=== PATIENT | female | born 1965 | race Caucasian/White ===

== ENCOUNTER 2016-10-30 06:24 | Day surgery (SDC) | payer BC ==
[2016-10-25 12:07] VITALS: BMI 29.8
[~2016-10-30 06:24] MED LIST: DEXAMETHASONE SOD PHOSPHATE 10 MG/ML 1 ML VIAL IV ONE; HEPARIN SODIUM,PORCINE 5,000 UNIT/ML 1 ML VIAL SQ ONE; HYDROmorphone 1 MG/ML 1 ML SYRINGE IVP PRN; LACTATED RINGERS 1,000 ML IV SCH; LIDOCAINE 1% 20 ML VIAL (10MG/ML) FOR IV START INTRADERMA PRN; SCOPOLAMINE 1.5MG/72HR PATCH TRANSDERM ONE; ceFAZolin 2 GM in SODIUM CHLORIDE 0.9% 100 ML IVPB ONE
[2016-10-30 07:13] VITALS: RESP 16; TEMP 98.6
[2016-10-30] MEDS ORDERED: HEPARIN SODIUM,PORCINE 100 UNIT/ML 5 ML VIAL IV ONE ×2 (07:24→08:13)
[2016-10-30] MEDS ORDERED: LIDOCAINE 1% INJ 10MG/ML (20 ML MDV) SQ ONE ×3 (07:25→08:13)
--- NOTE | 2016-10-30 07:47 | P.GSHP ---
History of Present Illness H&P Date: 10/30/16 Chief Complaint: Lung cancer Patient here today for Port-A-Cath placement. She has a recent diagnosis of lung cancer. Mild shortness of breath at times. Cancers right-sided. No pain currently Past Medical History Past Medical History: Cancer, GERD/Reflux Additional Past Medical History / Comment(s): RIGHT LUNG CANCER (DX AUG 2016)- RECEIVING RADIATION [place]., VARICOSE VEINS, STATES CHEST PAIN FROM COUGHING AT TIMES. History of Any Multi-Drug Resistant Organisms: None Reported Past Surgical History: Orthopedic Surgery, Tubal Ligation Additional Past Surgical History / Comment(s): foot surgery., LUNG BX Past Anesthesia/Blood Transfusion Reactions: No Reported Reaction Past Psychological History: No Psychological Hx Reported Smoking Status: Former smoker Past Alcohol Use History: Rare Additional Past Alcohol Use History / Comment(s): SMOKED 1 PPD FOR 30-35 YEARS. QUIT SMOKING AUG 2016 Past Drug Use History: None Reported - Past Family History Father Family Medical History: Cancer Additional Family Medical History / Comment(s): lung cancer Medications and Allergies Home Medications Medication Instructions Recorded Confirmed Type Multivitamins, Thera [Multivitamin] 1 tab PO DAILY 09/14/16 10/25/16 History Albuterol Nebulized [Ventolin 2.5 mg INHALATION Q4-6H 10/25/16 10/25/16 History Nebulized] Folic Acid 1 mg PO DAILY 10/25/16 10/25/16 History Furosemide [Lasix] 20 mg PO DIRECTED PRN 10/25/16 10/25/16 History HYDROcodone/APAP 5-325MG [[place] 1 each PO DIRECTED PRN 10/25/16 10/25/16 History 5-325] Ibuprofen [Motrin] 200 - 400 mg PO DIRECTED PRN 10/25/16 10/25/16 History Maalox/Benadryl Mix 1 dose PO QID PRN 10/25/16 History Ondansetron HCl 8 mg PO Q8HR PRN 10/25/16 10/25/16 History Tiotropium [place] [Spiriva] 1 cap INHALATION DAILY 10/25/16 10/25/16 History guaiFENesin/CODEINE PHOSPHATE 2 tsp PO TID PRN 10/25/16 10/25/16 History [Cheratussin AC Syrup] Allergies Allergy/AdvReac Type Severity Reaction Status Date / Time No Known Allergies Allergy Verified 10/25/16 11:47 Surgical - Exam Vital Signs Temp Pulse Resp BP Pulse Ox 98.6 F 116 H 16 104/64 93 L 10/30/16 07:00 10/30/16 07:00 10/30/16 07:00 10/30/16 07:00 10/30/16 07:00 Physical exam: General: Well-developed, well-nourished HEENT: Normocephalic, sclerae nonicteric Abdomen: Nontender, nondistended Extremities: No edema Neuro: Alert and oriented Assessment and Plan (1) Adenocarcinoma of lung Narrative/Plan: Will proceed with Port-A-Cath placement today. The risks of bleeding, infection , pneumothorax, DVT, catheter malfunction were discussed. She understands and wishes to proceed. Status: Acute
[2016-10-30] MEDS ORDERED: MIDAZOLAM 2 MG/2 ML VIAL ONE (07:56)
[2016-10-30] MEDS ORDERED: SODIUM CHLORIDE 0.9% 100 ML BAG ONE (07:56)
[2016-10-30] MEDS ORDERED: fentaNYL (PF) 50 MCG/ML 2 ML AMP ONE (07:56)
[2016-10-30] MEDS ORDERED: PROPOFOL 10 MG/ML 20 ML VIAL IV ONE (07:56)
[2016-10-30] MEDS ORDERED: ceFAZolin 1,000 MG VIAL ONE (07:56)
[2016-10-30] MEDS ORDERED: NALOXONE 0.4 MG/ML 1 ML VIAL IV PRN (09:10)
--- NOTE | 2016-10-30 09:12 | P.PCN ---
Date of Procedure: 10/30/16 Procedure(s) Performed: PREOPERATIVE DIAGNOSIS: Lung cancer POSTOPERATIVE DIAGNOSIS: Same PROCEDURE: Port-A-Cath placement SURGEON: Mary EBL: Minimal ANESTHESIA: Sedation COMPLICATIONS: None OPERATIVE PROCEDURE: Patient was brought and placed on the operative table in the supine position. The patient was sedated per anesthesia that time. The chest and neck were prepped and draped in usual sterile fashion. The ultrasound probe was used to identify the location of the right internal jugular vein. The skin was localized with lidocaine. The Seldinger needle was advanced into the IJ under ultrasound guidance. The wire was advanced through the needle under fluoroscopic guidance into the superior vena cava. A port pocket was created in the right infraclavicular location. The catheter was tunneled from the wire entrance site to the port pocket. The port was then connected to the catheter. The dilator introducer was threaded over the guidewire. The guidewire and dilator were then removed. The catheter was advanced through the introducer and introducer was then removed. The tip was seen to be in the right atrial junction. Port was flushed with both saline and a Hep-Lock solution. There was good flow both in and out of the port. The port was sutured in underlying tissues using 3-0 Vicryl sutures. The subcutaneous tissues were reapproximated using 3-0 Vicryl sutures and the skin at both locations using 4-0 Monocryl sutures. The port was accessed with a Hess needle left in place. Steri-Strips and sterile dressings then applied. DISPOSITION: Stable to recovery room
--- NOTE | 2016-10-30 09:18 | FL ---
EXAMINATION TYPE: FL guided central line placemt DATE OF EXAM: 10/30/2016 8:39 AM COMPARISON: NONE HISTORY: Port-A-Cath insertion Fluoroscopy support supplied to the referring clinician. See dictated report from general surgery, 7 seconds fluoroscopy time, intraoperative C-arm image documents the procedure
--- NOTE | 2016-10-30 09:37 | XR ---
EXAMINATION TYPE: XR chest 1V confirm line [facility] DATE OF EXAM: 10/30/2016 9:24 AM COMPARISON: Prior chest x-ray 14 September 2016 HISTORY: Status post Port-A-Cath placement TECHNIQUE: Single frontal view of the chest is obtained. FINDINGS: There is been interval placement of a right sided Port-A-Cath, distal tip coursing towards the cavoatrial junction level. [place] of the catheter is not identified. Right jugular approach is johnny pected. No evident pneumothorax. Consolidation persists at the right lung base. IMPRESSION: No evident complication status post Port-A-Cath placement.
[2016-10-30 10:03] VITALS: BP 100/67; PULSE 110
== END 2016-10-30 10:54 | disposition home or self-care (01) ==
LOC: OR 06:24
PROVIDERS: ATTEND Surgery
DX: Z45.2 Encounter for adjustment and management of vascular access device (principal); C34.90 Malignant neoplasm of unspecified part of unspecified bronchus or lung; R60.0 Localized edema; K21.9 Gastro-esophageal reflux disease without esophagitis; Z79.1 Long term (current) use of non-steroidal anti-inflammatories (NSAID); Z79.891 Long term (current) use of opiate analgesic; Z79.899 Other long term (current) drug therapy; Z92.3 Personal history of irradiation; Z87.891 Personal history of nicotine dependence
CPT/HCPCS: 36561; 81025; 77001; C1788; J2250; J1644; J1642; J0690; J2001; J3010; J2704; 99152; 99153

== ENCOUNTER → 2016-12-19 | Outpatient (CLI) | payer BC ==
[2016-12-19 14:29] LABS: Blood Urea Nitrogen 17 mg/dL (7-17); Non-African American GFR(MDRD) >60 (>60 ml/min/1.73 sqM)
--- NOTE | 2016-12-19 15:49 | CT ---
EXAMINATION TYPE: CT ChestAbdPelvis w con DATE OF EXAM: 12/19/2016 3:34 PM COMPARISON: 09/14/2016, 09/21/2016 HISTORY: Lung cancer follow-up. CT DLP: 1769.00 mGycm Automated exposure control for dose reduction was used. CONTRAST: CT scan of the chest, abdomen and pelvis is performed with Oral Contrast and with IV Contrast, patien t injected with 100 mL of Omnipaque 300. FINDINGS: LUNGS: Emphysematous changes are noted. Is a large mass within the anterior segment of the right uppe r lobe measuring 5.3 x 5.2 cm. Small amount of adjacent pleural fluid noted. There may be a tiny 1% l oculated hydropneumothorax. Left lung is clear. There remains bronchial wall thickening involving the right mainstem bronchus. The degree of hilar ad enopathy appears to be reduced now measuring 2 cm in short axis and previously measuring 2.5 cm in sh ort axis. Subcarinal adenopathy now measures 1.5 cm in short axis appears reduced. OTHER: No additional significant abnormality is seen. LIVER/GB: No significant abnormality is appreciated. PANCREAS: No significant abnormality is seen. SPLEEN: No significant abnormality is seen. ADRENALS: There is reduction in size of the left adrenal mass or periadrenal adenopathy which now hardik sures approximately 1 cm.. KIDNEYS: No significant abnormality is seen. BOWEL: No significant abnormality is seen. LYMPH NODES: Joanne noted. Gastric and retroperitoneal lymph nodes also appear reduced in size relati ve to the previous exam with the largest measuring a short axis of 1.1 cm and previously measuring sh ort axis and 1.7 cm. OSSEOUS STRUCTURES: No significant abnormality is seen. IMPRESSION: 1. Interval reduction in size of right hilar adenopathy and right-sided lung mass which now measures approximately 9.3 x 5.2 cm and previously measured 7.2 x 7.6 cm. 2. Interval reduction in the hilar, mediastinal and intra-abdominal and retroperitoneal adenopathy re lative to the previous exam as measured above.
== END ==
LOC: RADPROMAIN 13:35
PROVIDERS: ATTEND Internal Medicine Hematology & Oncology
DX: C34.90 Malignant neoplasm of unspecified part of unspecified bronchus or lung (principal); R59.0 Localized enlarged lymph nodes; R91.8 Other nonspecific abnormal finding of lung field
CPT/HCPCS: 82565; 84520; 71260; 74177; 36415; Q9967

== ENCOUNTER 2017-01-31 08:31 | Day surgery (SDC) | payer BC ==
[2017-01-28 11:29] VITALS: BMI 31.5
[~2017-01-31 08:31] MED LIST changes: -DEXAMETHASONE SOD PHOSPHATE 10 MG/ML 1 ML VIAL IV ONE; -HEPARIN SODIUM,PORCINE 5,000 UNIT/ML 1 ML VIAL SQ ONE; -HYDROmorphone 1 MG/ML 1 ML SYRINGE IVP PRN; -LIDOCAINE 1% 20 ML VIAL (10MG/ML) FOR IV START INTRADERMA PRN; -SCOPOLAMINE 1.5MG/72HR PATCH TRANSDERM ONE; -ceFAZolin 2 GM in SODIUM CHLORIDE 0.9% 100 ML IVPB ONE
[2017-01-31] MEDS ORDERED: LACTATED RINGERS 1,000 ML IV ONE (08:43)
[2017-01-31 08:47] VITALS: RESP 18; TEMP 98
[2017-01-31] MEDS ORDERED: LIDOCAINE 1% 20 ML VIAL (10MG/ML) FOR IV START INTRADERMA ONE (08:55)
[2017-01-31] MEDS ORDERED: LIDOCAINE 1% INJ 10MG/ML (20 ML MDV) ONE (09:46)
[2017-01-31] MEDS ORDERED: PROPOFOL 10 MG/ML 20 ML VIAL IV ONE (09:46)
--- NOTE | 2017-01-31 09:53 | P.GSHP ---
History of Present Illness H&P Date: 01/31/17 Chief Complaint: Colon cancer screening Patient her today for colonoscopy. She has no bowel related. Purpose of the study is colon cancer screening. No family history of colon cancer. The patient doesn't personal history of lung cancer currently going to therapy. Past Medical History Past Medical History: Cancer, GERD/Reflux Additional Past Medical History / Comment(s): STAGE 4 LUNG CANCER History of Any Multi-Drug Resistant Organisms: None Reported Past Surgical History: Orthopedic Surgery, Tubal Ligation Additional Past Surgical History / Comment(s): LT foot surgery., Past Anesthesia/Blood Transfusion Reactions: No Reported Reaction Past Psychological History: No Psychological Hx Reported Smoking Status: Former smoker Past Alcohol Use History: Rare Additional Past Alcohol Use History / Comment(s): QUIT AUGUST 2016 Past Drug Use History: None Reported - Past Family History Father Family Medical History: Cancer Additional Family Medical History / Comment(s): lung cancer Medications and Allergies Home Medications Medication Instructions Recorded Confirmed Type Multivitamins, Thera [Multivitamin 1 tab PO DAILY 09/14/16 01/28/17 History (formulary)] Folic Acid 1 mg PO DAILY 10/25/16 01/31/17 History Tiotropium [place] [Spiriva] 1 cap INHALATION DAILY 10/25/16 01/31/17 History Allergies Allergy/AdvReac Type Severity Reaction Status Date / Time No Known Allergies Allergy Verified 01/28/17 11:23 Surgical - Exam Vital Signs Temp Pulse Resp BP Pulse Ox 98.0 F 98 18 143/87 98 01/31/17 08:47 01/31/17 08:47 01/31/17 08:47 01/31/17 08:47 01/31/17 08:47 Physical exam: General: Well-developed, well-nourished HEENT: Normocephalic, sclerae nonicteric Abdomen: Nontender, nondistended Extremities: No edema Neuro: Alert and oriented Assessment and Plan (1) Colon cancer screening Narrative/Plan: Will proceed with colonoscopy at this time. Status: Acute
--- NOTE | 2017-01-31 10:11 | P.PCN ---
Date of Procedure: 01/31/17 Procedure(s) Performed: PREOPERATIVE DIAGNOSIS: Colon cancer screening POSTOPERATIVE DIAGNOSIS: Diverticulosis PROCEDURE: Colonoscopy ANESTHESIA: MAC SURGEON: Juan Hernandez M.D. SPECIMENS: None ENDOSCOPIC PROCEDURE: The patient was placed on the endoscopy table in the left decubitus position. The Olympus colonoscope was inserted into the anus and passed under direct visualization to the base of the cecum. The appendiceal orifice was visualized. From that point the scope was slowly withdrawn inspecting all surfaces carefully. There were no neoplastic inflammatory or polypoid lesions throughout the cecum, ascending, transverse, descending, sigmoid and rectum. There was moderate diverticulosis noted throughout the left colon. Digital rectal examination was normal. The patient was taken to the recovery room in stable condition per anesthesia guidelines. RECOMMENDATIONS: Increase fiber. Follow-up colonoscopy 10 years.
[2017-01-31 10:32] VITALS: BP 119/72; PULSE 88
== END 2017-01-31 11:03 | disposition home or self-care (01) ==
LOC: ORWHC2ENDO 08:31
PROVIDERS: ATTEND Surgery
DX: Z12.11 Encounter for screening for malignant neoplasm of colon (principal); K57.30 Diverticulosis of large intestine without perforation or abscess without bleeding; C34.90 Malignant neoplasm of unspecified part of unspecified bronchus or lung; K21.9 Gastro-esophageal reflux disease without esophagitis; J44.9 Chronic obstructive pulmonary disease, unspecified; Z79.899 Other long term (current) drug therapy; Z87.891 Personal history of nicotine dependence; Z80.1 Family history of malignant neoplasm of trachea, bronchus and lung
CPT/HCPCS: 81025; J2001; J2704; G0121

== ENCOUNTER → 2017-04-04 | Outpatient (CLI) | payer OTHER ==
[2017-04-04 08:21] LABS: Blood Urea Nitrogen 14 mg/dL (7-17); Non-African American GFR(MDRD) >60 (>60 ml/min/1.73 sqM)
--- NOTE | 2017-04-04 09:16 | CT ---
EXAMINATION TYPE: CT ChestAbdPelvis w con DATE OF EXAM: 04/04/2017 COMPARISON: NONE HISTORY: Follow up to lung CA CT DLP: 1820 mGycm Automated exposure control for dose reduction was used. CONTRAST: CT scan of the chest, abdomen and pelvis is performed with Oral Contrast and with IV Contrast, patien t injected with 100 mL of Omnipaque 300. FINDINGS: LUNGS: Emphysematous changes are noted. There is a large mass within the anterior segment of the righ t upper lobe measuring 5.3 x 5.2 cm. Small pleural effusion on the right. There are now subsegmental areas of consolidation within the right upper lobe. Left lung is clear. Th ere remains bronchial wall thickening involving the right mainstem bronchus. The degree of hilar omaira opathy appears to be stable. Subcarinal adenopathy now measures 1 cm in short axis appears stable. Me diport catheter noted. OTHER: No additional significant abnormality is seen. LIVER/GB: No significant abnormality is appreciated. PANCREAS: No significant abnormality is seen. SPLEEN: No significant abnormality is seen. ADRENALS: There is reduction in size of the left adrenal mass or periadrenal adenopathy which now hardik sures approximately 1 cm.. KIDNEYS: No significant abnormality is seen. BOWEL: Diverticulosis of the colon noted. LYMPH NODES: There is stable subcarinal and right-sided hilar adenopathy with peribronchial wall thic kening on the right. [place] adenopathy abdominal and retroperitoneal. No pathologic adenopathy within the abdomen or pelvis. OSSEOUS STRUCTURES: No significant abnormality is seen. IMPRESSION: 1. Stable right hilar adenopathy and right-sided lung mass which now measures approximately 5.3 x 5.2 cm. There now is central lucency within the mass suggestive of an area of necrosis or cavitation whi ch may be post therapeutic rather than infectious. Correlate clinically. 2. Stable the hilar, mediastinal and intra-abdominal and retroperitoneal adenopathy relative to the p revious exam. 3. Small right pleural effusion slightly increased from the previous exam. 4. Interval development poorly defined patchy infiltrates within the right lung involving all lobes. Could been the basis of posterior radiation pneumonitis if the patient's had recent radiation treatme nt. Otherwise consider inflammatory or infectious pneumonitis. 5. COPD
== END | disposition home or self-care (01) ==
LOC: RADCTMAIN 06:47
PROVIDERS: ATTEND Internal Medicine Hematology & Oncology
DX: J90 Pleural effusion, not elsewhere classified (principal); J44.9 Chronic obstructive pulmonary disease, unspecified; C34.2 Malignant neoplasm of middle lobe, bronchus or lung; R59.0 Localized enlarged lymph nodes; R91.8 Other nonspecific abnormal finding of lung field
CPT/HCPCS: 82565; 84520; 71260; 74177; Q9967

== ENCOUNTER → 2017-06-30 | Outpatient (CLI) | payer OTHER ==
[2017-06-30 14:07] LABS: Blood Urea Nitrogen 13 mg/dL (7-17); Non-African American GFR(MDRD) >60 (>60 ml/min/1.73 sqM)
--- NOTE | 2017-06-30 15:54 | CT ---
EXAMINATION TYPE: CT ChestAbdPelvis w con DATE OF EXAM: 06/30/2017 COMPARISON: Prior dated 04/04/2017 HISTORY: Follow up for lung CA. CT DLP: 1388.7 mGycm Automated exposure control for dose reduction was used. CONTRAST: CT scan of the chest, abdomen and pelvis is performed with Oral Contrast and with IV Contrast, patien t injected with 100 mL of Omnipaque 300. FINDINGS: LUNGS: Cavitary right middle lobe lung mass measures approximately 5.1 cm in greatest dimension and m easures approximately 6 cm on prior exam. There is some immediately adjacent fluid is likely loculate d anterior to the mass. Right pleural effusion again seen. Some additional parenchymal bandlike inter stitial densities present similar to prior exam, air bronchograms have developed somewhat peripherall y in the right lower lobe of the medial aspect. Emphysematous changes are present bilaterally. MEDIASTINUM: Central venous catheter courses via the internal jugular approach on the right to the [place] of the right atrium. The mediastinum shows some increased attenuation within the fat as compared to prior exam. No evident adenopathy. AORTA: No significant abnormality is seen. OTHER: No additional significant abnormality is seen. LIVER/GB: Liver shows low attenuation possibly due to hepatic steatosis. Borderline enlargement. PANCREAS: No significant abnormality is seen. SPLEEN: No significant abnormality is seen. ADRENALS: No significant abnormality is seen. KIDNEYS: No significant abnormality is seen. REPRODUCTIVE ORGANS: No gross abnormality seen. BOWEL: Diverticular changes associated with the sigmoid colon. FREE AIR: No Free Air visible. ASCITES: None seen. RETROPERITONEAL ADENOPATHY: Small retroperitoneal nodes show stable appearance. LYMPH NODES: No greater than 1 cm abdominal or pelvic lymph nodes are appreciated. URINARY BLADDER: No significant abnormality is seen. PELVIC ADENOPATHY: None visualized. OSSEOUS STRUCTURES: No significant abnormality is seen. IMPRESSION: Some evidence of treatment response, possibly radiation treatment changes.
== END | disposition home or self-care (01) ==
LOC: RADPROMAIN 13:30
PROVIDERS: ATTEND Internal Medicine Hematology & Oncology
DX: C34.2 Malignant neoplasm of middle lobe, bronchus or lung (principal)
CPT/HCPCS: 82565; 84520; 71260; 74177; 36415; Q9967; J1642

== ENCOUNTER → 2017-07-03 | Outpatient (CLI) | payer OTHER ==
--- NOTE | 2017-07-03 11:50 | US ---
EXAMINATION TYPE: US venous doppler duplex LE LT DATE OF EXAM: 07/03/2017 11:24 AM COMPARISON: US bilateral venous September 14, 2016 CLINICAL HISTORY: R22.42 Swelling L leg. Pt having redness left medial ankle, currently on chemo for lung CA SIDE PERFORMED: Left TECHNIQUE: The lower extremity deep venous system is examined utilizing real time linear array sonog luidmila with graded compression, doppler sonography and color-flow sonography. VESSELS IMAGED: External Iliac Vein (EIV) Common Femoral Vein Deep Femoral Vein Greater Saphenous Vein * Femoral Vein Popliteal Vein Small Saphenous Vein * Proximal Calf Veins (* superficial vessels) Left Leg: Negative for DVT, no abnormality visualized at left medial ankle where pt is having rednes s Grayscale, color doppler, spectral doppler imaging performed of the deep veins of the left lower extr emity. There is normal flow, compressibility, vascular waveforms. IMPRESSION: No ultrasound evidence for acute DVT in the left lower extremity. Scanning at area of re dness medial ankle shows no worrisome solid or cystic mass or fluid collection.
== END | disposition home or self-care (01) ==
LOC: RADUSWWP 11:22
PROVIDERS: ATTEND Internal Medicine Hematology & Oncology
DX: R22.42 Localized swelling, mass and lump, left lower limb (principal)

== ENCOUNTER → 2017-07-31 | Outpatient (CLI) | payer OTHER ==
--- NOTE | 2017-08-01 14:27 | MM ---
Reason for exam: screening (asymptomatic). History: Patient history of other cancer. Physical Findings: A clinical breast exam by your physician is recommended on an annual basis and results should be correlated with mammographic findings. MG Screening Mammo w CAD Bilateral CC and MLO view(s) were taken. No prior studies available for comparison. There are scattered fibroglandular densities. No suspicious abnormality. ASSESSMENT: Negative, BI-RAD 1 RECOMMENDATION: Routine screening mammogram of both breasts in 1 year.
== END | disposition home or self-care (01) ==
LOC: RADMAMWWP 09:25
PROVIDERS: ATTEND Family Medicine
DX: Z12.31 Encounter for screening mammogram for malignant neoplasm of breast (principal)

== ENCOUNTER 2017-11-24 18:45 | Observation (INO) | payer OTHER ==
[2017-11-24] MEDS ORDERED: MORPHINE SULFATE 4 MG/ML SYRINGE IV STA (21:51)
[2017-11-24] MEDS ORDERED: ONDANSETRON 4 MG/2 ML VIAL IVP STA (21:53)
--- NOTE | 2017-11-24 21:53 | ED ---
Abdominal Pain HPI - General Chief Complaint: Abdominal Pain Stated Complaint: Abdominal Pain Time Seen by Provider: 11/24/17 21:37 Source: patient, family Mode of arrival: ambulatory Limitations: no limitations - History of Present Illness Initial Comments: This patient is a 52-year-old woman presenting for reevaluation of left flank pain. She states this is been going on since about 10 PM on November 22. She was seen here for the same pain yesterday. She describes it as somewhat colicky , crampy in nature, she states when the pain is bad it lasts for a few minutes, and then there is somewhat variable time until it gets severe again. She has not been able to identify any worsening or relieving factors. She has had some accompanying nausea. Since leaving here yesterday, she went home and try managing with the [place] that she was given but states that it gives only minimal relief. She believes her pain is a little worse than it was yesterday. MD Complaint: flank pain Location: L flank Radiation: none Migration to: no migration Severity: moderate Quality: cramping Consistency: colicky Improves With: nothing Worsens With: nothing Associated Symptoms: nausea - Related Data Home Medications Medication Instructions Recorded Confirmed Multivitamins, Thera [Multivitamin 1 tab PO DAILY 09/14/16 11/24/17 (formulary)] Folic Acid 1 mg PO DAILY 10/25/16 11/24/17 Albuterol Inhaler [Ventolin Hfa 1 - 2 puff INHALATION RT-Q6H PRN 11/23/17 Inhaler] Albuterol Nebulized [Ventolin 2.5 mg INHALATION RT-BID 11/23/17 11/24/17 Nebulized] Previous Rx's Medication Instructions Recorded Pantoprazole [Protonix] 40 mg PO AC-BRKFST #30 tablet. 09/19/16 Ondansetron Odt [Zofran ODT] 4 mg PO Q8HR PRN #20 tab 11/23/17 Gabapentin [Neurontin] 300 mg PO TID #90 cap 11/25/17 Ibuprofen [Motrin] 400 mg PO Q6HR PRN #120 tab 11/25/17 oxyCODONE-APAP 7.5-325MG [Percocet 1 each PO Q6HR #40 tab 11/25/17 7.5-325 mg] Allergies Allergy/AdvReac Type Severity Reaction Status Date / Time No Known Allergies Allergy Verified 11/25/17 02:53 Review of Systems ROS Statement: Those systems with pertinent positive or pertinent negative responses have been documented in the HPI. ROS Other: All systems not noted in ROS Statement are negative. Constitutional: Denies: fever, chills Respiratory: Denies: cough, dyspnea Cardiovascular: Denies: chest pain, palpitations, edema, syncope Gastrointestinal: Reports: abdominal pain, nausea. Denies: vomiting, diarrhea, melena, hematochezia Genitourinary: Denies: dysuria, hematuria Musculoskeletal: Reports: back pain Skin: Denies: rash Neurological: Denies: headache, weakness, numbness Past Medical History Past Medical History: Cancer, GERD/Reflux Additional Past Medical History / Comment(s): RIGHT LUNG CANCER (DX AUG 2016)- RECEIVING RADIATION [place]., VARICOSE VEINS, STATES CHEST PAIN FROM COUGHING AT TIMES. History of Any Multi-Drug Resistant Organisms: None Reported Past Surgical History: Orthopedic Surgery, Tubal Ligation Additional Past Surgical History / Comment(s): foot surgery., LUNG BX Past Anesthesia/Blood Transfusion Reactions: No Reported Reaction Past Psychological History: No Psychological Hx Reported Smoking Status: Former smoker Past Alcohol Use History: Rare Past Drug Use History: None Reported - Past Family History Father Family Medical History: Cancer Additional Family Medical History / Comment(s): lung cancer Mother Family Medical History: COPD General Exam Limitations: no limitations General appearance: alert, in no apparent distress Head exam: Present: atraumatic, normocephalic Eye exam: Present: normal appearance. Absent: scleral icterus, conjunctival injection Neck exam: Present: normal inspection, full ROM Respiratory exam: Present: normal lung sounds bilaterally. Absent: respiratory distress, wheezes, rales, rhonchi, stridor Cardiovascular Exam: Present: regular rate, normal rhythm, normal heart sounds. Absent: systolic murmur, diastolic murmur, rubs, gallop GI/Abdominal exam: Present: soft, tenderness (There is very minimal left sided abdominal tenderness without rebound or guarding), normal bowel sounds. Absent : distended, guarding, rebound, rigid, mass, pulsatile mass, hernia Extremities exam: Present: normal inspection, normal capillary refill. Absent: pedal edema, calf tenderness Back exam: Present: normal inspection. Absent: CVA tenderness (R), CVA tenderness (L) Neurological exam: Present: alert Skin exam: Present: warm, dry, intact, normal color. Absent: rash Course Vital Signs 11/24/17 11/24/17 11/24/17 20:00 22:49 23:56 Temperature 98.4 F Pulse Rate 87 95 98 Respiratory 20 18 18 Rate Blood Pressure 140/73 149/89 141/81 O2 Sat by Pulse 95 96 94 L Oximetry 11/25/17 11/25/17 02:13 02:28 Temperature 98.4 F Pulse Rate 95 96 Respiratory 18 18 Rate Blood Pressure 142/76 136/76 O2 Sat by Pulse 96 100 Oximetry Medical Decision Making - Lab Data Result diagrams: 11/24/17 22:17 11/24/17 22:17 Lab Results 11/24/17 11/24/17 11/24/17 Range/Units 22:17 22:17 22:40 WBC 8.9 (3.8-10.6) k/uL RBC 4.56 (3.80-5.40) m/uL Hgb 13.1 (11.4-16.0) gm/dL Hct 41.1 (34.0-46.0) % MCV 90.1 (80.0-100.0) fL MCH 28.7 (25.0-35.0) pg MCHC 31.8 (31.0-37.0) g/dL RDW 17.2 H (11.5-15.5) % Plt Count 330 (150-450) k/uL Neutrophils % 79 % Lymphocytes % 12 % Monocytes % 5 % Eosinophils % 2 % Basophils % 0 % Neutrophils # 7.1 (1.3-7.7) k/uL Lymphocytes # 1.0 (1.0-4.8) k/uL Monocytes # 0.4 (0-1.0) k/uL Eosinophils # 0.2 (0-0.7) k/uL Basophils # 0.0 (0-0.2) k/uL Hypochromasia Slight Anisocytosis Slight Sodium 138 (137-145) mmol/L Potassium 4.3 (3.5-5.1) mmol/L Chloride 101 (98-107) mmol/L Carbon Dioxide 26 (22-30) mmol/L Anion Gap 11 mmol/L BUN 12 (7-17) mg/dL Creatinine 0.68 (0.52-1.04) mg/dL Est GFR (MDRD) Af Amer >60 (>60 ml/min/1.73 sqM) Est GFR (MDRD) Non-Af >60 (>60 ml/min/1.73 sqM) Glucose 121 H (74-99) mg/dL Calcium 9.8 (8.4-10.2) mg/dL Total Bilirubin 0.4 (0.2-1.3) mg/dL AST 32 (14-36) U/L ALT 29 (9-52) U/L Alkaline Phosphatase 145 H (38-126) U/L Total Protein 7.4 (6.3-8.2) g/dL Albumin 3.8 (3.5-5.0) g/dL Amylase 95 (30-110) U/L Lipase 91 (23-300) U/L Urine Color Yellow Urine Appearance Cloudy H (Clear) Urine pH 5.5 (5.0-8.0) Ur Specific [place] 1.024 (1.001-1.035) Urine Protein 2+ H (Negative) Urine Glucose (UA) Negative (Negative) Urine Ketones 1+ H (Negative) Urine Blood Negative (Negative) Urine Nitrite Negative (Negative) Urine Bilirubin Negative (Negative) Urine Urobilinogen <2.0 (<2.0) mg/dL Ur Leukocyte Esterase Trace H (Negative) Urine RBC 41 H (0-5) /hpf Urine WBC 5 (0-5) /hpf Ur Squamous Epith Cells 11 H (0-4) /hpf Hyaline Casts 6 H (0-2) /lpf Urine Mucus Occasional H (None) /hpf Disposition Clinical Impression: Acute left flank pain Disposition: ADMITTED IP TO THIS HOSP Condition: Fair
[2017-11-24 22:28] LABS: Anisocytosis Slight; Basophils % (A) 0 %; Eosinophils # (A) 0.2 k/uL (0-0.7); Eosinophils % (A) 2 %; HCT 41.1 % (34.0-46.0); HGB 13.1 gm/dL (11.4-16.0); Hypochromasia Slight; Lymphocytes % (A) 12 %; MCH 28.7 pg (25.0-35.0); MCHC 31.8 g/dL (31.0-37.0); MCV 90.1 fL (80.0-100.0); Mean Platelet Volume 6.8; Monocytes # (A) 0.4 k/uL (0-1.0); Monocytes % (A) 5 %; Neutrophils # (A) 7.1 k/uL (1.3-7.7); Neutrophils % (A) 79 %; Platelet Count 330 k/uL (150-450); RBC 4.56 m/uL (3.80-5.40); RDW 17.2 % (11.5-15.5); WBC 8.9 k/uL (3.8-10.6)
[2017-11-24 22:36] LABS: ALT 29 U/L (9-52); AST 32 U/L (14-36); Albumin 3.8 g/dL (3.5-5.0); Alkaline Phosphatase 145 U/L (38-126); Amylase 95 U/L (30-110); Anion Gap 11 mmol/L; Blood Urea Nitrogen 12 mg/dL (7-17); Calcium 9.8 mg/dL (8.4-10.2); Carbon Dioxide 26 mmol/L (22-30); Chloride 101 mmol/L (98-107); Glucose 121 mg/dL (74-99); Lipase 91 U/L (23-300); Potassium 4.3 mmol/L (3.5-5.1); Sodium 138 mmol/L (137-145); Total Bilirubin 0.4 mg/dL (0.2-1.3); Total Protein 7.4 g/dL (6.3-8.2)
[2017-11-24 22:49] LABS: Appearance,Urine Cloudy (Clear); Bilirubin,Urine Negative (Negative); Blood,Urine Negative (Negative); Color,Urine Yellow; Glucose,Urine (UA) Negative (Negative); Hyaline Casts,Urine 6 /lpf (0-2); Ketones,Urine 1+ (Negative); Leukocyte Esterase,Urine Trace (Negative); Mucus,Urine Occasional /hpf; Nitrite,Urine Negative (Negative); PH, Urine 5.5 (5.0-8.0); Protein,Urine 2+ (Negative); RBC,Urine 41 /hpf (0-5); Specific Gravity,Urine 1.024 (1.001-1.035); Squamous Epithelial Cell,Urine 11 /hpf (0-4); Urobilinogen,Urine <2.0 mg/dL (<2.0); WBC,Urine 5 /hpf (0-5)
[2017-11-24] MEDS ORDERED: HYDROmorphone 4 MG/ML 1 ML SYRINGE IVP STA (23:28)
[2017-11-25] MEDS ORDERED: SODIUM CHLORIDE 0.9% 1,000 ML IV ONE (00:04)
[2017-11-25 03:05] VITALS: BMI 38.0
[2017-11-25] MEDS ORDERED: ONDANSETRON ODT 4 MG TAB PO PRN (03:12)
[2017-11-25] MEDS ORDERED: HYDROmorphone 2 MG/ML 1 ML SYRINGE IVP PRN (03:21)
[2017-11-25] MEDS ORDERED: NALOXONE 0.4 MG/ML 1 ML VIAL IV PRN (06:28)
[2017-11-25] MEDS ORDERED: IPRATROPIUM-ALBUTEROL 3 ML NEB INHALATION PRN (06:30)
--- NOTE | 2017-11-25 06:45 | P.HPIM ---
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 Patient presented to the ED with a 2 day history of acute sudden onset left flank pain described as 4-5 out of 10 in severity and then increased to 7 out of 10 in severity crampy in nature comes in attacks almost every hour lasting for few minutes that feels like forever per the patient, movement and lying flat makes it worse and then morphine in the ER is the only thing that helps or with time the pain will subside. This has never happened before pain starts in the left side of the abdomen and then radiates all the way to the around the flank to the back patient denies any urinary symptoms of dysuria, frequency, bad odor, hematuria. Patient denies any fevers or chills. However she does report some nausea with severe pain. She does recall receiving some antibiotics 3 weeks ago for urinary infection that was complicated by vaginal yeast infection for which her PCP gave her Diflucan and currently has no problem with yeast infection. Patient has came to the ED the day prior and CAT scan was performed which showed slight increase in the size of the left adrenal mass with slight increase in the edema without evidence of any kidney stones. Currently patient seems to be comfortable after receiving a dose of Dilaudid she readmitted under observation for pain control and reevaluation by oncology team Patient denies any history of shingles or any rash over the area of the pain. Review of Systems Constitutional: Patient denies fever, denies chills, denies night sweating, denies significant weight changes Eyes: Patient denies visual changes, denies eye pain ENT: Patient denies ear pain, denies rhinorrhea, denies sore throat Cardiovascular: Patient denies chest pain, denies peripheral leg edema, denies orthopnea, denies paroxysmal nocturnal dyspnea Respiratory:Patient denies any changes in her chronic cough cough, denies wheezing, denies shortness of breath Gastrointestinal: Patient denies diarrhea, denies constipation, denies vomiting, reports abdominal pain as in HPI Genitourinary: Patient denies dysuria, denies hematuria, denies changes in urinary habits, denies genital lesions Musculoskeletal: Patient denies muscle pain, denies joint pain Psychiatric: Patient denies changes in mood or memory, denies suicidal ideation, denies anxiety Endocrine: Patient denies heat intolerance, denies cold intolerance, denies excessive thirst, denies polyuria Neurological: Patient denies focal neurologic deficits, denies weakness, denies numbness, denies tingling Hem/Lymphatic: Patient denies bleeding tendency, denies bruising, denies swollen lymph glands Allergic/Immun: Patient denies recent allergic reactions Skin: Patient denies rashes, denies pruritis, denies ulcers Past Medical History Past Medical History: Cancer Additional Past Medical History / Comment(s): RIGHT LUNG CANCER (DX AUG 2016)- RECEIVING RADIATION [place]., VARICOSE VEINS, STATES CHEST PAIN FROM COUGHING AT TIMES. History of Any Multi-Drug Resistant Organisms: None Reported Past Surgical History: Orthopedic Surgery, Tubal Ligation Additional Past Surgical History / Comment(s): foot surgery., LUNG BX Past Anesthesia/Blood Transfusion Reactions: No Reported Reaction Smoking Status: Former smoker - Past Family History Father Family Medical History: Cancer, COPD Additional Family Medical History / Comment(s): lung cancer Mother Family Medical History: COPD Medications and Allergies Home Medications Medication Instructions Recorded Confirmed Type Multivitamins, Thera [Multivitamin 1 tab PO DAILY 09/14/16 11/24/17 History (formulary)] Pantoprazole [Protonix] 40 mg PO AC-BRKFST #30 tablet. 09/19/16 11/24/17 Rx Folic Acid 1 mg PO DAILY 10/25/16 11/24/17 History Albuterol Inhaler [Ventolin Hfa 1 - 2 puff INHALATION RT-Q6H PRN 11/23/17 History Inhaler] Albuterol Nebulized [Ventolin 2.5 mg INHALATION RT-BID 11/23/17 11/24/17 History Nebulized] HYDROcodone/APAP 10-325MG [[place] 1 tab PO Q6H PRN #20 tab 11/23/17 11/24/17 Rx 10-325] Ondansetron Odt [Zofran Odt] 4 mg PO Q8HR PRN #20 tab 11/23/17 11/24/17 Rx Allergies Allergy/AdvReac Type Severity Reaction Status Date / Time No Known Allergies Allergy Verified 11/25/17 02:53 Physical Exam Vitals: Vital Signs Temp Pulse Pulse Resp BP BP Pulse Ox 11/25/17 03:29 16 11/25/17 02:48 98.1 F 95 16 165/74 94 L 11/25/17 02:28 98.4 F 96 18 136/76 100 11/25/17 02:13 95 18 142/76 96 11/24/17 23:56 98 18 141/81 94 L 11/24/17 22:49 95 18 149/89 96 11/24/17 20:00 98.4 F 87 20 140/73 95 Intake and Output 11/24/17 11/24/17 11/25/17 14:59 22:59 06:59 Other: # Voids 1 Weight 97.522 kg 97.5 kg Patient Weight 11/25/17 06:59 Weight 97.5 kg Constitutional: No acute distress, conversant, pleasant Eyes: Anicteric sclerae, moist conjunctiva, no lid-lag Pupils equal round reactive to light ENMT: NC/AT Oropharynx clear, no erythema, exudates Neck: Supple, FROM, no masses, or JVD No carotid bruits No thyromegaly Lungs: Clear to auscultation Clear to percussion Normal respiratory effort, no accessory muscle use Right Mediport, surrounding skin looks healthy and clean Cardiovascular: Heart regular in rate and rhythm, No murmurs, gallops, or rubs No peripheral edema Abdominal: Soft Nontender, no guarding, rebound or rigidity Abdomen moving with respiration Normoactive bowel sounds No hepatomegaly, No splenomegaly No palpable mass No abdominal wall hernia noted Palpation of the costovertebral angle is unremarkable No visible skin changes Skin: Normal temperature, tone, texture, turgor No induration No subcutaneous nodules No rash, lesions No ulcers Extremities: No digital cyanosis No clubbing Pedal pulses intact and symmetrical Radial pulses intact and symmetrical No calf tenderness Psychiatric: Alert and oriented to person, place and time Appropriate affect fair judgment Neuro Muscles Strength 5/5 in all 4 extremities Sensation to light touch grossly present throughout Cranial nerves II-XII grossly intact No focal sensory deficits Lymphatics: no palpable cervical or supraclavicular , or inguinal lymph nodes Results CBC & Chem 7: 11/24/17 22:17 11/24/17 22:17 Labs: Abnormal Lab Results - Last 24 Hours (Table) 02/05/18 02/05/18 02/05/18 Range/Units 22:17 22:17 22:40 RDW 17.2 H (11.5-15.5) % Glucose 121 H (74-99) mg/dL Alkaline Phosphatase 145 H (38-126) U/L Urine Appearance Cloudy H (Clear) Urine Protein 2+ H (Negative) Urine Ketones 1+ H (Negative) Ur Leukocyte Esterase Trace H (Negative) Urine RBC 41 H (0-5) /hpf Ur Squamous Epith Cells 11 H (0-4) /hpf Hyaline Casts 6 H (0-2) /lpf Urine Mucus Occasional H (None) /hpf Thrombosis Risk Factor Assmnt - Choose All That Apply Each Factor Represents 1 point: Age 41-60 years Thrombosis Risk Factor Assessment Total Risk Factor Score: 1 Thrombosis Risk Factor Assessment Level: Low Risk Assessment and Plan (1) Acute left flank pain Narrative/Plan: This could be related to increase in size of adrenal mass slight increase in edema Pain control Await oncology input Patient denies any urinary symptoms Current Visit: Yes Status: Acute Code(s): R10.9 - UNSPECIFIED ABDOMINAL PAIN SNOMED Code(s): 743121042 (2) Adenocarcinoma of lung Narrative/Plan: Metastatic cancer stage IV currently on maintenance therapy status post chemoradiotherapy Metastasis to the left adrenal gland Current Visit: No Status: Acute Code(s): C34.90 - MALIGNANT NEOPLASM OF UNSP PART OF UNSP BRONCHUS OR LUNG SNOMED Code(s): 518065292 (3) Retroperitoneal lymphadenopathy Current Visit: No Status: Acute Code(s): R59.0 - LOCALIZED ENLARGED LYMPH NODES SNOMED Code(s): 464386034 (4) DVT prophylaxis Narrative/Plan: Heparin subcu 3 times a day Current Visit: Yes Status: Acute Code(s): VOF9311 - SNOMED Code(s): 603628671 Plan: Preformed a thorough record review from recent hospitalization Surrogate decision-maker: Frank LÓPEZ STATUS: Full code DVT prophylaxis: Heparin SC Discussed with: Patient, ER, family, RN Anticipated discharge: <[address]: Home A total of 45 minutes were spent on the care of this complex patient more than 50% of the time was spent in counseling and care coordination.
[2017-11-25 07:26] VITALS: BP 114/72; PULSE 100; RESP 18; TEMP 97.9
[2017-11-25] MEDS ORDERED: PANTOPRAZOLE 40 MG TABLET PO SCH (07:30)
[2017-11-25] MEDS ORDERED: HEPARIN SODIUM,PORCINE 5,000 UNIT/ML 1 ML VIAL SQ SCH (08:00)
[2017-11-25] MEDS ORDERED: ALBUTEROL NEBULIZED 2.5 MG/3 ML INHALATION SCH (08:00)
[2017-11-25] MEDS ORDERED: oxyCODONE-APAP 7.5-325MG 1 EACH TAB PO PRN (08:58)
[2017-11-25] MEDS ORDERED: FOLIC ACID 1 MG TAB PO SCH (09:00)
[2017-11-25] MEDS ORDERED: MULTIVITAMINS, THERA 1 EACH TAB PO SCH (09:00)
[2017-11-25] MEDS ORDERED: GABAPENTIN 300 MG CAP PO SCH (09:00)
[2017-11-25] MEDS ORDERED: IBUPROFEN 400 MG TAB PO PRN (09:01)
--- NOTE | 2017-11-25 09:29 | P.PN ---
Progress Note - Text Progress Note Date: 11/25/17 Full consult to be dictated. Thanks Ct findings re malignancy are not too impressive, and unlikely to be causing her symptoms. No major change from before Poss renal stone , or musculoskeletal Rec D/C on Roxanol- if ok with IM
[2017-11-25] MEDS ORDERED: oxyCODONE-APAP 7.5-325MG 1 EACH TAB PO SCH (12:00)
--- NOTE | 2017-11-25 13:06 | P.DS ---
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 The patient had apparently been on [place] 10/ 325 mg every 6 hours and she was having breakthrough pain after 2-3 hours. She was given half a milligram of Dilaudid in the ER, review of her CT abdomen and pelvis showed slight increase in the size of the left adrenal mass with slight increase in the edema without evidence of any kidney stones, hence Dr. Jensen was consulted to determine if he thought the left flank plain was related to her metastatic disease. Based on the patient's pain and examined was thought that the pain was likely muscle skeletal in nature and she was discharged home in stable condition on Percocet 10/325mg PO q6, Neurontin 300 mg PO TID and ibuprofen 400 mg by mouth 3 times a day when necessary. Patient instructed to follow-up with her primary care physician Dr. Harrington in the next 5-7 days. This discharge process took less than 30 minutes Patient Condition at Discharge: Fair Plan - Discharge Summary New Discharge Prescriptions: New Gabapentin [Neurontin] 300 mg PO TID #90 cap Ibuprofen [Motrin] 400 mg PO Q6HR PRN #120 tab PRN Reason: Pain oxyCODONE-APAP 7.5-325MG [Percocet 7.5-325 mg] 1 each PO Q6HR #40 tab Continue Multivitamins, Thera [Multivitamin (formulary)] 1 tab PO DAILY Pantoprazole [Protonix] 40 mg PO AC-BRKFST #30 tablet. Folic Acid 1 mg PO DAILY Albuterol Nebulized [Ventolin Nebulized] 2.5 mg INHALATION RT-BID Albuterol Inhaler [Ventolin Hfa Inhaler] 1 - 2 puff INHALATION RT-Q6H PRN PRN Reason: Shortness Of Breath Ondansetron Odt [Zofran ODT] 4 mg PO Q8HR PRN #20 tab PRN Reason: Nausea Discontinued HYDROcodone/APAP 10-325MG [[place] 10-325] 1 tab PO Q6H PRN #20 tab PRN Reason: Pain Discharge Medication List Multivitamins, Thera [Multivitamin (formulary)] 1 tab PO DAILY 09/14/16 [History ] Pantoprazole [Protonix] 40 mg PO AC-BRKFST #30 tablet. 09/19/16 [Rx] Folic Acid 1 mg PO DAILY 10/25/16 [History] Albuterol Inhaler [Ventolin Hfa Inhaler] 1 - 2 puff INHALATION RT-Q6H PRN [History] Albuterol Nebulized [Ventolin Nebulized] 2.5 mg INHALATION RT-BID 11/23/17 [ History] Ondansetron Odt [Zofran ODT] 4 mg PO Q8HR PRN #20 tab 11/23/17 [Rx] Gabapentin [Neurontin] 300 mg PO TID #90 cap 11/25/17 [Rx] Ibuprofen [Motrin] 400 mg PO Q6HR PRN #120 tab 11/25/17 [Rx] oxyCODONE-APAP 7.5-325MG [Percocet 7.5-325 mg] 1 each PO Q6HR #40 tab 11/25/17 [ Rx] Follow up Appointment(s)/Referral(s): Pauline Harrington MD [Primary Care Provider] - 1-2 days
--- NOTE | 2017-11-25 18:13 | P.CONS ---
History of Present Illness - Reason for Consult Consult date: 11/25/17 new onset left flank pain - History of Present Illness Ms Everett is a 52 yr old WF, initially seen in consult at [facility] on 09/14/16. She had presented with b/l LE swelling, progressive over 2 days. She had had an episode of pneumonia, about 2 wks prior, improved partially with antibiotics. Dopplers of the LE, and CTA were done in the ER, revealing marked hilar and mediastinal adenopathy. CT AP revealed retroperitoneal adenopathy. CT brain was negative. Bronchoscopic biopsy on 09/17/16 was positive for poorly differentiated adeno ca of lung origin. She had a PET as an outpt, revealing uptake in the rt supraclavicular, hilar and paratracheal nodes. There was a masslike consolidation in the RML measuring 7.2 x 6.6 cm with SUV of 11.07, with central necrosis, likely the primary. Uptake was also seen in the left adrenal (2 x 1.8 cm, SUV 5.91), perigastric and retroperitoneal nodes, confirming stage 4 disease. She was seen for her 1st OV on 09/24/16. She was referred for palliative RT , pending tumor markers. EGFR/ROS1/ALK were negative and PDL1 at 20%. She completed palliative RT and started chemo with Carbo/Alimta/Avastin on 10/31. She is s/p [address] scans showed partial response, and she was switched to maintenance Alimta and avastin. She is s/p 14 cycles, with the most recent on 11/06/17. CT scans in 10/05 showed no progression. the patient stated that she had developed fairly under the rib cage to the anterior mid abdomen, late last week. This seemed to be worsened by moving around. She came into the ER, and was discharged on [place]. She states that this was ineffective. she therefore came back in to the ER. She had CT of the chest abdomen and pelvis, which showed some minimal increase in size of her known left adrenal mass. There was possibly slight increase in left retroperitoneal adenopathy, with some surrounding mild edema. Urinalysis did show significant protein. No renal stones or blood in the urine was noted. She was therefore admitted for further management, and consult placed. Review of Systems Constitutional: Denies chills, Denies fever Eyes: denies blurred vision, denies pain Ears: deny: decreased hearing, ear discharge, earache, tinnitus Ears, nose, mouth and throat: Denies headache, Denies sore throat Cardiovascular: Denies chest pain, Denies shortness of breath Respiratory: Denies cough Gastrointestinal: Denies abdominal pain, Denies diarrhea, Denies nausea, Denies vomiting Genitourinary: Reports flank pain Menstruation: Reports postmenopausal Musculoskeletal: Denies myalgias Integumentary: Denies pruritus, Denies rash Neurological: Denies numbness, Denies weakness Psychiatric: Denies anxiety, Denies depression Endocrine: Denies fatigue, Denies weight change Hematologic/Lymphatic: Reports as per HPI Past Medical History Past Medical History: Cancer Additional Past Medical History / Comment(s): RIGHT LUNG CANCER (DX AUG 2016)- RECEIVING RADIATION [place]., VARICOSE VEINS, STATES CHEST PAIN FROM COUGHING AT TIMES. History of Any Multi-Drug Resistant Organisms: None Reported Past Surgical History: Orthopedic Surgery, Tubal Ligation Additional Past Surgical History / Comment(s): foot surgery., LUNG BX Past Anesthesia/Blood Transfusion Reactions: No Reported Reaction Smoking Status: Former smoker - Past Family History Father Family Medical History: Cancer, COPD Additional Family Medical History / Comment(s): lung cancer Mother Family Medical History: COPD Medications and Allergies Home Medications Medication Instructions Recorded Confirmed Type Multivitamins, Thera [Multivitamin 1 tab PO DAILY 09/14/16 11/24/17 History (formulary)] Pantoprazole [Protonix] 40 mg PO AC-BRKFST #30 tablet. 09/19/16 11/24/17 Rx Folic Acid 1 mg PO DAILY 10/25/16 11/24/17 History Albuterol Inhaler [Ventolin Hfa 1 - 2 puff INHALATION RT-Q6H PRN 11/23/17 History Inhaler] Albuterol Nebulized [Ventolin 2.5 mg INHALATION RT-BID 11/23/17 11/24/17 History Nebulized] Ondansetron Odt [Zofran ODT] 4 mg PO Q8HR PRN #20 tab 11/23/17 11/24/17 Rx Gabapentin [Neurontin] 300 mg PO TID #90 cap 11/25/17 Rx Ibuprofen [Motrin] 400 mg PO Q6HR PRN #120 tab 11/25/17 Rx oxyCODONE-APAP 7.5-325MG [Percocet 1 each PO Q6HR #40 tab 11/25/17 Rx 7.5-325 mg] Allergies Allergy/AdvReac Type Severity Reaction Status Date / Time No Known Allergies Allergy Verified 11/25/17 02:53 Physical Exam Vitals: Vital Signs Temp Pulse Pulse Resp BP BP Pulse Ox 11/25/17 12:00 18 11/25/17 08:00 18 11/25/17 07:25 97.9 F 100 18 114/72 94 L 11/25/17 03:29 16 11/25/17 02:48 98.1 F 95 16 165/74 94 L 11/25/17 02:28 98.4 F 96 18 136/76 100 11/25/17 02:13 95 18 142/76 96 11/24/17 23:56 98 18 141/81 94 L 11/24/17 22:49 95 18 149/89 96 11/24/17 20:00 98.4 F 87 20 140/73 95 Intake and Output 11/25/17 11/25/17 11/25/17 06:59 14:59 22:59 Intake Total 600 Balance 600 Intake: Oral 600 Other: # Voids 1 Weight 97.5 kg - Constitutional General appearance: no acute distress - EENT Eyes: EOMI, PERRLA ENT: hearing grossly normal, normal oropharynx - Neck Neck: no lymphadenopathy Thyroid: bilateral: normal size - Respiratory Respiratory: bilateral: CTA - Cardiovascular Rhythm: regular Heart sounds: normal: S1, S2 - Gastrointestinal General gastrointestinal: normal bowel sounds, soft - Integumentary Integumentary: normal - Neurologic Neurologic: CNII-XII intact - Musculoskeletal Musculoskeletal: strength equal bilaterally - Psychiatric Psychiatric: A&O x's 3, appropriate affect Results CBC & Chem 7: 11/24/17 22:17 11/24/17 22:17 Labs: Abnormal Lab Results - Last 24 Hours (Table) 11/24/17 11/24/17 11/24/17 Range/Units 22:17 22:17 22:40 RDW 17.2 H (11.5-15.5) % Glucose 121 H (74-99) mg/dL Alkaline Phosphatase 145 H (38-126) U/L Urine Appearance Cloudy H (Clear) Urine Protein 2+ H (Negative) Urine Ketones 1+ H (Negative) Ur Leukocyte Esterase Trace H (Negative) Urine RBC 41 H (0-5) /hpf Ur Squamous Epith Cells 11 H (0-4) /hpf Hyaline Casts 6 H (0-2) /lpf Urine Mucus Occasional H (None) /hpf CT scan - abdomen: report reviewed CT scan - chest: report reviewed CT scan - pelvis: report reviewed Assessment and Plan (1) Acute left flank pain Narrative/Plan: The clinical presentation, especially the acute onset is not typically characteristic of cancer related pain. The CT scan findings are not very impressive and do not really indicate any definite evidence of progression. Based on her presentation, a renal origin, or muscular skeletal, is more likely. No obvious stone is seen. The patient is comfortable on her current regimen. Therefore my standpoint it can be discharged home with modification of her pain regimen. An option would be Roxanol. The regimen planned by the admitting service is also appropriate. Status: Acute Code(s): R10.9 - UNSPECIFIED ABDOMINAL PAIN SNOMED Code(s): 196150785 (2) Adenocarcinoma of lung Narrative/Plan: Diagnostic and therapeutic circumstances as described above. The patient is tolerating maintenance chemotherapy quite well. As noted these CAT scans do not really show definite evidence of progression. Therefore for now she will continue on the same regimen. She supposed to have repeat scans done next month. However in the outpatient setting if symptoms persist, imaging will be repeated as appropriate. She supposed to have an office visit next week. Status: Acute Code(s): C34.90 - MALIGNANT NEOPLASM OF UNSP PART OF UNSP BRONCHUS OR LUNG SNOMED Code(s): 196904108
== END 2017-11-25 14:35 | disposition home or self-care (01) ==
LOC: EC 18:45 → 4MS4W 11-25 00:04 → 3OBS 11-25 02:08
PROVIDERS: ADMIT Internal Medicine; ATTEND Internal Medicine
DX: R10.9 Unspecified abdominal pain (principal); R11.0 Nausea; C34.91 Malignant neoplasm of unspecified part of right bronchus or lung; C79.72 Secondary malignant neoplasm of left adrenal gland; R59.0 Localized enlarged lymph nodes; K21.9 Gastro-esophageal reflux disease without esophagitis; I83.90 Asymptomatic varicose veins of unspecified lower extremity; Z79.899 Other long term (current) drug therapy; Z87.891 Personal history of nicotine dependence; Z87.01 Personal history of pneumonia (recurrent); Z87.440 Personal history of urinary (tract) infections; Z80.1 Family history of malignant neoplasm of trachea, bronchus and lung; Z82.5 Family history of asthma and other chronic lower respiratory diseases
CPT/HCPCS: 96375 ×3; 96361 ×4; 96374 ×2; 99284 ×2; 96372; 36415; 80053; 82150; 83690; 85025; 81001; G0378 ×2; J2270; J1644; J2405; J1170

== ENCOUNTER 2018-04-12 11:26 | Emergency (ER) | payer OTHER ==
[2018-04-12 12:06] LABS: Appearance,Urine Cloudy (Clear); Bacteria,Urine Rare /hpf; Bilirubin,Urine Negative (Negative); Blood,Urine Moderate (Negative); Color,Urine Yellow; Glucose,Urine (UA) Negative (Negative); Ketones,Urine Negative (Negative); Leukocyte Esterase,Urine Large (Negative); Mucus,Urine Rare /hpf; Nitrite,Urine Negative (Negative); Protein,Urine 1+ (Negative); RBC,Urine 39 /hpf (0-5); Squamous Epithelial Cell,Urine 3 /hpf (0-4); Urobilinogen,Urine <2.0 mg/dL (<2.0); WBC,Urine >182 /hpf (0-5)
[2018-04-12] MEDS ORDERED: NITROFURANTOIN MONOHYD/M-CRYST 100 MG CAP PO STA (12:23)
[2018-04-12] MEDS ORDERED: PHENAZOPYRIDINE 100 MG TAB PO STA (12:23)
--- NOTE | 2018-04-12 12:30 | ED ---
Female Urogenital HPI - General Chief complaint: Urogenital Stated complaint: UTI Time Seen by Provider: 04/12/18 11:44 Source: patient, RN notes reviewed, old records reviewed Mode of arrival: ambulatory Limitations: no limitations - History of Present Illness Initial comments: This patient is a pleasant 52 year old female with CC of dysuria, polyuria. She has no fever or chills. Symptoms for one day, and denies back pain, nausea, vomiting. She has a history of UTI, no antibiotics for the past 2 months. She has been undergoing treatment for stage 4 lung cancer. She was last on doxycycline for antibiotic. - Related Data Home Medications Medication Instructions Recorded Confirmed Multivitamins, Thera [Multivitamin 1 tab PO DAILY 09/14/16 04/13/18 (formulary)] Folic Acid 1 mg PO DAILY 10/25/16 04/13/18 Albuterol Inhaler [Ventolin Hfa 1 - 2 puff INHALATION Q6HR PRN 11/23/17 04/13/18 Inhaler] Albuterol Nebulized [Ventolin 2.5 mg INHALATION BID 11/23/17 04/13/18 Nebulized] Pantoprazole Sodium 40 mg PO DAILY 04/09/18 04/13/18 Previous Rx's Medication Instructions Recorded Ondansetron Odt [Zofran ODT] 4 mg PO Q8HR PRN #20 tab 11/23/17 Ibuprofen [Motrin] 400 mg PO Q6HR PRN #120 tab 11/25/17 Nitrofurantoin Monohyd/M-Cryst 100 mg PO Q12HR #14 cap 04/12/18 [Macrobid] Phenazopyridine [Pyridium] 100 mg PO TID #9 tablet 04/12/18 Allergies Allergy/AdvReac Type Severity Reaction Status Date / Time No Known Allergies Allergy Verified 04/13/18 13:33 Review of Systems ROS Statement: Those systems with pertinent positive or pertinent negative responses have been documented in the HPI. ROS Other: All systems not noted in ROS Statement are negative. Past Medical History Past Medical History: Cancer, COPD, GERD/Reflux Additional Past Medical History / Comment(s): occ migraine, varicose veins, stage IV lung cancer- tx with chemo History of Any Multi-Drug Resistant Organisms: None Reported Past Surgical History: Orthopedic Surgery, Tubal Ligation Additional Past Surgical History / Comment(s): lung biopsy, left foot surgery, port inserted rt side Past Anesthesia/Blood Transfusion Reactions: No Reported Reaction Past Psychological History: No Psychological Hx Reported Smoking Status: Former smoker Past Alcohol Use History: Rare Past Drug Use History: None Reported - Past Family History Father Family Medical History: Cancer Additional Family Medical History / Comment(s): lung cancer Mother Family Medical History: COPD General Exam - General Exam Comments Initial Comments: Pleasant well appearing 52 year old female no distress. Limitations: no limitations General appearance: alert, in no apparent distress Head exam: Present: atraumatic, normocephalic, normal inspection Eye exam: Present: normal appearance, PERRL, EOMI. Absent: scleral icterus, conjunctival injection, periorbital swelling ENT exam: Present: normal exam, mucous membranes moist Neck exam: Present: normal inspection. Absent: tenderness, meningismus, lymphadenopathy Respiratory exam: Present: normal lung sounds bilaterally. Absent: respiratory distress, wheezes, rales, rhonchi, stridor Cardiovascular Exam: Present: regular rate, normal rhythm, normal heart sounds. Absent: systolic murmur, diastolic murmur, rubs, gallop, clicks GI/Abdominal exam: Present: soft, normal bowel sounds. Absent: distended, tenderness, guarding, rebound, rigid Extremities exam: Present: normal inspection, full ROM, normal capillary refill. Absent: tenderness, pedal edema, joint swelling, calf tenderness Back exam: Present: normal inspection Neurological exam: Present: alert, oriented X3, CN II-XII intact Psychiatric exam: Present: normal affect, normal mood Skin exam: Present: warm, dry, intact, normal color. Absent: rash Course Vital Signs 04/12/18 04/12/18 11:32 13:00 Temperature 98.2 F 98.0 F Pulse Rate 96 92 Respiratory 18 16 Rate Blood Pressure 158/88 162/70 O2 Sat by Pulse 93 L 96 Oximetry Medical Decision Making - Medical Decision Making 52 year old presents with one day of dysuria, polyuria, concern for UTI. No fevers or back pain. She has siginficant UTI in UA. Over 182 WBC. Patient will be started on Macrobid and pyridium. Given first dose in ED. Will DC with return parameters and all question answered. - Lab Data Lab Results 04/12/18 Range/Units 11:47 Urine Color Yellow Urine Appearance Cloudy H (Clear) Urine pH 6.0 (5.0-8.0) Ur Specific [place] 1.010 (1.001-1.035) Urine Protein 1+ H (Negative) Urine Glucose (UA) Negative (Negative) Urine Ketones Negative (Negative) Urine Blood Moderate H (Negative) Urine Nitrite Negative (Negative) Urine Bilirubin Negative (Negative) Urine Urobilinogen <2.0 (<2.0) mg/dL Ur Leukocyte Esterase Large H (Negative) Urine RBC 39 H (0-5) /hpf Urine WBC >182 H (0-5) /hpf Ur Squamous Epith Cells 3 (0-4) /hpf Urine Bacteria Rare H (None) /hpf Urine Mucus Rare H (None) /hpf Disposition Clinical Impression: UTI (urinary tract infection) Disposition: HOME SELF-CARE Condition: Good Instructions: Urinary Tract Infection in Women (ED) Additional Instructions: Patient advised to follow-up with primary care physician. Take antibiotics as prescribed. Return to emergency department if any alarming signs or symptoms occur. Prescriptions: Nitrofurantoin Monohyd/M-Cryst [Macrobid] 100 mg PO Q12HR #14 cap Phenazopyridine [Pyridium] 100 mg PO TID #9 tablet Is patient prescribed a controlled substance at d/c from ED?: No When asked, does pt state using other controlled substances?: No If prescribed controlled substance>3 days was MAPS reviewed?: No If opioid is for acute pain is fill amount 7 days or less?: No If Rx opioid, was Start Talking consent form obtained?: No Referrals: Pauline Harrington MD [Primary Care Provider] - 1-2 days
[2018-04-12 13:02] VITALS: BP 162/70; PULSE 92; RESP 16; TEMP 98
== END 2018-04-12 13:00 | disposition home or self-care (01) ==
LOC: EC 11:26
DX: N39.0 Urinary tract infection, site not specified (principal); J44.9 Chronic obstructive pulmonary disease, unspecified; K21.9 Gastro-esophageal reflux disease without esophagitis; C34.90 Malignant neoplasm of unspecified part of unspecified bronchus or lung; Z87.891 Personal history of nicotine dependence; Z79.899 Other long term (current) drug therapy
CPT/HCPCS: 51798; 81001; 87077; 87086; 87186; 99284

== ENCOUNTER → 2018-04-13 | Day surgery (SDC) | payer OTHER ==
[2018-04-09 15:11] VITALS: BMI 37.9
[2018-04-13 13:40] VITALS: BP 137/74; PULSE 108; RESP 18; TEMP 98
== END ==
LOC: CATHCVL 13:17
PROVIDERS: ATTEND Radiology Diagnostic Radiology
DX: T85.618A Breakdown (mechanical) of other specified internal prosthetic devices, implants and grafts, initial encounter (principal); Z53.8 Procedure and treatment not carried out for other reasons
CPT/HCPCS: 81025; J1642; 36598

== ENCOUNTER → 2018-04-24 | Outpatient (CLI) | payer OTHER ==
[2018-04-24 11:32] LABS: Blood Urea Nitrogen 15 mg/dL (7-17)
--- NOTE | 2018-04-24 14:09 | CT ---
EXAMINATION TYPE: CT ChestAbdPelvis w con DATE OF EXAM: 04/24/2018 COMPARISON: 01/30/2018 and 09/19/2017 HISTORY: 52-year-old female follow-up Lung cancer TECHNIQUE: Contiguous axial scanning of the chest, abdomen, and pelvis performed with IV Contrast, pa tient injected with 100 ml mL of Isovue 300. Delayed images through the kidneys were obtained. March l/sagittal reconstructions performed. CT DLP: 1814 mGycm Automated exposure control for dose reduction was used. FINDINGS: Chest: Right anterior chest wall injection port with catheter tip at the cavoatrial junction. Heart normal size without pericardial effusion. Aorta normal caliber with bovine configuration to the aortic arch. No thoracic lymphadenopathy by CT size criteria. Prominent reticular changes within the medial right upper lobe, than throughout the right midlung, an d medial right lower lung likely corresponding to radiation port. There is corresponding volume loss in the right hemithorax with rightward cardia mediastinal shift as seen previously. Right middle lobe rounded mass is redemonstrated currently measuring 4.3 cm versus 4.5 cm on 8 and 5.2 cm on 09/19/2017. There is central low density and some crescentic air posteriorly suggestin g internal necrosis as seen on 01/30/2018. Adjacent pleural-based thickening and possible small loculated effusion is also unchanged. The left lung and pleural space appear clear. Mild underlying emphysema. ABDOMEN: No focal liver lesion or biliary ductal dilatation. Portal venous system appears patent. Gallbladder, right adrenal gland, kidneys, spleen, and pancreas show no gross anomaly. Enlarging nodularity left adrenal gland showing 2.6 cm versus 1.9 cm, previously enlarged and the new from 09/19/2017. Enlarging portacaval lymph node currently measuring 1.8 cm versus 1.1 cm on 01/30/2018. Stable or enlarging left paraaortic lymph nodes measuring 1.4 cm short axis at the level of the kidne ys, unchanged, but just below measuring up to 2.1 cm versus 1.4 cm on 01/30/2018 and subcentimeter on 09/19/2017. Portacaval lymph node measures 1.1 cm versus 7 mm on 01/30/2018 and 6 mm on 09/19/2017. Aortocaval lymph node measures 1.1 cm versus 7 mm on 01/30/2018 and 6 mm on 09/19/2017. No mesenteric lymphadenopathy. No dilated small bowel, free fluid, or free air. Left-sided colonic diverticulosis without pericolonic inflammatory change. Pelvis: Bladder urine distended. Uterus and ovaries are visualized. No abnormal fluid collection in the pelvi s or pelvic lymphadenopathy. Bones: Degenerative disc disease L5-S1. No osseous destructive process. Mild superior endplate deformity of T5 is unchanged. IMPRESSION: 1. THE 4.3 CM CENTRALLY NECROTIC RIGHT MIDDLE LOBE MASS IS SMALLER FROM 09/19/2017 BUT RELATIVELY STAB LE COMPARED TO 01/30/2018. ADJACENT SMALL LOCULATED PLEURAL EFFUSION IS STABLE. 2. SIMILAR RETICULATIONS AND GROUND GLASS THROUGHOUT THE RIGHT LUNG LIKELY CORRESPONDING TO POST RADI ATION THERAPY CHANGE. 3. HOWEVER, THERE ARE GRADUALLY ENLARGING PORTACAVAL AND RETROPERITONEAL LYMPH NODES MEASURING UP TO 2.1 CM VERSUS 1.4 CM ON 01/30/2018 AND SUBCENTIMETER ON 09/19/2017. LEFT ADRENAL NODULARITY IS ALSO INC REASING AND CURRENTLY MEASURES 2.6 CM, NEW FROM 09/19/2017. DISEASE PROGRESSION BELOW THE DIAPHRAGM IS SUGGESTED.
== END | disposition home or self-care (01) ==
LOC: RADCTMAIN 10:49
PROVIDERS: ATTEND Internal Medicine Hematology & Oncology
DX: J90 Pleural effusion, not elsewhere classified (principal); J85.0 Gangrene and necrosis of lung; C34.2 Malignant neoplasm of middle lobe, bronchus or lung; R59.1 Generalized enlarged lymph nodes
CPT/HCPCS: 82565; 84520; 71260; 74177; Q9967

== ENCOUNTER → 2018-05-01 | Day surgery (SDC) | payer OTHER ==
[~2018-05-01] MED LIST changes: +IOPAMIDOL-370 50ML BTL INJ ONE; -LACTATED RINGERS 1,000 ML IV SCH
[2018-05-01 12:20] VITALS: BP 124/81; PULSE 72; RESP 18; TEMP 97.9
--- NOTE | 2018-05-01 16:17 | IR ---
Port-A-Cath gram HISTORY: Leaking port Patient's port was injected with nonionic radiographic contrast under fluoroscopic observation. 423 i ntraoperative images obtained, 0.8 minutes fluoroscopy time. FINDINGS: Port fills with contrast and the contrast courses through the catheter and empties from the catheter distally. At the level of the angle of the catheter in the neck however there is contrast l eak noted. IMPRESSION: Catheter shows leak at the site of the patient's right neck.
== END ==
LOC: CATHCVL 12:00
PROVIDERS: ATTEND Radiology Diagnostic Radiology
DX: T82.534A Leakage of infusion catheter, initial encounter (principal)
CPT/HCPCS: 36598; J1642; Q9967

== ENCOUNTER 2018-05-20 06:34 | Day surgery (SDC) | payer OTHER ==
[2018-05-14 14:34] VITALS: BMI 38.2
[~2018-05-20 06:34] MED LIST changes: +DEXAMETHASONE SOD PHOSPHATE 10 MG/ML 1 ML VIAL IV ONE; +HEPARIN SODIUM,PORCINE 5,000 UNIT/ML 1 ML VIAL SQ ONE; +HYDROmorphone 0.5 MG/0.5 ML SYRINGE IVP PRN; -IOPAMIDOL-370 50ML BTL INJ ONE; +LACTATED RINGERS 1,000 ML IV SCH; +LIDOCAINE 1% 20 ML VIAL (10MG/ML) FOR IV START INTRADERMA PRN; +MIDAZOLAM 2 MG/2 ML VIAL IV PRN; +ONDANSETRON 4 MG/2 ML VIAL IVP ONE; +SCOPOLAMINE 1.5MG/72HR PATCH TRANSDERM ONE; +ceFAZolin IN SWFI 2 GM/20 ML SYRINGE IVP ONE
[2018-05-20 07:42] VITALS: RESP 16; TEMP 98.3
--- NOTE | 2018-05-20 07:52 | P.GSHP ---
History of Present Illness H&P Date: 05/20/18 Chief Complaint: Malfunctioning Port-A-Cath Patient contact your office recently to notify us that she had an issue with her Port-A-Cath. Apparently was not functioning properly. A Port-A-Cath a gram revealed a leak at the loop as it entered into the IJ. The patient still requires the catheter for chemotherapy. She is interested in having it replaced keeping it in the same location. Past Medical History Past Medical History: Cancer, COPD, Skin Disorder Additional Past Medical History / Comment(s): stage IV lung cancer- tx with chemo , hx eczema, History of Any Multi-Drug Resistant Organisms: None Reported Past Surgical History: Orthopedic Surgery, Tubal Ligation Additional Past Surgical History / Comment(s): lung biopsy, left foot surgery, port inserted rt side Past Anesthesia/Blood Transfusion Reactions: No Reported Reaction Smoking Status: Former smoker - Past Family History Father Family Medical History: Cancer Additional Family Medical History / Comment(s): lung cancer Mother Family Medical History: COPD Medications and Allergies Home Medications Medication Instructions Recorded Confirmed Type Multivitamins, Thera [Multivitamin 1 tab PO DAILY 09/14/16 05/20/18 History (formulary)] Folic Acid 1 mg PO DAILY 10/25/16 05/20/18 History Albuterol Inhaler [Ventolin Hfa 1 - 2 puff INHALATION Q6HR PRN 11/23/17 History Inhaler] Albuterol Nebulized [Ventolin 2.5 mg INHALATION BID 11/23/17 05/20/18 History Nebulized] Ondansetron Odt [Zofran ODT] 4 mg PO Q8HR PRN #20 tab 11/23/17 05/20/18 Rx Pantoprazole Sodium 40 mg PO DAILY 04/09/18 05/20/18 History Alimta(Dose Unknown) 1 applicate IV DIRECTED 05/14/18 05/20/18 History Bevacizumab [Avastin] 0 mg IV DIRECTED 05/14/18 05/20/18 History Allergies Allergy/AdvReac Type Severity Reaction Status Date / Time No Known Allergies Allergy Verified 05/20/18 07:19 Surgical - Exam Vital Signs Temp Pulse Resp BP Pulse Ox 98.3 F 108 H 16 134/79 94 L 05/20/18 07:39 05/20/18 07:39 05/20/18 07:39 05/20/18 07:39 05/20/18 07:39 Physical exam: General: Well-developed, well-nourished HEENT: Normocephalic, sclerae nonicteric Abdomen: Nontender, nondistended Extremities: No edema Neuro: Alert and oriented Chest: Right-sided Port-A-Cath noted with no obvious abnormalities Assessment and Plan (1) Mechanical complication of tunneled cuffed central venous catheter without port Narrative/Plan: Will proceed with Port-A-Cath replacement at this time. Risks of bleeding, infection, DVT, pneumothorax, catheter malfunction, anesthesia related complications were discussed. The patient understands and wishes to proceed. Current Visit: Yes Status: Acute Code(s): [id number] - SNOMED Code(s): 680016582
[2018-05-20] MEDS ORDERED: MIDAZOLAM 2 MG/2 ML VIAL ONE (08:06)
[2018-05-20] MEDS ORDERED: KETAMINE 10 MG/ML 20 ML VIAL ONE (08:06)
[2018-05-20] MEDS ORDERED: fentaNYL (PF) 50 MCG/ML 2 ML AMP ONE (08:06)
[2018-05-20] MEDS ORDERED: PROPOFOL 10 MG/ML 20 ML VIAL IV ONE (08:06)
[2018-05-20] MEDS ORDERED: LIDOCAINE 1% INJ 10MG/ML (20 ML MDV) ONE (08:06)
[2018-05-20] MEDS ORDERED: LIDOCAINE (PF) 10 MG/ML 5ML AMP SQ ONE ×2 (08:27)
[2018-05-20] MEDS ORDERED: NALOXONE 0.4 MG/ML 1 ML VIAL IV PRN (08:56)
[2018-05-20] MEDS ORDERED: HYDROcodone/APAP 5-325MG 1 EACH TAB PO PRN (08:56)
--- NOTE | 2018-05-20 08:58 | P.OP ---
Date of Procedure: 05/20/18 Procedure(s) Performed: PREOPERATIVE DIAGNOSIS: Malfunctioning Port-A-Cath POSTOPERATIVE DIAGNOSIS: Same PROCEDURE: Port-A-Cath removal and replacement SURGEON: Mary EBL: Minimal ANESTHESIA: Sedation COMPLICATIONS: None OPERATIVE PROCEDURE: Patient was brought and placed on the operative table in the supine position. The patient was sedated per anesthesia that time. The chest and neck were prepped and draped in usual sterile fashion. The previous port incision was re-incised. The previous port was easily removed using electrocautery and blunt dissection. There was noted to be a crack in the tubing at around the 16 cm holly. Following that the ultrasound probe was used to identify the location of the right internal jugular vein. The skin was localized with lidocaine. The Seldinger needle was advanced into the IJ under ultrasound guidance. The wire was advanced through the needle under fluoroscopic guidance into the superior vena cava. The catheter was tunneled from the wire entrance site to the previous port pocket. The port was then connected to the catheter. The dilator introducer was threaded over the guidewire. The guidewire and dilator were then removed. The catheter was advanced through the introducer and introducer was then removed. The tip was seen to be in the right atrial junction. Port was flushed with both saline and a Hep-Lock solution. There was good flow both in and out of the port. The port was sutured in underlying tissues using 3-0 silk sutures. The subcutaneous tissues were reapproximated using 3-0 Vicryl sutures and the skin at both locations using 4-0 Monocryl sutures. Steri-Strips and sterile dressings then applied. DISPOSITION: Stable to recovery room
--- NOTE | 2018-05-20 09:21 | XR ---
EXAMINATION TYPE: XR chest 1V confirm line [facility] DATE OF EXAM: 05/20/2018 COMPARISON: 11/23/[address] dated 04/24/2018 HISTORY: Central line placement. TECHNIQUE: Single frontal view of the chest is obtained. FINDINGS: There is a masslike density within the right lower lung corresponding to the known 4.3 cm mass seen on the CT dated 04/24/2018. There is right hemithorax volume loss likely due to multifocal ri ght-sided subsegmental atelectasis with slight right hemidiaphragm subsequent elevation. Replaced rig ht-sided Mediport terminates in the cavoatrial junction, appropriately placed. No postprocedural pneu mothorax is identified. Cardiomediastinal silhouette is partially obscured but the prior. Left lung remains clear. Osseous structures are grossly intact. IMPRESSION: 1. Replaced right-sided Mediport, terminating in the cavoatrial junction, appropriately placed. No po stprocedural pneumothorax. 2. Right basilar mass and associated opacity, likely multifocal subsegmental atelectasis given the ri ght hemithorax volume loss.
[2018-05-20 09:26] VITALS: BP 118/76; PULSE 87
--- NOTE | 2018-05-20 09:36 | FL ---
EXAMINATION TYPE: FL guided central line placemt DATE OF EXAM: 05/20/2018 CLINICAL HISTORY: Right-sided Mediport placement. TECHNIQUE: Fluoroscopy. COMPARISON: None. FINDINGS/IMPRESSION: Fluoroscopic guidance was provided during procedure performed by Dr. Hernandez. A total of 5 seconds of fluoroscopic time was utilized during the procedure and 2 spot images was acqui red during placement of a right-sided Mediport.
== END 2018-05-20 09:40 | disposition home or self-care (01) ==
LOC: OR 06:34
PROVIDERS: ATTEND Surgery
DX: T82.514A Breakdown (mechanical) of infusion catheter, initial encounter (principal); C34.90 Malignant neoplasm of unspecified part of unspecified bronchus or lung; J44.9 Chronic obstructive pulmonary disease, unspecified; L30.9 Dermatitis, unspecified; Z79.51 Long term (current) use of inhaled steroids; Z79.899 Other long term (current) drug therapy; Z87.891 Personal history of nicotine dependence
CPT/HCPCS: 77001; 36582; C1788; J2250; J1644; J1100; J2405; J2001 ×2; J3010; J1642; J2704; J0690

== ENCOUNTER → 2018-07-22 | Outpatient (CLI) | payer OTHER ==
[2018-07-22 11:09] LABS: Blood Urea Nitrogen 14 mg/dL (7-17)
--- NOTE | 2018-07-22 13:45 | CT ---
EXAMINATION TYPE: CT ChestAbdPelvis w con DATE OF EXAM: 07/22/2018 INDICATION: Follow up lung ca. COMPARISON: 04/24/2018 CT DLP: 1219.9 mGycm CONTRAST: Performed with Oral Contrast and with IV Contrast, patient injected with 100 mL of Isovue 300. TECHNIQUE: Axial images at 5 mm thick sections. Reconstructed images in the coronal plane. Delayed images through the kidneys. FINDINGS: CT CHEST: Portion of the thyroid visualized is normal. There is a mass within the right middle lobe measuring 4.6 x 3.6 cm. This was present previously and is slightly larger on the current measurements. Adjacent infiltrate is present. Infiltrate extends to wards the posterior medial right lung as well. Minimal right pleural effusion may be present. No enlarged mediastinal or hilar adenopathy is evident. Small mediastinal lymph nodes are present. The ascending aorta diameter at the level of the main pulmonary artery is 3.1 cm. The main pulmonary artery diameter at the bifurcation is 2.[address] ABDOMEN: Liver: Normal Spleen: Normal Pancreas: Normal Adrenal glands: There is marked enlargement of the left adrenal gland with a transverse dimension of 2.7 cm. The right adrenal gland appears normal. Gallbladder: Normal Kidneys: No masses are evident. No hydronephrosis is present. No cysts are present. Delayed images were obtained through the kidneys, which remain unremarkable. Aorta: Normal. Some vascular calcification is within the distal abdominal aorta and proximal common i liac vessels. Enlarged periaortic lymph nodes are present, some of which have hypodense centers. A la rger lymph nodes would include 1.1 and 1.4 cm transverse dimension nodes, series 3 image 62. Some mat gerry adenopathy may be in the periaortic region more inferior. The periportal region there is some inc reased density suggestive for a enlarged lymph node measuring 1.4 cm. All lymphadenopathy appears to be slowly increasing in size from comparison images. Suspicious adenopathy within the pelvis is not evident. Inferior vena cava: Normal. CT PELVIS: Loops of bowel within the abdomen and pelvis are normal. A few diverticular changes are within th e sigmoid colon. Appendix: Normal as visualized. Urinary bladder: Normal. Genitourinary structures: Osseous structures: No suspicious lytic or sclerotic lesions. Degenerative disc changes are present L 5-S1. IMPRESSIONS: 1. Enlarging right middle lobe mass. 2. Abnormal adenopathy within the periaortic region. Portal adenopathy may be present as well. 3. Enlarged left adrenal gland
== END | disposition home or self-care (01) ==
LOC: RADPROMAIN 10:19
PROVIDERS: ATTEND Internal Medicine Hematology & Oncology
DX: C34.2 Malignant neoplasm of middle lobe, bronchus or lung (principal); E27.8 Other specified disorders of adrenal gland; R59.0 Localized enlarged lymph nodes; Z95.828 Presence of other vascular implants and grafts
CPT/HCPCS: 82565; 84520; 71260; 74177; 36415; J1642; Q9967

== ENCOUNTER → 2018-09-22 | Outpatient (CLI) | payer OTHER ==
[2018-09-22 11:09] LABS: Blood Urea Nitrogen 11 mg/dL (7-17)
--- NOTE | 2018-09-22 12:56 | CT ---
EXAMINATION TYPE: CT ChestAbdPelvis w con DATE OF EXAM: 09/22/2018 COMPARISON: 07/22/2018 HISTORY: Follow up lung cancer. CT DLP: 1362.7 mGycm CONTRAST: CT scan of the chest, abdomen and pelvis is performed with Oral Contrast and with IV Contrast, patien t injected with 100 mL of Isovue 300. CT Chest: LUNGS: Right middle lobe pulmonary mass persists and currently measures of 5 x 4 cm versus 4.6 x 3.6 cm previously. There is adjacent pleural thickening. Perihilar interstitial changes noted which may b e posttreatment in nature. New pulmonary nodule right upper lobe measuring 7 mm image 18. 5 mm pulmonary nodule left upper lobe image 32. New pulmonary nodule left upper lobe image 18 measuri ng 5.6 mm. New bilateral pleural effusions left greater than right measuring 2.8 cm AP dimension. Rig ht-sided volume loss redemonstrated. MEDIASTINUM: Thoracic aorta is of normal caliber. The heart is not enlarged. Lower right tracheobro nchial adenopathy measures 1.5 cm short axis versus 1.5 cm previously. HILAR STRUCTURES: No evidence for mass. No hilar adenopathy is appreciated. OTHER: No significant abnormality. CONTRAST CT ABDOMEN AND PELVIS FINDINGS: LIVER/GB: No calcified gallstones. No space occupying hepatic lesion. Biliary tree is of normal ca liber. PANCREAS: Edema of the pancreas may reflect underlying pancreatitis. Correlate with amylase and lipa se. SPLEEN: No splenic enlargement. No lesion seen. ADRENALS: Left adrenal mass persists measuring 3.4 x 2.6 cm. KIDNEYS/BLADDER: No hydronephrosis. No nephrolithiasis. No distinct renal mass. BOWEL: Normal appendix. Normal bowel caliber. No inflammation. GENITAL ORGANS: No gross abnormality. LYMPH NODES: There is adenopathy adjacent to the pancreatic head measuring up to 2 cm. Gastrohepatic ligament adenopathy is noted measuring up to 1 cm. Left periaortic adenopathy noted measuring 7.9 cm in By 1.8 cm unchanged from prior study. There is improved retrocaval adenopathy. No additional adenopat hy present. Anterior aortocaval adenopathy distally persists and measures 7.3 cm. AORTA: No significant abnormality. OSSEOUS STRUCTURES: No significant abnormality is seen. OTHER: Small amount of free fluid within the pelvis. IMPRESSION: 1. Slight increase in size in right middle lobe pulmonary mass with pleural extension and pleural thi ckening. New pulmonary nodules as discussed. 2. Stable right tracheobronchial adenopathy as well as persistent retroperitoneal adenopathy. 3. Edema of the pancreas may reflect underlying pancreatitis. Correlate with amylase and lipase. 4. Left adrenal mass is unchanged.
--- NOTE | 2018-09-22 15:57 | NM ---
EXAMINATION TYPE: NM bone scan whole body DATE OF EXAM: 09/22/2018 COMPARISON: CT chest abdomen pelvis same date HISTORY: Lung carcinoma Delayed whole-body scanning was performed following the injection of 24.5 mCi Tc 99m MDP. Images acq uired 3 hours post injection. FINDINGS: Soft tissue uptake is normal. Uptake along the anterior right fourth rib is noted, question some mild cortical irregularity the anterior rib end, correlate for any history of trauma. No additional areas of increased or decreased radio pharmaceutical uptake to suggest metastatic disease. IMPRESSION: Mild uptake anterior right fourth rib not felt likely to represent metastatic focus
== END | disposition home or self-care (01) ==
LOC: RADNMMAIN 10:08
PROVIDERS: ATTEND Internal Medicine Hematology & Oncology
DX: J92.9 Pleural plaque without asbestos (principal); C34.2 Malignant neoplasm of middle lobe, bronchus or lung; R59.1 Generalized enlarged lymph nodes; E27.9 Disorder of adrenal gland, unspecified; K86.89 Other specified diseases of pancreas; R94.8 Abnormal results of function studies of other organs and systems; M54.9 Dorsalgia, unspecified
CPT/HCPCS: 82565; 84520; 71260; 74177; 78306; A9503; J1642; Q9967

== ENCOUNTER 2018-12-04 18:16 | Emergency (ER) | payer OTHER ==
--- NOTE | 2018-12-04 20:24 | ED ---
General Adult HPI - General Chief complaint: GI Bleed Stated complaint: hematemesis Time Seen by Provider: 12/04/18 20:02 Source: patient Mode of arrival: ambulatory Limitations: no limitations - History of Present Illness Initial comments: Dictation was produced using [employer] dictation software. please excuse any grammatical, word or spelling errors. Chief Complaint: 53-year-old female past medical history of lung cancer on chemotherapy presents with hematemesis versus hemoptysis. History of Present Illness: She is 53-year-old female. She is currently undergoing chemotherapy for lung cancer. Patient states she feels nauseated every morning since being on the chemotherapy. She states that she has had some hemoptysis that her oncologist nose about. Patient was in the vehicle today when she felt like she had to throw up. She states she threw up a couple size mucus ball with streaks of blood. Patient has no symptoms at this time. She feels at baseline currently. Patient is concerned contacted emergency department. The ROS documented in this emergency department record has been reviewed and confirmed by me. Those systems with pertinent positive or negative responses have been documented in the HPI. All other systems are other negative and/or noncontributory. PHYSICAL EXAM: General Impression: Alert and oriented x3, not in acute distress HEENT: Normocephalic atraumatic, extra-ocular movements intact, pupils equal and reactive to light bilaterally, mucous membranes moist. Cardiovascular: Heart regular rate and rhythm, S1&S2 audible, no murmurs, rubs or gallops Chest: Bilateral lung rhonchi Abdomen: Bowel sounds present, abdomen soft, non-tender, non-distended, no organomegaly Musculoskeletal: Pulses present and equal in all extremities, no peripheral edema Motor: Power 5/5 bilaterally, no focal deficits noted Neurological: CN II-XII grossly intact, no focal motor or sensory deficits noted Skin: Intact with no visualized rashes Psych: Normal affect and mood ED course: 53-year-old female presents with episode of vomiting a mucus ball coated with blood. brought bag with vomit in it. It shows dark anticoagulated blood likely upper GI in source. Shows heart rate of 107, rest of vital signs within acceptable limits.Laboratory evaluation obtained. CBC, metabolic panel, coag panel unremarkable. Patient was observed in emergency department for several hours with no recurrent episodes of hematemesis. Patient given 80 mg of IV Protonix. She cleared for discharge per she is told to follow up with GI for possible upper endoscopy. She is instructed to return to the emergency Department with worsening hematemesis or hemoptysis. Patient understandable agreeable to plan. Patient prescription for Protonix to go home with. - Related Data Home Medications Medication Instructions Recorded Confirmed Multivitamins, Thera [Multivitamin 1 tab PO DAILY 09/14/16 12/04/18 (formulary)] Folic Acid 1 mg PO DAILY 10/25/16 12/04/18 Albuterol Inhaler [Ventolin Hfa 1 - 2 puff INHALATION RT-Q6H PRN 11/23/17 Inhaler] Albuterol Nebulized [Ventolin 2.5 mg INHALATION RT-BID 11/23/17 12/04/18 Nebulized] Pantoprazole Sodium 40 mg PO DAILY 04/09/18 12/04/18 Benzonatate [Tessalon Perles] 100 mg PO TID PRN 12/04/18 12/04/18 Previous Rx's Medication Instructions Recorded Pantoprazole Sodium [Protonix] 40 mg PO BID #24 tablet. 12/04/18 Allergies Allergy/AdvReac Type Severity Reaction Status Date / Time Iodinated Contrast- Oral and AdvReac Nausea & Verified 12/04/18 20:20 IV Dye Vomiting Review of Systems ROS Statement: Those systems with pertinent positive or pertinent negative responses have been documented in the HPI. ROS Other: All systems not noted in ROS Statement are negative. Past Medical History Past Medical History: Cancer, COPD, Skin Disorder Additional Past Medical History / Comment(s): stage IV lung cancer- tx with chemo , hx eczema, History of Any Multi-Drug Resistant Organisms: None Reported Past Surgical History: Orthopedic Surgery, Tubal Ligation Additional Past Surgical History / Comment(s): lung biopsy, left foot surgery, port inserted rt side Past Anesthesia/Blood Transfusion Reactions: No Reported Reaction Past Psychological History: No Psychological Hx Reported Smoking Status: Former smoker - Past Family History Father Family Medical History: Cancer Additional Family Medical History / Comment(s): lung cancer Mother Family Medical History: COPD General Exam Limitations: no limitations Course Vital Signs 12/04/18 12/04/18 18:32 21:34 Temperature 97.8 F Pulse Rate 107 H Respiratory 20 Rate Blood Pressure 131/77 129/73 O2 Sat by Pulse 98 Oximetry Medical Decision Making - Lab Data Result diagrams: 12/04/18 21:09 12/04/18 21:09 Lab Results 12/04/18 12/04/18 12/04/18 Range/Units 21:09 21:09 21:09 WBC 8.9 (3.8-10.6) k/uL RBC 4.30 (3.80-5.40) m/uL Hgb 11.5 (11.4-16.0) gm/dL Hct 36.8 (34.0-46.0) % MCV 85.6 (80.0-100.0) fL MCH 26.9 (25.0-35.0) pg MCHC 31.4 (31.0-37.0) g/dL RDW 17.6 H (11.5-15.5) % Plt Count 313 (150-450) k/uL Neutrophils % 79 % Lymphocytes % 10 % Monocytes % 6 % Eosinophils % 3 % Basophils % 1 % Neutrophils # 7.0 (1.3-7.7) k/uL Lymphocytes # 0.9 L (1.0-4.8) k/uL Monocytes # 0.6 (0-1.0) k/uL Eosinophils # 0.2 (0-0.7) k/uL Basophils # 0.1 (0-0.2) k/uL Hypochromasia Moderate Poikilocytosis Slight Anisocytosis Slight PT 11.2 (9.0-12.0) sec INR 1.1 (<1.2) Sodium 137 (137-145) mmol/L Potassium 3.9 (3.5-5.1) mmol/L Chloride 103 (98-107) mmol/L Carbon Dioxide 26 (22-30) mmol/L Anion Gap 8 mmol/L BUN 8 (7-17) mg/dL Creatinine 0.60 (0.52-1.04) mg/dL Est GFR (CKD-EPI)AfAm >90 (>60 ml/min/1.73 sqM) Est GFR (CKD-EPI)NonAf >90 (>60 ml/min/1.73 sqM) Glucose 122 H (74-99) mg/dL Calcium 9.3 (8.4-10.2) mg/dL Disposition Clinical Impression: GI bleed Disposition: HOME SELF-CARE Condition: Good Instructions (If sedation given, give patient instructions): Gastrointestinal Bleeding (ED) Prescriptions: Pantoprazole Sodium [Protonix] 40 mg PO BID #24 tablet.dr Is patient prescribed a controlled substance at d/c from ED?: No Referrals: Pauline Harrington MD [Primary Care Provider] - 1-2 days Manpreet Moreno MD [STAFF PHYSICIAN] - 1-2 days Time of Disposition: 22:31
[2018-12-04] MEDS ORDERED: PANTOPRAZOLE 40 MG/10 ML VIAL IVP ONE (20:28)
--- NOTE | 2018-12-04 21:23 | XR ---
EXAMINATION TYPE: XR chest 2V DATE OF EXAM: 12/04/2018 COMPARISON: 05/20/2018 HISTORY: Vomiting TECHNIQUE: Frontal and lateral views of the chest are obtained. FINDINGS: There is right central venous catheter with the tip in the superior vena cava. There is ex tensive consolidation in the right middle lobe and anterior right upper lobe. Left lung is clear. The re is no heart failure. Heart is deviated slightly to the right side. I see no definite pleural effus ion. IMPRESSION: There is pulmonary consolidation and volume loss on the right side slightly worse than l ast exam. No heart failure..
[2018-12-04 21:27] LABS: Anisocytosis Slight; Basophils # (A) 0.1 k/uL (0-0.2); Basophils % (A) 1 %; Eosinophils # (A) 0.2 k/uL (0-0.7); Eosinophils % (A) 3 %; HCT 36.8 % (34.0-46.0); HGB 11.5 gm/dL (11.4-16.0); Hypochromasia Moderate; Lymphocytes # (A) 0.9 k/uL (1.0-4.8); Lymphocytes % (A) 10 %; MCH 26.9 pg (25.0-35.0); MCHC 31.4 g/dL (31.0-37.0); MCV 85.6 fL (80.0-100.0); Mean Platelet Volume 6.1; Monocytes # (A) 0.6 k/uL (0-1.0); Monocytes % (A) 6 %; Neutrophils % (A) 79 %; Platelet Count 313 k/uL (150-450); Poikilocytosis Slight; RDW 17.6 % (11.5-15.5); WBC 8.9 k/uL (3.8-10.6)
[2018-12-04 21:34] LABS: INR 1.1 (<1.2); Prothrombin Time 11.2 sec (9.0-12.0)
[2018-12-04 21:38] LABS: Anion Gap 8 mmol/L; Blood Urea Nitrogen 8 mg/dL (7-17); Calcium 9.3 mg/dL (8.4-10.2); Carbon Dioxide 26 mmol/L (22-30); Chloride 103 mmol/L (98-107); Glucose 122 mg/dL (74-99); Potassium 3.9 mmol/L (3.5-5.1); Sodium 137 mmol/L (137-145)
[2018-12-04 23:02] VITALS: BP 114/83; PULSE 103; RESP 16; TEMP 98.3
== END 2018-12-04 23:01 | disposition home or self-care (01) ==
LOC: EC 18:16
DX: K92.0 Hematemesis (principal); J44.9 Chronic obstructive pulmonary disease, unspecified; Z79.899 Other long term (current) drug therapy; Z91.041 Radiographic dye allergy status; Z87.891 Personal history of nicotine dependence; Z85.118 Personal history of other malignant neoplasm of bronchus and lung
CPT/HCPCS: 36415; 80048; 85025; 85610; 71046; 99285; 96374; C9113

== ENCOUNTER 2018-12-21 07:35 | Inpatient (IN) | payer OTHER ==
[2018-12-21] MEDS ORDERED: NITROGLYCERIN OINT 1 INCH/GM PACKET TOPICAL STA (07:50)
[2018-12-21] MEDS ORDERED: SODIUM CHLORIDE 0.9% 500 ML 500 ML IV STA (07:50)
--- NOTE | 2018-12-21 07:55 | ED ---
General Adult HPI - General Chief complaint: Chest Pain Stated complaint: Chest pain Time Seen by Provider: 12/21/18 07:35 Source: patient, RN notes reviewed Mode of arrival: ambulatory Limitations: no limitations - History of Present Illness Initial comments: This is a 53-year-old female with past medical history significant for lung cancer stage IV. Patient comes in today because about 2 hours prior to arrival she started having some chest discomfort that radiated to her neck. Patient states she has some difficulty breathing. Patient denies any diaphoretic episodes. Patient denies any nausea. Patient denies abdominal pain patient's any vomiting or diarrhea. Patient states she's had a chronic cough that has not changed. Patient denies any recent fever chills. Patient states she has been throwing up some blood and was supposed to have an endoscopy today she also states she is coughing up some blood. Patient denies any calf pain but does state there is a little more swelling to her legs. - Related Data Home Medications Medication Instructions Recorded Confirmed Multivitamins, Thera [Multivitamin 1 tab PO DAILY 09/14/16 12/21/18 (formulary)] Albuterol Inhaler [Ventolin Hfa 1 - 2 puff INHALATION RT-Q6H PRN 11/23/17 Inhaler] Albuterol Nebulized [Ventolin 2.5 mg INHALATION RT-BID PRN 11/23/17 12/21/18 Nebulized] Pantoprazole Sodium 40 mg PO DAILY 04/09/18 12/21/18 Acetaminophen [Tylenol Extra 500 mg PO Q8H PRN 12/21/18 12/21/18 Strength] Allergies Allergy/AdvReac Type Severity Reaction Status Date / Time Iodinated Contrast- Oral and AdvReac Nausea & Verified 12/21/18 08:08 IV Dye Vomiting Review of Systems ROS Statement: Those systems with pertinent positive or pertinent negative responses have been documented in the HPI. ROS Other: All systems not noted in ROS Statement are negative. Past Medical History Past Medical History: Cancer, COPD, GERD/Reflux, GI Bleed, Skin Disorder Additional Past Medical History / Comment(s): stage IV lung cancer dx. 2016- tx with chemo currently, hx eczema, throwing up blood intermittently last couple weeks History of Any Multi-Drug Resistant Organisms: None Reported Past Surgical History: Orthopedic Surgery, Tubal Ligation Additional Past Surgical History / Comment(s): lung biopsy, left foot surgery, port inserted rt side Past Anesthesia/Blood Transfusion Reactions: No Reported Reaction Past Psychological History: No Psychological Hx Reported Smoking Status: Former smoker Past Alcohol Use History: None Reported Past Drug Use History: None Reported - Past Family History Father Family Medical History: Cancer Additional Family Medical History / Comment(s): lung cancer Mother Family Medical History: COPD General Exam - General Exam Comments Initial Comments: GENERAL: Patient is well-developed and well-nourished. Patient is nontoxic and well- hydrated and is in mild distress. ENT: Neck is soft and supple. No significant lymphadenopathy is noted. Oropharynx is clear. Moist mucous membranes. Neck has full range of motion without eliciting any pain. EYES: The sclera were anicteric and conjunctiva were pink and moist. Extraocular movements were intact and pupils were equal round and reactive to light. Eyelids were unremarkable. PULMONARY: Unlabored respirations. Good breath sounds bilaterally. Patient has some crackles right base. CARDIOVASCULAR: There is a regular rate and rhythm. Patient is a 3/6 murmur ABDOMEN: Soft and nontender with normal bowel sounds. No palpable organomegaly was noted. There is no palpable pulsatile mass. SKIN: Patient's skin is pale NEUROLOGIC: Patient is alert and oriented x3. Cranial nerves II through XII are grossly intact. Motor and sensory are also intact. Normal speech, volume and content. Symmetrical smile. MUSCULOSKELETAL: Normal extremities with adequate strength and full range of motion. No lower extremity swelling or edema. No calf tenderness. LYMPHATICS: No significant lymphadenopathy is noted PSYCHIATRIC: Normal psychiatric evaluation. Limitations: no limitations Course Vital Signs 12/21/18 12/21/18 12/21/18 07:36 08:09 08:25 Temperature 98.1 F Pulse Rate 118 H 110 H Respiratory 18 16 Rate Blood Pressure 123/78 102/70 125/85 O2 Sat by Pulse 91 L 100 Oximetry 12/21/18 09:33 Temperature Pulse Rate 98 Respiratory 16 Rate Blood Pressure 116/84 O2 Sat by Pulse 97 Oximetry Medical Decision Making - Medical Decision Making EKG shows sinus tachycardia 113 bpm [place] interval 226 QRS is 86 Q-T intervals 316 QTC is 433. Patient's EKG shows some slight ST segment depression in V3 through V6 as well as leads 1 and 2. There just x-ray shows a large cavitary mass similar to previous x-rays. Patient's d-dimer was elevated so I did a CAT scan showed no PE it did however show findings compatible with metastatic lung cancer. Patient continued to be in significant chest pain she received Dilaudid and some Zofran for that. I spoke with Dr. Callahan of some physicians he agreed to admit the patient admitted the patient wrote admitting orders I consulted oncology and GI. - Lab Data Result diagrams: 12/21/18 08:07 12/21/18 08:07 Lab Results 12/21/18 12/21/18 12/21/18 Range/Units 08:07 08:07 08:07 WBC 11.6 H (3.8-10.6) k/uL RBC 3.52 L (3.80-5.40) m/uL Hgb 9.1 L D (11.4-16.0) gm/dL Hct 29.9 L (34.0-46.0) % MCV 84.8 (80.0-100.0) fL MCH 25.9 (25.0-35.0) pg MCHC 30.6 L (31.0-37.0) g/dL RDW 17.6 H (11.5-15.5) % Plt Count 298 (150-450) k/uL Neutrophils % 87 % Lymphocytes % 5 % Monocytes % 4 % Eosinophils % 2 % Basophils % 0 % Neutrophils # 10.1 H (1.3-7.7) k/uL Lymphocytes # 0.6 L (1.0-4.8) k/uL Monocytes # 0.5 (0-1.0) k/uL Eosinophils # 0.3 (0-0.7) k/uL Basophils # 0.0 (0-0.2) k/uL Hypochromasia Marked Poikilocytosis Slight Anisocytosis Slight PT (9.0-12.0) sec INR (<1.2) APTT (22.0-30.0) sec D-Dimer (<0.60) mg/L FEU Sodium 140 (137-145) mmol/L Potassium 3.3 L (3.5-5.1) mmol/L Chloride 108 H (98-107) mmol/L Carbon Dioxide 25 (22-30) mmol/L Anion Gap 7 mmol/L BUN 8 (7-17) mg/dL Creatinine 0.54 (0.52-1.04) mg/dL Est GFR (CKD-EPI)AfAm >90 (>60 ml/min/1.73 sqM) Est GFR (CKD-EPI)NonAf >90 (>60 ml/min/1.73 sqM) Glucose 143 H (74-99) mg/dL Calcium 8.8 (8.4-10.2) mg/dL Magnesium 1.6 (1.6-2.3) mg/dL Total Bilirubin 0.5 (0.2-1.3) mg/dL AST 21 (14-36) U/L ALT 24 (9-52) U/L Alkaline Phosphatase 134 H (38-126) U/L Troponin I (0.000-0.034) ng/mL Total Protein 6.2 L (6.3-8.2) g/dL Albumin 3.1 L (3.5-5.0) g/dL Blood Type O Positive Blood Type Confirm Blood Type Recheck CABO Indicated Antibody Screen NEGATIVE Spec Expiration Date 12/24/2018230612/21/18 12/21/18 12/21/18 Range/Units 08:07 08:07 09:20 WBC (3.8-10.6) k/uL RBC (3.80-5.40) m/uL Hgb (11.4-16.0) gm/dL Hct (34.0-46.0) % MCV (80.0-100.0) fL MCH (25.0-35.0) pg MCHC (31.0-37.0) g/dL RDW (11.5-15.5) % Plt Count (150-450) k/uL Neutrophils % % Lymphocytes % % Monocytes % % Eosinophils % % Basophils % % Neutrophils # (1.3-7.7) k/uL Lymphocytes # (1.0-4.8) k/uL Monocytes # (0-1.0) k/uL Eosinophils # (0-0.7) k/uL Basophils # (0-0.2) k/uL Hypochromasia Poikilocytosis Anisocytosis PT 11.7 (9.0-12.0) sec INR 1.1 (<1.2) APTT 23.0 (22.0-30.0) sec D-Dimer 5.05 H (<0.60) mg/L FEU Sodium (137-145) mmol/L Potassium (3.5-5.1) mmol/L Chloride (98-107) mmol/L Carbon Dioxide (22-30) mmol/L Anion Gap mmol/L BUN (7-17) mg/dL Creatinine (0.52-1.04) mg/dL Est GFR (CKD-EPI)AfAm (>60 ml/min/1.73 sqM) Est GFR (CKD-EPI)NonAf (>60 ml/min/1.73 sqM) Glucose (74-99) mg/dL Calcium (8.4-10.2) mg/dL Magnesium (1.6-2.3) mg/dL Total Bilirubin (0.2-1.3) mg/dL AST (14-36) U/L ALT (9-52) U/L Alkaline Phosphatase (38-126) U/L Troponin I <0.012 (0.000-0.034) ng/mL Total Protein (6.3-8.2) g/dL Albumin (3.5-5.0) g/dL Blood Type Blood Type Confirm O Positive Blood Type Recheck Antibody Screen Spec Expiration Date Critical Care Time Critical Care Time: Yes Total Critical Care Time: 35 Disposition Clinical Impression: Chest pain, GI bleed, Hemoptysis, Anemia, History of lung cancer Disposition: ADMITTED IP TO THIS HOSP Referrals: Pauline Harrington MD [Primary Care Provider] - 1-2 days Time of Disposition: 11:02
[2018-12-21 08:27] LABS: Anisocytosis Slight; Basophils % (A) 0 %; Eosinophils # (A) 0.3 k/uL (0-0.7); Eosinophils % (A) 2 %; HCT 29.9 % (34.0-46.0); Hypochromasia Marked; Lymphocytes # (A) 0.6 k/uL (1.0-4.8); Lymphocytes % (A) 5 %; MCH 25.9 pg (25.0-35.0); MCHC 30.6 g/dL (31.0-37.0); MCV 84.8 fL (80.0-100.0); Mean Platelet Volume 6.3; Monocytes # (A) 0.5 k/uL (0-1.0); Monocytes % (A) 4 %; Neutrophils # (A) 10.1 k/uL (1.3-7.7); Neutrophils % (A) 87 %; Platelet Count 298 k/uL (150-450); Poikilocytosis Slight; RBC 3.52 m/uL (3.80-5.40); RDW 17.6 % (11.5-15.5); WBC 11.6 k/uL (3.8-10.6)
--- NOTE | 2018-12-21 08:27 | XR ---
EXAMINATION TYPE: XR chest 2V DATE OF EXAM: 12/21/2018 COMPARISON: 12/04/2018 HISTORY: Lung cancer and chest pain TECHNIQUE: Frontal and lateral views of the chest are obtained. FINDINGS: Right-sided lung mass has air centrally and likely represents cavitation. Right hemithorax volume loss is noted. Right-sided opacity is unchanged from the prior of 12/04/2018. Right-sided Medi port is similar in position. Left lung is well aerated other than a trace new left pleural effusion. Right apical pleural thickening is noted. Cardiomediastinal silhouette is stable. IMPRESSION: New trace left pleural effusion and redemonstration of a large right perihilar cavitary mass with subsequent right hemithorax volume loss and postobstructive atelectasis. Right hemithorax f indings are unchanged from the prior of 12/04/2018.
[2018-12-21 08:29] LABS: ALT 24 U/L (9-52); AST 21 U/L (14-36); Albumin 3.1 g/dL (3.5-5.0); Alkaline Phosphatase 134 U/L (38-126); Anion Gap 7 mmol/L; Blood Urea Nitrogen 8 mg/dL (7-17); Calcium 8.8 mg/dL (8.4-10.2); Carbon Dioxide 25 mmol/L (22-30); Chloride 108 mmol/L (98-107); Glucose 143 mg/dL (74-99); Magnesium 1.6 mg/dL (1.6-2.3); Potassium 3.3 mmol/L (3.5-5.1); Sodium 140 mmol/L (137-145); Total Bilirubin 0.5 mg/dL (0.2-1.3); Total Protein 6.2 g/dL (6.3-8.2)
[2018-12-21 08:38] LABS: INR 1.1 (<1.2); Prothrombin Time 11.7 sec (9.0-12.0)
[2018-12-21 08:42] LABS: HGB 9.1 gm/dL (11.4-16.0)
[2018-12-21 08:53] LABS: D-Dimer 5.05 mg/L FEU (<0.60)
[2018-12-21] MEDS ORDERED: diphenhydrAMINE 50 MG/ML 1 ML VIAL IVP STA (09:13)
[2018-12-21] MEDS ORDERED: methylPREDNISolone SOD SUCCI 125 MG/2 ML VIAL IV STA (09:13)
[2018-12-21] MEDS ORDERED: FAMOTIDINE 20 MG/2 ML VIAL IV STA (09:13)
--- NOTE | 2018-12-21 10:16 | CT ---
EXAMINATION TYPE: CT chest angio for PE DATE OF EXAM: 12/21/2018 COMPARISON: Chest x-ray same date HISTORY: Difficulty breathing CT DLP: 254.3 mGycm Automated exposure control for dose reduction was used. CONTRAST: CT Chest for pulmonary embolism performed with with IV Contrast, patient injected with 100 mL of Isov ue 370. Three-dimensional reconstructions performed on an alternate workstation. FINDINGS: LUNGS: The lungs are remarkable for a mass within the right middle lobe extending to the right hilar region, abnormal densities present in the right lower lobe medially with local mass effect on the pul monary vein, narrowing caliber, there is bilateral pleural thickening, possible loculated effusion on the right, dependent effusion present on the left with some dependent atelectatic change. Emphysemat ous changes are present in the upper lobes especially, is volume loss in the right hemithorax The tra cheobronchial tree is patent. MEDIASTINUM: There is satisfactory enhancement of the pulmonary artery and its branches, there is no CT evidence for pulmonary embolism. Bilateral hilar adenopathy, mediastinal adenopathy noted with nod es in the prevascular location, possible retrocaval pretracheal mediastinum. Trace pericardial effusi on is seen. AORTA: No additional significant abnormality is seen. OTHER: There is ascites present. Left adrenal mass is noted, the gland is enlarged at 4.5 cm IMPRESSION: Findings compatible with patient's history of metastatic lung carcinoma. No evident pulmonary embolis m.
[2018-12-21] MEDS ORDERED: HYDROmorphone 1 MG/ML 1 ML SYRINGE IVP STA (10:41)
[2018-12-21] MEDS ORDERED: ONDANSETRON 4 MG/2 ML VIAL IVP STA (10:41)
[2018-12-21] MEDS ORDERED: NITROGLYCERIN SL TABS 0.4 MG TAB SUBLINGUAL PRN (11:03)
[2018-12-21] MEDS ORDERED: LORazepam 2 MG/ML INJ IV PRN (11:31)
[2018-12-21] MEDS ORDERED: ONDANSETRON 4 MG/2 ML VIAL IVP PRN (11:31)
[2018-12-21] MEDS ORDERED: MORPHINE SULFATE 4 MG/ML SYRINGE IV PRN (11:31)
[2018-12-21] MEDS ORDERED: NALOXONE 0.4 MG/ML 1 ML VIAL IV PRN (11:31)
--- NOTE | 2018-12-21 11:48 | P.HPIM ---
History of Present Illness H&P Date: 12/21/18 Chief Complaint: Chest pain and hematemesis The patient is a 53-year-old female with a past medical history of stage IV poorly differentiated lung adenocarcinoma with followed by Dr. Eckert with oncology who presents to the ER via EMS with chief complaint of chest pain and vomiting blood. Apparently the patient woke up with right-sided mild to moderate chest discomfort with radiation into her neck and down her sternum with associated shortness of breath and cough that is occasionally productive and blood-tinged that has been going on for the last 3 weeks, the patient also endorses intermittent episodes of nausea and hematemesis but denies any bright red blood per rectum or dark melanotic stools. the patient denies any diaphoresis, denied nausea and vomiting or abdominal pain The patient does report increasingly consistent lower extremity swelling. She does report decreasing appetite over the last 3 months and reports a 20 pound weight loss in last 6 months The patient reports that she receives chemotherapy every 3 weeks and her most recent chemo cycle on Tecentriq was this past Friday, she reports completing chemotherapy but had some associated difficulty breathing. Subsequently she was also told by oncology that her iron level was diminished and that she needed to have IV infusions. The patient also reports that she was scheduled to have EGD today to workup her hematemesis. Patient denies any significant NSAID use On presentation to the ER she had a comprehensive workup including a CTA of the chest that was negative for PE but did show bilateral hilar adenopathy mediastinal adenopathy with nodes in the pre-vascular location. EKG was negative for any suggestion of any acute ischemia was consistent with sinus tachycardia, Troponin was less than 0.012, d-dimer was elevated at 5.05, WBC count 11.6, hemoglobin and hematocrit 9.1 and 30 respectively, serum potassium 3.3. She was given a dose of Dilaudid, Solu-Medrol, Zofran, Pepcid, Benadryl and a liter of IV fluids recommended for admission. Review of Systems Pertinent positives per HPI all other review of systems otherwise negative Past Medical History Past Medical History: Cancer, COPD, GERD/Reflux, GI Bleed, Skin Disorder Additional Past Medical History / Comment(s): stage IV lung cancer dx. 2016- tx with chemo currently, hx eczema, throwing up blood intermittently last couple weeks History of Any Multi-Drug Resistant Organisms: None Reported Past Surgical History: Orthopedic Surgery, Tubal Ligation Additional Past Surgical History / Comment(s): lung biopsy, left foot surgery, port inserted rt side Past Anesthesia/Blood Transfusion Reactions: No Reported Reaction Past Psychological History: No Psychological Hx Reported Smoking Status: Former smoker Past Alcohol Use History: None Reported Past Drug Use History: None Reported - Past Family History Father Family Medical History: Cancer Additional Family Medical History / Comment(s): lung cancer Mother Family Medical History: COPD Medications and Allergies Home Medications Medication Instructions Recorded Confirmed Type Multivitamins, Thera [Multivitamin 1 tab PO DAILY 09/14/16 12/21/18 History (formulary)] Albuterol Inhaler [Ventolin Hfa 1 - 2 puff INHALATION RT-Q6H PRN 11/23/17 History Inhaler] Albuterol Nebulized [Ventolin 2.5 mg INHALATION RT-BID PRN 11/23/17 12/21/18 History Nebulized] Pantoprazole Sodium 40 mg PO DAILY 04/09/18 12/21/18 History Acetaminophen [Tylenol Extra 500 mg PO Q8H PRN 12/21/18 12/21/18 History Strength] Allergies Allergy/AdvReac Type Severity Reaction Status Date / Time Iodinated Contrast- Oral and AdvReac Nausea & Verified 12/21/18 08:08 IV Dye Vomiting Physical Exam Vitals: Vital Signs Temp Pulse Resp BP Pulse Ox 12/21/18 09:33 98 16 116/84 97 12/21/18 08:25 125/85 12/21/18 08:09 110 H 16 102/70 100 12/21/18 07:36 98.1 F 118 H 18 123/78 91 L Intake and Output 12/20/18 12/21/18 12/21/18 22:59 06:59 14:59 Other: Weight 86.636 kg Constitutional: No acute distress, conversant, pleasant Eyes: Anicteric sclerae, moist conjunctiva, no lid-lag, PERRLA ENMT: NC/AT,Oropharynx clear, no erythema, exudates Neck:Supple, FROM, no masses, or JVD, No carotid bruits; No thyromegaly Lungs: Diminished in the bases bilaterally, Clear to percussion, Normal respiratory effort, no accessory muscle use Cardiovascular: Heart regular in rate and rhythm, No murmurs, gallops, or rubs no peripheral edema Abdominal: Soft Nontender, nom distended, no guarding, no rebound or rigidity, Normoactive bowel sounds No hepatomegaly, No splenomegaly, No palpable mass No abdominal wall hernia noted Skin: Normal temperature, tone, texture, turgor, No induration No subcutaneous nodules, No rash, lesions, No ulcers Extremities:No digital cyanosis No clubbing, Pedal pulses intact and symmetrical Radial pulses intact and symmetrical Normal gait and station, No calf tenderness Psychiatric: Alert and oriented to person, place and time, Appropriate affect Intact judgement Neuro: Muscles Strength 5/5 in all 4 extremities, Sensation to light touch grossly present throughout, Cranial nerves II-XII grossly intact. No focal sensory deficits Results CBC & Chem 7: 12/22/18 02:56 12/22/18 02:56 Labs: Abnormal Lab Results - Last 24 Hours (Table) 12/21/18 12/21/18 12/21/18 Range/Units 08:07 08:07 08:07 WBC 11.6 H (3.8-10.6) k/uL RBC 3.52 L (3.80-5.40) m/uL Hgb 9.1 L D (11.4-16.0) gm/dL Hct 29.9 L (34.0-46.0) % MCHC 30.6 L (31.0-37.0) g/dL RDW 17.6 H (11.5-15.5) % Neutrophils # 10.1 H (1.3-7.7) k/uL Lymphocytes # 0.6 L (1.0-4.8) k/uL D-Dimer 5.05 H (<0.60) mg/L FEU Potassium 3.3 L (3.5-5.1) mmol/L Chloride 108 H (98-107) mmol/L Glucose 143 H (74-99) mg/dL Alkaline Phosphatase 134 H (38-126) U/L Total Protein 6.2 L (6.3-8.2) g/dL Albumin 3.1 L (3.5-5.0) g/dL Assessment and Plan (1) Atypical chest pain Current Visit: Yes Status: Acute Code(s): R07.89 - OTHER CHEST PAIN SNOMED Code(s): 583066459 (2) Iron deficiency anemia Current Visit: Yes Status: Acute Code(s): D50.9 - IRON DEFICIENCY ANEMIA, UNSPECIFIED SNOMED Code(s): 79707872 (3) Hematemesis Current Visit: Yes Status: Acute Code(s): K92.0 - HEMATEMESIS SNOMED Code( s): 0007968 (4) GI bleed Current Visit: Yes Status: Acute Code(s): K92.2 - GASTROINTESTINAL HEMORRHAGE, UNSPECIFIED SNOMED Code(s): 57621983 (5) Hypokalemia Current Visit: Yes Status: Acute Code(s): E87.6 - HYPOKALEMIA SNOMED Code( s): 58099398 (6) Hemoptysis Current Visit: Yes Status: Acute Code(s): R04.2 - HEMOPTYSIS SNOMED Code(s ): 74616404 (7) Stage IV adenocarcinoma of lung Current Visit: Yes Status: Acute Code(s): C34.90 - MALIGNANT NEOPLASM OF UNSP PART OF UNSP BRONCHUS OR LUNG SNOMED Code(s): 625220489 Plan: The patient is admitted with concern for upper GI bleed after presenting with atypical chest pain and a history of hematemesis and found to have acute on chronic iron deficiency anemia with a hemoglobin 9.1g approximate 2 g drop from previous studies. She is continue NPO with plans for GI consultation with Dr. Pritchett to proceed with EGD today, continued on PPI therapy, anti-emetics and pain medication. Chest pain appears atypical, initial EKG and troponins are negative for any suggestion of acute ischemia, we'll continue to cycle troponins , check NT proBNP and 2D echocardiogram. We'll also plan to consult hematology oncology Dr. Eubanks for further recommendations. Patient also started on DuoNeb breathing treatments and steroids possible COPD exacerbation with plans to consult pulmonary for hemoptysis. Surrogate decision-maker: Shawn Anticipated LOS/discharge 3-4 days CODE STATUS: Full code Prophylaxis: DVT contraindicated due to concern for GI bleed, GI: Continued on IV PPI therapy with Protonix
[2018-12-21] MEDS ORDERED: Potassium Replacement Protocol 1 EACH MISC MISCELLANE PRN (11:49)
[2018-12-21] MEDS ORDERED: LIDOCAINE 1% INJ 10MG/ML (20 ML MDV) ONE (13:33)
[2018-12-21] MEDS ORDERED: PHENYLEPHRINE-0.9% NACL SYG 1 MG/10 ML SYRINGE ONE (13:33)
[2018-12-21] MEDS ORDERED: fentaNYL (PF) 50 MCG/ML 2 ML AMP ONE (13:33)
[2018-12-21] MEDS ORDERED: PROPOFOL 10 MG/ML 20 ML VIAL IV ONE (13:33)
--- NOTE | 2018-12-21 13:40 | P.CONS ---
History of Present Illness - Reason for Consult Consult date: 12/21/18 GI bleed Requesting physician: Kleber Richardson - Chief Complaint Vomiting blood, coughing blood, chest pain - History of Present Illness Patient is a pleasant 53-year-old female with a past medical history of stage IV poorly differentiated lung adenocarcinoma who presented with complaints of chest pain and vomiting blood. The patient reports moderate chest discomfort with radiation into her neck and down her sternum with associated shortness of breath. She reports that over the past 3 weeks she has been coughing up blood tinged sputum. In addition she reports vomiting approximately one time per day and as noted streaks of blood in the vomit. She reports decreasing oral intake over the past 3 months. The patient is receiving chemotherapy every 3 weeks with her last treatment 3 days ago. She denies any NSAID use. She denies any change in bowel habits, no hematochezia, melena, constipation or diarrhea. She denies any history of GI bleeding. Hemoglobin on presentation found to be 9.1. The patient had seen her oncologist in the outpatient setting anemic and started on iron therapy with plan for outpatient EGD. Review of Systems REVIEW OF SYSTEMS: CONSTITUTIONAL: Denies any fevers, chills, weight change or fatigue. CARDIOVASCULAR: Denies any palpitations high or low blood pressures, but does report chest pain. RESPIRATORY: Denies any shortness of breath, but does report cough with hemoptysis. GENITOURINARY: No dysuria or hematuria. MUSCULOSKELETAL: No weakness reported. SKIN: Denies any new rashes or lesions, jaundice or pallor. PSYCHIATRIC: Denies any depression or anxiety. NEUROLOGY: Denies headache, denies any new focal deficits. EARS/NOSE/THROAT: No recent hearing change, congestion, nasal discharge or sore throat. EYES: No pain in eyes, discharge or change in vision. GASTROINTESTINAL: As per HPI. Past Medical History Past Medical History: Cancer, COPD, GERD/Reflux, GI Bleed, Skin Disorder Additional Past Medical History / Comment(s): stage IV lung cancer dx. 2016- tx with chemo currently, hx eczema, throwing up blood intermittently last couple weeks History of Any Multi-Drug Resistant Organisms: None Reported Past Surgical History: Orthopedic Surgery, Tubal Ligation Additional Past Surgical History / Comment(s): lung biopsy, left foot surgery, port inserted rt side Past Anesthesia/Blood Transfusion Reactions: No Reported Reaction Past Psychological History: No Psychological Hx Reported Smoking Status: Former smoker Past Alcohol Use History: None Reported Past Drug Use History: None Reported - Past Family History Father Family Medical History: Cancer Additional Family Medical History / Comment(s): lung cancer Mother Family Medical History: COPD Additional Family Medical History / Comment(s): Mother from complications of COPD. Medications and Allergies Home Medications Medication Instructions Recorded Confirmed Type Multivitamins, Thera [Multivitamin 1 tab PO DAILY 09/14/16 12/21/18 History (formulary)] Albuterol Inhaler [Ventolin Hfa 1 - 2 puff INHALATION RT-Q6H PRN 11/23/17 History Inhaler] Albuterol Nebulized [Ventolin 2.5 mg INHALATION RT-BID PRN 11/23/17 12/21/18 History Nebulized] Pantoprazole Sodium 40 mg PO DAILY 04/09/18 12/21/18 History Acetaminophen [Tylenol Extra 500 mg PO Q8H PRN 12/21/18 12/21/18 History Strength] Allergies Allergy/AdvReac Type Severity Reaction Status Date / Time Iodinated Contrast- Oral and AdvReac Nausea & Verified 12/21/18 08:08 IV Dye Vomiting Physical Exam Vitals: Vital Signs Temp Pulse Pulse Resp BP BP Pulse Ox 12/21/18 12:00 97.7 F 121 H 16 90/54 12/21/18 11:00 98.1 F 108 H 12 106/68 96 12/21/18 10:30 134/93 12/21/18 09:33 98 16 116/84 97 12/21/18 08:25 125/85 12/21/18 08:09 110 H 16 102/70 100 12/21/18 07:36 98.1 F 118 H 18 123/78 91 L Intake and Output 12/20/18 12/21/18 12/21/18 22:59 06:59 14:59 Other: Weight 86.636 kg On physical examination, patient appears comfortable in no apparent distress. HEAD: Normocephalic, atraumatic. EYES: No scleral icterus. No conjunctival injection. MOUTH: No lesions, tongue midline. NECK: Trachea midline, no gross abnormalities. CHEST: Decreased air entry in all lung muro with no wheezing or rhonchi appreciated. HEART: Regular rate and rhythm. ABDOMEN: Soft, obese. Bowel sounds are positive. No organomegaly. No guarding or rigidity. EXTREMITIES: No pedal edema. SKIN: No rashes, no jaundice. NEUROLOGIC: Alert and oriented x3. No focal deficits. Results CBC & Chem 7: 12/21/18 08:07 12/21/18 08:07 Labs: Abnormal Lab Results - Last 24 Hours (Table) 12/21/18 12/21/18 12/21/18 Range/Units 08:07 08:07 08:07 WBC 11.6 H (3.8-10.6) k/uL RBC 3.52 L (3.80-5.40) m/uL Hgb 9.1 L D (11.4-16.0) gm/dL Hct 29.9 L (34.0-46.0) % MCHC 30.6 L (31.0-37.0) g/dL RDW 17.6 H (11.5-15.5) % Neutrophils # 10.1 H (1.3-7.7) k/uL Lymphocytes # 0.6 L (1.0-4.8) k/uL D-Dimer 5.05 H (<0.60) mg/L FEU Potassium 3.3 L (3.5-5.1) mmol/L Chloride 108 H (98-107) mmol/L Glucose 143 H (74-99) mg/dL Alkaline Phosphatase 134 H (38-126) U/L Total Protein 6.2 L (6.3-8.2) g/dL Albumin 3.1 L (3.5-5.0) g/dL CT scan - chest: report reviewed (Computed tomography scan of chest with findings compatible with known history of metastatic lung cancer with no embolism detected) Assessment and Plan (1) Hematemesis Narrative/Plan: Patient reports almost daily episodes of vomiting, which time she has seen blood tinged emesis. She denies any change in her bowel habits or melena. She was found to have a hemoglobin of 9.1 on presentation. Current Visit: Yes Status: Acute Code(s): K92.0 - HEMATEMESIS SNOMED Code( s): 3887430 (2) Anemia associated with acute blood loss Narrative/Plan: Patient presenting with intermittent episodes of hematemesis and found to have a hemoglobin of 9.1 on presentation. Current Visit: Yes Status: Acute Code(s): D62 - ACUTE POSTHEMORRHAGIC ANEMIA SNOMED Code(s): 866798395 (3) GI bleed Current Visit: Yes Status: Acute Code(s): K92.2 - GASTROINTESTINAL HEMORRHAGE, UNSPECIFIED SNOMED Code(s): 64087208 Plan: Supportive care Nothing by mouth Monitor hemoglobin and transfuse as needed Protonix 40 mg IV twice a day Plan for upper endoscopy with further recommendations pending findings Avoid NSAIDs Thank you for allowing us to speak in the care of the patient we will continue to follow
--- NOTE | 2018-12-21 13:57 | ECHOF ---
Referral Reason:lower extremity swelling MEASUREMENTS -------- HEIGHT: 160.0 cm WEIGHT: 86.6 kg BP: 106/68 RVIDd: 2.4 cm (< 3.3) IVSd: 1.0 cm (0.6 - 1.1) LVIDd: 3.9 cm (3.9 - 5.3) LVPWd: 1.0 cm (0.6 - 1.1) IVSs: 1.3 cm LVIDs: 2.4 cm LVPWs: 1.3 cm LAESV Index (A-L): 13.44 ml/m Ao Diam: 2.7 cm (2.0 - 3.7) AV Cusp: 1.7 cm (1.5 - 2.6) LA Diam: 2.5 cm (2.7 - 3.8) MV EXCURSION: 18.829 mm (> 18.000) MV EF SLOPE: 56 mm/s (70 - 150) EPSS: 0.3 cm MV E Alessandro: 0.85 m/s MV DecT: 216 ms MV A Alessandro: 1.05 m/s MV E/A Ratio: 0.81 RAP: 5.00 mmHg RVSP: 43.59 mmHg FINDINGS -------- Sinus rhythm. Resting tachycardia (HR>100bpm). This was a technically adequate study. The left ventricular size is normal. Left ventricular wall thickness is normal. Overall left vent ricular systolic function is normal with, an EF between 60 - 65 %. The right ventricle is normal in size. Normal LA size by volume 22+/-6 ml/m2. The right atrial size is normal. The aortic valve is trileaflet, and appears structurally normal. No aortic stenosis or regurgitation. The mitral valve is normal. There is trace mitral regurgitation. Mild tricuspid regurgitation present. There is mild pulmonary hypertension. The right ventricular systolic pressure, as measured by Doppler, is 43.59mmHg. There is no pulmonic regurgitation present. The aortic root size is normal. Normal inferior vena cava with normal inspiratory collapse consistent with estimated right atrial pre ssure of 5 mmHg. There is a trivial pericardial effusion present. CONCLUSIONS -------- 1. Sinus rhythm. 2. Resting tachycardia (HR>100bpm). 3. This was a technically adequate study. 4. The left ventricular size is normal. 5. Left ventricular wall thickness is normal. 6. Overall left ventricular systolic function is normal with, an EF between 60 - 65 %. 7. The right ventricle is normal in size. 8. Normal LA size by volume 22+/-6 ml/m2. 9. The aortic valve is trileaflet, and appears structurally normal. No aortic stenosis or regurgitati on. 10. There is trace mitral regurgitation. 11. Mild tricuspid regurgitation present. 12. There is mild pulmonary hypertension. 13. The aortic root size is normal. 14. There is a trivial pericardial effusion present. MARKETING TECHNOLOGY COORDINATOR: Vj Sun RDCS
--- NOTE | 2018-12-21 14:04 | P.PCN ---
Date of Procedure: 12/21/18 Description of Procedure: BRIEF HISTORY: Patient is a pleasant 53-year-old female with a past medical history of stage IV poorly differentiated lung adenocarcinoma who presented with complaints of chest pain and vomiting blood. The patient reports moderate chest discomfort with radiation into her neck and down her sternum with associated shortness of breath. She reports that over the past 3 weeks she has been coughing up blood tinged sputum. In addition she reports vomiting approximately one time per day and as noted streaks of blood in the vomit. She reports decreasing oral intake over the past 3 months. The patient is receiving chemotherapy every 3 weeks with her last treatment 3 days ago. She denies any NSAID use. She denies any change in bowel habits, no hematochezia, melena, constipation or diarrhea. She denies any history of GI bleeding. Hemoglobin on presentation found to be 9.1. The patient had seen her oncologist in the outpatient setting anemic and started on iron therapy with plan for outpatient EGD. PROCEDURE PERFORMED: Esophagogastroduodenoscopy with biopsy. PREOPERATIVE DIAGNOSIS: Hematemesis. ESTIMATED BLOOD LOSS: Minimal. IV sedation per anesthesia. PROCEDURE: After informed consent was obtained, the patient was brought into the endoscopy unit. IV sedation was administered by Anesthesia under continuous monitoring. Initially the Olympus GIF-190 video endoscope was inserted into the mouth. Esophagus intubated without any difficulty. It was gradually advanced into the stomach and duodenum and carefully examined. The bulb was significant for erythema and edema consistent with moderate duodenitis which was biopsied. The second part of the duodenum appeared normal. The scope at this time was withdrawn to the stomach, adequately insufflated with air, and upon careful examination, mucosa of the antrum, body, cardia and the fundus appeared grossly normal, except for some mild erythema in the antrum and body suggestive of mild gastritis which was biopsied. The scope was then withdrawn into the esophagus. The GE junction was located at 36 cm from the incisors. The esophagus appeared normal. There were no erosions or ulcerations seen and the patient tolerated the procedure well. IMPRESSION: 1. No active bleeding or old blood seen. 2. Moderate duodenitis of duodenal bulb, biopsied. 3. Mild gastritis of the antrum and body, biopsied. RECOMMENDATIONS: The findings of this examination were discussed with the patient. Okay for diet. Continue PPI twice daily. Continue to monitor hemoglobin and hematocrit and transfuse as needed. Await pathology from biopsies. No plan for further endoscopic workup at this time, however if further signs or symptoms develop or further fall in hemoglobin will discuss further evaluation with the patient.
[2018-12-21 14:32] VITALS: BMI 33.8
[2018-12-21] MEDS: POTASSIUM CHLORIDE ER 20 MEQ TAB.ER PO SCH ×2 (16:01→17:07)
[2018-12-21] MEDS: IPRATROPIUM-ALBUTEROL 3 ML NEB INHALATION SCH ×3 (16:04→19:48)
--- NOTE | 2018-12-21 16:29 | P.CNPUL ---
History of Present Illness Consult date: 12/21/18 Reason for consult: dyspnea Chief complaint: Pain on the right side of the chest, acute GIB, adecarcinoma of the lung IV History of present illness: This is a 53-year-old white female patient with history of adenocarcinoma of the lung, stage IV, diagnosed in August 2016, status post radiation and systemic chemotherapy. Initial presentation in 2016 was with shortness of breath and recurrent pneumonias, ultimately the patient was hospitalized and she was found to have a right mid lung mass and mediastinal lymphadenopathy. The CAT scan also showed some abdominal and retroperitoneal lymphadenopathy and patient was having digital clubbing and increased edema in lower extremities. Patient had a bronchoscopy and transbronchial needle aspirate of the paratracheal mass which showed adenocarcinoma, poorly differentiated, consistent with primary lung cancer. PET scan was completed on 09/21/2016 and showed activity within the primary lung neoplasm as the lesion in the right midlung was measuring 7.2 x 6.6 cm. In addition there was mediastinal lymphadenopathy involving the right peritracheal and subcarinal area and there was evidence of left adrenal metastasis and abdominal metastasis/adenopathy. Patient was initially started on a combination of carboplatin and Alimta and Avastin, patient did receive 4 cycles, with partial response, and patient was placed on a combination of Alimta and Avastin. Most recently patient had been switched from Alimta and Avastin to Tecentriq. Over the last 3 weeks patient reports coughing up blood-tinged sputum, and she has been experiencing vomiting with streaks of blood in the vomit. She has had decreased oral intake over the last 3 months. She reports 20 pound weight loss in the last 6 months. No prior history of GI bleeding, no melena, no hematochezia. She follows with Dr. Eckert, and has been anemic in the outpatient setting and was receiving iron therapy, and awaiting outpatient EGD. On 12/21/2018 patient came into the emergency department with comfort on the right side of her chest radiating from her neck down to her right sternum. Patient was experiencing some difficulty breathing. She denied any fever or chills, denied any sweating, no vomiting or diarrhea. Her chronic cough has not changed. Chest x-ray was completed and showed a large cavitary mass in the right lung that was similar to previous x-rays. D-dimer was elevated, and CT angios of the chest was completed showing no evidence of pulmonary embolism and findings compatible with metastatic lung cancer, a mass within the right middle lobe extended to the right hilar region, abnormal densities present in the right lower lobe with local mass effect on the pulmonary vein, loculated effusion on the right, and an effusion present on the left, adjacent atelectasis. There is a background of emphysematous changes especially in the upper lobes and volume loss in the right hemithorax. There was bilateral hilar adenopathy, mediastinal adenopathy with nodes in the prevascular location, and possible retrocaval pretracheal mediastinum. EKG showed sinus tachycardia with a rate of 113 BPM, with nonspecific ST and T-wave abnormalities. Echocardiogram showed EF of 60-65%, mild pulmonary hypertension, with right- sided pressures of 43.5 mmHg. Lab work showed a white blood cell count of 11.6 , hemoglobin of 9.1, d-dimer was 5.05, sodium was 140, potassium was 3.3, chloride was 108, renal profile was within normal limits, with BUN of 8, and creatinine 0.54, troponin was negative 1, proBNP was 627. EGD was completed today and showed no active bleeding or old blood, moderate duodenitis of duodenal bulb which was biopsied, and mild gastritis of the antrum and body. Review of Systems All systems: negative Constitutional: Reports weight loss, Denies chills, Denies fever Eyes: denies blurred vision, denies pain Ears, nose, mouth and throat: Denies headache, Denies sore throat Cardiovascular: Reports dyspnea on exertion, Denies chest pain, Denies shortness of breath Respiratory: Reports cough with sputum, Reports dyspnea, Denies cough Gastrointestinal: Denies abdominal pain, Denies diarrhea, Denies nausea, Denies vomiting Genitourinary: Denies dysuria, Denies hematuria Musculoskeletal: Denies myalgias Integumentary: Denies pruritus, Denies rash Neurological: Denies numbness, Denies weakness Psychiatric: Denies anxiety, Denies depression Endocrine: Denies fatigue, Denies weight change Past Medical History Past Medical History: Cancer, COPD, GERD/Reflux, GI Bleed, Skin Disorder Additional Past Medical History / Comment(s): stage IV lung cancer dx. 2016- tx with chemo currently, hx eczema, throwing up blood intermittently last couple weeks History of Any Multi-Drug Resistant Organisms: None Reported Past Surgical History: Orthopedic Surgery, Tubal Ligation Additional Past Surgical History / Comment(s): lung biopsy, left foot surgery, port inserted rt side Past Anesthesia/Blood Transfusion Reactions: No Reported Reaction Past Psychological History: No Psychological Hx Reported Smoking Status: Former smoker Past Alcohol Use History: None Reported Past Drug Use History: None Reported - Past Family History Father Family Medical History: Cancer Additional Family Medical History / Comment(s): lung cancer Mother Family Medical History: COPD Additional Family Medical History / Comment(s): Mother from complications of COPD. Medications and Allergies Home Medications Medication Instructions Recorded Confirmed Type Multivitamins, Thera [Multivitamin 1 tab PO DAILY 09/14/16 12/21/18 History (formulary)] Albuterol Inhaler [Ventolin Hfa 1 - 2 puff INHALATION RT-Q6H PRN 11/23/17 History Inhaler] Albuterol Nebulized [Ventolin 2.5 mg INHALATION RT-BID PRN 11/23/17 12/21/18 History Nebulized] Pantoprazole Sodium 40 mg PO DAILY 04/09/18 12/21/18 History Acetaminophen [Tylenol Extra 500 mg PO Q8H PRN 12/21/18 12/21/18 History Strength] Allergies Allergy/AdvReac Type Severity Reaction Status Date / Time Iodinated Contrast- Oral and AdvReac Nausea & Verified 12/21/18 08:08 IV Dye Vomiting Physical Exam Vitals: Vital Signs Temp Pulse Pulse Resp BP BP Pulse Ox 12/21/18 12:00 97.7 F 121 H 16 90/54 12/21/18 11:00 98.1 F 108 H 12 106/68 96 12/21/18 10:30 134/93 12/21/18 09:33 98 16 116/84 97 12/21/18 08:25 125/85 12/21/18 08:09 110 H 16 102/70 100 12/21/18 07:36 98.1 F 118 H 18 123/78 91 L Intake and Output 12/21/18 12/21/18 12/21/18 06:59 14:59 22:59 Other: Weight 86.636 kg GENERAL EXAM: Alert, pleasant, 53-year-old white female, comfortable in no apparent distress. HEAD: Normocephalic/atraumatic. EYES: Normal reaction of pupils, equal size. Conjunctiva pink, sclera white. NOSE: Clear with pink turbinates. THROAT: No erythema or exudates. NECK: No masses, no JVD, no thyroid enlargement, no adenopathy. CHEST: No chest wall deformity. Symmetrical expansion. LUNGS: Equal air entry with diminished breath sounds, bilaterally, more so at the bases CVS: Regular rate and rhythm, normal S1 and S2, no gallops, no murmurs, no rubs ABDOMEN: Soft, nontender. No hepatosplenomegaly, normal bowel sounds, no guarding or rigidity. EXTREMITIES: No clubbing, no edema, no cyanosis, 2+ pulses and upper and lower extremities. MUSCULOSKELETAL: Muscle strength and tone normal. SPINE: No scoliosis or deformity SKIN: No rashes CENTRAL NERVOUS SYSTEM: Alert and oriented -3. No focal deficits, tone is normal in all 4 extremities. PSYCHIATRIC: Alert and oriented -3. Appropriate affect. Intact judgment and insight. Results - Laboratory Findings CBC and BMP: 12/21/18 08:07 12/21/18 08:07 PT/INR, D-dimer PT 11.7 sec (9.0-12.0) 12/21/18 08:07 INR 1.1 (<1.2) 12/21/18 08:07 D-Dimer 5.05 mg/L FEU (<0.60) H 12/21/18 08:07 Abnormal lab findings: Abnormal Labs 12/21/18 12/21/18 12/21/18 08:07 08:07 08:07 WBC 11.6 H RBC 3.52 L Hgb 9.1 L D Hct 29.9 L MCHC 30.6 L RDW 17.6 H Neutrophils # 10.1 H Lymphocytes # 0.6 L D-Dimer 5.05 H Potassium 3.3 L Chloride 108 H Glucose 143 H Alkaline Phosphatase 134 H Total Protein 6.2 L Albumin 3.1 L - Diagnostic Findings Chest x-ray: report reviewed, image reviewed CT scan - chest: report reviewed, image reviewed Additional studies: EKG reviewed, results of the echocardiogram reviewed Assessment and Plan Plan: Assessment: #1. Right-sided chest pain likely related to right pleural effusion, d-dimer was elevated, but CT angios of the chest ruled out pulmonary embolism, but showed findings compatible history of metastatic lung carcinoma, lung mass within the right middle lobe extending to the right hilar region, acutely pleural effusion on the right volume loss in the right hemithorax, bilateral hilar adenopathy and mediastinal adenopathy. #2. Hematemesis/acute GI bleeding #3. 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 Patient was diagnosed in August 2016, was treated with Alimta and Avastin, currently on Tecentriq #4. Acute blood loss anemia #5. COPD, with underlying FEV1 of 1.26 L or 46% of predicted and diffusion capacity at 38% of predicted, stage III COPD #6. Nicotine dependence, currently in remission #7. Weight loss, decreased oral intake, reports losing 20 pounds in the last 6 months #8. GERD/reflux Plan: We'll obtain ultrasound of the right chest to evaluate the size of the right pleural effusion, we may need to consult interventional radiology for drainage of shows a sizable pocket. We'll consult medical oncology. We'll continue with current medical treatment, nebulized bronchodilators, maintain pain control , EGD results were noted, there has been no further vomiting, or GI bleeding, patient has not required any blood transfusions, continues with PPI therapy, hemodynamically stable. I performed a history & physical examination of the patient and discussed their management with my nurse practitioner, Cathie Deshpande. I reviewed the nurse practitioner's note and agree with the documented findings and plan of care. Lung sounds are positive for diminished breath sounds. The findings and the impression was discussed with the patient. I attest to the documentation by the nurse practitioner. Time with Patient: Greater than 30
--- NOTE | 2018-12-21 16:56 | US ---
EXAMINATION TYPE: US chest DATE OF EXAM: 12/21/2018 COMPARISON: CTA chest earlier today. CLINICAL HISTORY: right lung mass and right pleural effusion. right pleural effusion TECHNIQUE: Targeted ultrasound of the posterior lower bilateral hemithoraces EXAM MEASUREMENTS: Right Pleural Effusion pocket size: no significant fluid visualized at this time Left Pleural Effusion pocket size: 2.0 cm Left skin surface to fluid distance: 3.3 cm Right side NOT marked for possible thoracentesis outside the dept. Left side NOT marked for possible thoracentesis outside the dept. Pulmonologists are able to review the images in the patient?s EMR. No significant pleural effusion is seen on images saved. There are small right pleural effusion. Find ings correlate with CT earlier today. IMPRESSIONS: As above, no drainable effusions felt present.
[2018-12-21] MEDS: FORMOTEROL FUMARATE 20 MCG/2 ML NEBU INHALATION SCH (19:57)
[2018-12-21] MEDS: PANTOPRAZOLE 40 MG/10 ML VIAL IVP SCH (20:36)
[2018-12-21 21:56] LABS: Anisocytosis Slight; Basophils % (A) 0 %; Eosinophils # (A) 0.1 k/uL (0-0.7); Eosinophils % (A) 0 %; HCT 27.2 % (34.0-46.0); Hypochromasia Marked; Lymphocytes # (A) 0.5 k/uL (1.0-4.8); Lymphocytes % (A) 3 %; MCH 25.3 pg (25.0-35.0); MCHC 29.2 g/dL (31.0-37.0); MCV 86.5 fL (80.0-100.0); Mean Platelet Volume 7.5; Monocytes # (A) 0.5 k/uL (0-1.0); Monocytes % (A) 4 %; Neutrophils # (A) 12.6 k/uL (1.3-7.7); Neutrophils % (A) 92 %; Platelet Count 284 k/uL (150-450); Poikilocytosis Slight; RBC 3.15 m/uL (3.80-5.40); RDW 17.7 % (11.5-15.5); WBC 13.7 k/uL (3.8-10.6)
[2018-12-22] MEDS: IPRATROPIUM-ALBUTEROL 3 ML NEB INHALATION SCH ×7 (00:12→23:20)
[2018-12-22 04:24] LABS: Anisocytosis Slight; Basophils % (A) 0 %; Eosinophils % (A) 0 %; HCT 26.4 % (34.0-46.0); HGB 7.6 gm/dL (11.4-16.0); Hypochromasia Marked; Lymphocytes # (A) 0.7 k/uL (1.0-4.8); Lymphocytes % (A) 6 %; MCH 24.9 pg (25.0-35.0); MCHC 28.8 g/dL (31.0-37.0); MCV 86.5 fL (80.0-100.0); Mean Platelet Volume 7.3; Monocytes # (A) 0.9 k/uL (0-1.0); Monocytes % (A) 7 %; Neutrophils # (A) 11.2 k/uL (1.3-7.7); Neutrophils % (A) 86 %; Platelet Count 266 k/uL (150-450); Poikilocytosis Slight; RBC 3.06 m/uL (3.80-5.40); RDW 17.8 % (11.5-15.5); WBC 13.1 k/uL (3.8-10.6)
[2018-12-22] MEDS: FORMOTEROL FUMARATE 20 MCG/2 ML NEBU INHALATION SCH ×2 (07:44→19:44)
[2018-12-22] MEDS: PANTOPRAZOLE 40 MG/10 ML VIAL IVP SCH ×2 (08:51→20:50)
[2018-12-22 10:10] LABS: Anion Gap 6 mmol/L; Blood Urea Nitrogen 16 mg/dL (7-17); Calcium 8.9 mg/dL (8.4-10.2); Carbon Dioxide 25 mmol/L (22-30); Chloride 110 mmol/L (98-107); Glucose 137 mg/dL (74-99); Potassium 4.8 mmol/L (3.5-5.1); Sodium 141 mmol/L (137-145)
--- NOTE | 2018-12-22 10:19 | P.PN ---
Subjective Progress Note Date: 12/22/18 Principal diagnosis: Anemia GI bleed hematemesis Status post EGD yesterday for evaluation of hematemesis and anemia. No active bleeding or old blood seen. Moderate duodenitis of the duodenal bulb antral gastritis biopsies pending. Presently feels well. Tolerating regular diet. Denies hematemesis hematochezia melena. Hemoglobin 7.6. Objective - Vital Signs Vital signs: Vital Signs Temp 98.4 F 12/22/18 07:37 Pulse 93 12/22/18 07:57 Resp 16 12/22/18 07:37 BP 113/62 12/22/18 07:37 Pulse Ox 96 12/22/18 07:37 Intake & Output 12/21/18 12/22/18 12/22/18 18:59 06:59 18:59 Intake Total 240 100 Output Total 0 0 Balance 240 0 100 Weight 86.636 kg 86.9 kg Intake: IV 100 0.9 @50 100 Oral 240 0 Output: Urine 0 0 Other: Voiding Method Toilet # Voids 1 - Exam General appearance: The patient is alert, oriented, in no acute distress. HET: Head is normocephalic and atraumatic. Pupils are equal and reactive. Oropharynx is clear without lesions. Neck: Supple without lymphadenopathy. Trachea midline. Heart: S1 S2. Regular rate and rhythm. Lungs: No crackles or wheezes are heard. Abdomen: Soft, nontender, nondistended with bowel sounds. No peritoneal signs. No palpable organomegaly or masses. Extremities: Normal skin color and turgor. No cyanosis, rash, ulceration, clubbing, or edema. Radial and pedal pulses are 2/4 bilaterally. Neurological: No focal deficits. Strength and sensation are grossly intact. - Labs CBC & Chem 7: 12/22/18 02:56 12/22/18 02:56 Labs: Abnormal Lab Results - Last 24 Hours (Table) 12/21/18 12/22/18 12/22/18 Range/Units 21:42 02:56 02:56 WBC 13.7 H 13.1 H (3.8-10.6) k/uL RBC 3.15 L 3.06 L (3.80-5.40) m/uL Hgb 8.0 L 7.6 L (11.4-16.0) gm/dL Hct 27.2 L 26.4 L (34.0-46.0) % MCH 24.9 L (25.0-35.0) pg MCHC 29.2 L 28.8 L (31.0-37.0) g/dL RDW 17.7 H 17.8 H (11.5-15.5) % Neutrophils # 12.6 H 11.2 H (1.3-7.7) k/uL Lymphocytes # 0.5 L 0.7 L (1.0-4.8) k/uL Chloride 110 H (98-107) mmol/L Glucose 137 H (74-99) mg/dL Assessment and Plan (1) Hematemesis Current Visit: Yes Status: Acute Code(s): K92.0 - HEMATEMESIS SNOMED Code( s): 2140871 (2) Anemia associated with acute blood loss Current Visit: Yes Status: Acute Code(s): D62 - ACUTE POSTHEMORRHAGIC ANEMIA SNOMED Code(s): 259012163 (3) History of lung cancer Current Visit: Yes Status: Acute Code(s): Z85.118 - PERSONAL HISTORY OF MALIGNANT NEOPLASM OF BRONCHUS AND LUNG SNOMED Code(s): 159690745 Plan: 1. No active bleeding. Continue to observe for another day. Continue Protonix 40 mg twice daily. CBC in a.m. Light diet as tolerated. Assessment and plan a care discussed with Dr. Moreno
--- NOTE | 2018-12-22 10:34 | P.PN ---
Subjective Progress Note Date: 12/22/18 Patient tolerated to regular diet, had EGD yesterday. Denies any nausea or vomiting this morning, denies any hematemesis, Hemoglobin down to 7.6 morning, potassium improved to 4.8. Patient afebrile Objective - Vital Signs Vital signs: Vital Signs Temp 98.4 F 12/22/18 07:37 Pulse 93 12/22/18 07:57 Resp 16 12/22/18 07:37 BP 113/62 12/22/18 07:37 Pulse Ox 96 12/22/18 07:37 Intake & Output 12/21/18 12/22/18 12/22/18 18:59 06:59 18:59 Intake Total 240 100 Output Total 0 0 Balance 240 0 100 Weight 86.636 kg 86.9 kg Intake: IV 100 0.9 @50 100 Oral 240 0 Output: Urine 0 0 Other: Voiding Method Toilet # Voids 1 - Exam Constitutional: No acute distress, conversant, pleasant Eyes: Anicteric sclerae, moist conjunctiva, no lid-lag, PERRLA ENMT: NC/AT,Oropharynx clear, no erythema, exudates Neck:Supple, FROM, no masses, or JVD, No carotid bruits; No thyromegaly Lungs: Clear to auscultation, Clear to percussion, Normal respiratory effort, no accessory muscle use Cardiovascular: Heart regular in rate and rhythm, No murmurs, gallops, or rubs no peripheral edema Abdominal: Soft Nontender, nom distended, no guarding, no rebound or rigidity, Normoactive bowel sounds No hepatomegaly, No splenomegaly, No palpable mass No abdominal wall hernia noted Skin: Normal temperature, tone, texture, turgor, No induration No subcutaneous nodules, No rash, lesions, No ulcers Extremities:No digital cyanosis No clubbing, Pedal pulses intact and symmetrical Radial pulses intact and symmetrical Normal gait and station, No calf tenderness Psychiatric: Alert and oriented to person, place and time, Appropriate affect Intact judgement Neuro: Muscles Strength 5/5 in all 4 extremities, Sensation to light touch grossly present throughout, Cranial nerves II-XII grossly intact. No focal sensory deficits - Labs CBC & Chem 7: 12/22/18 02:56 12/22/18 02:56 Labs: Abnormal Lab Results - Last 24 Hours (Table) 12/21/18 12/22/18 12/22/18 Range/Units 21:42 02:56 02:56 WBC 13.7 H 13.1 H (3.8-10.6) k/uL RBC 3.15 L 3.06 L (3.80-5.40) m/uL Hgb 8.0 L 7.6 L (11.4-16.0) gm/dL Hct 27.2 L 26.4 L (34.0-46.0) % MCH 24.9 L (25.0-35.0) pg MCHC 29.2 L 28.8 L (31.0-37.0) g/dL RDW 17.7 H 17.8 H (11.5-15.5) % Neutrophils # 12.6 H 11.2 H (1.3-7.7) k/uL Lymphocytes # 0.5 L 0.7 L (1.0-4.8) k/uL Chloride 110 H (98-107) mmol/L Glucose 137 H (74-99) mg/dL Assessment and Plan (1) Atypical chest pain Narrative/Plan: * Unlikely related to coronary disease but related to right-sided pleural effusion * Troponins have been negative and EKG negative for suggestive of ischemia * Chest ultrasound indicating no drainable effusions * Echocardiogram showing a preserved LVEF of 60-65% Current Visit: Yes Status: Acute Code(s): R07.89 - OTHER CHEST PAIN SNOMED Code(s): 243128599 (2) GI bleed Narrative/Plan: * Secondary to duodenitis and gastritis * EGD with no active bleeding * Continue to monitor hemoglobin and continue PPI therapy Current Visit: Yes Status: Acute Code(s): K92.2 - GASTROINTESTINAL HEMORRHAGE, UNSPECIFIED SNOMED Code(s): 47849828 (3) Iron deficiency anemia Narrative/Plan: * Acute blood loss anemia precipitated by acute gastritis/duodenitis superimposed on iron deficiency anemia * EGD showing no acute active bleeding * Hemoglobin 7.6g * Recheck CBC in the morning Current Visit: Yes Status: Acute Code(s): D50.9 - IRON DEFICIENCY ANEMIA, UNSPECIFIED SNOMED Code(s): 16193728 (4) Gastritis/duodenitis Narrative/Plan: * Treatment as above Current Visit: Yes Status: Acute Code(s): K29.90 - GASTRODUODENITIS, UNSPECIFIED, WITHOUT BLEEDING SNOMED Code(s): 031201767 (5) Hypokalemia Narrative/Plan: * Continue potassium replacement Current Visit: Yes Status: Resolved Code(s): E87.6 - HYPOKALEMIA SNOMED Code(s): 82439168 (6) Hematemesis Current Visit: Yes Status: Acute Code(s): K92.0 - HEMATEMESIS SNOMED Code( s): 9932995 (7) Hemoptysis Current Visit: Yes Status: Acute Code(s): R04.2 - HEMOPTYSIS SNOMED Code(s ): 34386171 (8) Stage IV adenocarcinoma of lung Current Visit: Yes Status: Acute Code(s): C34.90 - MALIGNANT NEOPLASM OF UNSP PART OF UNSP BRONCHUS OR LUNG SNOMED Code(s): 458533382 Plan: Continue to monitor patient's hemoglobin tomorrow stable we'll discharge her home on PPI therapy
[2018-12-22] MEDS ORDERED: PROMETHAZINE HCL 6.25 MG/5 ML CUP PO PRN (13:37)
--- NOTE | 2018-12-22 14:46 | P.PN ---
Subjective Progress Note Date: 12/22/18 Principal diagnosis: pleuritic right-sided chest pain, acute GI bleed This is a 53-year-old white female patient with history of adenocarcinoma of the lung, stage IV, diagnosed in August 2016, status post radiation and systemic chemotherapy. Initial presentation in 2016 was with shortness of breath and recurrent pneumonias, ultimately the patient was hospitalized and she was found to have a right mid lung mass and mediastinal lymphadenopathy. The CAT scan also showed some abdominal and retroperitoneal lymphadenopathy and patient was having digital clubbing and increased edema in lower extremities. Patient had a bronchoscopy and transbronchial needle aspirate of the paratracheal mass which showed adenocarcinoma, poorly differentiated, consistent with primary lung cancer. PET scan was completed on 09/21/2016 and showed activity within the primary lung neoplasm as the lesion in the right midlung was measuring 7.2 x 6.6 cm. In addition there was mediastinal lymphadenopathy involving the right peritracheal and subcarinal area and there was evidence of left adrenal metastasis and abdominal metastasis/adenopathy. Patient was initially started on a combination of carboplatin and Alimta and Avastin, patient did receive 4 cycles, with partial response, and patient was placed on a combination of Alimta and Avastin. Most recently patient had been switched from Alimta and Avastin to Tecentriq. Over the last 3 weeks patient reports coughing up blood-tinged sputum, and she has been experiencing vomiting with streaks of blood in the vomit. She has had decreased oral intake over the last 3 months. She reports 20 pound weight loss in the last 6 months. No prior history of GI bleeding, no melena, no hematochezia. She follows with Dr. Eckert, and has been anemic in the outpatient setting and was receiving iron therapy, and awaiting outpatient EGD. On 12/21/2018 patient came into the emergency department with comfort on the right side of her chest radiating from her neck down to her right sternum. Patient was experiencing some difficulty breathing. She denied any fever or chills, denied any sweating, no vomiting or diarrhea. Her chronic cough has not changed. Chest x-ray was completed and showed a large cavitary mass in the right lung that was similar to previous x-rays. D-dimer was elevated, and CT angios of the chest was completed showing no evidence of pulmonary embolism and findings compatible with metastatic lung cancer, a mass within the right middle lobe extended to the right hilar region, abnormal densities present in the right lower lobe with local mass effect on the pulmonary vein, loculated effusion on the right, and an effusion present on the left, adjacent atelectasis. There is a background of emphysematous changes especially in the upper lobes and volume loss in the right hemithorax. There was bilateral hilar adenopathy, mediastinal adenopathy with nodes in the prevascular location, and possible retrocaval pretracheal mediastinum. EKG showed sinus tachycardia with a rate of 113 BPM, with nonspecific ST and T-wave abnormalities. Echocardiogram showed EF of 60-65%, mild pulmonary hypertension, with right- sided pressures of 43.5 mmHg. Lab work showed a white blood cell count of 11.6 , hemoglobin of 9.1, d-dimer was 5.05, sodium was 140, potassium was 3.3, chloride was 108, renal profile was within normal limits, with BUN of 8, and creatinine 0.54, troponin was negative 1, proBNP was 627. EGD was completed today and showed no active bleeding or old blood, moderate duodenitis of duodenal bulb which was biopsied, and mild gastritis of the antrum and body. On 12/22/2018 patient seen in follow-up on selective care unit. Breathing easier today, still has some residual pleuritic right-sided chest pain, however it's improved. no fever or chills, vital signs are stable, ultrasound of the chest showed no significant fluid on the right side, and minimal 2.0 cm left pleural effusion pocket. patient was given a dose of IV steroids in the emergency department, he is on breathing treatments, she's had no further hemoptysis, or hematemesis, today's hemoglobin is 7.6. Hemodynamically she was stable. heart sounds are positive for some diffuse wheezes, and rhonchi. Results of the EGD were noted, with findings of moderate duodenitis and mild gastritis, with biopsies taken. Objective - Vital Signs Vital signs: Vital Signs Temp 97.4 F L 12/22/18 12:00 Pulse 108 H 12/22/18 12:00 Resp 16 12/22/18 12:00 BP 108/65 12/22/18 12:00 Pulse Ox 98 12/22/18 12:00 Intake & Output 12/21/18 12/22/18 12/22/18 18:59 06:59 18:59 Intake Total 240 340 Output Total 0 0 Balance 240 0 340 Weight 86.636 kg 86.9 kg Intake: IV 100 0.9 @50 100 Oral 240 240 Output: Urine 0 0 Other: Voiding Method Toilet # Voids 1 - Exam GENERAL EXAM: Alert, pleasant, 53-year-old white female, comfortable in no apparent distress. HEAD: Normocephalic/atraumatic. EYES: Normal reaction of pupils, equal size. Conjunctiva pink, sclera white. NOSE: Clear with pink turbinates. THROAT: No erythema or exudates. NECK: No masses, no JVD, no thyroid enlargement, no adenopathy. CHEST: No chest wall deformity. Symmetrical expansion. LUNGS: Equal air entry with diminished breath sounds, bilaterally, more so at the bases CVS: Regular rate and rhythm, normal S1 and S2, no gallops, no murmurs, no rubs ABDOMEN: Soft, nontender. No hepatosplenomegaly, normal bowel sounds, no guarding or rigidity. EXTREMITIES: No clubbing, no edema, no cyanosis, 2+ pulses and upper and lower extremities. MUSCULOSKELETAL: Muscle strength and tone normal. SPINE: No scoliosis or deformity SKIN: No rashes CENTRAL NERVOUS SYSTEM: Alert and oriented -3. No focal deficits, tone is normal in all 4 extremities. PSYCHIATRIC: Alert and oriented -3. Appropriate affect. Intact judgment and insight. - Labs CBC & Chem 7: 12/22/18 02:56 12/22/18 02:56 Labs: Abnormal Lab Results - Last 24 Hours (Table) 12/21/18 12/22/18 12/22/18 Range/Units 21:42 02:56 02:56 WBC 13.7 H 13.1 H (3.8-10.6) k/uL RBC 3.15 L 3.06 L (3.80-5.40) m/uL Hgb 8.0 L 7.6 L (11.4-16.0) gm/dL Hct 27.2 L 26.4 L (34.0-46.0) % MCH 24.9 L (25.0-35.0) pg MCHC 29.2 L 28.8 L (31.0-37.0) g/dL RDW 17.7 H 17.8 H (11.5-15.5) % Neutrophils # 12.6 H 11.2 H (1.3-7.7) k/uL Lymphocytes # 0.5 L 0.7 L (1.0-4.8) k/uL Chloride 110 H (98-107) mmol/L Glucose 137 H (74-99) mg/dL Assessment and Plan Plan: Assessment: #1. Right-sided chest pain, pleuritic likely related to right pleural effusion , d-dimer was elevated, but CT angios of the chest ruled out pulmonary embolism , but showed findings compatible history of metastatic lung carcinoma, lung mass within the right middle lobe extending to the right hilar region, acutely pleural effusion on the right volume loss in the right hemithorax, bilateral hilar adenopathy and mediastinal adenopathy. #2. Hematemesis/acute GI bleeding #3. 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 Patient was diagnosed in August 2016, was treated with Alimta and Avastin, currently on Tecentriq #4. Acute blood loss anemia #5. COPD, with underlying FEV1 of 1.26 L or 46% of predicted and diffusion capacity at 38% of predicted, stage III COPD #6. Nicotine dependence, currently in remission #7. Weight loss, decreased oral intake, reports losing 20 pounds in the last 6 months #8. GERD/reflux Plan: Ultrasound the chest did not show sizable pleural effusion pocket. On today's exam patient's pleuritic chest pain is improving, breathing easier, pain medications, and Phenergan for cough, we'll hold off on IV steroids in view of recent GI bleeding, patient did receive 1 dose of Solu-Medrol emergency department. We'll continue current treatment, anticipate discharge in next 24 hours, patient remains stable. I performed a history & physical examination of the patient and discussed their management with my nurse practitioner, Cathie Deshpande. I reviewed the nurse practitioner's note and agree with the documented findings and plan of care. Lung sounds are positive for diminished breath sounds. The findings and the impression was discussed with the patient. I attest to the documentation by the nurse practitioner. Time with Patient: Less than 30
[2018-12-22] MEDS: guaiFENesin-DM 100-10MG/5ML 10 ML CUP PO PRN (21:29)
--- NOTE | 2018-12-23 01:44 | P.CONS ---
History of Present Illness - Reason for Consult Consult date: 12/22/18 Lung ca on Immunotherapy, GI bleed - History of Present Illness Ms Everett is a 53 yr old WF, initially seen in consult at [facility] on 09/14/16. She had presented with b/l LE swelling, progressive over 2 days. She had had an episode of pneumonia, about 2 wks prior, improved partially with antibiotics. Dopplers of the LE, and CTA were done in the ER, revealing marked hilar and mediastinal adenopathy. CT AP revealed retroperitoneal adenopathy. CT brain was negative. Bronchoscopic biopsy on 09/17/16 was positive for poorly differentiated adeno ca of lung origin. She had a PET as an outpt, revealing uptake in the rt supraclavicular, hilar and paratracheal nodes. There was a masslike consolidation in the RML measuring 7.2 x 6.6 cm with SUV of 11.07, with central necrosis, likely the primary. Uptake was also seen in the left adrenal (2 x 1.8 cm, SUV 5.91), perigastric and retroperitoneal nodes, confirming stage 4 disease. She was seen for her 1st OV on 09/24/16. She was referred for palliative RT , pending tumor markers. These subsequently revealed ALK, ROS1 negative, PDL1 20% She completed palliative RT and started chemo with Carbo/Alimta/Avastin on . She is s/p [address] scans showed partial response, and she was switched to maintenance Alimta and avastin. She is s/p 28 cycles. Avastin was held with C 25 onwards due to her coughing up some blood. She has persistent, stable fatigue. She had no significant nausea and vomitting . She reports some discoloration and tenderness in the medial lower LLE. Dopplers were negative in 07/06. She did see Vascular Surgery for possible venous insufficiency. She is using compression stockings She was admitted at [facility] in early 12/07 with left flank pain. CT scans did not show any definite evidence of cancer progression, with only questionable minimal increase in left adrenal mass and retroperitoneal LAD noted. She improved with pain medications and was discharged. She reported nausea and diarrhea with the Po contrast with her scans in 02/04 , and 05/06 She has been having trouble with accessing her Port since 04/06. She has had 2 UTIs in 04/06 with an ER visit for the 2nd episode in late . She completed antibiotics in early 05/06 Ct scans in 05/06 showed decrease in the RML mass, but possible minor increase in abdominal adenopathy. The findings were felt to be non specific and she was continued on the same regimen. She had a PORT revision on 05/20/18 as her existing PORT was cracked. CT scans in early 10/06 showed progression. She was changed to Atezolizumab on 09/25/18 and is s/p 5 cycles, most recently on 12/18/18. Had a reaction on what was able to complete her infusion. It was therefore decided to change her to Opdivo. She went to the ER in mid 12/08 with c/o vomitting blood, about a handful at most. She was asked to f/u with GI as an outpt, on 12/22/18. She has the same symptom essentially every AM. No blood in the stool or melena. When seen in the office on 12/18/18, hemoglobin had dropped to 8.9, where baseline was normally around 12. Iron studies confirmed iron deficiency. GI was contacted, an EGD was moved up to 12/21/18 The patient states that she woke up with mid upper chest pain, that is described as a pressure/tightness sensation. This was made worse by deep breathing. She therefore came into the emergency room, and had a CTA of the chest done which was negative for PE. Cardiac workup was also negative. The patient then underwent an EGD, which showed duodenitis. Consult was placed for further evaluation and recommendations. Hgb inpt dropped to7.6. She has not had recurrent hematemesis since admission Review of Systems Constitutional: Reports fatigue Eyes: denies blurred vision, denies pain Ears: deny: decreased hearing, ear discharge, earache, tinnitus Ears, nose, mouth and throat: Denies headache, Denies sore throat Cardiovascular: Reports chest pain, Reports shortness of breath Respiratory: Reports as per HPI, Reports dyspnea, Reports pain on inspiration Gastrointestinal: Reports hematemesis Genitourinary: Denies dysuria, Denies hematuria Menstruation: Reports postmenopausal Musculoskeletal: Reports muscle weakness Integumentary: Denies pruritus, Denies rash Neurological: Reports weakness Psychiatric: Denies anxiety, Denies depression Endocrine: Reports fatigue Hematologic/Lymphatic: Reports as per HPI Past Medical History Past Medical History: Cancer, COPD, GERD/Reflux, GI Bleed, Skin Disorder Additional Past Medical History / Comment(s): stage IV lung cancer dx. 2016- tx with chemo currently, hx eczema, throwing up blood intermittently last couple weeks History of Any Multi-Drug Resistant Organisms: None Reported Past Surgical History: Orthopedic Surgery, Tubal Ligation Additional Past Surgical History / Comment(s): lung biopsy, left foot surgery, port inserted rt side Past Anesthesia/Blood Transfusion Reactions: No Reported Reaction Past Psychological History: No Psychological Hx Reported Smoking Status: Former smoker Past Alcohol Use History: None Reported Past Drug Use History: None Reported - Past Family History Father Family Medical History: Cancer Additional Family Medical History / Comment(s): lung cancer Mother Family Medical History: COPD Additional Family Medical History / Comment(s): Mother from complications of COPD. Medications and Allergies Home Medications Medication Instructions Recorded Confirmed Type Multivitamins, Thera [Multivitamin 1 tab PO DAILY 09/14/16 12/21/18 History (formulary)] Albuterol Inhaler [Ventolin Hfa 1 - 2 puff INHALATION RT-Q6H PRN 11/23/17 History Inhaler] Albuterol Nebulized [Ventolin 2.5 mg INHALATION RT-BID PRN 11/23/17 12/21/18 History Nebulized] Pantoprazole Sodium 40 mg PO DAILY 04/09/18 12/21/18 History Acetaminophen [Tylenol Extra 500 mg PO Q8H PRN 12/21/18 12/21/18 History Strength] Allergies Allergy/AdvReac Type Severity Reaction Status Date / Time Iodinated Contrast- Oral and AdvReac Nausea & Verified 12/21/18 08:08 IV Dye Vomiting Physical Exam Vitals: Vital Signs Temp Pulse Pulse Resp BP Pulse Ox 12/22/18 23:30 108 H 12/22/18 23:21 108 H 12/22/18 20:10 98.2 F 119 H 17 105/70 95 12/22/18 19:49 95 12/22/18 19:44 95 12/22/18 19:43 95 12/22/18 19:34 93 12/22/18 15:57 94 12/22/18 15:46 95 93 L 12/22/18 15:42 97.2 F L 114 H 16 112/59 96 12/22/18 12:00 97.4 F L 108 H 16 108/65 98 12/22/18 11:16 94 12/22/18 11:06 94 12/22/18 07:57 93 12/22/18 07:44 92 12/22/18 07:37 98.4 F 122 H 16 113/62 96 12/22/18 04:11 104 H 12/22/18 04:00 98.1 F 108 H 110 H 19 100/61 95 12/22/18 00:21 112 H Intake and Output 12/22/18 12/22/18 12/23/18 14:59 22:59 06:59 Intake Total 340 480 Output Total 0 Balance 340 480 Intake: IV 100 0.9 @50 100 Oral 240 480 Output: Urine 0 Other: Voiding Method Toilet # Voids 1 - Constitutional General appearance: no acute distress - EENT Eyes: EOMI, PERRLA ENT: hearing grossly normal, normal oropharynx - Neck Neck: no lymphadenopathy Thyroid: bilateral: normal size - Respiratory Respiratory: right: diminished (RLL), wheezing - Cardiovascular Rhythm: regular Heart sounds: normal: S1, S2 - Gastrointestinal General gastrointestinal: normal bowel sounds, soft - Integumentary Integumentary: normal - Neurologic Neurologic: CNII-XII intact - Musculoskeletal Musculoskeletal: strength equal bilaterally - Psychiatric Psychiatric: A&O x's 3, appropriate affect Results CBC & Chem 7: 12/22/18 02:56 12/22/18 02:56 Labs: Abnormal Lab Results - Last 24 Hours (Table) 12/22/18 12/22/18 Range/Units 02:56 02:56 WBC 13.1 H (3.8-10.6) k/uL RBC 3.06 L (3.80-5.40) m/uL Hgb 7.6 L (11.4-16.0) gm/dL Hct 26.4 L (34.0-46.0) % MCH 24.9 L (25.0-35.0) pg MCHC 28.8 L (31.0-37.0) g/dL RDW 17.8 H (11.5-15.5) % Neutrophils # 11.2 H (1.3-7.7) k/uL Lymphocytes # 0.7 L (1.0-4.8) k/uL Chloride 110 H (98-107) mmol/L Glucose 137 H (74-99) mg/dL Comments: chest US report reviewed Chest x-ray: report reviewed CT scan - chest: report reviewed Assessment and Plan (1) Anemia associated with acute blood loss Narrative/Plan: This is a new finding. The patient was noted to have a drop in hemoglobin into the 8 range, when seen in the office on 12/18/18. Baseline is normally around 12. This was associated with hematemesis, as noted. EGD shows evidence of duodenitis, likely the source of her blood loss. The patient has been started on PPI. She's not had recurrent hematemesis since admission. Hemoglobin is still in a safe range at 7.6. Continue to monitor and transfuse if hemoglobin is less than 7. Iron studies were checked in the office and were low. She will receive IV and as an outpatient. A dose will be ordered for her inpatient. Continue to monitor as outpatient Current Visit: Yes Status: Acute Code(s): D62 - ACUTE POSTHEMORRHAGIC ANEMIA SNOMED Code(s): 661640356 (2) Atypical chest pain Narrative/Plan: Workup for PE and cardiac ischemia is negative. The patient has significant wheezing on the right side. Therefore COPD exacerbation/bronchitis seems to be most likely. Pulmonary is following. Defer to them for management. Current Visit: Yes Status: Acute Code(s): R07.89 - OTHER CHEST PAIN SNOMED Code(s): 414779116 (3) Stage IV adenocarcinoma of lung Narrative/Plan: Diagnostic and therapeutic circumstances as described. Resume treatment as outpatient. Next cycle is due in 3 weeks. Current Visit: Yes Status: Acute Code(s): C34.90 - MALIGNANT NEOPLASM OF UNSP PART OF UNSP BRONCHUS OR LUNG SNOMED Code(s): 349162095
[2018-12-23] MEDS ORDERED: SODIUM FERRIC GLUCONAT-SUCROSE 125 MG in SODIUM CHLORIDE 0.9% 100 ML IVPB ONE (02:15)
[2018-12-23] MEDS: IPRATROPIUM-ALBUTEROL 3 ML NEB INHALATION SCH ×4 (03:23→15:47)
[2018-12-23] MEDS: guaiFENesin-DM 100-10MG/5ML 10 ML CUP PO PRN (04:19)
[2018-12-23 07:07] LABS: Anisocytosis Slight; Basophils % (A) 0 %; Eosinophils # (A) 0.2 k/uL (0-0.7); Eosinophils % (A) 2 %; HCT 25.5 % (34.0-46.0); HGB 7.5 gm/dL (11.4-16.0); Hypochromasia Marked; Lymphocytes % (A) 9 %; MCHC 29.3 g/dL (31.0-37.0); MCV 85.2 fL (80.0-100.0); Monocytes # (A) 0.7 k/uL (0-1.0); Monocytes % (A) 6 %; Neutrophils # (A) 9.3 k/uL (1.3-7.7); Neutrophils % (A) 81 %; Platelet Count 241 k/uL (150-450); Poikilocytosis Slight; RBC 2.99 m/uL (3.80-5.40); RDW 17.7 % (11.5-15.5); WBC 11.5 k/uL (3.8-10.6)
[2018-12-23 07:27] LABS: Anion Gap 3 mmol/L; Blood Urea Nitrogen 14 mg/dL (7-17); Calcium 8.7 mg/dL (8.4-10.2); Carbon Dioxide 31 mmol/L (22-30); Chloride 104 mmol/L (98-107); Glucose 116 mg/dL (74-99); Potassium 4.2 mmol/L (3.5-5.1); Sodium 138 mmol/L (137-145)
[2018-12-23] MEDS: PANTOPRAZOLE 40 MG/10 ML VIAL IVP SCH (08:02)
[2018-12-23] MEDS: FORMOTEROL FUMARATE 20 MCG/2 ML NEBU INHALATION SCH (08:20)
[2018-12-23 08:31] VITALS: RESP 18
[2018-12-23] MEDS ORDERED: predniSONE 20 MG TAB PO SCH (09:45)
[2018-12-23 12:13] VITALS: BP 127/84; TEMP 98.1
--- NOTE | 2018-12-23 14:16 | P.PN ---
Subjective Progress Note Date: 12/23/18 Principal diagnosis: Anemia GI bleed hematemesis Status post EGD for evaluation of hematemesis and anemia. No active bleeding or old blood seen. Moderate duodenitis of the duodenal bulb antral gastritis biopsies pending. Presently feels well. Tolerating regular diet. Denies hematemesis hematochezia melena. Hemoglobin 7.5. Objective - Vital Signs Vital signs: Vital Signs Temp 98.1 F 12/23/18 12:12 Pulse 112 H 12/23/18 12:12 Resp 18 12/23/18 12:12 BP 127/84 12/23/18 12:12 Pulse Ox 93 L 12/23/18 12:12 Intake & Output 12/22/18 12/23/18 12/23/18 18:59 06:59 18:59 Intake Total 820 250 240 Output Total 0 Balance 820 250 240 Weight 85.5 kg Intake: IV 100 10 0.9 10 0.9 @50 100 Oral 720 240 240 Output: Urine 0 Other: Voiding Method Toilet # Voids 2 3 2 - Exam General appearance: The patient is alert, oriented, in no acute distress. HET: Head is normocephalic and atraumatic. Pupils are equal and reactive. Oropharynx is clear without lesions. Neck: Supple without lymphadenopathy. Trachea midline. Heart: S1 S2. Regular rate and rhythm. Lungs: No crackles or wheezes are heard. Abdomen: Soft, nontender, nondistended with bowel sounds. No peritoneal signs. No palpable organomegaly or masses. Extremities: Normal skin color and turgor. No cyanosis, rash, ulceration, clubbing, or edema. Radial and pedal pulses are 2/4 bilaterally. Neurological: No focal deficits. Strength and sensation are grossly intact. - Labs CBC & Chem 7: 12/23/18 06:37 12/23/18 06:37 Labs: Abnormal Lab Results - Last 24 Hours (Table) 12/23/18 12/23/18 Range/Units 06:37 06:37 WBC 11.5 H (3.8-10.6) k/uL RBC 2.99 L (3.80-5.40) m/uL Hgb 7.5 L (11.4-16.0) gm/dL Hct 25.5 L (34.0-46.0) % MCHC 29.3 L (31.0-37.0) g/dL RDW 17.7 H (11.5-15.5) % Neutrophils # 9.3 H (1.3-7.7) k/uL Carbon Dioxide 31 H (22-30) mmol/L Glucose 116 H (74-99) mg/dL Assessment and Plan (1) Hematemesis Current Visit: Yes Status: Acute Code(s): K92.0 - HEMATEMESIS SNOMED Code( s): 9549683 (2) Anemia associated with acute blood loss Current Visit: Yes Status: Acute Code(s): D62 - ACUTE POSTHEMORRHAGIC ANEMIA SNOMED Code(s): 522579643 (3) History of lung cancer Current Visit: Yes Status: Acute Code(s): Z85.118 - PERSONAL HISTORY OF MALIGNANT NEOPLASM OF BRONCHUS AND LUNG SNOMED Code(s): 011905987 Plan: 1. No active bleeding. Agreeable for discharge will provide prescription for Protonix 40 mg daily. Return to office in 2-3 weeks for reevaluation. Assessment and plan a care discussed with Dr. Moreno
--- NOTE | 2018-12-23 15:19 | P.DS ---
Providers Date of admission: 12/21/18 11:04 Expected date of discharge: 12/23/18 Attending physician: Kleber Richardson MD Consults: 12/21/18 11:03 Consult Physician Urgent Consulting Provider: Steve Pritchett Consult Reason/Comments: GI bleed Do you want consulting provider notified?: Yes 12/21/18 11:04 Consult Physician Urgent Consulting Provider: Malachi Eckert Consult Reason/Comments: Lung cancer Do you want consulting provider notified?: Yes 12/21/18 11:44 Consult Physician Routine Consulting Provider: Clarissa Jennings Consult Reason/Comments: hemotypsis/ copd exacerbation Do you want consulting provider notified?: Yes Primary care physician: Pauline Harrington MD - Discharge Diagnosis(es) (1) Acute respiratory failure with hypoxia Status: Acute (2) Atypical chest pain Status: Acute (3) GI bleed Status: Acute (4) Iron deficiency anemia Status: Acute Priority: Medium (5) Gastritis/duodenitis Status: Acute Priority: High (6) Hypokalemia Status: Resolved (7) Hematemesis Status: Resolved Priority: High (8) Hemoptysis Status: Acute (9) Stage IV adenocarcinoma of lung Status: Chronic Priority: Medium Hospital Course: The patient is a 53-year-old female with a past medical history of stage IV adenocarcinoma of the lung that was admitted with atypical chest pain, concern for upper GI bleed, acute blood loss anemia superimposed on iron deficiency anemia after she presented with pleuritic chest discomfort and shortness of breath, she was noted to have elevated d-dimer. CTA of the chest was completed that showed no evidence of PE and findings compatible with metastatic lung cancer, a mass within the right middle lobe extended to the right hilar region and abnormal densities in the right lower lobe with local mass effect on the pulmonary vein, loculated right pleural effusion. Hemoglobin was noted to be 9.1 dictating an approximate 2 g drop from previous lab studies. She was started on IV fluids, IV Protonix, made NPO and GI was consulted. EGD performed was consistent with moderate duodenitis and mild gastritis. Workup for cardiac cause of the chest pain was ruled out as her EKG was negative for any suggestion of any acute ischemia and troponins were negative, proBNP was 627. Chest ultrasound showed no significant fluid on the right only minimal 2 cm left pleural effusion pocket. The patient's hemoglobin stabilized at 7.5 g and she did not require any transfusions. Echocardiogram showed ejection fraction of 60-65% with mild pulmonary hypertension. The patient was she is from mild COPD exacerbation as well with systemic steroids IV Solu-Medrol later transitioned to prednisone taper along with scheduled and when necessary albuterol breathing treatments. When medically stable the patient was discharged home after GI and pulmonary signed off, the patient instructed to keep her follow-up appointment with Dr. Jennings 01/01/[address] Harrington her PCP. Patient was discharged home oxygen at 3 L via nasal cannula after was noted that her exertional oximetry indicated desaturations down to 79% on room air. This discharge process took approximately 35 minutes. Focused exam Respiratory: Equal air entry breath sounds diminished in the bases, no accessory muscle use breathing unlabored on 3 L via nasal cannula Patient Condition at Discharge: Good Plan - Discharge Summary Discharge Rx Participant: No New Discharge Prescriptions: New Famotidine [Pepcid] 20 mg PO DAILY #60 tab predniSONE 60 mg PO DAILY tab Budesonide-Formot 160-4.5 Mcg [Symbicort 160-4.5 Mcg Inhaler] 2 puff INHALATION BID #1 inhaler Pantoprazole [Protonix] 40 mg PO DAILY #30 tablet.dr Rueda Multivitamins, Thera [Multivitamin (formulary)] 1 tab PO DAILY Albuterol Nebulized [Ventolin Nebulized] 2.5 mg INHALATION RT-BID PRN PRN Reason: Dyspnea Albuterol Inhaler [Ventolin Hfa Inhaler] 1 - 2 puff INHALATION RT-Q6H PRN PRN Reason: Shortness Of Breath Acetaminophen [Tylenol Extra Strength] 500 mg PO Q8H PRN PRN Reason: Pain Changed Pantoprazole Sodium 40 mg PO BID #0 Discharge Medication List Multivitamins, Thera [Multivitamin (formulary)] 1 tab PO DAILY 09/14/16 [History] Albuterol Inhaler [Ventolin Hfa Inhaler] 1 - 2 puff INHALATION RT-Q6H PRN 11/23/17 [History] Albuterol Nebulized [Ventolin Nebulized] 2.5 mg INHALATION RT-BID PRN 11/23/17 [History] Acetaminophen [Tylenol Extra Strength] 500 mg PO Q8H PRN 12/21/18 [History] Budesonide-Formot 160-4.5 Mcg [Symbicort 160-4.5 Mcg Inhaler] 2 puff INHALATION BID #1 inhaler 12/23/18 [Rx] Famotidine [Pepcid] 20 mg PO DAILY #60 tab 12/23/18 [Rx] Pantoprazole Sodium 40 mg PO BID #0 12/23/18 [Rx] Pantoprazole [Protonix] 40 mg PO DAILY #30 tablet. 12/23/18 [Rx] predniSONE 60 mg PO DAILY tab 12/23/18 [Rx] Follow up Appointment(s)/Referral(s): Raza Jensen MD [Family Provider] - 01/01/19 9:30 am Steve Pritchett MD [STAFF PHYSICIAN] - 01/07/19 5:45 pm () Pauline Harrington MD [Primary Care Provider] - 1-2 days (Spoke to painting supervisor. Office to call with appointment time) Clarissa Jennings MD [STAFF PHYSICIAN] - 01/01/19 11:00 am (Friday) Patient Instructions/Handouts: COPD (Chronic Obstructive Pulmonary Disease) (DC), Upper Endoscopy (DC) Discharge Disposition: HOME SELF-CARE
--- NOTE | 2018-12-23 15:50 | P.PN ---
Subjective Progress Note Date: 12/23/18 Principal diagnosis: pleuritic right-sided chest pain, acute GI bleed This is a 53-year-old white female patient with history of adenocarcinoma of the lung, stage IV, diagnosed in August 2016, status post radiation and systemic chemotherapy. Initial presentation in 2016 was with shortness of breath and recurrent pneumonias, ultimately the patient was hospitalized and she was found to have a right mid lung mass and mediastinal lymphadenopathy. The CAT scan also showed some abdominal and retroperitoneal lymphadenopathy and patient was having digital clubbing and increased edema in lower extremities. Patient had a bronchoscopy and transbronchial needle aspirate of the paratracheal mass which showed adenocarcinoma, poorly differentiated, consistent with primary lung c ancer. PET scan was completed on 09/21/2016 and showed activity within the primary lung neoplasm as the lesion in the right midlung was measuring 7.2 x 6.6 cm. In addition there was mediastinal lymphadenopathy involving the right peritracheal and subcarinal area and there was evidence of left adrenal metastasis and abdominal metastasis/adenopathy. Patient was initially started on a combination of carboplatin and Alimta and Avastin, patient did receive 4 cycles, with partial response, and patient was placed on a combination of Alimta and Avastin. Most recently patient had been switched from Alimta and Avastin to Tecentriq. Over the last 3 weeks patient reports coughing up blood-tinged sp utum, and she has been experiencing vomiting with streaks of blood in the vomit. She has had decreased oral intake over the last 3 months. She reports 20 pound weight loss in the last 6 months. No prior history of GI bleeding, no melena, no hematochezia. She follows with Dr. Eckert, and has been anemic in the outpatient setting and was receiving iron therapy, and awaiting outpatient EGD. On 12/21/2018 patient came into the emergency department with comfort on the right side of her chest radiating from her neck down to her right sternum. Patient was experiencing some difficulty breathing. She denied any fever or chills, denied any sweating, no vomiting or diarrhea. Her chronic cough has not changed. Chest x-ray was completed and showed a large cavitary mass in the right lung that was similar to previous x-rays. D-dimer was elevated, and CT angios of the chest was completed showing no evidence of pulmonary embolism and findings compatible with metastatic lung cancer, a mass within the right middle lobe extended to the right hilar region, abnormal densities present in the right lower lobe with local mass effect on the pulmonary vein, loculated effusion on the right, and an effusion present on the left, adjacent atelectasis. There is a background of emphysematous changes especially in the upper lobes and volume loss in the right hemithorax. There was bilateral hilar adenopathy, mediastinal adenopathy with nodes in the prevascular location, and possible retrocaval pre tracheal mediastinum. EKG showed sinus tachycardia with a rate of 113 BPM, with nonspecific ST and T-wave abnormalities. Echocardiogram showed EF of 60-65%, mild pulmonary hypertension, with right-sided pressures of 43.5 mmHg. Lab work showed a white blood cell count of 11.6, hemoglobin of 9.1, d-dimer was 5.05, sodium was 140, potassium was 3.3, chloride was 108, renal profile was within normal limits, with BUN of 8, and creatinine 0.54, troponin was negative 1, proBNP was 627. EGD was completed today and showed no active bleeding or old blood, moderate duodenitis of duodenal bulb which was biopsied, and mild gastritis of the antrum and body. On 12/22/2018 patient seen in follow-up on selective care unit. Breathing easier today, still has some residual pleuritic right-sided chest pain, however it's improved. no fever or chills, vital signs are stable, ultrasound of the chest showed no significant fluid on the right side, and minimal 2.0 cm left pleural effusion pocket. patient was given a dose of IV steroids in the emergency department, he is on breathing treatments, she's had no further hemoptysis, or hematemesis, today's hemoglobin is 7.6. Hemodynamically she was stable. heart sounds are positive for some diffuse wheezes, and rhonchi. Results of the EGD were noted, with findings of moderate duodenitis and mild gastritis, with biopsies taken. On 12/23/2017 patient is seen again on selective care unit, she is doing well, her pleuritic chest pain has completely resolved, today's hemoglobin is 7.5, there has been no further hematemesis, no hemoptysis, vital signs are stable, lung sounds reveal some scattered wheezes, but overall less bronchospastic and congested, patient is on 3 L per nasal cannula, pulse ox is 93%, she did qualify for home oxygen, and home oxygen arrangements are being made. Vital signs are stable, no fever, no chills, he has been tolerating ambulation. From pulmonary perspective patient is stable for discharge home today, she'll need follow-up with Dr. Jennings and Dr. Ly Objective - Vital Signs Vital signs: Vital Signs Temp 98.1 F 12/23/18 12:12 Pulse 112 H 12/23/18 12:12 Resp 18 12/23/18 12:12 BP 127/84 12/23/18 12:12 Pulse Ox 93 L 12/23/18 12:12 Intake & Output 12/22/18 12/23/18 12/23/18 18:59 06:59 18:59 Intake Total 820 250 240 Output Total 0 Balance 820 250 240 Weight 85.5 kg Intake: IV 100 10 0.9 10 0.9 @50 100 Oral 720 240 240 Output: Urine 0 Other: Voiding Method Toilet # Voids 2 3 2 - Exam GENERAL EXAM: Alert, pleasant, 53-year-old white female, comfortable in no apparent distress. HEAD: Normocephalic/atraumatic. EYES: Normal reaction of pupils, equal size. Conjunctiva pink, sclera white. NOSE: Clear with pink turbinates. THROAT: No erythema or exudates. NECK: No masses, no JVD, no thyroid enlargement, no adenopathy. CHEST: No chest wall deformity. Symmetrical expansion. LUNGS: Equal air entry with diminished breath sounds, bilaterally, more so at the bases CVS: Regular rate and rhythm, normal S1 and S2, no gallops, no murmurs, no rubs ABDOMEN: Soft, nontender. No hepatosplenomegaly, normal bowel sounds, no guarding or rigidity. EXTREMITIES: No clubbing, no edema, no cyanosis, 2+ pulses and upper and lower extremities. MUSCULOSKELETAL: Muscle strength and tone normal. SPINE: No scoliosis or deformity SKIN: No rashes CENTRAL NERVOUS SYSTEM: Alert and oriented -3. No focal deficits, tone is normal in all 4 extremities. PSYCHIATRIC: Alert and oriented -3. Appropriate affect. Intact judgment and insight. - Labs CBC & Chem 7: 12/23/18 06:37 12/23/18 06:37 Labs: Abnormal Lab Results - Last 24 Hours (Table) 12/23/18 12/23/18 Range/Units 06:37 06:37 WBC 11.5 H (3.8-10.6) k/uL RBC 2.99 L (3.80-5.40) m/uL Hgb 7.5 L (11.4-16.0) gm/dL Hct 25.5 L (34.0-46.0) % MCHC 29.3 L (31.0-37.0) g/dL RDW 17.7 H (11.5-15.5) % Neutrophils # 9.3 H (1.3-7.7) k/uL Carbon Dioxide 31 H (22-30) mmol/L Glucose 116 H (74-99) mg/dL Assessment and Plan Plan: Assessment: #1. Right-sided chest pain, pleuritic likely related to right pleural effusion, d-dimer was elevated, but CT angios of the chest ruled out pulmonary embolism, but showed findings compatible history of metastatic lung carcinoma, lung mass within the right middle lobe extending to the right hilar region, acutely pleural effusion on the right volume loss in the right hemithorax, bilateral hilar adenopathy and mediastinal adenopathy. #2. Hematemesis/acute GI bleeding #3. 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 Patient was diagnosed in August 2016, was treated with Alimta and Avastin, currently on Tecentriq #4. Acute blood loss anemia #5. COPD, with underlying FEV1 of 1.26 L or 46% of predicted and diffusion capacity at 38% of predicted, stage III COPD #6. Nicotine dependence, currently in remission #7. Weight loss, decreased oral intake, reports losing 20 pounds in the last 6 months #8. GERD/reflux Plan: Patient is doing well, she remains stable, pleuritic chest pain has completely resolved, no acute issues overnight, vital signs are stable, from pulmonary perspective she stable for discharge home today, she did qualify for home oxygen, and will be going home on oxygen. She will need follow-up appointment with Dr. Jennings, and she will follow-up with her medical oncologist. I performed a history & physical examination of the patient and discussed their management with my nurse practitioner, Cathie Deshpande. I reviewed the nurse practitioner's note and agree with the documented findings and plan of care. Lung sounds are positive for diminished breath sounds. The findings and the impression was discussed with the patient. I attest to the documentation by the nurse practitioner. Time with Patient: Less than 30
[2018-12-23 15:59] VITALS: PULSE 103
[2018-12-23] MEDS ORDERED: PANTOPRAZOLE 40 MG TABLET PO SCH (21:00)
[2018-12-24] MEDS ORDERED: FAMOTIDINE 20 MG TAB PO SCH (09:00)
== END 2018-12-23 17:33 | disposition home or self-care (01) | DRG 377 ==
LOC: EC 07:35 → 3SCARD 11:04
PROVIDERS: ADMIT Family Medicine; ATTEND Family Medicine
PROC: 0DB98ZX Excision of Duodenum, Via Natural or Artificial Opening Endoscopic, Diagnostic (ICD-10-PCS; principal; 2018-12-21)
PROC: 0DB78ZX Excision of Stomach, Pylorus, Via Natural or Artificial Opening Endoscopic, Diagnostic (ICD-10-PCS; 2018-12-21)
PROC: 0DB68ZX Excision of Stomach, Via Natural or Artificial Opening Endoscopic, Diagnostic (ICD-10-PCS; 2018-12-21)
DX: K29.71 Gastritis, unspecified, with bleeding (principal); J96.01 Acute respiratory failure with hypoxia; J44.1 Chronic obstructive pulmonary disease with (acute) exacerbation; J90 Pleural effusion, not elsewhere classified; C34.91 Malignant neoplasm of unspecified part of right bronchus or lung; C79.72 Secondary malignant neoplasm of left adrenal gland; C79.89 Secondary malignant neoplasm of other specified sites; D62 Acute posthemorrhagic anemia; K29.81 Duodenitis with bleeding; I27.20 Pulmonary hypertension, unspecified; K21.9 Gastro-esophageal reflux disease without esophagitis; R01.1 Cardiac murmur, unspecified; R07.89 Other chest pain; E87.6 Hypokalemia; R63.4 Abnormal weight loss; Z87.891 Personal history of nicotine dependence; Z87.01 Personal history of pneumonia (recurrent); Z79.899 Other long term (current) drug therapy; Z91.041 Radiographic dye allergy status; Z92.3 Personal history of irradiation; Z82.5 Family history of asthma and other chronic lower respiratory diseases; Z80.1 Family history of malignant neoplasm of trachea, bronchus and lung
CPT/HCPCS: 36415; 71046; 71275; 76604; 80048; 80053; 83735; 83880; 84484; 85025; 85379; 85610; 85730; 86850; 86900; 86901; 88305; 88341; 88342; 93005; 93306; 94640; 94760; 96374; 96375; 99291

== ENCOUNTER → 2018-12-25 | Outpatient (CLI) | payer OTHER ==
[2018-12-25 12:58] LABS: Blood Urea Nitrogen 11 mg/dL (7-17)
--- NOTE | 2018-12-25 14:10 | CT ---
EXAMINATION TYPE: CT ChestAbdPelvis w con DATE OF EXAM: 12/25/2018 COMPARISON: 09/22/2018 HISTORY: Follow up lung cancer. CT DLP: 1163.6 mGycm. Automated Exposure Control for Dose Reduction was Utilized. CONTRAST: CT scan of the thorax, abdomen and pelvis is performed with IV Contrast, patient injected with 100 mL of Isovue M300. FINDINGS: LUNGS: Confluent reticular opacities within the right upper lung and right midlung are again seen sim ilar to the prior. The previously noted subpleural 7 mm right upper lobe pulmonary nodule is no longe r identified. The right infrahilar lung mass extending into the right middle lobe with central necros is and peripheral solid component when measured on a similar image measures approximately 5.0 x 4.3 c m and previously measured approximately 5.0 x 4.0 cm. There does appear to be increasing solid compon ent along the medial margin such as on series 3 image 31. Postobstructive atelectasis is also noted. Reactive right lateral lung pleural thickening is present. Findings are superimposed upon a backgroun d of moderate emphysematous change with right hemithorax likely posttreatment volume loss. No new con tralateral pulmonary nodules. Increasing small left pleural effusion with associated atelectasis. MEDIASTINUM: There is redemonstration of a left hilar adenopathy, worsened in the interim with a lymp h node measuring 1.3 cm in short axis on image 28 and a lymph node measuring 1.4 cm in short axis on image 31. There is also increase in the prevascular adenopathy with newly enlarged lymph node measur ing 1.1 cm in short axis. Epicardial lymph nodes are also prominent on image 40. No pericardial effus ion is seen. OTHER: Right-sided Mediport is again noted. LIVER/GB: No significant abnormality is appreciated. PANCREAS: No significant abnormality is seen. SPLEEN: No significant abnormality is seen. ADRENALS: There is somewhat similar size of the left adrenal gland mass measuring 3.5 x 2.4 cm and pr eviously measuring 3.4 x 2.6 cm. The right adrenal gland is unremarkable. KIDNEYS: No significant abnormality is seen. BOWEL: Air-fluid level is present within the nondilated esophagus that may relate to decreased propul hailey or gastroesophageal reflux. Few colonic diverticula are present without pericolonic fat strandin g. No dilated large or small bowel are seen GENITAL ORGANS: No gross abnormality seen. LYMPH NODES: There are numerous enlarged lymph nodes within the abdomen with central mesenteric adeno david measuring up to 1.4 cm in short axis both on image 69 and 68. Retroperitoneal adenopathy is als o seen measuring up to 1.6 cm in short axis on image 63. Portacaval lymph node measures approximately 1.9 cm in short axis, similar to the prior where this measured approximately 2.0 cm in short axis. OSSEOUS STRUCTURES: No significant abnormality is seen. OTHER: There is a small amount of free fluid layering within the dependent pelvis. IMPRESSION: 1. Although there is overall similar size of the right middle lobe pulmonary mass there is increasing complexity and an increasing internal solid component with increasing contralateral (left hilar) kory nopathy. 2. Diffuse right perihilar and right middle lobe reticular opacities as well as right lateral pleural thickening are likely on the basis of posttreatment change. 3. Increasing small left pleural effusion. 4. Extensive retroperitoneal and mesenteric adenopathy is similar to the prior.
== END | disposition home or self-care (01) ==
LOC: RADPROMAIN 11:46
PROVIDERS: ATTEND Internal Medicine Hematology & Oncology
DX: Z03.89 Encounter for observation for other suspected diseases and conditions ruled out (principal); J92.9 Pleural plaque without asbestos; J90 Pleural effusion, not elsewhere classified; R59.0 Localized enlarged lymph nodes; C34.2 Malignant neoplasm of middle lobe, bronchus or lung
CPT/HCPCS: 82565; 84520; 71260; 74177; J1642; Q9967

== ENCOUNTER → 2019-01-27 | Outpatient (CLI) | payer OTHER ==
[2019-01-27 11:47] LABS: Blood Urea Nitrogen 13 mg/dL (7-17)
--- NOTE | 2019-01-27 13:47 | CT ---
EXAMINATION TYPE: CT ChestAbdPelvis w con DATE OF EXAM: 01/27/2019 COMPARISON: CT chest abdomen and pelvis December 25, 2018 and older studies HISTORY: Lung cancer diagnosed 2 years ago with history of chemotherapy and radiation treatment. CT DLP: 1507 mGycm. Automated Exposure Control for Dose Reduction was Utilized. CONTRAST: CT scan of the thorax, abdomen and pelvis is performed with IV Contrast, patient injected with 100 mL of Isovue M300. FINDINGS: LUNGS: Persistent heterogeneous right infrahilar lung mass or neoplasm extending anteriorly measures 6.4 x 5.5 cm axial image 26 slightly enlarged in size from most recent prior CT accounting for techni lizet differences. Adjacent ill-defined infiltrates are redemonstrated. There is small right pleural fl uid collection anterior to this redemonstrated felt stable. Right-sided volume loss with mediastinal shift remains present. There is background mild to moderate underlying emphysematous change. There is small left pleural eff usion increased in size from most recent study with associated compressive atelectasis in the left sobia ng base. There is 4 mm superior left lower lobe nodule axial image 21 not clearly identified on prior exams. MEDIASTINUM: Heterogeneous enlarged left hilar lymph nodes remain present, interval progression suspe cted near axial image 26 difficult to accurately measure due to confluent appearance. Enlarging preva scular lymph nodes are present axial images 19 and 20. For reference 2.5 x 1.7 cm lymph node is noted axial image 20 No cardiomegaly is seen. There is enlarging right paracardiac lymph node. Small to tiny pericardial effusion is slightly larger versus prior OTHER: Stable right-sided Mediport catheter. LIVER/GB: New trace perihepatic ascites. PANCREAS: No significant abnormality is seen. SPLEEN: New trace perisplenic ascites. ADRENALS: Enlarging left adrenal mass measuring 4.7 x 2.8 cm on axial image 51 is noted KIDNEYS: No significant abnormality is seen. BOWEL: Mild colonic wall thickening is present. GENITAL ORGANS: Slightly prominent containing left ovarian vein redemonstrated. LYMPH NODES: Enlarging abdominal intraperitoneal and retroperitoneal lymph nodes near pancreas are id entified. For reference aortocaval lymph node axial image 70 measures 2.3 x 1.9 cm increased in size with increased mass effect on IVC from prior study. OSSEOUS STRUCTURES: Moderate disc space narrowing L5-S1 level and to be. OTHER: Small to moderate amount of lower abdominal pelvic ascites is increased from most recent prior . Moderate calcified plaque of aorta extends into branch vessels. IMPRESSION: Interval progression is present as detailed above. Increasing ascites and left-sided ple ural effusion.
== END | disposition home or self-care (01) ==
LOC: RADPROMAIN 10:25
PROVIDERS: ATTEND Internal Medicine Hematology & Oncology
DX: C34.2 Malignant neoplasm of middle lobe, bronchus or lung (principal); J90 Pleural effusion, not elsewhere classified; R18.8 Other ascites; Z92.21 Personal history of antineoplastic chemotherapy
CPT/HCPCS: 82565; 84520; 71260; 74177; J1642; Q9967

== ENCOUNTER 2019-02-25 16:17 | Inpatient (IN) | payer MEDICARE, OTHER ==
[2019-02-25] MEDS ORDERED: IPRATROPIUM-ALBUTEROL 3 ML NEB INHALATION STA (16:36)
[2019-02-25] MEDS ORDERED: SODIUM CHLORIDE 0.9% 1,000 ML IV STA (16:36)
[2019-02-25] MEDS ORDERED: methylPREDNISolone SOD SUCCI 125 MG/2 ML VIAL IV STA (16:36)
--- NOTE | 2019-02-25 16:39 | ED ---
General Adult HPI - General Chief complaint: Shortness of Breath Stated complaint: SOB Time Seen by Provider: 02/25/19 16:24 Source: patient, family, RN notes reviewed Mode of arrival: wheelchair Limitations: no limitations - History of Present Illness Initial comments: Patient is a pleasant 53-year-old female presenting to the emergency department with difficulty breathing. Patient was sent over from oncology office. Patient has stage IV lung cancer. Concerned there was patient's breathing as well as increased heart rate and decreased blood pressure. Patient states she does have occasional cough. No fevers. Patient also has history of significant COPD/asthma. Patient admits to feeling lightheaded and fatigued. No leg pain or leg swelling. - Related Data Home Medications Medication Instructions Recorded Confirmed Multivitamins, Thera [Multivitamin 1 tab PO DAILY 09/14/16 02/25/19 (formulary)] Albuterol Inhaler [Ventolin Hfa 1 - 2 puff INHALATION RT-Q6H PRN 11/23/17 02/25/19 Inhaler] Albuterol Nebulized [Ventolin 2.5 mg INHALATION RT-BID PRN 11/23/17 02/25/19 Nebulized] Acetaminophen [Tylenol Extra 1,000 mg PO Q8H PRN 12/21/18 02/25/19 Strength] Dexamethasone 8 mg PO DIRECTED 02/25/19 02/25/19 Previous Rx's Medication Instructions Recorded Budesonide-Formot 160-4.5 Mcg 2 puff INHALATION BID #1 inhaler 12/23/18 [Symbicort 160-4.5 Mcg Inhaler] Famotidine [Pepcid] 20 mg PO DAILY #60 tab 12/23/18 Pantoprazole Sodium 40 mg PO BID #0 12/23/18 Allergies Allergy/AdvReac Type Severity Reaction Status Date / Time Iodinated Contrast- Oral and AdvReac Nausea & Verified 02/25/19 18:22 IV Dye Vomiting Review of Systems ROS Statement: Those systems with pertinent positive or pertinent negative responses have been documented in the HPI. ROS Other: All systems not noted in ROS Statement are negative. Constitutional: Denies: fever Eyes: Denies: eye pain ENT: Denies: ear pain Respiratory: Reports: as per HPI, cough, dyspnea Cardiovascular: Denies: chest pain Endocrine: Reports: fatigue Gastrointestinal: Denies: abdominal pain Genitourinary: Denies: dysuria Musculoskeletal: Denies: back pain Skin: Denies: rash Past Medical History Past Medical History: Cancer, COPD, GERD/Reflux, GI Bleed, Skin Disorder Additional Past Medical History / Comment(s): stage IV lung cancer dx. 2016- tx with chemo currently, hx eczema, throwing up blood intermittently last couple weeks History of Any Multi-Drug Resistant Organisms: None Reported Past Surgical History: Orthopedic Surgery, Tubal Ligation Additional Past Surgical History / Comment(s): lung biopsy, left foot surgery, port inserted rt side Past Anesthesia/Blood Transfusion Reactions: No Reported Reaction Past Psychological History: No Psychological Hx Reported Smoking Status: Former smoker Past Alcohol Use History: None Reported Past Drug Use History: None Reported - Past Family History Father Family Medical History: Cancer Additional Family Medical History / Comment(s): lung cancer Mother Family Medical History: COPD Additional Family Medical History / Comment(s): Mother from complications of COPD. General Exam Limitations: no limitations General appearance: alert, in no apparent distress Head exam: Present: atraumatic Eye exam: Present: normal appearance, PERRL ENT exam: Present: normal oropharynx Neck exam: Present: normal inspection Respiratory exam: Present: wheezes Cardiovascular Exam: Present: tachycardia GI/Abdominal exam: Present: soft. Absent: tenderness Extremities exam: Present: normal inspection. Absent: pedal edema, calf tenderness Neurological exam: Present: alert Psychiatric exam: Present: normal affect, normal mood Skin exam: Present: normal color Course Vital Signs 02/25/19 02/25/19 02/25/19 16:18 17:12 17:21 Temperature 98.3 F Pulse Rate 123 H 127 H 133 H Respiratory 28 H Rate Blood Pressure 68/48 O2 Sat by Pulse 80 L Oximetry 02/25/19 02/25/19 02/25/19 17:35 18:30 18:48 Temperature Pulse Rate 125 H 117 H Respiratory 18 18 Rate Blood Pressure 93/60 94/40 102/72 O2 Sat by Pulse 100 96 Oximetry EKG Findings - EKG Comments: EKG Findings:: Sinus tachycardia at 124. NV 94. QRS 82. QT 292. QTC 419. Normal axis. Inferior and lateral T wave inversion. Medical Decision Making - Medical Decision Making Patient reevaluated and improved. Patient without respiratory distress. Patient and family updated on results and plan. Case was discussed with Dr. Aviles, who will admit covering for Dr. Harrington. - Lab Data Result diagrams: 02/25/19 17:24 02/25/19 17:24 Lab Results 02/25/19 02/25/19 02/25/19 Range/Units 17:24 17:24 17:24 WBC 39.5 H (3.8-10.6) k/uL RBC 3.47 L (3.80-5.40) m/uL Hgb 9.8 L D (11.4-16.0) gm/dL Hct 32.1 L (34.0-46.0) % MCV 92.7 D (80.0-100.0) fL MCH 28.3 (25.0-35.0) pg MCHC 30.6 L (31.0-37.0) g/dL RDW 25.2 H (11.5-15.5) % Plt Count 128 L (150-450) k/uL Neutrophils % (Manual) 96 % Lymphocytes % (Manual) 3 % Monocytes % (Manual) 1 % Neutrophils # (Manual) 37.92 H (1.3-7.7) k/uL Lymphocytes # (Manual) 1.19 (1.0-4.8) k/uL Monocytes # (Manual) 0.40 (0-1.0) k/uL Nucleated RBCs 0 (0-0) /100 WBC Manual Slide Review Performed Polychromasia Present Hypochromasia Moderate Poikilocytosis Slight Anisocytosis Marked Macrocytosis Slight Stomatocytes Present PT 13.1 H (9.0-12.0) sec INR 1.3 H (<1.2) APTT 28.3 (22.0-30.0) sec Sodium 134 L (137-145) mmol/L Potassium 3.5 (3.5-5.1) mmol/L Chloride 97 L (98-107) mmol/L Carbon Dioxide 33 H (22-30) mmol/L Anion Gap 4 mmol/L BUN 26 H (7-17) mg/dL Creatinine 0.65 (0.52-1.04) mg/dL Est GFR (CKD-EPI)AfAm >90 (>60 ml/min/1.73 sqM) Est GFR (CKD-EPI)NonAf >90 (>60 ml/min/1.73 sqM) Glucose 115 H (74-99) mg/dL Calcium 8.7 (8.4-10.2) mg/dL Total Bilirubin 0.6 (0.2-1.3) mg/dL AST 17 (14-36) U/L ALT 17 (9-52) U/L Alkaline Phosphatase 219 H (38-126) U/L Troponin I (0.000-0.034) ng/mL Total Protein 5.4 L (6.3-8.2) g/dL Albumin 2.7 L (3.5-5.0) g/dL 02/25/19 Range/Units 17:24 WBC (3.8-10.6) k/uL RBC (3.80-5.40) m/uL Hgb (11.4-16.0) gm/dL Hct (34.0-46.0) % MCV (80.0-100.0) fL MCH (25.0-35.0) pg MCHC (31.0-37.0) g/dL RDW (11.5-15.5) % Plt Count (150-450) k/uL Neutrophils % (Manual) % Lymphocytes % (Manual) % Monocytes % (Manual) % Neutrophils # (Manual) (1.3-7.7) k/uL Lymphocytes # (Manual) (1.0-4.8) k/uL Monocytes # (Manual) (0-1.0) k/uL Nucleated RBCs (0-0) /100 WBC Manual Slide Review Polychromasia Hypochromasia Poikilocytosis Anisocytosis Macrocytosis Stomatocytes PT (9.0-12.0) sec INR (<1.2) APTT (22.0-30.0) sec Sodium (137-145) mmol/L Potassium (3.5-5.1) mmol/L Chloride (98-107) mmol/L Carbon Dioxide (22-30) mmol/L Anion Gap mmol/L BUN (7-17) mg/dL Creatinine (0.52-1.04) mg/dL Est GFR (CKD-EPI)AfAm (>60 ml/min/1.73 sqM) Est GFR (CKD-EPI)NonAf (>60 ml/min/1.73 sqM) Glucose (74-99) mg/dL Calcium (8.4-10.2) mg/dL Total Bilirubin (0.2-1.3) mg/dL AST (14-36) U/L ALT (9-52) U/L Alkaline Phosphatase (38-126) U/L Troponin I <0.012 (0.000-0.034) ng/mL Total Protein (6.3-8.2) g/dL Albumin (3.5-5.0) g/dL - Radiology Data Radiology results: report reviewed (Computed tomography scan of the chest shows no pulmonary embolism. Increased mediastinal and bronchial adenopathy. Progression of tumor. Increased abdominal ascites.), image reviewed (Chest x- ray shows increasing mass right lower lobe.) Disposition Clinical Impression: Acute exacerbation of chronic obstructive airways disease, Mass of right lung Disposition: ADMITTED IP TO THIS HOSP Is patient prescribed a controlled substance at d/c from ED?: No Referrals: Pauline Harrington MD [Primary Care Provider] - 1-2 days Decision Time: 20:35
[2019-02-25 17:44] LABS: INR 1.3 (<1.2); Partial Thromboplastin Time 28.3 sec (22.0-30.0); Prothrombin Time 13.1 sec (9.0-12.0)
[2019-02-25 17:47] LABS: ALT 17 U/L (9-52); AST 17 U/L (14-36); Albumin 2.7 g/dL (3.5-5.0); Alkaline Phosphatase 219 U/L (38-126); Anion Gap 4 mmol/L; Blood Urea Nitrogen 26 mg/dL (7-17); Calcium 8.7 mg/dL (8.4-10.2); Carbon Dioxide 33 mmol/L (22-30); Chloride 97 mmol/L (98-107); Glucose 115 mg/dL (74-99); Potassium 3.5 mmol/L (3.5-5.1); Sodium 134 mmol/L (137-145); Total Bilirubin 0.6 mg/dL (0.2-1.3); Total Protein 5.4 g/dL (6.3-8.2)
[2019-02-25 17:50] LABS: Anisocytosis Marked; HCT 32.1 % (34.0-46.0); Hypochromasia Moderate; MCH 28.3 pg (25.0-35.0); MCHC 30.6 g/dL (31.0-37.0); Macrocytosis Slight; Mean Platelet Volume 8.9; Platelet Count 128 k/uL (150-450); Poikilocytosis Slight; RBC 3.47 m/uL (3.80-5.40); WBC 39.5 k/uL (3.8-10.6)
[2019-02-25 17:51] LABS: HGB 9.8 gm/dL (11.4-16.0); MCV 92.7 fL (80.0-100.0); RDW 25.2 % (11.5-15.5)
[2019-02-25 17:58] LABS: Lymphocytes # (M) 1.19 k/uL (1.0-4.8); Neutrophils # (M) 37.92 k/uL (1.3-7.7); Neutrophils % (M) 96 %; Nucleated Red Blood Cells 0 /100 WBC (0-0); Total Cells Counted 100
[2019-02-25 17:59] LABS: Polychromasia Present; Stomatocytes Present
--- NOTE | 2019-02-25 18:13 | XR ---
EXAMINATION TYPE: XR chest 2V DATE OF EXAM: 02/25/2019 COMPARISON: 12/21/2018 HISTORY: Lung cancer. Difficulty breathing TECHNIQUE: Frontal and lateral views of the chest are obtained. FINDINGS: There is extensive consolidation at the right pulmonary hilum extending into the right low er lobe. There is blunting of right costophrenic angle. There is right-sided central venous catheter with the tip in the superior vena cava. Heart is deviated slightly to the right side. Left lung is fa irly clear. There is no heart failure. IMPRESSION: There is consolidation and volume loss on the right side at has progressed compared to l ast exam. There is clearing of small left pleural effusion compared to last exam. No heart failure se en.
[2019-02-25] MEDS ORDERED: diphenhydrAMINE 50 MG/ML 1 ML VIAL IVP STA (18:31)
--- NOTE | 2019-02-25 19:20 | CT ---
EXAMINATION TYPE: CT angio chest DATE OF EXAM: 02/25/2019 7:06 PM COMPARISON: 12/21/2018 HISTORY: Shortness of breath and weakness. CT DLP: 216.3 mGycm Automated exposure control for dose reduction was used. CONTRAST: CTA scan of the thorax is performed with IV Contrast, patient injected with 54ml mL of Isovue 370, pu lmonary embolism protocol. . FINDINGS: There are 3-D post processed images. There is moderate abdominal ascites fluid. There is moderate sized left pleural effusion. There is so me atelectasis at the left lung base. There is pulmonary emphysema. There is masslike consolidation in the right middle lobe consistent with tumor. This measures 6.5 cm. There is extensive bilateral bronchial adenopathy with lymph nodes that measure up to 2.5 cm. There is anterior mediastinal adenopathy with lymph nodes that measure 2.5 cm. Thoracic aorta appears intact without evidence of aneurysm or dissection. I see no filling defects in the pulmonary arteries. Heart is shifted to the right side. There is some consolidation and volume l oss on the right side. There is patchy airspace infiltrate in the right lower lobe and right middle l obe. I see no focal bone destruction. There is 10% compression deformity of T11 vertebra that is consisten t with osteoporosis. There is 4 x 2.5 cm mass on the left adrenal gland consistent with tumor. Unchan ged. Impression No evidence of pulmonary embolism. Mediastinal and bronchial adenopathy increased compared to last ex am and consistent with progression of tumor. Right middle lobe masslike consolidation unchanged. Left pleural effusion increased slightly. Right chest wall pleural thickening unchanged. There is new extensive abdominal ascites fluid compared to old exam.. T11 compression fracture is new compared to old exam.
[2019-02-25] MEDS ORDERED: cefTRIAXone IN SWFI 1,000 MG/10 ML SYRINGE IVP STA (20:36)
[2019-02-25] MEDS ORDERED: SODIUM CHLORIDE 0.9% 1,000 ML IV ONE (22:38)
[2019-02-25] MEDS: MULTIVITAMINS, THERA 1 EACH TAB PO SCH (22:48)
[2019-02-25] MEDS: PANTOPRAZOLE 40 MG TABLET PO SCH (22:48)
[2019-02-25] MEDS: FAMOTIDINE 20 MG TAB PO SCH (22:48)
[2019-02-25] MEDS: SYMBICORT 160-4.5 MCG INHALER INHALATION SCH ×2 (23:34→23:41)
[2019-02-25] MEDS: IPRATROPIUM-ALBUTEROL 3 ML NEB INHALATION SCH (23:35)
--- NOTE | 2019-02-25 23:42 | P.HPIM ---
History of Present Illness H&P Date: 02/25/19 Chief Complaint: hypotension 53 year old female with history of metastatic adenocarcinoma of the lung currently undergoing chemotherapy. COPD on home oxygen presented to the hospital upon her oncologist recommendations, she was seeing him today for a regular follow up , when she was found to be hypotensive. she reports no fever, no chills. but increase shortness of breath over the past few days, along with worsening baseline cough, non productive, denies any chest pain, sore throat or other cold symptoms. she also reports today felt generalized weakness and was unable to stand up on her own without assistance. denies any orthopnea or PNDS she also reports progressive bloating of her abdomen over the past 2 weeks. denies any nausea or vomiting, denies any GI bleeding. patient otherwise denies any headache, focal neuro deficits, changes in her urinary or bowel habits, she denies any constipation. in the ED , she was found to be tachycardiac and hypotensive , responded to fluid resuscitation. imaging of the lungs, showed unchanged cancer from before. but also showed extensive new ascites. at baseline , patient uses home oxygen at 3 L NC Review of Systems Pertinent positives as noted in HPI. All other systems were reviewed and are negative Past Medical History Past Medical History: Cancer, COPD, GERD/Reflux, GI Bleed, Skin Disorder Additional Past Medical History / Comment(s): stage IV lung cancer dx. 2016- tx with chemo currently, hx eczema History of Any Multi-Drug Resistant Organisms: None Reported Past Surgical History: Orthopedic Surgery, Tubal Ligation Additional Past Surgical History / Comment(s): lung biopsy, left foot surgery, port inserted rt side Past Anesthesia/Blood Transfusion Reactions: No Reported Reaction Past Psychological History: No Psychological Hx Reported Smoking Status: Former smoker Past Alcohol Use History: None Reported Past Drug Use History: None Reported - Past Family History Father Family Medical History: Cancer Additional Family Medical History / Comment(s): lung cancer Mother Family Medical History: COPD Additional Family Medical History / Comment(s): Mother from complications of COPD. Medications and Allergies Home Medications Medication Instructions Recorded Confirmed Type Multivitamins, Thera [Multivitamin 1 tab PO DAILY 09/14/16 02/25/19 History (formulary)] Albuterol Inhaler [Ventolin Hfa 1 - 2 puff INHALATION RT-Q6H PRN 11/23/17 02/25/19 History Inhaler] Albuterol Nebulized [Ventolin 2.5 mg INHALATION RT-BID PRN 11/23/17 02/25/19 History Nebulized] Acetaminophen [Tylenol Extra 1,000 mg PO Q8H PRN 12/21/18 02/25/19 History Strength] Budesonide-Formot 160-4.5 Mcg 2 puff INHALATION BID #1 inhaler 12/23/18 02/25/19 Rx [Symbicort 160-4.5 Mcg Inhaler] Famotidine [Pepcid] 20 mg PO DAILY #60 tab 12/23/18 02/25/19 Rx Pantoprazole Sodium 40 mg PO BID #0 12/23/18 02/25/19 Rx Dexamethasone 8 mg PO DIRECTED 02/25/19 02/25/19 History Allergies Allergy/AdvReac Type Severity Reaction Status Date / Time Iodinated Contrast- Oral and AdvReac Nausea & Verified 02/25/19 18:22 IV Dye Vomiting Physical Exam Vitals: Vital Signs Temp Pulse Resp BP Pulse Ox 02/25/19 18:48 102/72 02/25/19 18:30 117 H 18 94/40 96 02/25/19 17:35 125 H 18 93/60 100 02/25/19 17:21 133 H 02/25/19 17:12 127 H 02/25/19 16:18 98.3 F 123 H 28 H 68/48 80 L Intake and Output 02/25/19 02/25/19 02/25/19 06:59 14:59 22:59 Other: Weight 78.471 kg Constitutional: No acute distress, conversant, pleasant Eyes: Anicteric sclerae, moist conjunctiva, no lid-lag Pupils equal round reactive to light ENMT: NC/AT Oropharynx clear, no erythema, exudates Neck: Supple, FROM, no masses, or JVD No carotid bruits No thyromegaly Lungs: decrease breath sounds over right mid and lower lung, otherwise no wheezing or rhonci Clear to percussion Normal respiratory effort, no accessory muscle use Cardiovascular: Heart tachycardia No murmurs, gallops, or rubs No peripheral edema, capillary refill immediate Abdominal: distended mild-mod, diffusely tender to palpation , no guarding, no rigidity , some component of rebound tenderness diffusely shifting dullness positive Abdomen moving with respiration bowel sounds sluggish No hepatomegaly, No splenomegaly No palpable mass No abdominal wall hernia noted Skin: small hematoma over right upper chest mediport site Normal temperature, tone, texture, turgor No induration No subcutaneous nodules No rash, lesions No ulcers Extremities: No digital cyanosis No clubbing Pedal pulses intact and symmetrical Radial pulses intact and symmetrical No calf tenderness Psychiatric: Alert and oriented to person, place and time Appropriate affect fair judgment Neuro Muscles Strength 4/5 in all 4 extremities Sensation to light touch grossly present throughout Cranial nerves II-XII grossly intact No focal sensory deficits Lymphatics: no palpable cervical or supraclavicular , or inguinal lymph nodes Results CBC & Chem 7: 02/25/19 17:24 02/25/19 17:24 Labs: Abnormal Lab Results - Last 24 Hours (Table) 02/25/19 02/25/19 02/25/19 Range/Units 17:24 17:24 17:24 WBC 39.5 H (3.8-10.6) k/uL RBC 3.47 L (3.80-5.40) m/uL Hgb 9.8 L D (11.4-16.0) gm/dL Hct 32.1 L (34.0-46.0) % MCHC 30.6 L (31.0-37.0) g/dL RDW 25.2 H (11.5-15.5) % Plt Count 128 L (150-450) k/uL Neutrophils # (Manual) 37.92 H (1.3-7.7) k/uL PT 13.1 H (9.0-12.0) sec INR 1.3 H (<1.2) Sodium 134 L (137-145) mmol/L Chloride 97 L (98-107) mmol/L Carbon Dioxide 33 H (22-30) mmol/L BUN 26 H (7-17) mg/dL Glucose 115 H (74-99) mg/dL Alkaline Phosphatase 219 H (38-126) U/L Total Protein 5.4 L (6.3-8.2) g/dL Albumin 2.7 L (3.5-5.0) g/dL Assessment and Plan Assessment: 53 year old female with stage 4 metastatic adenocarcinoma of the lung, admitted as inpatient with anticipated length of stay of >48 hours, due to hypotension to rule out sepsis secondary to abd source. blood cultures obtained, IVF resuscitation , started on empiric antibiotics, IR for paracentesis . close monitoring of clinical status. Plan: Hypotension, rule out sepsis 2/2 abd source new extensive ascites r/o SBP improved with IVF bolus blood culture IR for paracentesis empiric ABx , rocephine 2 gm daily for possible spontaneous bacterial peritonitis flagyl for abd source follow up labs close monitoring of vital signs lactic acid wnl COPD chronic hypoxic respiratory failure , on home oxygen continue home oxygen breathing treatment discontinue steroids for now metastatic stage 4 lung cancer follow up with oncology imaging showed unchanged cancer, with increased adenopathy compression fracture of T11 ortho pedic consult iron deficiency anemia Recent history of GI bleeding due to doudenal mets continue with PPI DVT PPX heparin sc tid fall precautions Preformed a thorough record review from recent hospitalization for GI bleeding , EGD showed duodenal mets, ECHO showed LVEF 60% Surrogate decision-maker: patient CODE STATUS:full code Discussed with: Patient, ER, RN Anticipated discharge: 48-[address]: pending clinical course A total of 60 minutes was spent on the care of this complex patient more than 50% of the time was spent in counseling and care coordination. Sepsis - Sepsis Sepsis Focused Exam #1 Sepsis Focused Exam Date: 02/25/19 Sepsis Focused Exam Time: 21:45 Sepsis Focused Exam Complete: Yes Vital Signs & RN Notes Reviewed: Yes Capillary Refill: < 2 Seconds: Fingers, Toes Peripheral Pulses: Normal: Radial (R), Radial (L), Posterior Tibialis (R), Posterior Tibialis (L), Dorsalis Pedis (R), Dorsalis Pedis (L) Skin Color: Normal for Patient Respiratory Exam: decreased breath sounds Respiratory Exam Comment: known history of lung cancer with consolidative mass Cardiovascular Exam: tachycardia
[2019-02-25] MEDS: SODIUM CHLORIDE 0.9% 1,000 ML IV SCH (23:50)
--- NOTE | 2019-02-25 23:50 | P.HPADDEND ---
H&P Addendum H&P Addendum Date: 02/25/19 Advanced Care Planning Active diagnoses: metastatic lungs cancer hypotension , rule out sepsis from abd source Background: The patient was admitted for treatment of hypotension and worsening shortness of breath Discussion: Person(s) present and participating in discussion: The patient, myself, and patient Summary: The patient understands her underlying condition, she wants to continue to pursue treatment for her cancer, and elected to be full code, and opted to get CPR and intubated if needed. In the event that she was not able to make her own medical decisions she has elected her to make decisions. Time spent: Total time spent face to face in education and discussion directly related to advanced care plannin minutes
[2019-02-26] MEDS ORDERED: methylPREDNISolone SOD SUCCI 125 MG/2 ML VIAL IV SCH
[2019-02-26] MEDS: metroNIDAZOLE-NS PMX 500 MG in SALINE 1 100ML.BAG IVPB SCH ×2 (00:29→09:39)
[2019-02-26] MEDS: HEPARIN SODIUM,PORCINE 5,000 UNIT/ML 1 ML VIAL SQ SCH ×3 (00:32→16:21)
[2019-02-26] MEDS: IPRATROPIUM-ALBUTEROL 3 ML NEB INHALATION PRN (04:40)
--- NOTE | 2019-02-26 08:46 | US ---
EXAMINATION TYPE: US abdomen limited DATE OF EXAM: 02/26/2019 COMPARISON: NONE CLINICAL HISTORY: assess for fluid. Fluid check Small amount of fluid seen in RUQ and RLQ. Trace amount of fluid seen in LLQ. IMPRESSION: Ascites as noted.
[2019-02-26] MEDS: SYMBICORT 160-4.5 MCG INHALER INHALATION SCH ×2 (08:47→21:10)
[2019-02-26] MEDS: IPRATROPIUM-ALBUTEROL 3 ML NEB INHALATION SCH ×4 (08:47→21:10)
[2019-02-26] MEDS: MULTIVITAMINS, THERA 1 EACH TAB PO SCH (09:42)
[2019-02-26] MEDS: FAMOTIDINE 20 MG TAB PO SCH (09:42)
[2019-02-26] MEDS: PANTOPRAZOLE 40 MG TABLET PO SCH (09:42)
[2019-02-26] MEDS: SODIUM CHLORIDE 0.9% 1,000 ML IV SCH ×2 (09:44→21:50)
[2019-02-26 10:01] LABS: Anisocytosis Marked; HCT 29.8 % (34.0-46.0); HGB 8.8 gm/dL (11.4-16.0); Hypochromasia Marked; MCH 28.1 pg (25.0-35.0); MCHC 29.5 g/dL (31.0-37.0); MCV 95.4 fL (80.0-100.0); Macrocytosis Moderate; Mean Platelet Volume 8.8; Platelet Count 182 k/uL (150-450); Poikilocytosis Slight; RBC 3.12 m/uL (3.80-5.40); RDW 24.6 % (11.5-15.5); WBC 44.5 k/uL (3.8-10.6)
[2019-02-26 10:48] LABS: ALT 22 U/L (9-52); AST 13 U/L (14-36); Albumin 2.6 g/dL (3.5-5.0); Alkaline Phosphatase 188 U/L (38-126); Anion Gap 7 mmol/L; Blood Urea Nitrogen 23 mg/dL (7-17); Calcium 8.2 mg/dL (8.4-10.2); Carbon Dioxide 28 mmol/L (22-30); Chloride 101 mmol/L (98-107); Glucose 128 mg/dL (74-99); Potassium 3.6 mmol/L (3.5-5.1); Sodium 136 mmol/L (137-145); Total Bilirubin 0.4 mg/dL (0.2-1.3); Total Protein 5.2 g/dL (6.3-8.2)
[2019-02-26 11:08] VITALS: BMI 30.6
[2019-02-26 11:26] LABS: Band Neutrophils % 1 %; Lymphocytes # (M) 0.45 k/uL (1.0-4.8); Metamyelocytes # (M) 0.45 k/uL (0); Metamyelocytes % 1 %; Monocytes # (M) 0.45 k/uL (0-1.0); Neutrophils % (M) 97 %; Nucleated Red Blood Cells 0 /100 WBC (0-0); Total Cells Counted 200
[2019-02-26 11:30] LABS: Polychromasia Present
--- NOTE | 2019-02-26 14:31 | P.CNPUL ---
History of Present Illness Consult date: 02/26/19 Requesting physician: Yonis Burnham Reason for consult: dyspnea, abnormal CXR/CT Chief complaint: Shortness of breath, abdominal discomfort History of present illness: This is a very pleasant 53-year-old female patient who follows with Dr. Harrington as her primary care physician. She has a history of chronic obstructive pulmonary disease, previous chronic tobacco dependence and stage IV lung cancer first diagnosed in 2015. She had been on several rounds of chemotherapy including either Alimta and Avastin. In September 2018 there was further progression and she was switched to Tecentriq. Earlier this year the patient had been on Opdivo and received 2-3 doses but became intolerant. She follows with Dr. Jennings in our office. She was last seen 01/01/2019 following a brief hospitalization for GI bleed. She had undergone colonoscopy with biopsies that were positive for metastatic adenocarcinoma consistent with lung primary and probable source of bleeding. She was most recently started on Taxotere with Neulasta Feb 19 2019 and a second dose is due March 05. She was seen and Dr. Jensen's office yesterday where she was found to be short of breath, tachycardic and hypotensive. She was referred here for admission for the same. Over the past 2 weeks she had been having difficulty eating and drinking with a sense of fullness and abdominal bloating and swelling. CT angiogram ruled out pulmonary embolism. There was noted mediastinal and bronchial adenopathy measuring up to 2.5 cm which had increased compared to last exam 12/21/2018 consistent with progression of tumor. There is right middle lobe masslike consolidation measuring 6.5 cm unchanged. Left pleural effusion increased slightly. Right chest wall pleural thickening unchanged. There is new extensive abdominal as cites compared to old exam. New T11 compression fracture. 4 x 2.5 cm mass in the left adrenal gland consistent with tumor, unchanged. Abdominal ultrasound revealed a small amount of fluid seen in the right upper and lower quadrants. Trace amount of fluid seen in the left lower quadrant. The patient is seen today in consultation on the oncology floor. She is currently resting in bed. Awake and alert in no acute distress. She is maintaining O2 saturations in the 90s on 4 L/m per nasal cannula. She's afebrile. Still somewhat tachycardic in the 11/09/1929 range. Blood pressure 94/64. She is received 2 L of fluid resuscitation. Currently with a 0.9 normal saline at 100 ML's per hour. She was given ceftriaxone and is currently on Zosyn. She's been initiated on DuoNeb inhalations and Symbicort. White count 44.5. Hemoglobin 8.8. Platelet count 182,000. Neutrophils 43.6. Sodium 136. INR 1.3. Creatinine 0.68. Lactic acid 1.5. Review of Systems REVIEW OF SYSTEMS: CONSTITUTIONAL: Positive for poor appetite and weight loss. EYES: Denies change in vision. EARS, NOSE, MOUTH, THROAT: Denies headaches, denies sore throat. CARDIOVASCULAR: Denies chest pain, palpitations or syncopal episodes. RESPIRATORY: Positive for shortness of breath, cough, congestion no hemoptysis. GASTROINTESTINAL: Positive for abdominal discomfort, fullness, bloating GENITOURINARY: Denies hematuria, denies infections. MUSKULOSKELETAL: Denies pain, denies swelling. INTEGUMENTARY: Denies rash, denies eczema. NEUROLOGICAL: Denies recent memory loss, no recent seizure activity. PSYCHIATRIC: Denies anxiety, denies depression. HEMATOLOGIC/LYMPHATIC: Positive for anemia, enlarged lymph nodes. Past Medical History Past Medical History: Cancer, COPD, GERD/Reflux, GI Bleed, Skin Disorder Additional Past Medical History / Comment(s): stage IV lung cancer dx. 2016- tx with chemo currently, hx eczema History of Any Multi-Drug Resistant Organisms: None Reported Past Surgical History: Orthopedic Surgery, Tubal Ligation Additional Past Surgical History / Comment(s): lung biopsy, left foot surgery, port inserted rt side Past Anesthesia/Blood Transfusion Reactions: No Reported Reaction Past Psychological History: No Psychological Hx Reported Smoking Status: Former smoker Past Alcohol Use History: None Reported Past Drug Use History: None Reported - Past Family History Father Family Medical History: Cancer Additional Family Medical History / Comment(s): lung cancer Mother Family Medical History: COPD Additional Family Medical History / Comment(s): Mother from complications of COPD. Medications and Allergies Home Medications Medication Instructions Recorded Confirmed Type Multivitamins, Thera [Multivitamin 1 tab PO DAILY 09/14/16 02/25/19 History (formulary)] Albuterol Inhaler [Ventolin Hfa 1 - 2 puff INHALATION RT-Q6H PRN 11/23/17 02/25/19 History Inhaler] Albuterol Nebulized [Ventolin 2.5 mg INHALATION RT-BID PRN 11/23/17 02/25/19 History Nebulized] Acetaminophen [Tylenol Extra 1,000 mg PO Q8H PRN 12/21/18 02/25/19 History Strength] Budesonide-Formot 160-4.5 Mcg 2 puff INHALATION BID #1 inhaler 12/23/18 02/25/19 Rx [Symbicort 160-4.5 Mcg Inhaler] Famotidine [Pepcid] 20 mg PO DAILY #60 tab 12/23/18 02/25/19 Rx Pantoprazole Sodium 40 mg PO BID #0 12/23/18 02/25/19 Rx Dexamethasone 8 mg PO DIRECTED 02/25/19 02/25/19 History Allergies Allergy/AdvReac Type Severity Reaction Status Date / Time Iodinated Contrast- Oral and AdvReac Nausea & Verified 02/25/19 18:22 IV Dye Vomiting Physical Exam Vitals: Vital Signs Temp Pulse Pulse Resp BP BP Pulse Ox 02/26/19 12:23 97.7 F 130 H 20 94/64 93 L 02/26/19 08:58 124 H 02/26/19 08:49 120 H 96 02/26/19 05:00 97.9 F 119 H 19 94/61 97 02/26/19 04:46 116 H 02/26/19 04:40 112 H 02/25/19 23:58 116 H 20 100/65 94 L 02/25/19 23:46 112 H 02/25/19 23:35 115 H 94 L 02/25/19 21:57 98.0 F 124 H 20 91/66 95 02/25/19 21:23 120 H 18 130/72 96 02/25/19 20:00 112 H 18 103/70 98 02/25/19 18:48 102/72 02/25/19 18:30 117 H 18 94/40 96 02/25/19 17:35 125 H 18 93/60 100 02/25/19 17:21 133 H 02/25/19 17:12 127 H 02/25/19 16:18 98.3 F 123 H 28 H 68/48 80 L Intake and Output 02/25/19 02/26/19 02/26/19 22:59 06:59 14:59 Intake Total 1289 2239 Balance 1289 2239 Intake: Intake, IV Titration 1049 1999 Amount Sodium Chloride 0.9% 1, 900 000 ml @ 100 mls/hr IV . Q10H [facility] Rx#:[id number] Sodium Chloride 0.9% 1, 999 000 ml @ 999 mls/hr IV . Q1H1M [facility] Rx#:[id number] Sodium Chloride 0.9% 1, 999 000 ml @ 999 mls/hr IV . Q1H1M [facility] Rx#:[id number] cefTRIAXone 2 gm In 50 Sodium Chloride 0.9% 50 ml @ 100 mls/hr IVPB Q24H [facility] Rx#:[id number] metroNIDAZOLE-NS PMX 500 100 mg In Saline 1 100ml.bag @ 100 mls/hr IVPB Q8HR [facility] Rx#:[id number] Oral 240 240 Other: Voiding Method Bedpan # Voids 2 2 1 # Bowel Movements 1 Weight 78.471 kg 78.471 kg GENERAL EXAM: Very pleasant 53-year-old female patient, mild respiratory distress, on 4 L nasal cannula HEAD: Normocephalic. EYES: Normal reaction of pupils, equal size. NOSE: Clear with pink turbinates. THROAT: No erythema or exudates. NECK: No masses, no JVD. CHEST: No chest wall deformity. LUNGS: Equal air entry with bilateral scattered rhonchi. CVS: S1 and S2 normal with no audible murmur, regular rhythm. ABDOMEN: Soft, tender, distended, normal bowel sounds, no guarding or rigidity. SPINE: No scoliosis or deformity SKIN: No rashes CENTRAL NERVOUS SYSTEM: No focal deficits, tone is normal in all 4 extremities. EXTREMITIES: There is no peripheral edema. No clubbing, no cyanosis. Peripheral pulses are intact. Results - Laboratory Findings CBC and BMP: 02/27/19 08:15 02/27/19 08:15 PT/INR, D-dimer PT 13.1 sec (9.0-12.0) H 02/25/19 17:24 INR 1.3 (<1.2) H 02/25/19 17:24 Abnormal lab findings: Abnormal Labs 02/25/19 02/25/19 02/25/19 17:24 17:24 17:24 WBC 39.5 H RBC 3.47 L Hgb 9.8 L D Hct 32.1 L MCHC 30.6 L RDW 25.2 H Plt Count 128 L Neutrophils # (Manual) 37.92 H Lymphocytes # (Manual) Metamyelocytes # (Man) PT 13.1 H INR 1.3 H Sodium 134 L Chloride 97 L Carbon Dioxide 33 H BUN 26 H Glucose 115 H Calcium AST Alkaline Phosphatase 219 H Total Protein 5.4 L Albumin 2.7 L 02/26/19 02/26/19 09:13 09:13 WBC 44.5 H RBC 3.12 L Hgb 8.8 L Hct 29.8 L MCHC 29.5 L RDW 24.6 H Plt Count Neutrophils # (Manual) 43.60 H Lymphocytes # (Manual) 0.45 L Metamyelocytes # (Man) 0.45 H PT INR Sodium 136 L Chloride Carbon Dioxide BUN 23 H Glucose 128 H Calcium 8.2 L AST 13 L Alkaline Phosphatase 188 H Total Protein 5.2 L Albumin 2.6 L - Diagnostic Findings Chest x-ray: image reviewed CT scan - chest: image reviewed Assessment and Plan Assessment: Impression: #1 Acute on chronic hypoxic respiratory failure, multifactorial in a patient with known stage IV lung cancer, chronic obstructive pulmonary disease, abdominal distention and bloating. CT angiogram ruled out pulmonary embolism. There is continued masslike consolidation in the right middle lobe consistent with tumor measuring 6.5 cm. There is extensive bilateral bronchial adenopathy with lymph nodes measuring up to 2.5 cm which have increased since last exam December 2018. There is anterior mediastinal adenopathy with lymph nodes measuring 2.5 cm. Left pleural effusion slightly increased. #2 Ascites, new compared to previous computed tomography scan. #3 T11 compression fracture, new compared to previous. 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 #6 Lymphadenopathy. #7 Deficiency anemia. #8 Chronic obstructive pulmonary disease, Gold stage III with an FEV1 value of 46% of predicted.. #9 History of chronic tobacco dependence of 35 years. Plan: The patient was seen and evaluated by Dr. Perez. Chest x-ray CAT scan and labs were all reviewed. We will continue with the current treatment plan. We will continue to follow and make further recommendations based on her clinical status. I, the cosigning physician performed a history and physical examination on the patient. Lungs with scattered rhonchi bilaterally. Maintaining good O2 saturations on 2L/min per nasal canula. I discussed the assessment and plan of care with my nurse practitioner, Breana Reich. I attest to the above consultation as dictated by her. Time with Patient: Greater than 30
--- NOTE | 2019-02-26 14:56 | P.PN ---
Subjective Progress Note Date: 02/26/19 Principal diagnosis: Abdominal pain, hypotension 53-year-old female with history of metastatic adeno CA, duodenal metastases, chronic hypoxic respiratory failure on home oxygen at 3 L presented from oncology office for hypotension noted to be tachycardic and hypotensive in the e mergency room placed on Flagyl on IV Rocephin Objective - Vital Signs Vital signs: Vital Signs Temp 97.7 F 02/26/19 12:23 Pulse 130 H 02/26/19 12:23 Resp 20 02/26/19 12:23 BP 94/64 02/26/19 12:23 Pulse Ox 93 L 02/26/19 12:23 Intake & Output 02/25/19 02/26/19 02/26/19 18:59 06:59 18:59 Intake Total 3528 Balance 3528 Weight 78.471 kg 78.471 kg Intake: Intake, IV Titration 3048 Amount Sodium Chloride 0.9% 1, 900 000 ml @ 100 mls/hr IV . Q10H [facility] Rx#:[id number] Sodium Chloride 0.9% 1, 999 000 ml @ 999 mls/hr IV . Q1H1M [facility] Rx#:[id number] Sodium Chloride 0.9% 1, 999 000 ml @ 999 mls/hr IV . Q1H1M [facility] Rx#:[id number] cefTRIAXone 2 gm In 50 Sodium Chloride 0.9% 50 ml @ 100 mls/hr IVPB Q24H [facility] Rx#:[id number] metroNIDAZOLE-NS PMX 500 100 mg In Saline 1 100ml.bag @ 100 mls/hr IVPB Q8HR [facility] Rx#:[id number] Oral 480 Other: Voiding Method Bedpan # Voids 2 1 # Bowel Movements 1 - Constitutional General appearance: Present: mild distress - Respiratory Respiratory: bilateral: diminished, rhonchi, wheezing - Cardiovascular Rhythm: regular - Gastrointestinal General gastrointestinal: Present: normal bowel sounds, soft, tenderness - Integumentary Integumentary: Present: normal turgor - Musculoskeletal Musculoskeletal: Present: generalized weakness - Psychiatric Psychiatric: Present: appropriate affect - Labs CBC & Chem 7: 02/26/19 09:13 02/26/19 09:13 Labs: Abnormal Lab Results - Last 24 Hours (Table) 02/25/19 02/25/19 02/25/19 Range/Units 17:24 17:24 17:24 WBC 39.5 H (3.8-10.6) k/uL RBC 3.47 L (3.80-5.40) m/uL Hgb 9.8 L D (11.4-16.0) gm/dL Hct 32.1 L (34.0-46.0) % MCHC 30.6 L (31.0-37.0) g/dL RDW 25.2 H (11.5-15.5) % Plt Count 128 L (150-450) k/uL Neutrophils # (Manual) 37.92 H (1.3-7.7) k/uL Lymphocytes # (Manual) (1.0-4.8) k/uL Metamyelocytes # (Man) (0) k/uL PT 13.1 H (9.0-12.0) sec INR 1.3 H (<1.2) Sodium 134 L (137-145) mmol/L Chloride 97 L (98-107) mmol/L Carbon Dioxide 33 H (22-30) mmol/L BUN 26 H (7-17) mg/dL Glucose 115 H (74-99) mg/dL Calcium (8.4-10.2) mg/dL AST (14-36) U/L Alkaline Phosphatase 219 H (38-126) U/L Total Protein 5.4 L (6.3-8.2) g/dL Albumin 2.7 L (3.5-5.0) g/dL 02/26/19 02/26/19 Range/Units 09:13 09:13 WBC 44.5 H (3.8-10.6) k/uL RBC 3.12 L (3.80-5.40) m/uL Hgb 8.8 L (11.4-16.0) gm/dL Hct 29.8 L (34.0-46.0) % MCHC 29.5 L (31.0-37.0) g/dL RDW 24.6 H (11.5-15.5) % Plt Count (150-450) k/uL Neutrophils # (Manual) 43.60 H (1.3-7.7) k/uL Lymphocytes # (Manual) 0.45 L (1.0-4.8) k/uL Metamyelocytes # (Man) 0.45 H (0) k/uL PT (9.0-12.0) sec INR (<1.2) Sodium 136 L (137-145) mmol/L Chloride (98-107) mmol/L Carbon Dioxide (22-30) mmol/L BUN 23 H (7-17) mg/dL Glucose 128 H (74-99) mg/dL Calcium 8.2 L (8.4-10.2) mg/dL AST 13 L (14-36) U/L Alkaline Phosphatase 188 H (38-126) U/L Total Protein 5.2 L (6.3-8.2) g/dL Albumin 2.6 L (3.5-5.0) g/dL Assessment and Plan Assessment: Acute on chronic hypoxic respiratory failure Hypotension Metastatic adeno CA of the lung COPD Compression fracture Iron deficiency anemia Plan: Appreciate pulmonary input, will expand antibiotic coverage given infiltrates to 07, discussed with interventional radiology limited ascites so will not pursue paracentesis at this time, We will continue IV fluids, obtain abdomen and pelvic CT in a.m., pain control, await further input from oncology patient is a full code given 8 need for continued coordination of care, IV antibiotics, with severity of illness and intensity of care continue inpatient treatment
[2019-02-26] MEDS: PIPERACILLIN-TAZOBACTAM 3.375 GM in SODIUM CHLORIDE 0.9% 100 ML IVPB SCH (16:16)
[2019-02-26] MEDS ORDERED: MAG HYDROX/AL HYDROX/SIMETH 30 ML CUP PO PRN (17:57)
--- NOTE | 2019-02-26 18:54 | P.CONS ---
History of Present Illness - Reason for Consult Consult date: 02/26/19 Active patient oncological care Requesting physician: Antonio Junior - Chief Complaint tachy, hypotensive - History of Present Illness Malignancy History: Ms Everett is a pleasant WF, initially seen in consult at [facility] on 09/14/16. She had presented with b/l LE swelling, progressive over 2 days. She had had an episode of pneumonia, about 2 wks prior, improved partially with antibiotics. Dopplers of the LE, and CTA were done in the ER, revealing marked hilar and mediastinal adenopathy. CT AP revealed retroperitoneal adenopathy. CT brain was negative. Bronchoscopic biopsy on 09/17/16 was positive for poorly differentiated adeno ca of lung origin. She had a PET as an outpt, revealing uptake in the rt supraclavicular, hilar and paratracheal nodes. There was a masslike consolidation in the RML measuring 7.2 x 6.6 cm with SUV of 11.07, with central necrosis, likely the primary. Uptake was also seen in the left adrenal (2 x 1.8 cm, SUV 5.91), perigastric and retroperitoneal nodes, confirming stage 4 disease. She was seen for her 1st OV on 09/24/16. She was referred for palliative RT , pending tumor markers. 10/10/16-Pt seen by Dr. Banks and started XRT 2 days ago. We reviewed her tumor mutation results (ALK, ROS1 negative, PDL1 20%). The swelling in her legs and the leg pain is a little better but they still feel tight and are achy, she has no other acute physical c/o on a 10 point ROS, she has to take her time walking so she does not get SOB. Tumor markers were as noted above. She completed palliative RT and started chemo with Carbo/Alimta/Avastin on 10/31/16. She is s/p [address] scans showed partial response, and she was switched to maintenance Alimta and avastin. She is s/p 28 cycles. Avastin was held with C 25 onwards due to her coughing up some blood. She has persistent, stable fatigue. She had no significant nausea and vomit ting . She reports some discoloration and tenderness in the medial lower LLE. Dopplers were negative in 07/06. She did see Vascular Surgery for possible venous insufficiency. She is using compression stockings She was admitted at [facility] in early 12/07 with left flank pain. CT scans did not show any definite evidence of cancer progression, with only questionable minimal increase in left adrenal mass and retroperitoneal LAD noted. She improved with pain medications and was discharged. She reported nausea and diarrhea with the Po contrast with her scans in 02/04, and 05/06 She has been having trouble with accessing her Port since 04/06. She has had 2 UTIs in 04/06 with an ER visit for the 2nd episode in late 04/06. She completed antibiotics in early 05/06 Ct scans in 05/06 showed decrease in the RML mass, but possible minor increase in abdominal adenopathy. The findings were felt to be non specific and she was continued on the same regimen. She had a PORT revision on 05/20/18 as her existing PORT was cracked. CT scans in early 10/06 showed progression. She was changed to Atezolizumab on 09/25/18 and is s/p 5 cycles + 1 of Opdivo ( changed due to coverage issues) She went to the ER in mid 12/08 with c/o vomitting blood, about a handful at most. She was asked to f/u with GI as an outpt, on 12/22/18. She has the same symptom essentially every AM. No blood in the stool or melena. She was admitted to [facility] with chest pain on 12/20/18. Cardiac w/u was negative. She had an EGD on 12/21/18, showing duodenitis and gastritis. Duodenal biopsy was positive for adenoca of lung origin! She also received IV iron. CT scans in 02/05 showed progression in the right lung, left adrenal and retroperitoneal nodes. She was therefore changed to Taxotere, and is status post 1 cycle. She is now on O 2 ATC. 02/26/19: Ms Everett was seen in the office by Dr. Jensen on 02/25/19. the patient is status post 1 cycle of Taxotere, and has noted some improvement in her symptoms. However yesterday, she appears to be significantly compromised with elevated heart rate, and heart were recorded blood pressure, which appears to be roughly in the 70s systolic. She is also more short of breath, with abnormal exam findings in the right lung. - The patient was therefore recommended to go to the emergency room. Case was discussed with the emergency room physician to work her up fora possible pneumonia and sepsis, as well as other causes such as dehydration. labs will be drawn in the ER She was last treated with Opdivo immune therapy on 01/08/19. Cycle one of taxotere with neulasta was 02/12/19. Review of Systems A 14 point review of systems assessed and completed and all negative except HPI Past Medical History Past Medical History: Cancer, COPD, GERD/Reflux, GI Bleed, Skin Disorder Additional Past Medical History / Comment(s): stage IV lung cancer dx. 2016- tx with chemo currently, hx eczema History of Any Multi-Drug Resistant Organisms: None Reported Past Surgical History: Orthopedic Surgery, Tubal Ligation Additional Past Surgical History / Comment(s): lung biopsy, left foot surgery, port inserted rt side Past Anesthesia/Blood Transfusion Reactions: No Reported Reaction Past Psychological History: No Psychological Hx Reported Smoking Status: Former smoker Past Alcohol Use History: None Reported Past Drug Use History: None Reported - Past Family History Father Family Medical History: Cancer Additional Family Medical History / Comment(s): lung cancer Mother Family Medical History: COPD Additional Family Medical History / Comment(s): Mother from complications of COPD. Medications and Allergies Home Medications Medication Instructions Recorded Confirmed Type Multivitamins, Thera [Multivitamin 1 tab PO DAILY 09/14/16 02/25/19 History (formulary)] Albuterol Inhaler [Ventolin Hfa 1 - 2 puff INHALATION RT-Q6H PRN 11/23/17 02/25/19 History Inhaler] Albuterol Nebulized [Ventolin 2.5 mg INHALATION RT-BID PRN 11/23/17 02/25/19 History Nebulized] Acetaminophen [Tylenol Extra 1,000 mg PO Q8H PRN 12/21/18 02/25/19 History Strength] Budesonide-Formot 160-4.5 Mcg 2 puff INHALATION BID #1 inhaler 12/23/18 02/25/19 Rx [Symbicort 160-4.5 Mcg Inhaler] Famotidine [Pepcid] 20 mg PO DAILY #60 tab 12/23/18 02/25/19 Rx Pantoprazole Sodium 40 mg PO BID #0 12/23/18 02/25/19 Rx Dexamethasone 8 mg PO DIRECTED 02/25/19 02/25/19 History Allergies Allergy/AdvReac Type Severity Reaction Status Date / Time Iodinated Contrast- Oral and AdvReac Nausea & Verified 02/25/19 18:22 IV Dye Vomiting Physical Exam Vitals: Vital Signs Temp Pulse Pulse Resp BP BP Pulse Ox 02/26/19 16:55 98 02/26/19 16:47 98 02/26/19 12:23 97.7 F 130 H 20 94/64 93 L 02/26/19 08:58 124 H 02/26/19 08:49 120 H 96 02/26/19 05:00 97.9 F 119 H 19 94/61 97 02/26/19 04:46 116 H 02/26/19 04:40 112 H 02/25/19 23:58 116 H 20 100/65 94 L 02/25/19 23:46 112 H 02/25/19 23:35 115 H 94 L 02/25/19 21:57 98.0 F 124 H 20 91/66 95 02/25/19 21:23 120 H 18 130/72 96 02/25/19 20:00 112 H 18 103/70 98 02/25/19 18:48 102/72 02/25/19 18:30 117 H 18 94/40 96 Intake and Output 02/26/19 02/26/19 02/26/19 06:59 14:59 22:59 Intake Total 2239 Balance 2239 Intake: Intake, IV Titration 1999 Amount Sodium Chloride 0.9% 1, 900 000 ml @ 100 mls/hr IV . Q10H [facility] Rx#:[id number] Sodium Chloride 0.9% 1, 999 000 ml @ 999 mls/hr IV . Q1H1M [facility] Rx#:[id number] metroNIDAZOLE-NS PMX 500 100 mg In Saline 1 100ml.bag @ 100 mls/hr IVPB Q8HR [facility] Rx#:[id number] Oral 240 Other: Voiding Method Bedpan Bedpan # Voids 2 1 1 # Bowel Movements 1 Weight 78.471 kg Gen: Alert nad Head: NCNT Neck: Supple Lungs: Diminished throughour, expiratory wheeze, mild increase effort Abdomen:Ascites mild tender Heart: Irr Tachy Neuro: No sensory or notor deficits Skin: No rashes Results CBC & Chem 7: 02/26/19 09:13 02/26/19 09:13 Labs: Abnormal Lab Results - Last 24 Hours (Table) 02/26/19 02/26/19 Range/Units 09:13 09:13 WBC 44.5 H (3.8-10.6) k/uL RBC 3.12 L (3.80-5.40) m/uL Hgb 8.8 L (11.4-16.0) gm/dL Hct 29.8 L (34.0-46.0) % MCHC 29.5 L (31.0-37.0) g/dL RDW 24.6 H (11.5-15.5) % Neutrophils # (Manual) 43.60 H (1.3-7.7) k/uL Lymphocytes # (Manual) 0.45 L (1.0-4.8) k/uL Metamyelocytes # (Man) 0.45 H (0) k/uL Sodium 136 L (137-145) mmol/L BUN 23 H (7-17) mg/dL Glucose 128 H (74-99) mg/dL Calcium 8.2 L (8.4-10.2) mg/dL AST 13 L (14-36) U/L Alkaline Phosphatase 188 H (38-126) U/L Total Protein 5.2 L (6.3-8.2) g/dL Albumin 2.6 L (3.5-5.0) g/dL CT scan - chest: report reviewed Assessment and Plan Plan: 1. Adenocarcinoma of the lung with progressive disease: Known mets to adrenal gland - Restage MRI of the brain - Status Post Immune therapy 01/08 and taxotere 02/12 with neulsata - Consider immune related effects up to 90 days post treatment 2. New/Increased Abdominal Ascites: - Paracentesis ordered with fluid studies, cytology 3. T11 compression fracture: New compared to prior exams: - Evaluate further with MRI imaging - Assessment for unilater sensory or motor deficits - Ortho spine consult with 4. Hypotension, Tachycardia: - Consider infectious versus immune related - Will check cortisol level, TSH, Henson Enzymes Allisonnita Fuentes: DIONI
[2019-02-26] MEDS: MORPHINE SULFATE 2 MG/ML SYRINGE IVP PRN (19:59)
[2019-02-26] MEDS: PANTOPRAZOLE 40 MG/10 ML VIAL IVP SCH (20:45)
--- NOTE | 2019-02-26 21:15 | US ---
EXAMINATION TYPE: US venous doppler duplex LE DATE OF EXAM: 02/26/2019 9:08 PM COMPARISON: NONE CLINICAL HISTORY: swelling of extremities. Edema bilateral legs SIDE PERFORMED: bilateral TECHNIQUE: The lower extremity deep venous system is examined utilizing real time linear array sonog liudmila with graded compression, doppler sonography and color-flow sonography. VESSELS IMAGED: External Iliac Vein (EIV) Common Femoral Vein Deep Femoral Vein Greater Saphenous Vein * Femoral Vein Popliteal Vein Small Saphenous Vein * Proximal Calf Veins (* superficial vessels) Right Leg: positive for DVT, thready flow with partial compression right femoral vein Left Leg: positive for DVT, thready flow with partial compression left femoral vein extending into p opliteal vein IMPRESSION: There is bilateral acute and chronic deep venous thrombosis in the femoral veins.
[2019-02-26] MEDS: ENOXAPARIN 80 MG/0.8 ML SYRINGE SQ SCH (21:47)
--- NOTE | 2019-02-26 23:32 | XR ---
EXAM: XR Abdomen 2 Views With XR Chest CLINICAL HISTORY: possible blood clot or abd distension TECHNIQUE: Frontal view of the chest, frontal view of the abdomen/pelvis and upright or decubitus view of the abdomen. COMPARISON: 03/07/19 FINDINGS: Lungs: No change compared to the prior study persistent consolidation on the right. Pleural space: Unremarkable. No pneumothorax. Heart: Unremarkable. No cardiomegaly. Mediastinum: Unremarkable. Intraperitoneal space: No free air. Gastrointestinal tract: There is contrast noted in the urinary bladder. Clinical correlation required.. Nonspecific bowel gas pattern.. Bones/joints: Unremarkable. IMPRESSION: No change in appearance of the lungs. Nonspecific bowel gas pattern. Contrast material noted in the bladder. Clinical correlation required.
[2019-02-27] MEDS: PIPERACILLIN-TAZOBACTAM 3.375 GM in SODIUM CHLORIDE 0.9% 100 ML IVPB SCH ×4 (00:58→23:52)
[2019-02-27] MEDS: DEXAMETHASONE SOD PHOSPHATE 4 MG/ML 1 ML VIAL IV SCH ×5 (00:58→23:52)
[2019-02-27] MEDS ORDERED: LORazepam 2 MG/ML INJ IV PRN (05:02)
[2019-02-27] MEDS: IPRATROPIUM-ALBUTEROL 3 ML NEB INHALATION PRN (05:12)
[2019-02-27] MEDS ORDERED: diphenhydrAMINE 50 MG/ML 1 ML VIAL IVP ONE (08:01)
[2019-02-27] MEDS ORDERED: FAMOTIDINE 20 MG/2 ML VIAL IV ONE (08:01)
[2019-02-27] MEDS ORDERED: methylPREDNISolone SOD SUCCI 125 MG/2 ML VIAL IV ONE (08:01)
[2019-02-27] MEDS ORDERED: BARIUM SULFATE 450 ML ORAL.SUSP BOTTLE PO ONE (08:05)
[2019-02-27 08:53] LABS: Anisocytosis Marked; Basophils % (A) 0 %; Eosinophils # (A) 0.1 k/uL (0-0.7); Eosinophils % (A) 0 %; HCT 28.1 % (34.0-46.0); HGB 8.6 gm/dL (11.4-16.0); Hypochromasia Marked; Lymphocytes # (A) 0.5 k/uL (1.0-4.8); Lymphocytes % (A) 1 %; MCH 28.9 pg (25.0-35.0); MCHC 30.5 g/dL (31.0-37.0); MCV 94.7 fL (80.0-100.0); Macrocytosis Moderate; Mean Platelet Volume 7.9; Monocytes # (A) 0.4 k/uL (0-1.0); Monocytes % (A) 1 %; Neutrophils # (A) 35.2 k/uL (1.3-7.7); Neutrophils % (A) 97 %; Platelet Count 215 k/uL (150-450); Poikilocytosis Slight; RBC 2.97 m/uL (3.80-5.40); RDW 24.3 % (11.5-15.5); WBC 36.2 k/uL (3.8-10.6)
[2019-02-27] MEDS: ENOXAPARIN 80 MG/0.8 ML SYRINGE SQ SCH ×2 (09:07→21:08)
[2019-02-27] MEDS: PANTOPRAZOLE 40 MG/10 ML VIAL IVP SCH ×2 (09:07→21:08)
[2019-02-27] MEDS: FAMOTIDINE 20 MG TAB PO SCH (09:07)
[2019-02-27] MEDS: MULTIVITAMINS, THERA 1 EACH TAB PO SCH (09:07)
[2019-02-27 09:11] LABS: Anion Gap 4 mmol/L; Blood Urea Nitrogen 23 mg/dL (7-17); Calcium 8.3 mg/dL (8.4-10.2); Carbon Dioxide 27 mmol/L (22-30); Chloride 105 mmol/L (98-107); Glucose 147 mg/dL (74-99); Sodium 136 mmol/L (137-145)
--- NOTE | 2019-02-27 09:16 | US ---
EXAMINATION TYPE: US venous doppler duplex UE DATE OF EXAM: 02/27/2019 COMPARISON: US for LEV Duplex CLINICAL HISTORY: edema; bilateral LE DVT; lung mass; chemotherapy port right chest wall with cathete r within right IJV SIDE PERFORMED: bilateral Small arm veins distally. Right Arm: Negative for DVT Left Arm: Negative for DVT Multiple left cervical nodes are seen with largest = 1.9 x 1.2 x 1.1cm. IMPRESSION: 1. THIS EXAMINATION IS NEGATIVE FOR DVT IN EITHER ARM. 2. NONSPECIFIC ADENOPATHY.
[2019-02-27] MEDS: SYMBICORT 160-4.5 MCG INHALER INHALATION SCH ×2 (09:22→20:59)
[2019-02-27] MEDS: IPRATROPIUM-ALBUTEROL 3 ML NEB INHALATION SCH ×4 (09:22→20:59)
--- NOTE | 2019-02-27 10:04 | P.PN ---
Subjective Progress Note Date: 02/27/19 Principal diagnosis: Acute on chronic hypoxic respiratory failure secondary to stage IV lung cancer, COPD and abdominal distention. Possible underlying pneumonia. This is a very pleasant 53-year-old female patient who follows with Dr. Harrington as her primary care physician. She has a history of chronic obstructive pulmonary disease, previous chronic tobacco dependence and stage IV lung cancer first diagnosed in 2015. She had been on several rounds of chemotherapy including either Alimta and Avastin. In September 2018 there was further progression and she was switched to Tecentriq. Earlier this year the patient had been on Opdivo and received 2-3 doses but became intolerant. She follows with Dr. Jennings in our office. She was last seen 01/01/2019 following a brief hospitalization for GI bleed. She had undergone colonoscopy with biopsies that were positive for metastatic adenocarcinoma consistent with lung primary and probable source of bleeding. She was most recently started on Taxotere with Neulasta Feb 19 2019 and a second dose is due March 05. She was seen and Dr. Jensen's office yesterday where she was found to be short of breath, tachycardic and hypotensive. She was referred here for admission for the same. Over the past 2 weeks she had been having difficulty eating and drinking with a sense of fullness and abdominal bloating and swelling. CT angiogram ruled out pulmonary embolism. There was noted mediastinal and bronchial adenopathy measuring up to 2.5 cm which had increased compared to last exam 12/21/2018 consistent with progression of tumor. There is right middle lobe masslike consolidation measuring 6.5 cm unchanged. Left pleural effusion increased slightly. Right chest wall pleural thickening unchanged. There is new extensive abdominal ascites compared to old exam. New T11 compression fracture. 4 x 2.5 cm mass in the left adrenal gland consistent with tumor, unchanged. Abdominal ultrasound revealed a small amount of fluid seen in the right upper and lower quadrants. Trace amount of fluid seen in the left lower quadrant. The patient is seen today in consultation on the oncology floor. She is currently resting in bed. Awake and alert in no acute distress. She is maintaining O2 saturations in the 90s on 4 L/m per nasal cannula. She's afebrile. Still somewhat tachycardic in the 11[birth year]09/1929 range. Blood pressure 94/64. She is received 2 L of fluid resuscitation. Currently with a 0.9 normal saline at 100 ML's per hour. She was given ceftriaxone and is currently on Zosyn. She's been initiated on DuoNeb inhalations and Symbicort. White count 44.5. Hemoglobin 8.8. Platelet count 182,000. Neutrophils 43.6. Sodium 136. INR 1.3. Creatinine 0.68. Lactic acid 1.5. Patient was reevaluated today on 02/27/2019, she is basically about the same. Feels generally weak, has occasional cough, no fever no chills no hemoptysis no nausea no vomiting no abdominal pain. Remains on updrafts, is also on Symbicort , Decadron, and Zosyn. Continues to have leukocytosis but it is improving WBC count of 36.2, hemoglobin is 8.6. Basic metabolic profile is normal. C. difficile screen is negative. Objective - Vital Signs Vital signs: Vital Signs Temp 97.5 F L 02/27/19 05:00 Pulse 108 H 02/27/19 09:32 Resp 20 02/27/19 05:00 BP 92/64 02/27/19 05:00 Pulse Ox 93 L 02/27/19 05:00 Intake & Output 02/26/19 02/27/19 02/27/19 18:59 06:59 18:59 Intake Total 740 Balance 740 Weight 78.471 kg Intake: Intake, IV Titration 500 Amount Piperacillin-Tazobactam 3 100 .375 gm In Sodium Chloride 0.9% 100 ml @ 25 mls/hr IVPB Q8HR [facility] Rx# :[id number] Sodium Chloride 0.9% 1, 400 000 ml @ 100 mls/hr IV . Q10H [facility] Rx#:[id number] Oral 240 Other: Voiding Method Bedpan Bedpan # Voids 1 1 # Bowel Movements 1 2 - Exam GENERAL EXAM: Very pleasant 53-year-old female patient, mild respiratory distress, on few liters nasal cannula. HEENT: PERRLA, EOMI, no icterus, no thyromegaly, no stridor, no cervical adenopathy. Moist mucous membranes. CHEST: No chest wall deformity. LUNGS: Equal air entry with bilateral scattered rhonchi. More so at the right base. Rhonchi noted. CVS: S1 and S2 normal with no audible murmur, regular rhythm. ABDOMEN: Soft, tender, distended, normal bowel sounds, no guarding or rigidity. SPINE: No scoliosis or deformity SKIN: No rashes CENTRAL NERVOUS SYSTEM: No focal deficits, tone is normal in all 4 extremities. EXTREMITIES: There is no peripheral edema. No clubbing, no cyanosis. Peripheral pulses are intact. - Labs CBC & Chem 7: 02/27/19 08:15 02/27/19 08:15 Labs: Abnormal Lab Results - Last 24 Hours (Table) 02/26/19 02/26/19 02/27/19 Range/Units 09:13 09:13 08:15 WBC 44.5 H 36.2 H (3.8-10.6) k/uL RBC 3.12 L 2.97 L (3.80-5.40) m/uL Hgb 8.8 L 8.6 L (11.4-16.0) gm/dL Hct 29.8 L 28.1 L (34.0-46.0) % MCHC 29.5 L 30.5 L (31.0-37.0) g/dL RDW 24.6 H 24.3 H (11.5-15.5) % Neutrophils # 35.2 H (1.3-7.7) k/uL Neutrophils # (Manual) 43.60 H (1.3-7.7) k/uL Lymphocytes # 0.5 L (1.0-4.8) k/uL Lymphocytes # (Manual) 0.45 L (1.0-4.8) k/uL Metamyelocytes # (Man) 0.45 H (0) k/uL Sodium 136 L (137-145) mmol/L BUN 23 H (7-17) mg/dL Glucose 128 H (74-99) mg/dL Calcium 8.2 L (8.4-10.2) mg/dL AST 13 L (14-36) U/L Alkaline Phosphatase 188 H (38-126) U/L Total Protein 5.2 L (6.3-8.2) g/dL Albumin 2.6 L (3.5-5.0) g/dL 02/27/19 Range/Units 08:15 WBC (3.8-10.6) k/uL RBC (3.80-5.40) m/uL Hgb (11.4-16.0) gm/dL Hct (34.0-46.0) % MCHC (31.0-37.0) g/dL RDW (11.5-15.5) % Neutrophils # (1.3-7.7) k/uL Neutrophils # (Manual) (1.3-7.7) k/uL Lymphocytes # (1.0-4.8) k/uL Lymphocytes # (Manual) (1.0-4.8) k/uL Metamyelocytes # (Man) (0) k/uL Sodium 136 L (137-145) mmol/L BUN 23 H (7-17) mg/dL Glucose 147 H (74-99) mg/dL Calcium 8.3 L (8.4-10.2) mg/dL AST (14-36) U/L Alkaline Phosphatase (38-126) U/L Total Protein (6.3-8.2) g/dL Albumin (3.5-5.0) g/dL Microbiology - Last 24 Hours (Table) 02/25/19 17:24 Blood Culture - Preliminary Blood No Growth after 24 hours Assessment and Plan Assessment: #1 Acute on chronic hypoxic respiratory failure, multifactorial in a patient with known stage IV lung cancer, chronic obstructive pulmonary disease, abdominal distention and bloating. CT angiogram ruled out pulmonary embolism. There is continued masslike consolidation in the right middle lobe consistent with tumor measuring 6.5 cm. There is extensive bilateral bronchial adenopathy with lymph nodes measuring up to 2.5 cm which have increased since last exam December 2018. There is anterior mediastinal adenopathy with lymph nodes measuring 2.5 cm. Left pleural effusion slightly increased. Underlying pneumonia is not entirely ruled out, could be postobstructive. Not to mention the patient has leukocytosis and she is immunocompromised. She is a chemotherapy patient. #2 Ascites, new compared to previous computed tomography scan. #3 T11 compression fracture, new compared to previous. 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 #6 Lymphadenopathy. #7 Deficiency anemia. #8 Chronic obstructive pulmonary disease, Gold stage III with an FEV1 value of 46% of predicted.. #9 History of chronic tobacco dependence of 35 years. Recommendation: Continue present course of treatment including bronchodilators, oxygen, antibiotics, supportive care measures, systemic steroids, GI and DVT prophylaxis. We'll continue to follow. Not ready for discharge planning at this point. Time with Patient: Less than 30
[2019-02-27] MEDS: BARIUM SULFATE 450 ML ORAL.SUSP BOTTLE PO PRN ×2 (10:33→13:04)
[2019-02-27] MEDS: SODIUM CHLORIDE 0.9% 1,000 ML IV SCH ×3 (11:56→23:55)
--- NOTE | 2019-02-27 13:05 | MR ---
EXAMINATION TYPE: MR brain/cspine wo DATE OF EXAM ORDERED: 02/27/2019 12:46 PM HISTORY: re-evaluate mets. TECHNOLOGIST HISTORY AT TIME OF EXAM: re-evaluate mets COMPARISON: None. TECHNIQUE: Multiplanar, multiecho imaging of the cervical spine was obtained without contrast on a 1 .5 grady magnet. FINDINGS: The patient was extremely claustrophobic and could not finish the examination. Contrast was not administered. BRAIN: Midline structures are unremarkable. There is a normal craniocervical junction. Echoplanar diffusion imaging shows no evidence of restricted diffusion. There are normal vascular flow voids. The orbits are unremarkable. There is no evidence of a CP angle mass lesion There is a solitary 3 mm FLAIR lesion in the subcortical white matter in the left frontal lobe. This is of questionable etiology and significance. There is a 7.2 mm frontal scalp lesion likely representing a sebaceous cyst. CERVICAL SPINE: This study is compromised by patient motion artifact. There is a mild reversal of the normal cervical lordosis which is replaced by mild kyphosis. There ar e mild retrograde listhesis of C3 on C4 and C5 on C6 and to a lesser extent C4 on C5. Alignment is ot herwise maintained. Atlantoaxial relationships are normal. There is some decrease signal within the v ertebral bodies at C3, C4, C5 and C6. There is a normal craniocervical junction. Cord signal is difficult to assess due to patient motion a rtifact. No gross lesion is seen. No large protrusion is seen. Intervertebral foramina appear well ma intained. IMPRESSION: 1. NO ACUTE INTRACRANIAL ABNORMALITY. 2. SOLITARY FLAIR LESION IN THE SUBCORTICAL WHITE MATTER IN THE LEFT FRONTAL LOBE OF QUESTIONABLE AGRY OLOGY AND SIGNIFICANCE. 3. PROBABLE SEBACEOUS CYST IN THE SUBCUTANEOUS TISSUES OF THE FRONTAL REGION. 7. DECREASED SIGNAL WITHIN THE VERTEBRAL BODIES EXTENDING FROM C3 TO C6. THIS IS FAIRLY HOMOGENEOUS A ND THEREFORE NOT LIKELY METASTATIC IN NATURE BUT FURTHER ASSESSMENT WITH A NUCLEAR MEDICINE BONE SCAN OR POSTCONTRAST MR WITH THE PATIENT SEDATED WOULD BE SUGGESTED.
--- NOTE | 2019-02-27 13:51 | P.PN ---
Subjective Progress Note Date: 02/27/19 Principal diagnosis: Cough Patient is a 53-year-old female with a history of metastatic adenocarcinoma of the lung currently undergoing chemotherapy with Taxotere, GERD, recent GI bleed secondary to metastasis to the stomach, and eczema who presented to the hospital with complaints of shortness of breath, worsening cough. In the emergency department she underwent an extensive evaluation. On arrival she was found to be tachycardic with a heart rate of 123, hypotensive with blood pressure 60/48, and hypoxic with an oxygen saturation of 80% on 3.5 L nasal cannula. Initial laboratory analysis showed an elevated white blood cell count 39.5, hemoglobin 9.8, platelets 128, alkaline phosphatase elevated at 219. She underwent a chest x-ray followed by a CT of the chest. CT demonstrated no evidence of pulmonary embolism, increased mediastinal bronchial adenopathy consistent with tumor progression, and a right middle lobe masslike consolidation that was unchanged. There also found a new T11 compression fracture and extensive abdominal ascites. There is concern about possible pneumonia and she was started on antibiotics, IV fluids, and pain medications. She was admitted to the floor for further monitoring. Oncology and pulmonology were consulted. She underwent an abdominal ultrasound did not show enough fluid to perform a paracentesis. She underwent bilateral lower extremity venous Dopplers which showed bilateral lower extremity DVTs and she was started on Lovenox. MRI brain and cervical spine showed 3 mm flare lesion in the left frontal lobe as well as decreased signal within the vertebral bodies from 3-6 not likely metastatic in nature but recommended further assessment with bone scan. Pulmonary was consulted was concern there may be a postobstructive pneumonia and she was started on Zosyn. Patient seen and examined at bedside. She denies any unusual pain today, her breathing is about baseline. She has not had any blood in her sputum, vomiting up blood, or blood in her stool. She still having some early satiety. She has no other complaints currently. We discussed the findings of her Doppler study and her MRI. Currently awaiting CT abdomen and pelvis. Objective - Vital Signs Vital signs: Vital Signs Temp 97.5 F L 02/27/19 05:00 Pulse 108 H 02/27/19 09:32 Resp 20 02/27/19 08:00 BP 92/64 02/27/19 05:00 Pulse Ox 93 L 02/27/19 05:00 Intake & Output 02/26/19 02/27/19 02/27/19 18:59 06:59 18:59 Intake Total 740 Balance 740 Weight 78.471 kg Intake: Intake, IV Titration 500 Amount Piperacillin-Tazobactam 3 100 .375 gm In Sodium Chloride 0.9% 100 ml @ 25 mls/hr IVPB Q8HR [facility] Rx# :[id number] Sodium Chloride 0.9% 1, 400 000 ml @ 100 mls/hr IV . Q10H [facility] Rx#:[id number] Oral 240 Other: Voiding Method Bedpan Bedpan Bedpan # Voids 1 1 # Bowel Movements 1 2 - Exam General: non toxic, no distress, appears older than stated age, chronically ill- appearing Derm: warm, dry Head: atraumatic, normocephalic, symmetric Eyes: EOMI, no lid lag, anicteric sclera Mouth: no lip lesion, mucus membranes moist Cardiovascular: S1S2 reg, no murmur, positive posterior tibial pulse bilateral, Lungs: Rhonchi bilateral upper and bases, no accessory muscle use Abdominal: soft, nontender to palpation, no guarding, no appreciable organomegaly Ext: no gross muscle atrophy, 3+ edema bilateral lower extremities, no contractures Neuro: CN II-XI grossly intact, no focal neuro deficits Psych: Alert, oriented, appropriate affect - Labs CBC & Chem 7: 02/27/19 08:15 02/27/19 08:15 Labs: Abnormal Lab Results - Last 24 Hours (Table) 02/27/19 02/27/19 Range/Units 08:15 08:15 WBC 36.2 H (3.8-10.6) k/uL RBC 2.97 L (3.80-5.40) m/uL Hgb 8.6 L (11.4-16.0) gm/dL Hct 28.1 L (34.0-46.0) % MCHC 30.5 L (31.0-37.0) g/dL RDW 24.3 H (11.5-15.5) % Neutrophils # 35.2 H (1.3-7.7) k/uL Lymphocytes # 0.5 L (1.0-4.8) k/uL Sodium 136 L (137-145) mmol/L BUN 23 H (7-17) mg/dL Glucose 147 H (74-99) mg/dL Calcium 8.3 L (8.4-10.2) mg/dL Microbiology - Last 24 Hours (Table) 02/25/19 17:24 Blood Culture - Preliminary Blood No Growth after 24 hours Assessment and Plan Assessment: Bilateral lower extremity DVTs -Recent history of GI bleed and will need to be monitored closely -On Lovenox -If tolerates could consider switching to Xarelto on Friday if insurance off as able to be obtained Possible T11 compression fracture -Pain is currently controlled -Management per oncology Probable postobstructive pneumonia -Continue with Zosyn -CT essentially unchanged -Continue to monitor white blood cell count and for areas of fever -Pulmonary hygiene Adenocarcinoma of the lung, stage IV - MRI with changes C3-6 ? Bone scan as per oncology - on Taxotere and received neuolasta - Oncology recs appreciated. COPD -As needed albuterol treatments -Not chronically on inhalers but takes as needed albuterol GERD/ Gastritis -Continue with H2 mel Normocytic anemia -At baseline -Per notes from last admission appeared to be iron deficiency plus anemia of chronic disease -Management per hematology/oncology DVT prophylaxis: On full dose lovenox Discussed with: Patient, nursing Anticipated discharge: 48-[address]: home A total of 35 minutes was spent on the care of this complex patient more than 50% of the time was spent in counseling and care coordination.
--- NOTE | 2019-02-27 16:39 | CT ---
EXAMINATION TYPE: CT abdomen pelvis w con DATE OF EXAM: 02/27/2019 COMPARISON: Chest abdomen pelvis CT 01/27/2019 HISTORY: 53-year-old female with abdominal pain and early satiety. History of lung cancer. TECHNIQUE: Contiguous axial scanning of the abdomen and pelvis following administration of 100 ml Iso ingrid 300 IV contrast. Delayed images through the kidneys and coronal/sagittal reconstructions perform ed. CT DLP: 1081.6 mGycm Automated exposure control for dose reduction was used. FINDINGS: 1. Heterogeneous anterior right basilar mass. Volume loss and consolidation posterior right mid to lo wer lung. Moderate left pleural effusion increased in the interval with adjacent atelectasis. Suspect metastatic left hilar lymphadenopathy. Metastatic pericardiac lymphadenopathy on the right measuring up to 1.8 cm redemonstrated. Mild to moderate abdominopelvic ascites redemonstrated. No focal liver lesion seen. Portal venous system is patent. There seems to be some mass effect/extrin sic compression on to the main portal vein, for the axial image 28 narrowing its caliber. There also appears to be some mass effect on to the second portion of the duodenum. Underlying peripa ncreatic lymphadenopathy is suspected. There is also heterogeneous portacaval lymph node just adjacen t measuring 2.2 cm. Gallbladder, right adrenal gland, kidneys, spleen, and pancreas show no gross abnormality. Conglomerate mesenteric lymphadenopathy is fairly extensive with a conglomerate area measuring up to 4.0 x 2.4 cm. Left upper quadrant peritoneal nodularity redemonstrated. Heterogeneous left adrenal mass measuring 4.2 x 2.5 cm, not significantly changed. No dilated small bowel or free air. Left-sided colonic diverticulosis. No pericolonic inflammatory change. Diffuse anasarca type changes progressed in the interval. Bladder is partially distended. Uterus is visualized. Ovaries not clearly delineated from adjacent as cites, lymphadenopathy, and bowel. Left iliac and external iliac chain lymphadenopathy is removed to 1.7 cm redemonstrated. Bones: Mild degenerative changes at the hips. No osseous destructive process. Mild superior endplate deformity of T11 was present on 01/27/2019 but is new from 12/25/2018. IMPRESSION: 1. PROGRESSIVE DIFFUSE ANASARCA-TYPE CHANGE, INCREASING MODERATE LEFT PLEURAL EFFUSION, AND RELATIVEL Y SIMILAR MILD TO MODERATE ABDOMINOPELVIC ASCITES. 2. KNOWN RIGHT BASILAR MASS WITH METASTATIC RIGHT PARACARDIAC, LEFT HILAR, PORTAHEPATIC, GASTROHEPATI C, PORTACAVAL, MESENTERIC, AND LEFT ILIAC CHAIN LYMPHADENOPATHY WELL METASTATIC DISEASE TO THE LEFT ADRENAL GLAND. ADDITIONAL METASTATIC PERITONEAL DEPOSITS LEFT UPPER QUADRANT. 3. THERE SEEMS TO BE SOME MASS EFFECT/EXTRINSIC COMPRESSION NARROWING THE MAIN PORTAL VEIN AND ALSO S OME MASS EFFECT ON TO THE SECOND PORTION OF THE DUODENUM. SUSPECT THIS TO BE SECONDARY TO UNDERLYING PERIPANCREATIC LYMPHADENOPATHY AND A PROMINENT METASTATIC PORTACAVAL LYMPH NODE. THIS EXTRINSIC MASS EFFECT MAY IN PART ACCOUNT FOR THE EARLY SATIETY. 4. LEFT-SIDED COLONIC DIVERTICULOSIS. 5. MILD SUPERIOR ENDPLATE DEFORMITY OF T11 APPEARS SUBACUTE TO CHRONIC NOW. IT WAS PRESENT ON 01/28/20 BUT IS NOTED TO BE NEW FROM 12/25/2018.
[2019-02-28] MEDS: IPRATROPIUM-ALBUTEROL 3 ML NEB INHALATION PRN ×2 (00:07→03:29)
--- NOTE | 2019-02-28 00:08 | P.PN ---
Subjective Progress Note Date: 02/27/19 The patient is somewhat more comfortable, and less short of breath. However she is still quite weak with diminished endurance. She continues to complain of abdominal distention and discomfort. Appetite is still diminished. She denies any nausea or vomiting. No obvious bleeding Objective - Vital Signs Vital signs: Vital Signs Temp 97.6 F 02/27/19 21:00 Pulse 112 H 02/27/19 21:08 Resp 18 02/27/19 21:00 BP 98/66 02/27/19 21:00 Pulse Ox 95 02/27/19 21:00 Intake & Output 02/27/19 02/27/19 02/28/19 06:59 18:59 06:59 Intake Total 740 240 Balance 740 240 Intake: Intake, IV Titration 500 Amount Piperacillin-Tazobactam 3 100 .375 gm In Sodium Chloride 0.9% 100 ml @ 25 mls/hr IVPB Q8HR [facility] Rx# :[id number] Sodium Chloride 0.9% 1, 400 000 ml @ 100 mls/hr IV . Q10H [facility] Rx#:[id number] Oral 240 240 Other: Voiding Method Bedpan Bedpan # Voids 1 2 2 # Bowel Movements 2 3 2 - Constitutional General appearance: Present: no acute distress - EENT Eyes: Present: EOMI, PERRLA ENT: Present: hearing grossly normal, normal oropharynx - Neck Thyroid: bilateral: normal size - Respiratory Respiratory: right: diminished, rales, rhonchi - Cardiovascular Rhythm: regular Heart sounds: normal: S1, S2 - Gastrointestinal General gastrointestinal: Present: distended Localized gastrointestinal: tender: diffuse - Integumentary Integumentary: Present: normal - Neurologic Neurologic: Present: CNII-XII intact - Musculoskeletal Musculoskeletal: Present: generalized weakness, strength equal bilaterally - Psychiatric Psychiatric: Present: A&O x's 3, appropriate affect - Labs CBC & Chem 7: 02/27/19 08:15 02/27/19 08:15 Labs: Abnormal Lab Results - Last 24 Hours (Table) 02/27/19 02/27/19 Range/Units 08:15 08:15 WBC 36.2 H (3.8-10.6) k/uL RBC 2.97 L (3.80-5.40) m/uL Hgb 8.6 L (11.4-16.0) gm/dL Hct 28.1 L (34.0-46.0) % MCHC 30.5 L (31.0-37.0) g/dL RDW 24.3 H (11.5-15.5) % Neutrophils # 35.2 H (1.3-7.7) k/uL Lymphocytes # 0.5 L (1.0-4.8) k/uL Sodium 136 L (137-145) mmol/L BUN 23 H (7-17) mg/dL Glucose 147 H (74-99) mg/dL Calcium 8.3 L (8.4-10.2) mg/dL Microbiology - Last 24 Hours (Table) 02/25/19 17:24 Blood Culture - Preliminary Blood No Growth after 48 hours Assessment and Plan (1) Ascites Narrative/Plan: The patient continues to have abdominal distention and discomfort. On exam there appears to be at least some degree of ascites. However it is not clear as to or degree of for signs and symptoms are due to ascites. Abdominal x-ray did not show any evidence of obstruction. Await CT of the abdomen and pelvis. There does appear to be significant amount of ascites, then paracentesis with fluid analysis will be reattempted. In that case the patient will likely need adjustment of anticoagulation to permit paracentesis Current Visit: Yes Status: Acute Code(s): R18.8 - OTHER ASCITES SNOMED Code(s): 694532474 (2) Acute exacerbation of chronic obstructive airways disease Narrative/Plan: The patient's respiratory status is somewhat improved. Given her physical exam findings in the right lung, I suspect that she likely has pneumonia associated with the primary site, leading to COPD exacerbation. Continue curr ent treatment with steroids, and IV antibiotics. As noted, the patient is somewhat improved Current Visit: Yes Status: Acute Code(s): J44.1 - CHRONIC OBSTRUCTIVE PULMONARY DISEASE W (ACUTE) EXACERBATION SNOMED Code(s): 813866618 (3) Adenocarcinoma of lung Narrative/Plan: The patient has developed progressive disease, and has been started on a new regimen, specifically Taxotere. Degree of progression and associated symptoms have been quite significant. However she has only had 1 cycle of her new regimen, and therefore it is too early to determine if this would be effective or not. Assuming improvement in current symptoms with ongoing treatment, the plan would be to continue her current regimen as an outpatient Current Visit: No Status: Acute Code(s): C34.90 - MALIGNANT NEOPLASM OF UNSP PART OF UNSP BRONCHUS OR LUNG SNOMED Code(s): 142896226 (4) Lower thoracic back pain Narrative/Plan: This is due to thoracic vertebral fractures, most likely malignant. These were noted on the scan in 02/05, which had shown progression. For additional workup MRI of the C-spine has been ordered as apparently some upper extremity weakness was noted. On exam today, there was no focal weakness noted in upper or lower extremities. Patient has been placed on IV steroids, pending MRI r esults. Current Visit: Yes Status: Acute Code(s): M54.6 - PAIN IN THORACIC SPINE SNOMED Code(s): 191019699 (5) Deep vein thrombosis of lower extremity Narrative/Plan: The patient has bilateral lower extremity DVT. This is malignancy related. She has been placed on Lovenox. She has had issues in the recent past with coughing up blood, as well as GI bleed, related to her malignancy. Monitor closely for any evidence of recurrent bleeding. In addition, the patient would require paracentesis, would recommend changing to IV heparin to facilitate the same. Upper extremity Dopplers were negative for DVT Current Visit: Yes Status: Acute Code(s): I82.409 - ACUTE EMBOLISM AND THOMBOS UNSP DEEP VN UNSP LOWER EXTREMITY SNOMED Code(s): 503142252 (6) Sepsis Narrative/Plan: The patient was afebrile, but clinically sepsis was suspected, given presentation with hypotension and tachycardia, and abdominal pain. At this time there is concern for SBP given presence of ascites and abdominal tenderness. However, another possibility could be pneumonia related to obstruction from progression of the primary mass, given the right lower lobe physical exam findings. The patient is on broad-spectrum antibiotics, which should cover both sources. WBC is markedly elevated, but this can also be due to her receiving Neulasta post recent chemotherapy. Continue current aggressive supportive care Current Visit: Yes Status: Acute Code(s): A41.9 - SEPSIS, UNSPECIFIED ORGANISM SNOMED Code(s): 06448963
[2019-02-28] MEDS: DEXAMETHASONE SOD PHOSPHATE 4 MG/ML 1 ML VIAL IV SCH ×3 (05:44→16:32)
[2019-02-28] MEDS: SYMBICORT 160-4.5 MCG INHALER INHALATION SCH ×2 (07:13→19:40)
[2019-02-28] MEDS: IPRATROPIUM-ALBUTEROL 3 ML NEB INHALATION SCH ×4 (07:13→19:40)
[2019-02-28] MEDS: FAMOTIDINE 20 MG TAB PO SCH (08:09)
[2019-02-28] MEDS: PANTOPRAZOLE 40 MG TABLET PO SCH ×2 (08:09→16:32)
[2019-02-28] MEDS: MULTIVITAMINS, THERA 1 EACH TAB PO SCH (08:09)
[2019-02-28] MEDS: ENOXAPARIN 80 MG/0.8 ML SYRINGE SQ SCH (08:10)
[2019-02-28] MEDS: PIPERACILLIN-TAZOBACTAM 3.375 GM in SODIUM CHLORIDE 0.9% 100 ML IVPB SCH ×2 (08:10→16:08)
[2019-02-28] MEDS: MORPHINE SULFATE 2 MG/ML SYRINGE IVP PRN ×3 (10:17→21:12)
--- NOTE | 2019-02-28 12:48 | P.PN ---
Subjective Progress Note Date: 02/28/19 Principal diagnosis: Acute on chronic hypoxic respiratory failure secondary to stage IV lung cancer, COPD and abdominal distention. Possible underlying pneumonia. This is a very pleasant 53-year-old female patient who follows with Dr. Harrington as her primary care physician. She has a history of chronic obstructive pulmonary disease, previous chronic tobacco dependence and stage IV lung cancer first diagnosed in 2015. She had been on several rounds of chemotherapy including either Alimta and Avastin. In September 2018 there was further progression and she was switched to Tecentriq. Earlier this year the patient had been on Opdivo and received 2-3 doses but became intolerant. She follows with Dr. Jennings in our office. She was last seen 01/01/2019 following a brief hospitalization for GI bleed. She had undergone colonoscopy with biopsies that were positive for metastatic adenocarcinoma consistent with lung primary and probable source of bleeding. She was most recently started on Taxotere with Neulasta Feb 19 2019 and a second dose is due March 05. She was seen and Dr. Jensen's office yesterday where she was found to be short of breath, tachycardic and hypotensive. She was referred here for admission for the same. Over the past 2 weeks she had been having difficulty eating and drinking with a sense of fullness and abdominal bloating and swelling. CT angiogram ruled out pulmonary embolism. There was noted mediastinal and bronchial adenopathy measuring up to 2.5 cm which had increased compared to last exam 12/21/2018 consistent with progression of tumor. There is right middle lobe masslike consolidation measuring 6.5 cm unchanged. Left pleural effusion increased slightly. Right chest wall pleural thickening unchanged. There is new extensive abdominal ascites compared to old exam. New T11 compression fracture. 4 x 2.5 cm mass in the left adrenal gland consistent with tumor, unchanged. Abdominal ultrasound revealed a small amount of fluid seen in the right upper and lower quadrants. Trace amount of fluid seen in the left lower quadrant. The patient is seen today in consultation on the oncology floor. She is currently resting in bed. Awake and alert in no acute distress. She is maintaining O2 saturations in the 90s on 4 L/m per nasal cannula. She's afebrile. Still somewhat tachycardic in the [birth year]1929 range. Blood pressure 94/64. She is received 2 L of fluid resuscitation. Currently with a 0.9 normal saline at 100 ML's per hour. She was given ceftriaxone and is currently on Zosyn. She's been initiated on DuoNeb inhalations and Symbicort. White count 44.5. Hemoglobin 8.8. Platelet count 182,000. Neutrophils 43.6. Sodium 136. INR 1.3. Creatinine 0.68. Lactic acid 1.5. Patient was reevaluated today on 02/27/2019, she is basically about the same. Feels generally weak, has occasional cough, no fever no chills no hemoptysis no nausea no vomiting no abdominal pain. Remains on updrafts, is also on Symbicort , Decadron, and Zosyn. Continues to have leukocytosis but it is improving WBC count of 36.2, hemoglobin is 8.6. Basic metabolic profile is normal. C. difficile screen is negative. Reevaluated today on 02/28/2019, again the patient is about the same, feels generally weak, continues to have intermittent episodes of cough, no fever no chills no hemoptysis no chest pain. Denies any nausea vomiting abdominal pain. Remains on antibiotics and bronchodilators. Not much change noted in the last couple of days.continues to have poor appetite, minimal abdominal distention and mild discomfort. Objective - Vital Signs Vital signs: Vital Signs Temp 97.7 F 02/28/19 05:00 Pulse 107 H 02/28/19 10:52 Resp 20 02/28/19 08:00 BP 91/62 02/28/19 05:00 Pulse Ox 98 02/28/19 05:00 Intake & Output 02/27/19 02/28/19 02/28/19 18:59 06:59 18:59 Intake Total 240 Balance 240 Intake: Oral 240 Other: Voiding Method Bedpan Bedpan Bedpan # Voids 2 1 # Bowel Movements 3 1 - Exam GENERAL EXAM: Very pleasant 53-year-old female patient, mild respiratory distress, on nasal cannula. HEENT: PERRLA, EOMI, no icterus, no thyromegaly, no stridor, no cervical adenopathy. Moist mucous membranes. CHEST: No chest wall deformity. LUNGS: Equal air entry with bilateral scattered rhonchi. More so at the right base. Rhonchi noted. CVS: S1 and S2 normal with no audible murmur, regular rhythm. ABDOMEN: Soft, tender, distended, normal bowel sounds, no guarding or rigidity. SPINE: No scoliosis or deformity SKIN: No rashes CENTRAL NERVOUS SYSTEM: No focal deficits, tone is normal in all 4 extremities. EXTREMITIES: There is no peripheral edema. No clubbing, no cyanosis. Peripheral pulses are intact. - Labs CBC & Chem 7: 02/27/19 08:15 02/27/19 08:15 Labs: Microbiology - Last 24 Hours (Table) 02/25/19 17:24 Blood Culture - Preliminary Blood No Growth after 48 hours Assessment and Plan Assessment: #1 Acute on chronic hypoxic respiratory failure, multifactorial in a patient with known stage IV lung cancer, chronic obstructive pulmonary disease, abdominal distention and bloating. CT angiogram ruled out pulmonary embolism. There is continued masslike consolidation in the right middle lobe consistent with tumor measuring 6.5 cm. There is extensive bilateral bronchial adenopathy with lymph nodes measuring up to 2.5 cm which have increased since last exam December 2018. There is anterior mediastinal adenopathy with lymph nodes measuring 2.5 cm. Left pleural effusion slightly increased. Underlying pneumonia is not entirely ruled out, could be postobstructive. Not to mention the patient has leukocytosis and she is immunocompromised. She is a chemotherapy patient. #2 Ascites, new compared to previous computed tomography scan. #3 T11 compression fracture, new compared to previous. 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 #6 Lymphadenopathy. #7 Deficiency anemia. #8 Chronic obstructive pulmonary disease, Gold stage III with an FEV1 value of 46% of predicted.. #9 History of chronic tobacco dependence of 35 years. Recommendation: Continue present course of treatment including bronchodilators, oxygen, antibiotics, supportive care measures, systemic steroids, GI and DVT prophylaxis. ordered a repeat chest x-ray in a.m., if any worse or any new findings noted on the follow-up chest x-ray, may have to be considered for bronchoscopy. Time with Patient: Less than 30
--- NOTE | 2019-02-28 13:58 | P.PN ---
Subjective Progress Note Date: 02/28/19 The patient continues to complain of upper abdominal distention and bloating. Oral intake is diminished. She feels somewhat less uncomfortable compared to yesterday. Pain medication is effective in controlling upper abdominal discomfort. She reports loose bowel movements every time she coughs. No fev er/chills/nausea/vomiting. She has not coughed up any blood, or passed blood in the stool Objective - Vital Signs Vital signs: Vital Signs Temp 97.7 F 02/28/19 05:00 Pulse 107 H 02/28/19 10:52 Resp 20 02/28/19 08:00 BP 91/62 02/28/19 05:00 Pulse Ox 98 02/28/19 05:00 Intake & Output 02/27/19 02/28/19 02/28/19 18:59 06:59 18:59 Intake Total 240 Balance 240 Intake: Oral 240 Other: Voiding Method Bedpan Bedpan Bedpan # Voids 2 1 # Bowel Movements 3 1 - Constitutional General appearance: Present: no acute distress - EENT Eyes: Present: EOMI ENT: Present: hearing grossly normal, normal oropharynx - Respiratory Respiratory: right: diminished, rales - Cardiovascular Rhythm: regular Heart sounds: normal: S1, S2 - Gastrointestinal General gastrointestinal: Present: distended, normal bowel sounds Localized gastrointestinal: tender: RUQ, LUQ, epigastric periumbilical - Integumentary Integumentary: Present: normal - Neurologic Neurologic Comment(s): Strength in upper extremities, as well as sensation is normal Neurologic: Present: CNII-XII intact - Musculoskeletal Musculoskeletal Comment(s): Bilateral lower extremity edema Musculoskeletal: Present: generalized weakness, strength equal bilaterally - Labs CBC & Chem 7: 02/27/19 08:15 02/27/19 08:15 Labs: Microbiology - Last 24 Hours (Table) 02/25/19 17:24 Blood Culture - Preliminary Blood No Growth after 48 hours Assessment and Plan (1) Ascites Narrative/Plan: She had a CT of the abdomen and pelvis done, which noted probably moderate ascites. The patient was also noted to have significant adenopathy, with possible compressive affects of upper abdominal nodes at the gastroduodenal junction. My exam the patient still appears to have at least some degree of ascites. Formal ultrasound will be ordered to assess amount of ascites to see if paracentesis can be performed. I would prefer to have paracentesis done, ev en from the diagnostic standpoint if possible. Case was discussed with the admitting service, who are also in agreement. If paracentesis is planned, we will need to switch anticoagulation from Lovenox to IV heparin. Overall patient is somewhat less uncomfortable today. Continue current care. Current Visit: Yes Status: Acute Code(s): R18.8 - OTHER ASCITES SNOMED Code(s): 361203880 (2) Acute exacerbation of chronic obstructive airways disease Narrative/Plan: Respiratory status is improved with ongoing treatment with steroids, and antibiotics. As noted previously, I suspect that there is likely some pneumonia caused by obstruction from progression from the primary site in the right lung Current Visit: Yes Status: Acute Code(s): J44.1 - CHRONIC OBSTRUCTIVE PU LMONARY DISEASE W (ACUTE) EXACERBATION SNOMED Code(s): 088084999 (3) Adenocarcinoma of lung Narrative/Plan: I this time the plan would be to resume Taxotere on schedule, assuming her acute issues have resolved sufficiently. A CT of the abdomen and pelvis do show pressure effect with upper abdominal adenopathy on the gastroduodenal junction. This could be causing at least a component of her abdominal symptoms of bloating and pain. However does not appear to be brock obstruction. Palliative Radiation to this area could potentially be an option, if we do not get a good enough response from systemic chemotherapy. Current Visit: No Status: Acute Code(s): C34.90 - MALIGNANT NEOPLASM OF UNSP PART OF UNSP BRONCHUS OR LUNG SNOMED Code(s): 050524315 (4) Lower thoracic back pain Narrative/Plan: Controlled on her current regimen. I will ask addition oncology to evaluate for short course of palliative radiation. She has no evidence of cord compression. Current Visit: Yes Status: Acute Code(s): M54.6 - PAIN IN THORACIC SPINE SNOMED Code(s): 047569941 (5) Deep vein thrombosis of lower extremity Current Visit: Yes Status: Acute Code(s): I82.409 - ACUTE EMBOLISM AND TH OMBOS UNSP DEEP VN UNSP LOWER EXTREMITY SNOMED Code(s): 123042601 (6) Sepsis Current Visit: Yes Status: Acute Code(s): A41.9 - SEPSIS, UNSPECIFIED ORGANISM SNOMED Code(s): 11285130
--- NOTE | 2019-02-28 14:27 | US ---
EXAMINATION TYPE: US abdomen limited DATE OF EXAM: 02/28/2019 COMPARISON: CT CLINICAL HISTORY: Evaluate amount of ascites. All four quadrants were scanned. There is minimal fluid seen . Largest pocket is RLQ and measures 5.5 x 2.9 x 1.9 cm. IMPRESSION: The exam shows mild ascites fluid.
[2019-02-28] MEDS ORDERED: SODIUM CHLORIDE 0.9% 1,000 ML IV SCH (14:45)
[2019-02-28] MEDS ORDERED: SIMETHICONE 80 MG CHEWABLE PO PRN (14:58)
[2019-02-28] MEDS ORDERED: DICYCLOMINE 20 MG TAB PO PRN (14:58)
--- NOTE | 2019-02-28 14:58 | P.PN ---
Subjective Progress Note Date: 02/28/19 Principal diagnosis: Cough Patient is a 53-year-old female with a history of metastatic adenocarcinoma of the lung currently undergoing chemotherapy with Taxotere, GERD, recent GI bleed secondary to metastasis to the stomach, and eczema who presented to the hospital with complaints of shortness of breath and worsening cough. In the emergency department she underwent an extensive evaluation. On arrival she was found to be tachycardic with a heart rate of 123, hypotensive with blood pressure 60/48, and hypoxic with an oxygen saturation of 80% on 3.5 L nasal cannula. Initial laboratory analysis showed an elevated white blood cell count 39.5, hemoglobin 9.8, platelets 128, alkaline phosphatase elevated at 219. She underwent a chest x-ray followed by a CT of the chest. CT demonstrated no evidence of pulmonary embolism, increased mediastinal bronchial adenopathy consistent with tumor progression, and a right middle lobe masslike consolidation that was unchanged. There also found a new T11 compression fracture and extensive abdominal ascites. There is concern about possible pneumonia and she was started on antibiotics, IV fluids, and pain medications. She was admitted to the floor for further monitoring. Oncology and pulmonology were consulted. She underwent an abdominal ultrasound did not show enough fluid to perform a paracentesis. She underwent bilateral lower extremity venous Dopplers which showed bilateral lower extremity DVTs and she was started on Lovenox. MRI brain and cervical spine showed 3 mm flare lesion in the left frontal lobe as well as decreased signal within the vertebral bodies from 3-6 not likely metastatic in nature but recommended further assessment with bone scan. Pulmonary was concerned there may be a postobstructive pneumonia and she was started on Zosyn. She continued to struggle with abdominal fullness and e cristi satiety. Patient seen and examined at bedside. She is still feeling weak and easily fatigued. She still is having some early satiety and feels very bloated. She is passing small amounts of gas. She is not nauseous today. Her breathing is about the same setting better or worse. Objective - Vital Signs Vital signs: Vital Signs Temp 97.4 F L 02/28/19 13:00 Pulse 119 H 02/28/19 13:00 Resp 18 02/28/19 13:00 BP 94/64 02/28/19 13:00 Pulse Ox 99 02/28/19 13:00 Intake & Output 0502/28/19 02/28/19 18:59 06:59 18:59 Intake Total 240 Balance 240 Intake: Oral 240 Other: Voiding Method Bedpan Bedpan Bedpan # Voids 2 1 2 # Bowel Movements 3 1 3 - Exam General: non toxic, no distress, appears older than stated age, chronically ill- appearing Derm: warm, dry Head: atraumatic, normocephalic, symmetric Eyes: EOMI, no lid lag, anicteric sclera Mouth: no lip lesion, mucus membranes moist Cardiovascular: S1S2 reg, no murmur, positive posterior tibial pulse bilateral, Lungs: Rhonchi bilateral upper and bases, no accessory muscle use Abdominal: soft, nontender to palpation, no guarding, no appreciable organomegaly, + distended Ext: no gross muscle atrophy, diffuse anasarca, no contractures Neuro: CN II-XI grossly intact, no focal neuro deficits Psych: Alert, oriented, appropriate affect - Labs CBC & Chem 7: 02/27/19 08:15 02/27/19 08:15 Labs: Microbiology - Last 24 Hours (Table) 02/25/19 17:24 Blood Culture - Preliminary Blood No Growth after 48 hours Assessment and Plan Assessment: Bilateral lower extremity DVTs -Recent history of GI bleed and will need to be monitored closely -On Lovenox transition to heparin gtt with need for paracentesis in AM, -If tolerates could consider switching to Xarelto on Friday if insurance off as able to be obtained Intractable abdominal pain and bloating - possibly due to ascities, more likely due to mass effect - Paracentesis in AM - add bentyl and simethicone to help with cramping. Add oral norco to morphine - CT with increased abd adenopathy T11 compression fracture -Pain is currently controlled -Management per oncology Probable postobstructive pneumonia -Continue with Zosyn D #3 -CT essentially unchanged -Continue to monitor white blood cell count and for areas of fever -Pulmonary hygiene Adenocarcinoma of the lung, stage IV - MRI with changes C3-6 doesnt appear metastatic - on Taxotere and received neuolasta - Oncology recs appreciated. COPD with chrnic hypoxic respiratory failure -As needed albuterol treatments -Not chronically on inhalers but takes as needed albuterol - titrate O2 for sPO2 >88 GERD/ Gastritis -Continue with H2 mel Normocytic anemia -At baseline -Per notes from last admission appeared to be iron deficiency plus anemia of chronic disease -Management per hematology/oncology Severe protein calorie malnutrition - deititian consult DVT prophylaxis: On full dose lovenox Discussed with: Patient, nursing Anticipated discharge: 48-[address]: home A total of 35 minutes was spent on the care of this complex patient more than 50% of the time was spent in counseling and care coordination.
[2019-02-28 15:15] LABS: Anisocytosis Marked; HCT 29.3 % (34.0-46.0); HGB 9.1 gm/dL (11.4-16.0); Hypochromasia Marked; MCH 29.3 pg (25.0-35.0); MCHC 30.9 g/dL (31.0-37.0); MCV 94.8 fL (80.0-100.0); Macrocytosis Moderate; Mean Platelet Volume 7.6; Platelet Count 298 k/uL (150-450); Poikilocytosis Slight; RBC 3.09 m/uL (3.80-5.40); RDW 24.2 % (11.5-15.5); WBC 43.2 k/uL (3.8-10.6)
[2019-02-28 15:20] LABS: INR 1.3 (<1.2); Partial Thromboplastin Time 31.3 sec (22.0-30.0); Prothrombin Time 13.5 sec (9.0-12.0)
[2019-02-28] MEDS: SODIUM CHLORIDE 0.9% 1,000 ML IV SCH (15:28)
[2019-02-28 15:43] LABS: Band Neutrophils % 1 %; Lymphocytes # (M) 2.59 k/uL (1.0-4.8); Monocytes # (M) 0.43 k/uL (0-1.0); Neutrophils % (M) 92 %; Nucleated Red Blood Cells 0 /100 WBC (0-0); Stomatocytes Present; Total Cells Counted 100
[2019-02-28 15:44] LABS: Hypersegmented Neutrophils Present; Polychromasia Present
[2019-02-28] MEDS: HEPARIN SOD,PORK IN 0.45% NACL 25,000 UNIT in 0.45% NACL 1 250ML.BAG IV SCH (19:57)
[2019-02-28] MEDS ORDERED: HEPARIN SODIUM,PORCINE 5,000 UNIT/ML 1 ML VIAL IV ONE (20:00)
[2019-02-28] MEDS ORDERED: HEPARIN SODIUM,PORCINE 5,000 UNIT/ML 1 ML VIAL IV PRN (20:00)
[2019-03-01] MEDS: PIPERACILLIN-TAZOBACTAM 3.375 GM in SODIUM CHLORIDE 0.9% 100 ML IVPB SCH ×4 (01:02→23:06)
[2019-03-01] MEDS: DEXAMETHASONE SOD PHOSPHATE 4 MG/ML 1 ML VIAL IV SCH ×5 (01:02→23:06)
[2019-03-01 03:36] LABS: Anisocytosis Marked; HCT 27.6 % (34.0-46.0); HGB 8.7 gm/dL (11.4-16.0); Hypochromasia Marked; MCH 29.6 pg (25.0-35.0); MCHC 31.5 g/dL (31.0-37.0); MCV 94.1 fL (80.0-100.0); Macrocytosis Moderate; Mean Platelet Volume 7.7; Platelet Count 306 k/uL (150-450); Poikilocytosis Slight; RBC 2.93 m/uL (3.80-5.40); RDW 24.4 % (11.5-15.5); WBC 38.7 k/uL (3.8-10.6)
[2019-03-01 03:45] LABS: Anion Gap 3 mmol/L; Blood Urea Nitrogen 18 mg/dL (7-17); Calcium 8.9 mg/dL (8.4-10.2); Carbon Dioxide 30 mmol/L (22-30); Chloride 106 mmol/L (98-107); Glucose 137 mg/dL (74-99); Magnesium 1.7 mg/dL (1.6-2.3); Sodium 139 mmol/L (137-145)
[2019-03-01] MEDS: IPRATROPIUM-ALBUTEROL 3 ML NEB INHALATION PRN (04:20)
[2019-03-01 04:23] LABS: Band Neutrophils % 1 %; Lymphocytes # (M) 0.39 k/uL (1.0-4.8); Monocytes # (M) 1.16 k/uL (0-1.0); Neutrophils % (M) 95 %; Nucleated Red Blood Cells 0 /100 WBC (0-0); Total Cells Counted 100
--- NOTE | 2019-03-01 07:48 | XR ---
EXAMINATION TYPE: XR chest 1V portable DATE OF EXAM: 03/01/2019 Comparison: 02/25/2019 Clinical History: 53-year-old female lung mass, pneumonia Findings: Right anterior chest wall injection port with catheter tip at the lower SVC. Right heart margin obscu red by adjacent right mid and lower lung consolidation. Left lung and pleural space are relatively cl ear. Small right pleural effusion. Impression: Stable focal consolidation right mid and lower lung with a small effusion.
[2019-03-01] MEDS: FAMOTIDINE 20 MG TAB PO SCH (08:31)
[2019-03-01] MEDS: MORPHINE SULFATE 2 MG/ML SYRINGE IVP PRN ×3 (08:32→23:40)
[2019-03-01] MEDS: MULTIVITAMINS, THERA 1 EACH TAB PO SCH (08:32)
[2019-03-01] MEDS: PANTOPRAZOLE 40 MG TABLET PO SCH ×2 (08:32→17:44)
[2019-03-01] MEDS: IPRATROPIUM-ALBUTEROL 3 ML NEB INHALATION SCH ×4 (09:07→22:02)
[2019-03-01] MEDS: SYMBICORT 160-4.5 MCG INHALER INHALATION SCH ×2 (09:07→22:02)
--- NOTE | 2019-03-01 09:23 | P.CNOR ---
History of Present Illness - [facility] Consult date: 02/26/19 Requesting physician: Yonis Burnham Consult reason: fracture (T11 compression fracture deformity) History of present illness: Patient is a very pleasant 53-year-old female who is seen and examined at bedside for further evaluation of her thoracic spine. Consultation was placed after imaging showed evidence of T11 compression fracture deformity. Patient states at the bedside she is not experiencing any significant thoracic back pain. She will occasionally have some thoracic back pain at the lower thoracic spine which is intermittent. She does not recall an injury. She has not had any specific back pain recently. She denies any lower extremity radiculopathy bilaterally. She denies any thoracic radiculopathy. She does have generalized weakness in bilateral lower extremities. She does have active range of motion of lower extremities while lying in bed. She does have a history of metastatic adenocarcinoma of the lung and is currently undergoing chemotherapy she has a history of COPD and is on home oxygen. She currently is being seen by medicine, oncology, and pulmonology. Past Medical History Past Medical History: Cancer, COPD, GERD/Reflux, GI Bleed, Skin Disorder Additional Past Medical History / Comment(s): stage IV lung cancer dx. 2016- tx with chemo currently, hx eczema History of Any Multi-Drug Resistant Organisms: None Reported Past Surgical History: Orthopedic Surgery, Tubal Ligation Additional Past Surgical History / Comment(s): lung biopsy, left foot surgery, port inserted rt side Past Anesthesia/Blood Transfusion Reactions: No Reported Reaction Past Psychological History: No Psychological Hx Reported Smoking Status: Former smoker Past Alcohol Use History: None Reported Past Drug Use History: None Reported - Past Family History Father Family Medical History: Cancer Additional Family Medical History / Comment(s): lung cancer Mother Family Medical History: COPD Additional Family Medical History / Comment(s): Mother from complications of COPD. Medications and Allergies Home Medications Medication Instructions Recorded Confirmed Type Multivitamins, Thera [Multivitamin 1 tab PO DAILY 09/14/16 02/25/19 History (formulary)] Albuterol Inhaler [Ventolin Hfa 1 - 2 puff INHALATION RT-Q6H PRN 11/23/17 02/25/19 History Inhaler] Albuterol Nebulized [Ventolin 2.5 mg INHALATION RT-BID PRN 11/23/17 02/25/19 History Nebulized] Acetaminophen [Tylenol Extra 1,000 mg PO Q8H PRN 12/21/18 02/25/19 History Strength] Budesonide-Formot 160-4.5 Mcg 2 puff INHALATION BID #1 inhaler 12/23/18 02/25/19 Rx [Symbicort 160-4.5 Mcg Inhaler] Famotidine [Pepcid] 20 mg PO DAILY #60 tab 12/23/18 02/25/19 Rx Pantoprazole Sodium 40 mg PO BID #0 12/23/18 02/25/19 Rx Dexamethasone 8 mg PO DIRECTED 02/25/19 02/25/19 History Allergies Allergy/AdvReac Type Severity Reaction Status Date / Time Iodinated Contrast- Oral and AdvReac Nausea & Verified 02/25/19 18:22 IV Dye Vomiting Physical Examination Physical exam: Patient is awake, alert, and oriented 3 Vital signs stable Adequate chest excursion with deep inspiration and expiration; currently on O2 nasal cannula Examination of thoracic and lumbar spine reveals skin is intact with no abrasions, lacerations, or bruises; no erythema, purulence or signs of infection Mild pain with palpation along the midline of the lower thoracic spine No pain with palpation of the mid upper thoracic spine or lumbar spine Dorsiflexion, plantarflexion, and extensor hallucis longus positive sustained bilaterally Lower extremity strength positive sustained throughout range of motion bilaterally Patellar reflex 2+ bilaterally No lower extremity hyperreflexia bilaterally No signs or symptoms of DVT; no calf pain No pain with internal and external rotation of the hips bilaterally Neurovascularly intact Results Pertinent studies: Chest CT taken on 02/25/2019 reviewed for orthopedic purposes: Evidence of superior endplate changes at T5 and T11; T11 compression fracture deformity with approximately 10% height loss is superior endplate; T5 compression fracture deformity with approximately 5% height loss of superior endplate; imaging a ppears stable without significant changes compared to previous CT performed on 01/27/2019 CT of the chest abdomen and pelvis performed on 01/27/2019 reviewed for orthopedic purposes: Evidence of superior endplate changes at T5 and T11 appear present upon my review with mild compression fracture deformity at T11 with approximately 10% height loss and approximately 5% height loss at T5 - Labs Labs: Abnormal Lab Results - Last 24 Hours (Table) 02/25/19 02/25/19 02/25/19 Range/Units 17:24 17:24 17:24 WBC 39.5 H (3.8-10.6) k/uL RBC 3.47 L (3.80-5.40) m/uL Hgb 9.8 L D (11.4-16.0) gm/dL Hct 32.1 L (34.0-46.0) % MCHC 30.6 L (31.0-37.0) g/dL RDW 25.2 H (11.5-15.5) % Plt Count 128 L (150-450) k/uL Neutrophils # (Manual) 37.92 H (1.3-7.7) k/uL PT 13.1 H (9.0-12.0) sec INR 1.3 H (<1.2) Sodium 134 L (137-145) mmol/L Chloride 97 L (98-107) mmol/L Carbon Dioxide 33 H (22-30) mmol/L BUN 26 H (7-17) mg/dL Glucose 115 H (74-99) mg/dL Alkaline Phosphatase 219 H (38-126) U/L Total Protein 5.4 L (6.3-8.2) g/dL Albumin 2.7 L (3.5-5.0) g/dL H & H 02/25/19 Range/Units 17:24 Hgb 9.8 L D (11.4-16.0) gm/dL Hct 32.1 L (34.0-46.0) % Coagulation 02/25/19 Range/Units 17:24 INR 1.3 H (<1.2) Result Diagrams: 03/01/19 03:05 03/01/19 03:05 Assessment and Plan Assessment: Assessment: Atraumatic T5 superior endplate mild compression fracture deformity Atraumatic T11 superior endplate compression fracture deformity with approximately 10% height loss Intermittent mild lower thoracic pain History of metastatic adenocarcinoma the long Currently on chemotherapy History of COPD on home oxygen (1) Closed T5 fracture Current Visit: Yes Status: Acute Code(s): S22.059A - UNSP FRACTURE OF T5-T6 VERTEBRA, INIT FOR CLOS FX SNOMED Code(s): 279277626 (2) Closed T11 fracture Current Visit: Yes Status: Acute Code(s): S22.089A - UNSP FRACTURE OF T11- T12 VERTEBRA, INIT FOR CLOS FX SNOMED Code(s): 409821259 (3) Lower thoracic back pain Current Visit: Yes Status: Acute Code(s): M54.6 - PAIN IN THORACIC SPINE SNOMED Code(s): 039959715 (4) COPD (chronic obstructive pulmonary disease) Current Visit: Yes Status: Acute Code(s): J44.9 - CHRONIC OBSTRUCTIVE PULMONARY DISEASE, UNSPECIFIED SNOMED Code(s): 89632517 (5) On home O2 Current Visit: Yes Status: Acute Code(s): Z99.81 - DEPENDENCE ON SUPPLEMENTAL OXYGEN SNOMED Code(s): 509459640926 (6) Adenocarcinoma of lung Current Visit: No Status: Acute Code(s): C34.90 - MALIGNANT NEOPLASM OF UNSP PART OF UNSP BRONCHUS OR LUNG SNOMED Code(s): 647825355 Plan: Plan: 1. After reviewing the imaging, physical examination the patient, and further discussion with the patient and her family, we will continue conservative treatment at this time. Patient states she is unaware of why I came to see her this morning. She was unaware consultation had been placed. She states she is not experiencing any significant thoracic back pain. She admits to intermittent pain at the lower thoracic spine states it is not severe. She does not have increased pain with coughing or sneezing. She denies any injuries. At this time she does not feel she needs bracing or other treatment in regards to her compression fracture deformities. She states she is quite surprised to receive the diagnoses of these fractures as it was not discussed with her previously and she is not experiencing any significant pain. She does admit to generalized weakness in bilateral lower extremities causing her difficulty with ambulation. She does have active range of motion bilateral lower extremity as well lying in bed. At this time we are not planning for further imaging or other evaluation during her admittance to the hospital. We discussed she should avoid excessive bending, twisting, and rotation should avoid any heavy lifting. We will plan to have her follow-up in outpatient setting in approximately 2-3 weeks for further evaluation. Patient continues to do well at that time we may plan have her follow-up on as-needed basis after that appointment. If she has an exacerbation of her mild intermittent lower thoracic pain we may plan for bracing. Patient her family feels this is a good plan of care. 2. Patient may follow-up with Jose Guadalupe B Kiba PA-C or Dr. Pablo Johnson at [facility] in approximately 2-3 weeks following discharge 3. Patient will continue to be seen and examined by medicine, oncology, and pulmonology for her other medical diagnoses Time with Patient: Greater than 30 (Including obtaining history, physical examination, reviewing of imaging, and dictation.)
--- NOTE | 2019-03-01 10:14 | CDI ---
Documentation Clarification Form Date: 03/02/2019 9:39:07 AM From: Yuko Lomas RN CCDS Admit Date: 02/25/2019 8:36:00 PM Patient Name: Myesha Everett Visit Number: [id number] Discharge Date: ATTENTION: The Clinical Documentation Specialists (CDI) and [facility] Coding Staff appreciate your assistance in clarifying documentation. Please respond to the clarification below the line at the bottom and electronically sign. The CDI & [facility] Coding staff will review the response and follow-up if needed. Please note: Queries are made part of the Legal Health Record. If you have any questions, please contact the author of this message via ITS. Dr. Vilma Louise The diagnosis Sepsis was documented in the H &P , but is not consistently noted in subsequent documentation. History/Risk Factors: 53 year old female Presented to the ED from [facility] for increased heart rate decreased blood pressure and concern for patients breathing with a history of adenocarcinoma of the lung currently undergoing chemotherapy. Clinical Indicators: Wbc 39.5, Hgb 9.8; Alk phos 219; VSS 68/48 123 98.3 28 80% 3.5L nc CTA - Mediatinal and bronchial adenopathy increased compared to last exam and consistent with progression of tumor. Left pleural effusion increased slightly. Extensive abdominal ascites fluid compared to old exam. T11 compression fracture is new compared to old exam Treatment: Zosyn ivpb; Symbicort, Duoneb; 1L 0.9ns ivfl bolus then maintenance rate. Please clarify if the above diagnosis was: * Sepsis Present/active this admission * Sepsis Treated and resolved this admission * Sepsis Ruled out * Other, please specify * Clinically unable to determine (Last Revision: July 2018-New) sepsis ruled out MTDD
--- NOTE | 2019-03-01 14:31 | P.PN ---
Subjective Progress Note Date: 03/01/19 Principal diagnosis: Acute on chronic hypoxic respiratory failure secondary to stage IV lung cancer, COPD and abdominal distention, possible underlying pneumonia This is a very pleasant 53-year-old female patient who follows with Dr. Harrington as her primary care physician. She has a history of chronic obstructive pulmonary disease, previous chronic tobacco dependence and stage IV lung cancer first diagnosed in 2015. She had been on several rounds of chemotherapy including either Alimta and Avastin. In September 2018 there was further progression and she was switched to Tecentriq. Earlier this year the patient had been on Opdivo and received 2-3 doses but became intolerant. She follows with Dr. Jennings in our office. She was last seen 01/01/2019 following a brief hospitalization for GI bleed. She had undergone colonoscopy with biopsies that were positive for metastatic adenocarcinoma consistent with lung primary and probable source of bleeding. She was most recently started on Taxotere with Neulasta Feb 19 2019 and a second dose is due March 05. She was seen and Dr. Jensen's office yesterday where she was found to be short of breath, tachycardic and hypotensive. She was referred here for admission for the same. Over the past 2 weeks she had been having difficulty eating and drinking with a sense of fullness and abdominal bloating and swelling. CT angiogram ruled out pulmonary embolism. There was noted mediastinal and bronchial adenopathy measuring up to 2.5 cm which had increased compared to last exam 12/21/2018 consistent with progression of tumor. There is right middle lobe masslike consolidation measuring 6.5 cm unchanged. Left pleural effusion increased slightly. Right chest wall pleural thickening unchanged. There is new extensive abdominal ascites compared to old exam. New T11 compression fracture. 4 x 2.5 cm mass in the left adrenal gland consistent with tumor, unchanged. Abdominal ultrasound revealed a small amount of fluid seen in the right upper and lower quadrants. Trace amount of fluid seen in the left lower quadrant. The patient is seen today in consultation on the oncology floor. She is currently resting in bed. Awake and alert in no acute distress. She is maintaining O2 saturations in the 90s on 4 L/m per nasal cannula. She's afebrile. Still somewhat tachycardic in the [birth year]1929 range. Blood pressure 94/64. She is received 2 L of fluid resuscitation. Currently with a 0.9 normal saline at 100 ML's per hour. She was given ceftriaxone and is currently on Zosyn. She's been initiated on DuoNeb inhalations and Symbicort. White count 44.5. Hemoglobin 8.8. Platelet count 182,000. Neutrophils 43.6. Sodium 136. INR 1.3. Creatinine 0.68. Lactic acid 1.5. Patient was reevaluated today on 02/27/2019, she is basically about the same. Feels generally weak, has occasional cough, no fever no chills no hemoptysis no nausea no vomiting no abdominal pain. Remains on updrafts, is also on Symbicort, Decadron, and Zosyn. Continues to have leukocytosis but it is improving WBC count of 36.2, hemoglobin is 8.6. Basic metabolic profile is normal. C. difficile screen is negative. Reevaluated today on 02/28/2019, again the patient is about the same, feels generally weak, continues to have intermittent episodes of cough, no fever no chills no hemoptysis no chest pain. Denies any nausea vomiting abdominal pain. Remains on antibiotics and bronchodilators. Not much change noted in the last couple of days.continues to have poor appetite, minimal abdominal distention and mild discomfort. On 03/01/2019 patient seen in follow-up on oncology floor. Still having some shortness of breath, but no acute distress, she is scheduled for paracentesis today, she is on heparin drip which will be positive for the paracentesis, she is on antibiotic coverage in the form of Zosyn, no chest pain, no fever or chills, remains up-to-date as of oxygen with a pulse ox of 94%, was cultures were negative, lung sounds are clear, diminished at the bases. Chest x-ray was done showing stable focal consolidation in the right mid and lower lung with a small effusion. Objective - Vital Signs Vital signs: Vital Signs Temp 97.4 F L 03/01/19 12:15 Pulse 108 H 03/01/19 12:15 Resp 18 03/01/19 12:15 BP 94/65 03/01/19 12:15 Pulse Ox 94 L 03/01/19 12:15 Intake & Output 02/28/19 03/01/19 03/01/19 18:59 06:59 18:59 Intake Total 1148.8 131.367 Balance 1148.8 131.367 Weight 78.471 kg Intake: Intake, IV Titration 318.8 131.367 Amount Heparin Sod,Pork in 0.45% 18.8 131.367 NaCl 25,000 unit In 0.45 % NaCl 1 250ml.bag @ 12 UNITS/KG/HR 9.417 mls/hr IV .Q24H [facility] Rx#: [id number] Piperacillin-Tazobactam 3 100 .375 gm In Sodium Chloride 0.9% 100 ml @ 25 mls/hr IVPB Q8HR [facility] Rx# :[id number] Sodium Chloride 0.9% 1, 200 000 ml @ 50 mls/hr IV . Q20H [facility] Rx#:[id number] Oral 830 Other: Voiding Method Bedpan Bedpan Bedpan # Voids 2 2 1 # Bowel Movements 3 1 1 - Exam GENERAL EXAM: Alert, pleasant, 53-year-old white female on 3 L of oxygen comfortable in no apparent distress. HEAD: Normocephalic/atraumatic. EYES: Normal reaction of pupils, equal size. Conjunctiva pink, sclera white. NOSE: Clear with pink turbinates. THROAT: No erythema or exudates. NECK: No masses, no JVD, no thyroid enlargement, no adenopathy. CHEST: No chest wall deformity. Symmetrical expansion. LUNGS: Equal air entry with no crackles, wheeze, rhonchi or dullness. Breath sounds at the bases, CVS: Regular rate and rhythm, normal S1 and S2, no gallops, no murmurs, no rubs ABDOMEN: Soft, nontender. No hepatosplenomegaly, normal bowel sounds, no guarding or rigidity. EXTREMITIES: No clubbing, lower extremity edema no cyanosis, 2+ pulses and upper and lower extremities. MUSCULOSKELETAL: Muscle strength and tone normal. SPINE: No scoliosis or deformity SKIN: No rashes CENTRAL NERVOUS SYSTEM: Alert and oriented -3. No focal deficits, tone is normal in all 4 extremities. PSYCHIATRIC: Alert and oriented -3. Appropriate affect. Intact judgment and insight. - Labs CBC & Chem 7: 03/01/19 03:05 03/01/19 03:05 Labs: Abnormal Lab Results - Last 24 Hours (Table) 02/28/19 02/28/19 03/01/19 Range/Units 14:49 14:49 03:05 WBC 43.2 H 38.7 H (3.8-10.6) k/uL RBC 3.09 L 2.93 L (3.80-5.40) m/uL Hgb 9.1 L 8.7 L (11.4-16.0) gm/dL Hct 29.3 L 27.6 L (34.0-46.0) % MCHC 30.9 L (31.0-37.0) g/dL RDW 24.2 H 24.4 H (11.5-15.5) % Neutrophils # (Manual) 40.10 H 37.10 H (1.3-7.7) k/uL Lymphocytes # (Manual) 0.39 L (1.0-4.8) k/uL Monocytes # (Manual) 1.16 H (0-1.0) k/uL PT 13.5 H (9.0-12.0) sec INR 1.3 H (<1.2) APTT 31.3 H (22.0-30.0) sec BUN (7-17) mg/dL Glucose (74-99) mg/dL 03/01/19 03/01/19 Range/Units 03:05 03:05 WBC (3.8-10.6) k/uL RBC (3.80-5.40) m/uL Hgb (11.4-16.0) gm/dL Hct (34.0-46.0) % MCHC (31.0-37.0) g/dL RDW (11.5-15.5) % Neutrophils # (Manual) (1.3-7.7) k/uL Lymphocytes # (Manual) (1.0-4.8) k/uL Monocytes # (Manual) (0-1.0) k/uL PT (9.0-12.0) sec INR (<1.2) APTT 65.6 H (22.0-30.0) sec BUN 18 H (7-17) mg/dL Glucose 137 H (74-99) mg/dL Microbiology - Last 24 Hours (Table) 02/25/19 17:24 Blood Culture - Preliminary Blood No Growth after 72 hours Assessment and Plan Plan: Assessment: #1 Acute on chronic hypoxic respiratory failure, multifactorial in a patient with known stage IV lung cancer, chronic obstructive pulmonary disease, abdominal distention and bloating. CT angiogram ruled out pulmonary embolism. There is continued masslike consolidation in the right middle lobe consistent with tumor measuring 6.5 cm. There is extensive bilateral bronchial adenopathy with lymph nodes measuring up to 2.5 cm which have increased since last exam December 2018. There is anterior mediastinal adenopathy with lymph nodes measuring 2.5 cm. Left pleural effusion slightly increased. Underlying pneumonia is not entirely ruled out, could be postobstructive. Not to mention the patient has leukocytosis and she is immunocompromised. She is a chemotherapy patient. #2 Ascites, new compared to previous computed tomography scan. #3 T11 compression fracture, new compared to previous. 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 #6 Lymphadenopathy. #7 Deficiency anemia. #8 Chronic obstructive pulmonary disease, Gold stage III with an FEV1 value of 46% of predicted.. #9 History of chronic tobacco dependence of 35 years. Plan: Continue current medical treatment, patient is going for paracentesis today, heparin drip continues for evidence of lower extremity DVT, today's chest x-ray has been reviewed and stable focal consolidation in the right mid and lower lungs with small effusion. Cultures are negative thus far, no fever or chills, will continue current antibiotics, and current medical treatment, I performed a history & physical examination of the patient and discussed their management with my nurse practitioner, Cathie Deshpande. I reviewed the nurse practitioner's note and agree with the documented findings and plan of care. Lung sounds are positive for diminished breath sounds at the bases The findings and the impression was discussed with the patient. I attest to the documentation by the nurse practitioner. Time with Patient: Less than 30
--- NOTE | 2019-03-01 15:34 | US ---
Therapeutic and diagnostic paracentesis. DATE OF EXAM: 03/01/2019 CLINICAL HISTORY: Ascites The procedure was discussed with the patient. The risks, complications, benefits, and alternatives we re discussed and any questions were answered. Informed consent was obtained. The patient was placed s upine on the ultrasound table and prepped and draped in the usual sterile fashion. All elements of maximal barrier technique were utilized. Under ultrasound guidance, access into the right lower quadrant was obtained, via the paracentesis catheter system and direct ultrasound guidanc e. Approximately 0.274 liters of straw-colored fluid was removed. Sample sent to pathology for analysis. The patient was stable throughout the procedure and remained stable upon discharge from Department o f Radiology. IMPRESSION: Successful diagnostic paracentesis under ultrasound guidance.
--- NOTE | 2019-03-01 16:48 | P.PN ---
Subjective Progress Note Date: 03/01/19 Principal diagnosis: Abdominal Ascites Status post 250cc off and awaiting cytology Increasing sob and cough, prior cta no PE. Add tessalon and incentive spirometer Objective - Vital Signs Vital signs: Vital Signs Temp 97.7 F 03/01/19 14:56 Pulse 107 H 03/01/19 15:25 Resp 16 03/01/19 15:25 BP 101/56 03/01/19 15:25 Pulse Ox 100 03/01/19 15:25 Intake & Output 02/28/19 03/01/19 03/01/19 18:59 06:59 18:59 Intake Total 1148.8 131.367 Balance 1148.8 131.367 Weight 78.471 kg Intake: Intake, IV Titration 318.8 131.367 Amount Heparin Sod,Pork in 0.45% 18.8 131.367 NaCl 25,000 unit In 0.45 % NaCl 1 250ml.bag @ 12 UNITS/KG/HR 9.417 mls/hr IV .Q24H [facility] Rx#: [id number] Piperacillin-Tazobactam 3 100 .375 gm In Sodium Chloride 0.9% 100 ml @ 25 mls/hr IVPB Q8HR [facility] Rx# :[id number] Sodium Chloride 0.9% 1, 200 000 ml @ 50 mls/hr IV . Q20H [facility] Rx#:[id number] Oral 830 Other: Voiding Method Bedpan Bedpan Bedpan # Voids 2 2 1 # Bowel Movements 3 1 1 - Exam Constitutional General appearance: Present: no acute distress - EENT Eyes: Present: EOMI ENT: Present: hearing grossly normal, normal oropharynx - Respiratory Respiratory: right: diminished, rales - Cardiovascular Rhythm: regular Heart sounds: normal: S1, S2 - Gastrointestinal General gastrointestinal: Present: distended, normal bowel sounds Localized gastrointestinal: tender: RUQ, LUQ, epigastric periumbilical - Integumentary Integumentary: Present: normal - Neurologic Neurologic Comment(s): Strength in upper extremities, as well as sensation is normal Neurologic: Present: CNII-XII intact - Musculoskeletal Musculoskeletal Comment(s): Bilateral lower extremity edema Musculoskeletal: Present: generalized weakness, strength equal bilaterally - Labs CBC & Chem 7: 03/01/19 03:05 03/01/19 03:05 Labs: Abnormal Lab Results - Last 24 Hours (Table) 03/01/19 03/01/19 03/01/19 Range/Units 03:05 03:05 03:05 WBC 38.7 H (3.8-10.6) k/uL RBC 2.93 L (3.80-5.40) m/uL Hgb 8.7 L (11.4-16.0) gm/dL Hct 27.6 L (34.0-46.0) % RDW 24.4 H (11.5-15.5) % Neutrophils # (Manual) 37.10 H (1.3-7.7) k/uL Lymphocytes # (Manual) 0.39 L (1.0-4.8) k/uL Monocytes # (Manual) 1.16 H (0-1.0) k/uL APTT 65.6 H (22.0-30.0) sec BUN 18 H (7-17) mg/dL Glucose 137 H (74-99) mg/dL Microbiology - Last 24 Hours (Table) 02/25/19 17:24 Blood Culture - Preliminary Blood No Growth after 72 hours Assessment and Plan Plan: Adenocarcinoma of the lung with progressive disease: 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 - A CT of the abdomen and pelvis do show pressure effect with upper abdominal adenopathy on the gastroduodenal junction. This could be causing at least a component of her abdominal symptoms of bloating and pain. However does not appear to be brock obstruction. - Palliative Radiation to this area could potentially be an option, if we do not get a good enough response from systemic chemotherapy. New/Increased Abdominal Ascites: - Paracentesis ordered with fluid studies, cytology - unfortunetly IR reports there was insufficient fluid to drain - She had a CT of the abdomen and pelvis done, which noted probably moderate ascites. - The patient was also noted to have significant adenopathy, with possible compressive affects of upper abdominal nodes at the gastroduodenal junction. - On exam the patient still appears to have at least some degree of ascites. - Formal ultrasound will be ordered to assess amount of ascites to see if paracentesis can be performed. - We would prefer to have paracentesis done, even from the diagnostic standpoint if possible. - If paracentesis is planned, we will need to switch anticoagulation from Lovenox to IV heparin. T11 compression fracture: New compared to prior exams: - Evaluate further with MRI imaging - Assessment for unilater sensory or motor deficits - Ortho spine consult with - Radiation oncology to evaluate for short course of palliative radiation. - She has no evidence of cord compression. SIRS/SEPSIS - Hypotension, Tachycardia: - Consider infectious versus immune related - Will check cortisol level, TSH, Henson Enzymes Acute Exacerbation of COPD - Respiratory status is improved with ongoing treatment with steroids, and antibiotics. As noted previously, I suspect that there is likely some pneumonia caused by obstruction from progression from the primary site in the right lung Bilateral Deep Vein Thrombosis: New Acute - Lovenox therapeutic dosing to continue PLan: - Await cytology pleural fluid - Tessalon pearls prn Incentive spiromter
--- NOTE | 2019-03-01 19:55 | P.PN ---
Subjective Progress Note Date: 03/01/19 (delayed charting seen at 1130) Principal diagnosis: Cough Patient is a 53-year-old female with a history of metastatic adenocarcinoma of the lung currently undergoing chemotherapy with Taxotere, GERD, recent GI bleed secondary to metastasis to the stomach, and eczema who presented to the hospital with complaints of shortness of breath and worsening cough. In the emergency department she underwent an extensive evaluation. On arrival she was found to be tachycardic with a heart rate of 123, hypotensive with blood pressure 60/48, and hypoxic with an oxygen saturation of 80% on 3.5 L nasal cannula. Initial laboratory analysis showed an elevated white blood cell count 39.5, hemoglobin 9.8, platelets 128, alkaline phosphatase elevated at 219. She underwent a chest x-ray followed by a CT of the chest. CT demonstrated no evidence of pulmonary embolism, increased mediastinal bronchial adenopathy consistent with tumor progression, and a right middle lobe masslike consolidation that was unchanged. There also found a new T11 compression fracture and extensive abdominal ascites. There was concern about possible pneumonia and she was started on antibiotics, IV fluids, and pain medications. She was admitted to the floor for further monitoring. Oncology and pulmonology were consulted. She underwent an abdominal ultrasound did not show enough fluid to perform a paracentesis. She underwent bilateral lower extremity venous Dopplers which showed bilateral lower extremity DVTs and she was started on Lovenox. MRI brain and cervical spine showed 3 mm flare lesion in the left frontal lobe as well as decreased signal within the vertebral bodies from 3-6 n ot likely metastatic in nature but recommended further assessment with bone scan. Pulmonary was concerned there may be a postobstructive pneumonia and she was started on Zosyn. She continued to struggle with abdominal fullness and early satiety. She was transitined from lovenox to heparin gtt for possible paracentesis. Patient seen and examined at bedside. Still with abdominal pain and bloating, still with SOB. D/W patient plan for SX management as this is likely due to progression of disease. Patient in agreement. No no cough or SOB. Objective - Vital Signs Vital signs: Vital Signs Temp 97.7 F 03/01/19 14:56 Pulse 120 H 03/01/19 18:09 Resp 14 03/01/19 16:00 BP 97/56 03/01/19 18:09 Pulse Ox 99 03/01/19 15:40 Intake & Output 03/01/19 03/01/19 03/02/19 06:59 18:59 06:59 Intake Total 1148.8 231.367 Balance 1148.8 231.367 Weight 78.471 kg Intake: Intake, IV Titration 318.8 231.367 Amount Heparin Sod,Pork in 0.45% 18.8 131.367 NaCl 25,000 unit In 0.45 % NaCl 1 250ml.bag @ 12 UNITS/KG/HR 9.417 mls/hr IV .Q24H [facility] Rx#: [id number] Piperacillin-Tazobactam 3 100 100 .375 gm In Sodium Chloride 0.9% 100 ml @ 25 mls/hr IVPB Q8HR [facility] Rx# :[id number] Sodium Chloride 0.9% 1, 200 000 ml @ 50 mls/hr IV . Q20H [facility] Rx#:[id number] Oral 830 Other: Voiding Method Bedpan Bedpan # Voids 2 1 # Bowel Movements 1 1 - Exam General: non toxic, no distress, appears older than stated age, chronically ill- appearing Derm: warm, dry Head: atraumatic, normocephalic, symmetric Eyes: EOMI, no lid lag, anicteric sclera Mouth: no lip lesion, mucus membranes dry Cardiovascular: S1S2 reg, no murmur, positive posterior tibial pulse bilateral, Lungs: Rhonchi bilateral upper and bases, no accessory muscle use Abdominal: soft, nontender to palpation, no guarding, no appreciable organomegaly, + distended Ext: no gross muscle atrophy, diffuse anasarca, no contractures Neuro: CN II-XI grossly intact, no focal neuro deficits Psych: Alert, oriented, appropriate affect - Labs CBC & Chem 7: 03/01/19 03:05 03/01/19 03:05 Labs: Abnormal Lab Results - Last 24 Hours (Table) 03/01/19 03/01/19 03/01/19 Range/Units 03:05 03:05 03:05 WBC 38.7 H (3.8-10.6) k/uL RBC 2.93 L (3.80-5.40) m/uL Hgb 8.7 L (11.4-16.0) gm/dL Hct 27.6 L (34.0-46.0) % RDW 24.4 H (11.5-15.5) % Neutrophils # (Manual) 37.10 H (1.3-7.7) k/uL Lymphocytes # (Manual) 0.39 L (1.0-4.8) k/uL Monocytes # (Manual) 1.16 H (0-1.0) k/uL APTT 65.6 H (22.0-30.0) sec BUN 18 H (7-17) mg/dL Glucose 137 H (74-99) mg/dL Microbiology - Last 24 Hours (Table) 02/25/19 17:24 Blood Culture - Preliminary Blood No Growth after 96 hours Assessment and Plan Assessment: Bilateral lower extremity DVTs -Recent history of GI bleed and will need to be monitored closely - on heparin gtt for paracentesis, hope to transition to xarelto in AM if oncology in agreement Intractable abdominal pain and bloating - possibly due to ascities, more likely due to mass effect - Paracentesis today for fluid sample - Pateint to try bentyl and simethicone to help with cramping. norco and morphine - CT with increased abd adenopathy and mass effect on duodenum T11 compression fracture -Pain is currently controlled -Management per oncology: spine and radiation oncology evaluation- patient reports not painful -On decadron ? transition to oral if okay with oncology. Probable postobstructive pneumonia -Continue with Zosyn D #4 -CT essentially unchanged -Continue to monitor white blood cell count and for areas of fever -Pulmonary hygiene Adenocarcinoma of the lung, stage IV - MRI with changes C3-6 doesnt appear metastatic - on Taxotere and received neuolasta - Oncology recs appreciated. COPD with chrnic hypoxic respiratory failure -As needed albuterol treatments -Not chronically on inhalers but takes as needed albuterol - titrate O2 for sPO2 >88 GERD/ Gastritis -Continue with H2 mel Normocytic anemia -At baseline -Per notes from last admission appeared to be iron deficiency plus anemia of chronic disease -Management per hematology/oncology Severe protein calorie malnutrition - deititian recs DVT prophylaxis: On full dose lovenox Discussed with: Patient, nursing Anticipated discharge: 24-[address]: home with home health and palliative care. A total of 35 minutes was spent on the care of this complex patient more than 50% of the time was spent in counseling and care coordination.
[2019-03-01] MEDS: HEPARIN SOD,PORK IN 0.45% NACL 25,000 UNIT in 0.45% NACL 1 250ML.BAG IV SCH (20:02)
[2019-03-01] MEDS: BENZONATATE 100 MG CAP PO PRN (23:05)
[2019-03-02] MEDS: HEPARIN SOD,PORK IN 0.45% NACL 25,000 UNIT in 0.45% NACL 1 250ML.BAG IV SCH (01:41)
[2019-03-02 03:39] LABS: Appearance,BF Hazy; Color,BF Yellow; Nucleated Cells, Body Fluid 290 /uL; RBC, Body Fluid 1985 /uL
[2019-03-02 03:41] LABS: Mononuclear WBC,Body Fluid 44 %; Polynuclear WBC,Body Fluid 56 %; Total Cells Counted,Body Fluid 100
[2019-03-02] MEDS: DEXAMETHASONE SOD PHOSPHATE 4 MG/ML 1 ML VIAL IV SCH ×3 (05:34→18:14)
[2019-03-02 08:25] LABS: Anion Gap 2 mmol/L; Blood Urea Nitrogen 16 mg/dL (7-17); Calcium 8.8 mg/dL (8.4-10.2); Carbon Dioxide 29 mmol/L (22-30); Chloride 106 mmol/L (98-107); Glucose 154 mg/dL (74-99); Potassium 4.1 mmol/L (3.5-5.1); Sodium 137 mmol/L (137-145)
[2019-03-02 08:38] LABS: Anisocytosis Marked; HCT 28.7 % (34.0-46.0); HGB 8.5 gm/dL (11.4-16.0); Hypochromasia Marked; MCH 28.5 pg (25.0-35.0); MCHC 29.4 g/dL (31.0-37.0); MCV 96.9 fL (80.0-100.0); Macrocytosis Moderate; Mean Platelet Volume 8.1; Platelet Count 352 k/uL (150-450); Poikilocytosis Slight; RBC 2.96 m/uL (3.80-5.40); RDW 24.6 % (11.5-15.5); WBC 33.1 k/uL (3.8-10.6)
[2019-03-02] MEDS: FORMOTEROL FUMARATE 20 MCG/2 ML NEBU INHALATION SCH ×2 (09:08→20:32)
[2019-03-02] MEDS: BUDESONIDE 1 MG/2 ML NEBU INHALATION SCH ×2 (09:08→20:32)
[2019-03-02] MEDS: IPRATROPIUM-ALBUTEROL 3 ML NEB INHALATION SCH ×4 (09:08→20:32)
[2019-03-02 09:10] LABS: Band Neutrophils % 3 %; Lymphocytes # (M) 0.33 k/uL (1.0-4.8); Metamyelocytes # (M) 0.33 k/uL (0); Metamyelocytes % 1 %; Monocytes # (M) 0.66 k/uL (0-1.0); Neutrophils % (M) 94 %; Nucleated Red Blood Cells 0 /100 WBC (0-0); Polychromasia Present; Total Cells Counted 200
[2019-03-02 09:13] LABS: Spherocytes Present
[2019-03-02] MEDS: SYMBICORT 160-4.5 MCG INHALER INHALATION SCH (09:13)
[2019-03-02] MEDS: PIPERACILLIN-TAZOBACTAM 3.375 GM in SODIUM CHLORIDE 0.9% 100 ML IVPB SCH ×3 (09:13→22:34)
[2019-03-02] MEDS: FAMOTIDINE 20 MG TAB PO SCH (09:19)
[2019-03-02] MEDS: MULTIVITAMINS, THERA 1 EACH TAB PO SCH (09:20)
[2019-03-02] MEDS: PANTOPRAZOLE 40 MG TABLET PO SCH ×2 (09:23→18:14)
--- NOTE | 2019-03-02 09:24 | CDI ---
Documentation Clarification Form Date: 03/02/2019 9:09:08 AM From: Yuko Lomas RN, CCDS Admit Date: 02/25/2019 8:36:00 PM Patient Name: Myesha Everett Visit Number: [id number] Discharge Date: ATTENTION: The Clinical Documentation Specialists (CDI) and [facility] Coding Staff appreciate your assistance in clarifying documentation. Please respond to the clarification below the line at the bottom and electronically sign. The CDI & [facility] Coding staff will review the response and follow-up if needed. Please note: Queries are made part of the Legal Health Record. If you have any questions, please contact the author of this message via ITS. Dr. Vilma Louise The following has been documented in your progress notes Post Obstructive Pneumonia History/Risk Factors: 53 year old female presents to the ED with shortness of breath and difficulty in breathing. Medical History of Stage 4 Lung Cancer. Clinical Indicators: Wbc 39.5 CXR Ther is consolidation and volume loss on the right side that has progressed compared to last exam. There is clearing of small left pleural effusion compared to last exam. Treatment: Rocephin ivpb changed to Zosyn ivpb Definition of Present on Admission (POA): A diagnosis present at the time the order for admission to inpatient status was written. For each diagnosis, documentation must be clear to determine if the condition was present at the time of the patients inpatient admission or developed during the hospital stay. Please clarify if Post Obstructive Pneumonia was POA: ____Y = Yes, the condition was present at the time of the order for inpatient admission. ____N = No, the condition was not present at the time of the order for inpatient admission. ____W = Clinically undetermined if the condition was present at the time of the order for inpatient admission. (Last Revision: Sep 2018) Yes present on admission MTDD
--- NOTE | 2019-03-02 10:24 | P.CONS ---
History of Present Illness - Reason for Consult Consult date: 03/01/19 abdominal pain/early satiety Requesting physician: Raza Jensen - Chief Complaint abdominal pain - History of Present Illness The patient is a 53-year-old female with a history of a stage IV adenocarcinoma of the right lung with metastatic disease involving the upper abdominal adenopathy. She initially underwent a palliative course of radiotherapy at [facility] finishing in September 2016. She subsequently underwent 4 cycles of carboplatin, Alimta and Avastin. She was subsequently maintained on 28 cycles of maintenance Alimta and Avastin, with having recent progression in September 2018. She was then switched to PDL1 therapy, with subsequent progression in January 2019. At this point the patient was switched to Taxotere chemotherapy and is status post 1 cycle. The patient was admitted to the ER on February 25 with increasing dyspnea, tachycardia and decreased blood pressure. She underwent a CT with PE protocol, which revealed a moderate left effusion, moderate abdominal ascites which was a new finding, as well as a 6.5 cm right lower lung mass with extensive bilateral mediastinal adenopathy. A new finding of a 10% compression deformity of T11 was also seen. She subsequently had a CT scan of the abdomen and pelvis which revealed progressive anasarca, extensive upper abdominal adenopathy with mass effect on the portal vein and second portion of the duodenum. The patient attempted to have an MRI of the brain and C-spine on February 27, but was unable to complete this examination. The part that was completed, without contrast revealed no acute abnormalities. The patient currently reports she has significant dyspnea with minimal exertion. She notes this is been going on for the past week. She is barely able to walk to the bathroom. She reports no difficulty with increased cough, fevers, chills or chest pain. She has been reporting a feeling of abdominal discomfort and bloating. She has not been able to eat much recently. She reports that after eating a couple bites, the patient feels she is full. She denies any difficulty with blood in her bowel movements or hematemesis. During her prior hospitalization in December, the patient had an EGD which showed moderate duodenitis. Biopsy of this region revealed adenocarcinoma consistent with her known lung primary. Review of Systems Constitutional: Denies chills, Denies fever Eyes: denies blurred vision Ears, nose, mouth and throat: Denies epistaxis Cardiovascular: Reports dyspnea on exertion, Denies chest pain Respiratory: Reports cough, Reports home oxygen, Denies hemoptysis Gastrointestinal: Reports bloating, Reports early satiety Musculoskeletal: Denies neck pain Integumentary: Denies rash Neurological: Denies ataxia, Denies confusion, Denies double vision, Denies headaches Psychiatric: Denies anxiety, Denies confusion Past Medical History Past Medical History: Cancer, COPD, GERD/Reflux, GI Bleed, Skin Disorder Additional Past Medical History / Comment(s): stage IV lung cancer dx. 2016- tx with chemo currently, hx eczema History of Any Multi-Drug Resistant Organisms: None Reported Past Surgical History: Orthopedic Surgery, Tubal Ligation Additional Past Surgical History / Comment(s): lung biopsy, left foot surgery, port inserted rt side Past Anesthesia/Blood Transfusion Reactions: No Reported Reaction Past Psychological History: No Psychological Hx Reported Smoking Status: Former smoker Past Alcohol Use History: None Reported Past Drug Use History: None Reported - Past Family History Father Family Medical History: Cancer Additional Family Medical History / Comment(s): lung cancer Mother Family Medical History: COPD Additional Family Medical History / Comment(s): Mother from complications o f COPD. Medications and Allergies Home Medications Medication Instructions Recorded Confirmed Type Multivitamins, Thera [Multivitamin 1 tab PO DAILY 09/14/16 02/25/19 History (formulary)] Albuterol Inhaler [Ventolin Hfa 1 - 2 puff INHALATION RT-Q6H PRN 11/23/17 02/25/19 History Inhaler] Albuterol Nebulized [Ventolin 2.5 mg INHALATION RT-BID PRN 11/23/17 02/25/19 History Nebulized] Acetaminophen [Tylenol Extra 1,000 mg PO Q8H PRN 12/21/18 02/25/19 History Strength] Budesonide-Formot 160-4.5 Mcg 2 puff INHALATION BID #1 inhaler 12/23/18 02/25/19 Rx [Symbicort 160-4.5 Mcg Inhaler] Famotidine [Pepcid] 20 mg PO DAILY #60 tab 12/23/18 02/25/19 Rx Pantoprazole Sodium 40 mg PO BID #0 12/23/18 02/25/19 Rx Dexamethasone 8 mg PO DIRECTED 02/25/19 02/25/19 History Allergies Allergy/AdvReac Type Severity Reaction Status Date / Time Iodinated Contrast- Oral and AdvReac Nausea & Verified 02/25/19 18:22 IV Dye Vomiting Physical Exam Vitals: Vital Signs Temp Pulse Pulse Pulse Pulse Resp BP 03/02/19 09:22 106 H 03/02/19 09:11 102 H 03/02/19 05:00 97.8 F 109 H 18 97/65 03/02/19 00:25 118 H 16 03/01/19 22:10 108 H 03/01/19 22:02 108 H 03/01/19 21:12 97.8 F 108 H 16 95/64 03/01/19 18:09 120 H 97/56 03/01/19 17:53 114 H 100/69 03/01/19 17:38 112 H 99/67 03/01/19 17:23 116 H 102/69 03/01/19 17:11 112 H 03/01/19 17:00 112 H 03/01/19 16:50 106 H 88/54 03/01/19 16:30 112 H 90/55 03/01/19 16:00 114 H 110 H 14 03/01/19 15:50 111 H 106/72 03/01/19 15:40 110 H 14 105/58 03/01/19 15:25 107 H 16 101/56 03/01/19 15:11 106 H 14 92/56 03/01/19 14:56 97.7 F 108 H 18 112/53 03/01/19 14:20 107 H 16 100/53 03/01/19 12:15 97.4 F L 108 H 18 94/65 03/01/19 12:05 108 H 03/01/19 11:55 112 H Pulse Ox 03/02/19 09:22 03/02/19 09:11 99 03/02/19 05:00 93 L 03/02/19 00:25 03/01/19 22:10 03/01/19 22:02 03/01/19 21:12 96 03/01/19 18:09 03/01/19 17:53 03/01/19 17:38 03/01/19 17:23 03/01/19 17:11 03/01/19 17:00 03/01/19 16:50 03/01/19 16:30 03/01/19 16:00 03/01/19 15:50 03/01/19 15:40 99 03/01/19 15:25 100 03/01/19 15:11 97 03/01/19 14:56 98 03/01/19 14:20 99 03/01/19 12:15 94 L 03/01/19 12:05 03/01/19 11:55 Intake and Output 03/01/19 03/02/19 03/02/19 22:59 06:59 14:59 Intake Total 100 169.411 90.244 Balance 100 169.411 90.244 Intake: Intake, IV Titration 0 169.411 90.244 Amount Heparin Sod,Pork in 0.45% 0 69.411 90.244 NaCl 25,000 unit In 0.45 % NaCl 1 250ml.bag @ 12 UNITS/KG/HR 9.417 mls/hr IV .Q24H [facility] Rx#: [id number] Piperacillin-Tazobactam 3 100 .375 gm In Sodium Chloride 0.9% 100 ml @ 25 mls/hr IVPB Q8HR [facility] Rx# :[id number] Oral 100 Other: Voiding Method Bedpan Bedside Commode Bedpan # Voids 1 1 # Bowel Movements 1 1 - Constitutional General appearance: no acute distress - EENT Eyes: EOMI, PERRLA ENT: NA/AT - Neck Neck: no lymphadenopathy - Respiratory Respiratory: right: diminished, left: rales - Cardiovascular Rhythm: regular - Integumentary Integumentary: no calor - Neurologic Neurologic: CNII-XII intact - Musculoskeletal Musculoskeletal: generalized weakness - Psychiatric Psychiatric: A&O x's 3, appropriate affect Results CBC & Chem 7: 03/02/19 07:17 03/02/19 07:17 Labs: Abnormal Lab Results - Last 24 Hours (Table) 03/01/19 03/02/19 03/02/19 Range/Units 23:45 07:17 07:17 WBC 33.1 H (3.8-10.6) k/uL RBC 2.96 L (3.80-5.40) m/uL Hgb 8.5 L (11.4-16.0) gm/dL Hct 28.7 L (34.0-46.0) % MCHC 29.4 L (31.0-37.0) g/dL RDW 24.6 H (11.5-15.5) % Neutrophils # (Manual) 32.10 H (1.3-7.7) k/uL Lymphocytes # (Manual) 0.33 L (1.0-4.8) k/uL Metamyelocytes # (Man) 0.33 H (0) k/uL APTT 37.1 H (22.0-30.0) sec Glucose 154 H (74-99) mg/dL 03/02/19 Range/Units 07:17 WBC (3.8-10.6) k/uL RBC (3.80-5.40) m/uL Hgb (11.4-16.0) gm/dL Hct (34.0-46.0) % MCHC (31.0-37.0) g/dL RDW (11.5-15.5) % Neutrophils # (Manual) (1.3-7.7) k/uL Lymphocytes # (Manual) (1.0-4.8) k/uL Metamyelocytes # (Man) (0) k/uL APTT 80.5 H (22.0-30.0) sec Glucose (74-99) mg/dL Microbiology - Last 24 Hours (Table) 02/25/19 17:24 Blood Culture - Preliminary Blood No Growth after [address] scan - abdomen: report reviewed, image reviewed CT scan - pelvis: report reviewed, image reviewed Assessment and Plan Assessment: The patient is a 53-year-old female with a history of a stage IV adenocarcinoma of the right lung with metastatic disease involving the upper abdominal adenopathy. She initially underwent a palliative course of radiotherapy at [facility] finishing in September 2016. She subsequently underwent 4 cycles of carboplatin, Alimta and Avastin. She was subsequently maintained on 28 cycles of maintenance Alimta and Avastin, with having recent progression in September 2018. She was then switched to PDL1 therapy, with subsequent progression in January 2019. At this point the patient was switched to Taxotere chemotherapy and is status post 1 cycle. Plan: 1. Early satiety / Abdominal discomfort: While some of this could relate to her ascites, she does have mass effect on the duodenum from her enlarge upper abdominal adenopathy. She reports she is able to eat only a few bites of food before feeling full, which has been getting worse recently. She is not currently reporting hemoptysis or melena. I discussed with the patient we could attempt a short course of palliative radiotherapy to the upper abdomen to see if this improves. This would likely be delivered in 5 treatments. She may have some nausea and fatigue from this treatment, but this should be pretty well tolerated overall. 2. Stage IV NSCLC: Patient has progressed through a couple lines of chemotherapy and is currently on Taxotere. She is due for another cycle Friday. I will discuss with oncology, if she is to receive this dosage I would likely hold her palliative radiotherapy so as to not have excess toxicity of concurrent delivery. 3. Dyspnea on exertion: No evidence of PE, the patient does have slightly progressed left pleural effusion. There are however some hazy opacities in the right lower lobe which were not present a couple months ago. The airway caliber appears similar, but it is narrowed in this region. This could result in post-obstructive pneumonia. I don't appreciate neoplastic change in the lung that would contribute to a significant worsening with her dyspnea. Time with Patient: Greater than 30
[2019-03-02] MEDS: BENZONATATE 100 MG CAP PO PRN ×2 (10:29→22:34)
--- NOTE | 2019-03-02 10:48 | P.PN ---
Subjective Progress Note Date: 03/02/19 Principal diagnosis: Acute on chronic hypoxic respiratory failure secondary to stage IV lung cancer, COPD and abdominal distention, possible underlying pneumonia. This is a very pleasant 53-year-old female patient who follows with Dr. Harrington as her primary care physician. She has a history of chronic obstructive pulmonary disease, previous chronic tobacco dependence and stage IV lung cancer first diagnosed in 2015. She had been on several rounds of chemotherapy including either Alimta and Avastin. In September 2018 there was further progression and she was switched to Tecentriq. Earlier this year the patient had been on Opdivo and received 2-3 doses but became intolerant. She follows with Dr. Jennings in our office. She was last seen 01/01/2019 following a brief hospitalization for GI bleed. She had undergone colonoscopy with biopsies that were positive for metastatic adenocarcinoma consistent with lung primary and probable source of bleeding. She was most recently started on Taxotere with Neulasta Feb 19 2019 and a second dose is due March 05. She was seen and Dr. Jensen's office yesterday where she was found to be short of breath, tachycardic and hypotensive. She was referred here for admission for the same. Over the past 2 weeks she had been having difficulty eating and drinking with a sense of fullness and abdominal bloating and swelling. CT angiogram ruled out pulmonary embolism. There was noted mediastinal and bronchial adenopathy measuring up to 2.5 cm which had increased compared to last exam 12/21/2018 consistent with progression of tumor. There is right middle lobe masslike consolidation measuring 6.5 cm unchanged. Left pleural effusion increased slightly. Right chest wall pleural thickening unchanged. There is new extensive abdominal ascites compared to old exam. New T11 compression fracture. 4 x 2.5 cm mass in the left adrenal gland consistent with tumor, unchanged. Abdominal ultrasound revealed a small amount of fluid seen in the right upper and lower quadrants. Trace amount of fluid seen in the left lower quadrant. The patient is seen today in consultation on the oncology floor. She is currently resting in bed. Awake and alert in no acute distress. She is maintaining O2 saturations in the 90s on 4 L/m per nasal cannula. She's afebrile. Still somewhat tachycardic in the 11/09/1929 range. Blood pressure 9 4/64. She is received 2 L of fluid resuscitation. Currently with a 0.9 normal saline at 100 ML's per hour. She was given ceftriaxone and is currently on Zosyn. She's been initiated on DuoNeb inhalations and Symbicort. White count 44.5. Hemoglobin 8.8. Platelet count 182,000. Neutrophils 43.6. Sodium 136. INR 1.3. Creatinine 0.68. Lactic acid 1.5. Patient was reevaluated today on 02/27/2019, she is basically about the same. Feels generally weak, has occasional cough, no fever no chills no hemoptysis no nausea no vomiting no abdominal pain. Remains on updrafts, is also on Symbicort, Decadron, and Zosyn. Continues to have leukocytosis but it is improving WBC count of 36.2, hemoglobin is 8.6. Basic metabolic profile is normal. C. difficile screen is negative. Reevaluated today on 02/28/2019, again the patient is about the same, feels generally weak, continues to have intermittent episodes of cough, no fever no chills no hemoptysis no chest pain. Denies any nausea vomiting abdominal pain. Remains on antibiotics and bronchodilators. Not much change noted in the last couple of days.continues to have poor appetite, minimal abdominal distention and mild discomfort. On 03/01/2019 patient seen in follow-up on oncology floor. Still having some shortness of breath, but no acute distress, she is scheduled for paracentesis today, she is on heparin drip which will be positive for the paracentesis, she is on antibiotic coverage in the form of Zosyn, no chest pain, no fever or chills, remains up-to-date as of oxygen with a pulse ox of 94%, was cultures were negative, lung sounds are clear, diminished at the bases. Chest x-ray was done showing stable focal consolidation in the right mid and lower lung with a small effusion. The patient is seen today 03/02/2019 in follow-up on the oncology floor. She is currently resting fairly comfortably in bed. Still short of breath with exertion. Maintaining good O2 saturations in the high 90s on 3 L/m per nasal cannula. She did undergo a small volume paracentesis yesterday with 0.274 L of straw-colored fluid removed. Pathology pending. She is also been seen and evaluated by radiation oncology for possible radiation to the large abdominal adenopathy. She is also due for a second round of Taxotere on Friday. Blood cultures reveal no growth. He count 33, hemoglobin 8.5. Creatinine 0.57. Objective - Vital Signs Vital signs: Vital Signs Temp 97.8 F 03/02/19 05:00 Pulse 104 H 03/02/19 09:32 Resp 18 03/02/19 05:00 BP 97/65 03/02/19 05:00 Pulse Ox 99 03/02/19 09:11 Intake & Output 03/01/19 03/02/19 03/02/19 18:59 06:59 18:59 Intake Total 231.367 269.411 90.244 Balance 231.367 269.411 90.244 Weight 78.471 kg Intake: Intake, IV Titration 231.367 169.411 90.244 Amount Heparin Sod,Pork in 0.45% 131.367 69.411 90.244 NaCl 25,000 unit In 0.45 % NaCl 1 250ml.bag @ 12 UNITS/KG/HR 9.417 mls/hr IV .Q24H [facility] Rx#: [id number] Piperacillin-Tazobactam 3 100 100 .375 gm In Sodium Chloride 0.9% 100 ml @ 25 mls/hr IVPB Q8HR [facility] Rx# :[id number] Oral 100 Other: Voiding Method Bedpan Bedside Commode Bedpan # Voids 1 1 # Bowel Movements 1 1 - Exam GENERAL EXAM: Alert, pleasant, 53-year-old white female on 3 L of oxygen comfortable in no apparent distress. HEAD: Normocephalic/atraumatic. EYES: Normal reaction of pupils, equal size. Conjunctiva pink, sclera white. NOSE: Clear with pink turbinates. THROAT: No erythema or exudates. NECK: No masses, no JVD, no thyroid enlargement, no adenopathy. CHEST: No chest wall deformity. Symmetrical expansion. LUNGS: Equal air entry with scattered rhonchi, diminished at the bases, CVS: Regular rate and rhythm, normal S1 and S2, no gallops, no murmurs, no rubs ABDOMEN: Soft, nontender. No hepatosplenomegaly, normal bowel sounds, no guarding or rigidity. EXTREMITIES: No clubbing, lower extremity edema no cyanosis, 2+ pulses and upper and lower extremities. MUSCULOSKELETAL: Muscle strength and tone normal. SPINE: No scoliosis or deformity SKIN: No rashes CENTRAL NERVOUS SYSTEM: No focal deficits, tone is normal in all 4 extremities. PSYCHIATRIC: Alert and oriented -3. Appropriate affect. Intact judgment and insight. - Labs CBC & Chem 7: 03/02/19 07:17 03/02/19 07:17 Labs: Abnormal Lab Results - Last 24 Hours (Table) 03/01/19 03/02/19 03/02/19 Range/Units 23:45 07:17 07:17 WBC 33.1 H (3.8-10.6) k/uL RBC 2.96 L (3.80-5.40) m/uL Hgb 8.5 L (11.4-16.0) gm/dL Hct 28.7 L (34.0-46.0) % MCHC 29.4 L (31.0-37.0) g/dL RDW 24.6 H (11.5-15.5) % Neutrophils # (Manual) 32.10 H (1.3-7.7) k/uL Lymphocytes # (Manual) 0.33 L (1.0-4.8) k/uL Metamyelocytes # (Man) 0.33 H (0) k/uL APTT 37.1 H (22.0-30.0) sec Glucose 154 H (74-99) mg/dL 03/02/19 Range/Units 07:17 WBC (3.8-10.6) k/uL RBC (3.80-5.40) m/uL Hgb (11.4-16.0) gm/dL Hct (34.0-46.0) % MCHC (31.0-37.0) g/dL RDW (11.5-15.5) % Neutrophils # (Manual) (1.3-7.7) k/uL Lymphocytes # (Manual) (1.0-4.8) k/uL Metamyelocytes # (Man) (0) k/uL APTT 80.5 H (22.0-30.0) sec Glucose (74-99) mg/dL Microbiology - Last 24 Hours (Table) 02/25/19 17:24 Blood Culture - Preliminary Blood No Growth after 96 hours Assessment and Plan Assessment: Impression: #1 Acute on chronic hypoxic respiratory failure, multifactorial in a patient with known stage IV lung cancer, chronic obstructive pulmonary disease, abdominal distention and bloating. CT angiogram ruled out pulmonary embolism. There is continued masslike consolidation in the right middle lobe consistent with tumor measuring 6.5 cm. There is extensive bilateral bronchial adenopathy with lymph nodes measuring up to 2.5 cm which have increased since last exam December 2018. There is anterior mediastinal adenopathy with lymph nodes measuring 2.5 cm. Left pleural effusion slightly increased. #2 Ascites, new compared to previous computed tomography scan. That is post paracentesis 03/01/2019 with 0.274 L removed. Pathology pending. #3 T11 compression fracture, new compared to previous. 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 #6 Lymphadenopathy. #7 Deficiency anemia. #8 Chronic obstructive pulmonary disease, Gold stage III with an FEV1 value of 46% of predicted.. #9 History of chronic tobacco dependence of 35 years. Plan: The patient was seen and evaluated by Dr. Pemberton. Continue with the current treatment plan. Radiation oncology has been consulted and may offer palliative radiation to the abdominal adenopathy which may be compressing the duodenum and causing her early satiety. She is also due for a second round of Taxotere this week. Oncology is following. We will continue to follow and make further recommendations based on her clinical status. I, the cosigning physician performed a history and physical examination on the patient. Lungs with scattered rhonchi bilaterally. Maintaining good O2 saturations on 3L/min per nasal canula. I discussed the assessment and plan of care with my nurse practitioner, Breana Reich. I attest to the above note as dictated by her.
[2019-03-02] MEDS ORDERED: methylPREDNISolone SOD SUCCI 125 MG/2 ML VIAL IV SCH (12:00)
[2019-03-02] MEDS: MORPHINE SULFATE 2 MG/ML SYRINGE IVP PRN ×2 (13:09→21:26)
--- NOTE | 2019-03-02 13:57 | P.PN ---
Subjective Progress Note Date: 03/02/19 Principal diagnosis: Abdominal Ascites Status post 250cc off and awaiting cytology no acute evenys overnight Maintaining good O2 saturations in the high 90s on 3 L/m per nasal cannula. S She is also been seen and evaluated by radiation oncology for possible radiation to the large abdominal adenopathy. She is also due for a second round of Taxotere on Friday. Blood cultures negatove. He count 33, hemoglobin 8.5. Creatinine 0.57. Objective - Vital Signs Vital signs: Vital Signs Temp 97.4 F L 03/02/19 11:50 Pulse 100 03/02/19 12:12 Resp 16 03/02/19 11:50 BP 85/60 03/02/19 11:50 Pulse Ox 97 03/02/19 11:50 Intake & Output 03/01/19 03/02/19 03/02/19 18:59 06:59 18:59 Intake Total 231.367 269.411 90.244 Balance 231.367 269.411 90.244 Weight 78.471 kg Intake: Intake, IV Titration 231.367 169.411 90.244 Amount Heparin Sod,Pork in 0.45% 131.367 69.411 90.244 NaCl 25,000 unit In 0.45 % NaCl 1 250ml.bag @ 12 UNITS/KG/HR 9.417 mls/hr IV .Q24H [facility] Rx#: [id number] Piperacillin-Tazobactam 3 100 100 .375 gm In Sodium Chloride 0.9% 100 ml @ 25 mls/hr IVPB Q8HR [facility] Rx# :[id number] Oral 100 Other: Voiding Method Bedpan Bedside Commode Bedside Commode Bedpan Bedpan # Voids 1 1 # Bowel Movements 1 1 - Exam Constitutional General appearance: Present: no acute distress - EENT Eyes: Present: EOMI ENT: Present: hearing grossly normal, normal oropharynx - Respiratory Respiratory: right: diminished, rales - Cardiovascular Rhythm: regular Heart sounds: normal: S1, S2 - Gastrointestinal General gastrointestinal: Present: distended, normal bowel sounds Localized gastrointestinal: tender: RUQ, LUQ, epigastric periumbilical - Integumentary Integumentary: Present: normal - Neurologic Neurologic Comment(s): Strength in upper extremities, as well as sensation is normal Neurologic: Present: CNII-XII intact - Musculoskeletal Musculoskeletal Comment(s): Bilateral lower extremity edema Musculoskeletal: Present: generalized weakness, strength equal bilaterally - Labs CBC & Chem 7: 03/02/19 07:17 03/02/19 07:17 Labs: Abnormal Lab Results - Last 24 Hours (Table) 03/01/19 03/02/19 03/02/19 Range/Units 23:45 07:17 07:17 WBC 33.1 H (3.8-10.6) k/uL RBC 2.96 L (3.80-5.40) m/uL Hgb 8.5 L (11.4-16.0) gm/dL Hct 28.7 L (34.0-46.0) % MCHC 29.4 L (31.0-37.0) g/dL RDW 24.6 H (11.5-15.5) % Neutrophils # (Manual) 32.10 H (1.3-7.7) k/uL Lymphocytes # (Manual) 0.33 L (1.0-4.8) k/uL Metamyelocytes # (Man) 0.33 H (0) k/uL APTT 37.1 H (22.0-30.0) sec Glucose 154 H (74-99) mg/dL 03/02/19 Range/Units 07:17 WBC (3.8-10.6) k/uL RBC (3.80-5.40) m/uL Hgb (11.4-16.0) gm/dL Hct (34.0-46.0) % MCHC (31.0-37.0) g/dL RDW (11.5-15.5) % Neutrophils # (Manual) (1.3-7.7) k/uL Lymphocytes # (Manual) (1.0-4.8) k/uL Metamyelocytes # (Man) (0) k/uL APTT 80.5 H (22.0-30.0) sec Glucose (74-99) mg/dL Microbiology - Last 24 Hours (Table) 03/01/19 15:20 Gram Stain - Preliminary Paracentesis Fluid Body Fluid Culture - Preliminary 02/25/19 17:24 Blood Culture - Preliminary Blood No Growth after 96 hours Assessment and Plan Plan: Adenocarcinoma of the lung with progressive disease: Known mets to adrenal gland - Restage MRI of the brain - Status Post Immune therapy 3/22 and taxotere 02/12 with neulsata - Consider immune related effects up to 90 days post treatment - Plan would be to resume Taxotere on schedule, assuming her acute issues have resolved sufficiently. - A CT of the abdomen and pelvis do show pressure effect with upper abdominal adenopathy on the gastroduodenal junction. This could be causing at least a component of her abdominal symptoms of bloating and pain. However does not appear to be brock obstruction. - Palliative Radiation to this area could potentially be an option, if we do not get a good enough response from systemic chemotherapy. New/Increased Abdominal Ascites: - Paracentesis ordered with fluid studies, cytology - unfortunetly IR reports there was insufficient fluid to drain - She had a CT of the abdomen and pelvis done, which noted probably moderate ascites. - The patient was also noted to have significant adenopathy, with possible compressive affects of upper abdominal nodes at the gastroduodenal junction. - On exam the patient still appears to have at least some degree of ascites. - Formal ultrasound will be ordered to assess amount of ascites to see if paracentesis can be performed. - We would prefer to have paracentesis done, even from the diagnostic standpoint if possible. - If paracentesis is planned, we will need to switch anticoagulation from Lovenox to IV heparin. T11 compression fracture: New compared to prior exams: - Evaluate further with MRI imaging - Assessment for unilater sensory or motor deficits - Ortho spine consult with - Radiation oncology to evaluate for short course of palliative radiation. - She has no evidence of cord compression. SIRS/SEPSIS - Hypotension, Tachycardia: - Consider infectious versus immune related - Will check cortisol level, TSH, [place] Enzymes Acute Exacerbation of COPD - Respiratory status is improved with ongoing treatment with steroids, and antibiotics. As noted previously, I suspect that there is likely some pneumonia caused by obstruction from progression from the primary site in the right lung Bilateral Deep Vein Thrombosis: New Acute - Lovenox therapeutic dosing to continue PLan: - Await cytology pleural fluid - If patient is discharge prior to Friday will resume chemotherapy as scheduled, as likely the situation is from cancer burden and treatment to shrink this burden is indicated. If she is still inpatient and unable to discharge safely then plan for inpatient taxotere. Will confirm with Dr. Jensen - Plan Pallaitive radiation will discuss with Dr. Jensen to resume chemotherapy during this time or await till post radiation - Plan is for a short course of palliative radiotherapy to the upper abdomen to see if this improves. This would likely be delivered in 5 treatments. She may have some nausea and fatigue from this treatment, but this should be pretty well tolerated overall.
[2019-03-02 14:42] LABS: Total Protein, Body Fluid 2100 mg/dL
--- NOTE | 2019-03-02 20:42 | P.PN ---
Subjective Progress Note Date: 03/02/19 (delayed charting seen at 1230) Principal diagnosis: Cough Patient is a 53-year-old female with a history of metastatic adenocarcinoma of the lung currently undergoing chemotherapy with Taxotere, GERD, recent GI bleed secondary to metastasis to the stomach, and eczema who presented to the hospital with complaints of shortness of breath and worsening cough. In the emergency department she underwent an extensive evaluation. On arrival she was found to be tachycardic with a heart rate of 123, hypotensive with blood pressure 60/48, and hypoxic with an oxygen saturation of 80% on 3.5 L nasal cannula. Initial laboratory analysis showed an elevated white blood cell count 39.5, hemoglobin 9.8, platelets 128, alkaline phosphatase elevated at 219. She underwent a chest x-ray followed by a CT of the chest. CT demonstrated no evidence of pulmonary embolism, increased mediastinal bronchial adenopathy consistent with tumor progression, and a right middle lobe masslike consolidation that was unchanged. There also found a new T11 compression fracture and extensive abdominal ascites. There was concern about possible pneumonia and she was started on antibiotics, IV fluids, and pain medications. She was admitted to the floor for further monitoring. Oncology and pulmonology were consulted. She underwent an abdominal ultrasound did not show enough fluid to perform a paracentesis. She underwent bilateral lower extremity venous Dopplers which showed bilateral lower extremity DVTs and she was started on Lovenox. MRI brain and cervical spine showed 3 mm flare lesion in the left frontal lobe as well as decreased signal within the vertebral bodies from 3-6 n ot likely metastatic in nature but recommended further assessment with bone scan. Pulmonary was concerned there may be a postobstructive pneumonia and she was started on Zosyn. She continued to struggle with abdominal fullness and early satiety. She was transitined from lovenox to heparin gtt for possible paracentesis. Seen by rad onc and likely will start palliative radiation. TOlerating small amounts of food. Has no Rx coverage and will get coupon for first month of xarelto free. Patient seen and examined at bedside. Still with ABD bloating and early satiety, Bentyl did not help, pain meds not helping much either. Wants to go home, feels as though she can manage breathing at home. no chest pain, cough improving. Objective - Vital Signs Vital signs: Vital Signs Temp 97.4 F L 03/02/19 11:50 Pulse 101 H 03/02/19 16:47 Resp 16 03/02/19 16:47 BP 85/60 03/02/19 11:50 Pulse Ox 87 L 03/02/19 15:49 Intake & Output 03/02/19 03/02/19 03/03/19 06:59 18:59 06:59 Intake Total 269.411 271.244 Balance 269.411 271.244 Intake: IV 81 Heparin Sod,Pork in 0.45% 81 NaCl 25,000 unit In 0.45 % NaCl 1 250ml.bag @ 12 UNITS/KG/HR 9.417 mls/hr IV .Q24H [facility] Rx#: [id number] Intake, IV Titration 169.411 190.244 Amount Heparin Sod,Pork in 0.45% 69.411 90.244 NaCl 25,000 unit In 0.45 % NaCl 1 250ml.bag @ 12 UNITS/KG/HR 9.417 mls/hr IV .Q24H [facility] Rx#: [id number] Piperacillin-Tazobactam 3 100 100 .375 gm In Sodium Chloride 0.9% 100 ml @ 25 mls/hr IVPB Q8HR [facility] Rx# :[id number] Oral 100 Other: Voiding Method Bedside Commode Bedside Commode Bedpan Bedpan # Voids 1 3 # Bowel Movements 1 - Exam General: non toxic, no distress, appears older than stated age, chronically ill- appearing Derm: warm, dry Head: atraumatic, normocephalic, symmetric Eyes: EOMI, no lid lag, anicteric sclera Mouth: no lip lesion, mucus membranes moist Cardiovascular: S1S2 reg, no murmur, positive posterior tibial pulse bilateral, Lungs: Rhonchi bilateral upper and bases, improved air movement today , no acces anna muscle use Abdominal: soft, nontender to palpation, no guarding, no appreciable organomegaly, + distended Ext: no gross muscle atrophy, diffuse anasarca, no contractures Neuro: CN II-XI grossly intact, no focal neuro deficits Psych: Alert, oriented, appropriate affect - Labs CBC & Chem 7: 03/02/19 07:17 03/02/19 07:17 Labs: Abnormal Lab Results - Last 24 Hours (Table) 03/01/19 03/02/19 03/02/19 Range/Units 23:45 07:17 07:17 WBC 33.1 H (3.8-10.6) k/uL RBC 2.96 L (3.80-5.40) m/uL Hgb 8.5 L (11.4-16.0) gm/dL Hct 28.7 L (34.0-46.0) % MCHC 29.4 L (31.0-37.0) g/dL RDW 24.6 H (11.5-15.5) % Neutrophils # (Manual) 32.10 H (1.3-7.7) k/uL Lymphocytes # (Manual) 0.33 L (1.0-4.8) k/uL Metamyelocytes # (Man) 0.33 H (0) k/uL APTT 37.1 H (22.0-30.0) sec Glucose 154 H (74-99) mg/dL 03/02/19 03/02/19 Range/Units 07:17 15:30 WBC (3.8-10.6) k/uL RBC (3.80-5.40) m/uL Hgb (11.4-16.0) gm/dL Hct (34.0-46.0) % MCHC (31.0-37.0) g/dL RDW (11.5-15.5) % Neutrophils # (Manual) (1.3-7.7) k/uL Lymphocytes # (Manual) (1.0-4.8) k/uL Metamyelocytes # (Man) (0) k/uL APTT 80.5 H 53.8 H (22.0-30.0) sec Glucose (74-99) mg/dL Microbiology - Last 24 Hours (Table) 02/25/19 17:24 Blood Culture - Preliminary Blood No Growth after 120 hours 03/01/19 15:20 Gram Stain - Preliminary Paracentesis Fluid Body Fluid Culture - Preliminary Assessment and Plan Assessment: Bilateral lower extremity DVTs -Recent history of GI bleed and will need to be monitored closely - Patient does not have any prescription coverage at this point in time. Plan is to transition to [place] from heparin drip. Will be provided coupon for 30 days previous her alto. Hopefully can receive samples after this. Intractable abdominal pain and bloating -Likely due to mass effect, paracentesis sample sent down 03/01 and cytology pending -Radiation oncology recommendations appreciated. Patient would like to do palliative radiation to see if it will help with her early satiety and abdominal bloating. - Continue with [place] and morphine -Transition Decadron to oral in preparation for discharge - CT with increased abd adenopathy and mass effect on duodenum T11 compression fracture -Pain is currently controlled -Management per oncology: spine and radiation oncology evaluation- patient reports not painful -Not painful with no symptoms and no plan for palliative radiation at this point in time Probable postobstructive pneumonia, POA -Continue with Zosyn D #5 -CT essentially unchanged -Pulmonary hygiene Adenocarcinoma of the lung, stage IV - MRI with changes C3-6 doesnt appear metastatic - on Taxotere and received neuolasta - Oncology recs appreciated. COPD with chronic hypoxic respiratory failure -As needed albuterol treatments-budesonide and Solu-Medrol -Not chronically on inhalers but takes as needed albuterol - titrate O2 for sPO2 >88 -Patient will need oxygen at home she is chronically O2 dependent. Will need O2 at 2 L. GERD/ Gastritis -Continue with H2 mel Normocytic anemia -At baseline -Per notes from last admission appeared to be iron deficiency plus anemia of chronic disease -Management per hematology/oncology Severe protein calorie malnutrition - deititian recs Debility -Patient is currently unable to walk long distances. She is unable to self propel a wheelchair. She does have a caregiver who will be able to assist her with transportation. Plan is home with home health and palliative care- already set up. Xarelto s tarted pack ordered and will provid coupon as no Rx coverage. Will need wheelchair and O2 which have been ordered. Home once WBC down tranding and can complete course of oral abx. DVT prophylaxis: xarelto Discussed with: Patient, nursing Anticipated discharge: 24-[address]: home with home health and palliative care. A total of 35 minutes was spent on the care of this complex patient more than 50% of the time was spent in counseling and care coordination.
[2019-03-02] MEDS: DEXAMETHASONE 4 MG TAB PO SCH (21:26)
[2019-03-02] MEDS: RIVAROXABAN 15 MG TAB PO SCH (21:26)
[2019-03-03] MEDS: MORPHINE SULFATE 2 MG/ML SYRINGE IVP PRN ×5 (05:32→22:09)
[2019-03-03] MEDS: MULTIVITAMINS, THERA 1 EACH TAB PO SCH (09:06)
[2019-03-03] MEDS: FAMOTIDINE 20 MG TAB PO SCH (09:06)
[2019-03-03] MEDS: PANTOPRAZOLE 40 MG TABLET PO SCH ×2 (09:06→16:52)
[2019-03-03 09:07] LABS: Anisocytosis Marked; HCT 31.1 % (34.0-46.0); HGB 9.3 gm/dL (11.4-16.0); Hypochromasia Marked; MCH 29.1 pg (25.0-35.0); MCHC 29.8 g/dL (31.0-37.0); MCV 97.7 fL (80.0-100.0); Macrocytosis Moderate; Mean Platelet Volume 7.5; Platelet Count 383 k/uL (150-450); Poikilocytosis Slight; RBC 3.18 m/uL (3.80-5.40); RDW 24.6 % (11.5-15.5); WBC 33.3 k/uL (3.8-10.6)
[2019-03-03] MEDS: PIPERACILLIN-TAZOBACTAM 3.375 GM in SODIUM CHLORIDE 0.9% 100 ML IVPB SCH ×3 (09:07→23:16)
[2019-03-03] MEDS: RIVAROXABAN 15 MG TAB PO SCH ×2 (09:07→16:52)
[2019-03-03] MEDS: DEXAMETHASONE 4 MG TAB PO SCH ×3 (09:07→22:06)
[2019-03-03] MEDS: IPRATROPIUM-ALBUTEROL 3 ML NEB INHALATION SCH ×4 (09:13→20:38)
[2019-03-03] MEDS: BUDESONIDE 1 MG/2 ML NEBU INHALATION SCH ×2 (09:13→20:38)
[2019-03-03] MEDS: FORMOTEROL FUMARATE 20 MCG/2 ML NEBU INHALATION SCH ×2 (09:13→20:37)
[2019-03-03 10:09] LABS: Band Neutrophils % 2 %; Lymphocytes # (M) 0.33 k/uL (1.0-4.8); Monocytes # (M) 0.67 k/uL (0-1.0); Myelocytes # (M) 0.33 k/uL (0); Myelocytes % 1 %; Neutrophils % (M) 96 %; Nucleated Red Blood Cells 0 /100 WBC (0-0); Total Cells Counted 200
[2019-03-03 10:10] LABS: Polychromasia Present
[2019-03-03 10:13] LABS: Spherocytes Present
[2019-03-03 10:14] LABS: Mixed Population RBC Present
--- NOTE | 2019-03-03 12:34 | P.PN ---
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 In the emergency department she underwent an extensive evaluation. On arrival she was found to be tachycardic with a heart rate of 123, hypotensive with blood pressure 60/48, and hypoxic with an oxygen saturation of 80% on 3.5 L nasal cannula. Initial laboratory analysis showed an elevated white blood cell count 39.5, hemoglobin 9.8, platelets 128, alkaline phosphatase elevated at 219. She underwent a chest x-ray followed by a CT of the chest. CT demonstrated no evidence of pulmonary embolism, increased mediastinal bronchial adenopathy consistent with tumor progression, and a right middle lobe masslike consolidation that was unchanged. There also found a new T11 compression fracture and extensive abdominal ascites. There was concern about possible pneumonia and she was started on antibiotics, IV fluids, and pain medications. She was admitted to the floor for further monitoring. Oncology and pulmonology were consulted. She underwent an abdominal ultrasound did not show enough fluid to perform a paracentesis. She underwent bilateral lower extremity venous Dopplers which showed bilateral lower extremity DVTs and she was started on Lovenox. MRI brain and cervical spine showed 3 mm flare lesion in the left frontal lobe as well as decreased signal within the vertebral bodies from 3-6 not likely metastatic in nature but recommended further assessment with bone scan. Pulmonary was concerned there may be a postobstructive pneumonia and she was started on Zosyn. She continued to struggle with abdominal fullness and early satiety. She was transitioned from lovenox to heparin gtt for possible paracentesis. Seen by rad onc and likely will start palliative radiation. Tolerating small amounts of food. Has no Rx coverage and will get coupon for first month of xarelto free. 03/03/2019: Patient feels okay today she denies nausea or vomiting. She states that she is still physically weak. She denies chest pain or shortness of breath. Cough has improved. Objective - Vital Signs Vital signs: Vital Signs Temp 97.5 F L 03/03/19 05:00 Pulse 100 03/03/19 10:50 Resp 17 03/03/19 05:00 BP 84/53 03/03/19 05:00 Pulse Ox 98 03/02/19 21:00 Intake & Output 03/02/19 03/03/19 03/03/19 18:59 06:59 18:59 Intake Total 271.244 300 Balance 271.244 300 Intake: IV 81 Heparin Sod,Pork in 0.45% 81 NaCl 25,000 unit In 0.45 % NaCl 1 250ml.bag @ 12 UNITS/KG/HR 9.417 mls/hr IV .Q24H LEA Rx#: [id number] Intake, IV Titration 190.244 100 Amount Heparin Sod,Pork in 0.45% 90.244 NaCl 25,000 unit In 0.45 % NaCl 1 250ml.bag @ 12 UNITS/KG/HR 9.417 mls/hr IV .Q24H LEA Rx#: [id number] Piperacillin-Tazobactam 3 100 100 .375 gm In Sodium Chloride 0.9% 100 ml @ 25 mls/hr IVPB Q8HR LEA Rx# :[id number] Oral 200 Other: Voiding Method Bedside Commode Bedside Commode Bedside Commode Bedpan Bedpan Bedpan # Voids 3 1 # Bowel Movements 1 - Exam General: Awake alert oriented 3 on oxygen, chronically ill-appearing Derm: warm, dry Head: atraumatic, normocephalic, symmetric Eyes: EOMI, anicteric sclera Mouth: no lip lesion Cardiovascular: S1S2 reg, no rubs gallops or murmurs Lungs: Decreased breath sounds, no crackles no wheezing or rhonchi. Abdominal: soft, nontender to palpation, no guarding, no appreciable organo megaly, + slightly distended Ext: No clubbing or cyanosis, 1+ bilateral lower extremity edema Neuro: CN II-XI grossly intact, no focal neuro deficits Psych: Alert, oriented, appropriate affect - Labs CBC & Chem 7: 03/03/19 08:17 03/02/19 07:17 Labs: Abnormal Lab Results - Last 24 Hours (Table) 03/02/19 03/03/19 Range/Units 15:30 08:17 WBC 33.3 H (3.8-10.6) k/uL RBC 3.18 L (3.80-5.40) m/uL Hgb 9.3 L (11.4-16.0) gm/dL Hct 31.1 L (34.0-46.0) % MCHC 29.8 L (31.0-37.0) g/dL RDW 24.6 H (11.5-15.5) % Neutrophils # (Manual) 32.60 H (1.3-7.7) k/uL Lymphocytes # (Manual) 0.33 L (1.0-4.8) k/uL Myelocytes # (Manual) 0.33 H (0) k/uL APTT 53.8 H (22.0-30.0) sec Microbiology - Last 24 Hours (Table) 03/01/19 15:20 Gram Stain - Preliminary Paracentesis Fluid Body Fluid Culture - Preliminary 02/25/19 17:24 Blood Culture - Preliminary Blood No Growth after 120 hours Assessment and Plan Plan: Bilateral lower extremity DVTs -Recent history of GI bleed - Patient does not have any prescription coverage at this point in time. 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 Intractable abdominal pain and bloating -Likely due to mass effect, status post paracentesis -Radiation oncology recommendations appreciated. - Continue with [place] and morphine -Transitioned Decadron to oral - CT with increased abd adenopathy and mass effect on duodenum T11 compression fracture -Continue Pain control -Management per oncology: spine and radiation oncology evaluation Probable postobstructive pneumonia, POA -Continue with Zosyn D #6 -CT unchanged -Pulmonary hygiene -WBC remains at 33,000 Adenocarcinoma of the lung, stage IV - MRI with changes C3-6 doesnt appear metastatic - on Taxotere and received neuolasta - Oncology recs appreciated. COPD with chronic hypoxic respiratory failure -Oxygen, bronchodilators, steroids and antibiotics -Patient will need 2 L off oxygen at home she is chronically O2 dependent with chronic hypoxic respiratory. GERD/ Gastritis -Continue with H2 mel Normocytic anemia, chronic iron deficiency Hemoglobin is stable, improved to 9.3 from 8.5 -Management per hematology/oncology Severe protein calorie malnutrition - deititian recs appreciated. Debility -Conservative treatment Plan is home with home health and palliative care- Will need wheelchair and O2 ( have been ordered) DVT prophylaxis: xarelto Discussed with: Patient and her family Anticipated discharge: Tomorrow Anticipated discharge place: home with home health and palliative care.
[2019-03-03] MEDS: METOCLOPRAMIDE 5 MG TAB PO SCH ×2 (12:40→16:53)
[2019-03-03] MEDS: BENZONATATE 100 MG CAP PO PRN ×2 (12:40→23:16)
--- NOTE | 2019-03-03 13:12 | P.PN ---
<Allison Fuentes - Last Filed: 03/03/19 13:08> Subjective Progress Note Date: 03/03/19 Principal diagnosis: Abdominal Ascites Discussed case with [facility] and Dr. Phan plan to discharge in am Objective - Vital Signs Vital signs: Vital Signs Temp 97.4 F L 03/03/19 12:40 Pulse 110 H 03/03/19 12:40 Resp 18 03/03/19 12:40 BP 83/52 03/03/19 12:40 Pulse Ox 99 03/03/19 12:40 Intake & Output 03/02/19 03/03/19 03/03/19 18:59 06:59 18:59 Intake Total 271.244 300 Balance 271.244 300 Intake: IV 81 Heparin Sod,Pork in 0.45% 81 NaCl 25,000 unit In 0.45 % NaCl 1 250ml.bag @ 12 UNITS/KG/HR 9.417 mls/hr IV .Q24H LEA Rx#: [id number] Intake, IV Titration 190.244 100 Amount Heparin Sod,Pork in 0.45% 90.244 NaCl 25,000 unit In 0.45 % NaCl 1 250ml.bag @ 12 UNITS/KG/HR 9.417 mls/hr IV .Q24H LEA Rx#: [id number] Piperacillin-Tazobactam 3 100 100 .375 gm In Sodium Chloride 0.9% 100 ml @ 25 mls/hr IVPB Q8HR LEA Rx# :[id number] Oral 200 Other: Voiding Method Bedside Commode Bedside Commode Bedside Commode Bedpan Bedpan Bedpan # Voids 3 1 # Bowel Movements 1 - Exam Constitutional General appearance: Present: no acute distress - EENT Eyes: Present: EOMI ENT: Present: hearing grossly normal, normal oropharynx - Respiratory Respiratory: right: diminished, rales - Cardiovascular Rhythm: regular Heart sounds: normal: S1, S2 - Gastrointestinal General gastrointestinal: Present: distended, normal bowel sounds Localized gastrointestinal: tender: RUQ, LUQ, epigastric periumbilical - Integumentary Integumentary: Present: normal - Neurologic Neurologic Comment(s): Strength in upper extremities, as well as sensation is normal Neurologic: Present: CNII-XII intact - Musculoskeletal Musculoskeletal Comment(s): Bilateral lower extremity edema Musculoskeletal: Present: generalized weakness, strength equal bilaterally - Labs CBC & Chem 7: 03/03/19 08:17 03/02/19 07:17 Labs: Abnormal Lab Results - Last 24 Hours (Table) 03/02/19 03/03/19 Range/Units 15:30 08:17 WBC 33.3 H (3.8-10.6) k/uL RBC 3.18 L (3.80-5.40) m/uL Hgb 9.3 L (11.4-16.0) gm/dL Hct 31.1 L (34.0-46.0) % MCHC 29.8 L (31.0-37.0) g/dL RDW 24.6 H (11.5-15.5) % Neutrophils # (Manual) 32.60 H (1.3-7.7) k/uL Lymphocytes # (Manual) 0.33 L (1.0-4.8) k/uL Myelocytes # (Manual) 0.33 H (0) k/uL APTT 53.8 H (22.0-30.0) sec Microbiology - Last 24 Hours (Table) 03/01/19 15:20 Gram Stain - Preliminary Paracentesis Fluid Body Fluid Culture - Preliminary 02/25/19 17:24 Blood Culture - Preliminary Blood No Growth after 120 hours Assessment and Plan Plan: Adenocarcinoma of the lung with progressive disease: 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 - A CT of the abdomen and pelvis do show pressure effect with upper abdominal adenopathy on the gastroduodenal junction. This could be causing at least a component of her abdominal symptoms of bloating and pain. However does not appear to be brock obstruction. - Palliative Radiation to this area could potentially be an option, if we do not get a good enough response from systemic chemotherapy. New/Increased Abdominal Ascites: - Paracentesis ordered with fluid studies, cytology - unfortunetly IR reports there was insufficient fluid to drain - She had a CT of the abdomen and pelvis done, which noted probably moderate ascites. - The patient was also noted to have significant adenopathy, with possible compressive affects of upper abdominal nodes at the gastroduodenal junction. - On exam the patient still appears to have at least some degree of ascites. - Formal ultrasound will be ordered to assess amount of ascites to see if paracentesis can be performed. - We would prefer to have paracentesis done, even from the diagnostic standpoint if possible. - If paracentesis is planned, we will need to switch anticoagulation from Lovenox to IV heparin. T11 compression fracture: New compared to prior exams: - Evaluate further with MRI imaging - Assessment for unilater sensory or motor deficits - Ortho spine consult with - Radiation oncology to evaluate for short course of palliative radiation. - She has no evidence of cord compression. SIRS/SEPSIS - Hypotension, Tachycardia: - Consider infectious versus immune related - Will check cortisol level, TSH, Henson Enzymes Acute Exacerbation of COPD - Respiratory status is improved with ongoing treatment with steroids, and antibiotics. As noted previously, I suspect that there is likely some pneumonia caused by obstruction from progression from the primary site in the right lung Bilateral Deep Vein Thrombosis: New Acute - Lovenox therapeutic dosing to continue PLan: - Await cytology pleural fluid - Plan to hold Taxotere x2 weeks and move forward with 5 radiation starting Friday03/08/19. Resume chemo after completion of radiation - PT./OT recs regarding home PT/OT Physician Attestation: I have performed the full physical examination and reviewed the full history of this patient, as well as pertinent findings. I have created the compled impression and recommendations. I agree with the above dictation by YARELIS Chavis. This dictation has been written as a scribe. <Raza Jensen - Last Filed: 03/08/19 00:24> Objective - Vital Signs Vital signs: Vital Signs Temp 97.4 F L 03/04/19 05:00 Pulse 100 03/04/19 12:31 Resp 16 03/04/19 05:00 BP 84/55 03/04/19 05:00 Pulse Ox 97 03/04/19 05:00 - Labs CBC & Chem 7: 03/04/19 07:09 03/04/19 07:09 Assessment and Plan (1) Ascites Status: Acute Code(s): R18.8 - OTHER ASCITES SNOMED Code(s): 900698274 (2) Acute exacerbation of chronic obstructive airways disease Status: Acute Code(s): J44.1 - CHRONIC OBSTRUCTIVE PULMONARY DISEASE W (ACUTE) EXACERBATION SNOMED Code(s): 354161707 (3) Adenocarcinoma of lung Status: Acute Code(s): C34.90 - MALIGNANT NEOPLASM OF UNSP PART OF UNSP BRONCHUS OR LUNG SNOMED Code(s): 647117853 (4) Lower thoracic back pain Status: Acute Code(s): M54.6 - PAIN IN THORACIC SPINE SNOMED Code(s): 753986869 (5) Deep vein thrombosis of lower extremity Status: Acute Code(s): I82.409 - ACUTE EMBOLISM AND THOMBOS UNSP DEEP VN UNSP LOWER EXTREMITY SNOMED Code(s): 026108020 (6) Sepsis Status: Acute Code(s): A41.9 - SEPSIS, UNSPECIFIED ORGANISM SNOMED Code(s): 71973827 Plan: Correction: Await cytology ascitic fluid
--- NOTE | 2019-03-03 15:32 | P.PN ---
Subjective Progress Note Date: 03/03/19 Principal diagnosis: Patient feeling a bit better today; she was able to ambulate with a walker for PT. She is still feeling dyspnea with exertion. She still is having difficulty with early satiety and upper abdominal discomfort. We discussed that she will have a 1 week delay in her next cycle of chemotherapy so that we can do a course of palliative radiotherapy. The patient anticipates discharge tomorrow. Objective - Vital Signs Vital signs: Vital Signs Temp 97.4 F L 03/03/19 12:40 Pulse 110 H 03/03/19 12:40 Resp 18 03/03/19 12:40 BP 83/52 03/03/19 12:40 Pulse Ox 99 03/03/19 12:40 Intake & Output 03/02/19 03/03/19 03/03/19 18:59 06:59 18:59 Intake Total 271.244 300 Balance 271.244 300 Intake: IV 81 Heparin Sod,Pork in 0.45% 81 NaCl 25,000 unit In 0.45 % NaCl 1 250ml.bag @ 12 UNITS/KG/HR 9.417 mls/hr IV .Q24H LEA Rx#: [id number] Intake, IV Titration 190.244 100 Amount Heparin Sod,Pork in 0.45% 90.244 NaCl 25,000 unit In 0.45 % NaCl 1 250ml.bag @ 12 UNITS/KG/HR 9.417 mls/hr IV .Q24H LEA Rx#: [id number] Piperacillin-Tazobactam 3 100 100 .375 gm In Sodium Chloride 0.9% 100 ml @ 25 mls/hr IVPB Q8HR LEA Rx# :[id number] Oral 200 Other: Voiding Method Bedside Commode Bedside Commode Bedside Commode Bedpan Bedpan Bedpan # Voids 3 1 # Bowel Movements 1 3 - Constitutional General appearance: Present: no acute distress - EENT Eyes: Present: EOMI, PERRLA ENT: Present: hearing grossly normal - Neck Neck: Absent: lymphadenopathy - Cardiovascular Rhythm: regular - Gastrointestinal General gastrointestinal: Present: tenderness (mild epigastric) - Integumentary Integumentary: Absent: calor - Neurologic Neurologic: Present: CNII-XII intact - Musculoskeletal Musculoskeletal: Present: generalized weakness - Psychiatric Psychiatric: Present: A&O x's 3, appropriate affect - Labs CBC & Chem 7: 03/03/19 08:17 03/02/19 07:17 Labs: Abnormal Lab Results - Last 24 Hours (Table) 03/02/19 03/03/19 Range/Units 15:30 08:17 WBC 33.3 H (3.8-10.6) k/uL RBC 3.18 L (3.80-5.40) m/uL Hgb 9.3 L (11.4-16.0) gm/dL Hct 31.1 L (34.0-46.0) % MCHC 29.8 L (31.0-37.0) g/dL RDW 24.6 H (11.5-15.5) % Neutrophils # (Manual) 32.60 H (1.3-7.7) k/uL Lymphocytes # (Manual) 0.33 L (1.0-4.8) k/uL Myelocytes # (Manual) 0.33 H (0) k/uL APTT 53.8 H (22.0-30.0) sec Microbiology - Last 24 Hours (Table) 03/01/19 15:20 Gram Stain - Preliminary Paracentesis Fluid Body Fluid Culture - Preliminary 02/25/19 17:24 Blood Culture - Preliminary Blood No Growth after 120 hours Assessment and Plan Plan: 53 year old female with metastatic NSCLC, epigastric discomfort and early satiety likely 2/2 progression in upper abdominal adenopathy. 1. Upper abdominal adenopathy: Patient is agreeable to a palliative course of XRT. Will plan on a 5 day course of therapy. She is hoping for discharge tomorrow; we will plan on having her come in for planning session Friday at 8:30 AM to the [facility]. I discussed case with med-onc EN[employer] PRESS OPERATOR, they will delay chemotherapy to allow for short course radiation. Patient understands this is due to toxicity concerns.
[2019-03-03] MEDS ORDERED: SODIUM CHLORIDE 0.9% 500 ML 500 ML IV ONE (21:54)
[2019-03-04 05:47] VITALS: BP 84/55; RESP 16; TEMP 97.4
[2019-03-04] MEDS: MORPHINE SULFATE 2 MG/ML SYRINGE IVP PRN (05:52)
[2019-03-04] MEDS: IPRATROPIUM-ALBUTEROL 3 ML NEB INHALATION SCH ×2 (08:24→12:20)
[2019-03-04] MEDS: FORMOTEROL FUMARATE 20 MCG/2 ML NEBU INHALATION SCH (08:24)
[2019-03-04] MEDS: BUDESONIDE 1 MG/2 ML NEBU INHALATION SCH (08:25)
[2019-03-04 08:36] LABS: ALT 19 U/L (9-52); AST 18 U/L (14-36); Albumin 2.6 g/dL (3.5-5.0); Alkaline Phosphatase 110 U/L (38-126); Anion Gap 3 mmol/L; Blood Urea Nitrogen 15 mg/dL (7-17); Carbon Dioxide 29 mmol/L (22-30); Chloride 104 mmol/L (98-107); Glucose 122 mg/dL (74-99); Potassium 4.6 mmol/L (3.5-5.1); Sodium 136 mmol/L (137-145); Total Bilirubin 0.4 mg/dL (0.2-1.3); Total Protein 5.1 g/dL (6.3-8.2)
[2019-03-04] MEDS: RIVAROXABAN 15 MG TAB PO SCH (09:00)
[2019-03-04] MEDS: FAMOTIDINE 20 MG TAB PO SCH (09:00)
[2019-03-04] MEDS: MULTIVITAMINS, THERA 1 EACH TAB PO SCH (09:00)
[2019-03-04] MEDS: DEXAMETHASONE 4 MG TAB PO SCH (09:01)
[2019-03-04] MEDS: PANTOPRAZOLE 40 MG TABLET PO SCH (09:01)
[2019-03-04] MEDS: PIPERACILLIN-TAZOBACTAM 3.375 GM in SODIUM CHLORIDE 0.9% 100 ML IVPB SCH (09:01)
[2019-03-04] MEDS: METOCLOPRAMIDE 5 MG TAB PO SCH ×2 (09:02→12:45)
--- NOTE | 2019-03-04 09:02 | P.DS ---
Providers Date of admission: 02/25/19 20:36 Expected date of discharge: 03/04/19 Attending physician: Yonis Burnham MD Consults: 02/25/19 20:35 Consult Physician Routine Consulting Provider: Wilman Perez Consult Reason/Comments: dyspnea Do you want consulting provider notified?: Yes Consult Physician Routine Consulting Provider: Raza Jensen Consult Reason/Comments: Oncological care Do you want consulting provider notified?: Yes 02/25/19 23:26 Consult Physician Routine Consulting Provider: Erica Johnson Consult Reason/Comments: compression fracture t11 Do you want consulting provider notified?: Yes, Notify in am 02/28/19 21:39 Consult Physician Routine Consulting Provider: Frantz Kimball Consult Reason/Comments: Eval for palliative RT to T spine, obstructing intra abdominal nodes Do you want consulting provider notified?: Yes, Notify in am Primary care physician: Pauline Harrington MD Hospital Course: Diagnoses at discharge: 1.Bilateral lower extremity DVTs 2. Intractable abdominal pain and bloating Likely due to mass effect, status post paracentesis 3. T11 compression fracture ,acute 4. postobstructive pneumonia 5. Adenocarcinoma of the lung, stage IV 6. COPD with chronic hypoxic respiratory failure 7. GERD/ Gastritis 8. Normocytic anemia, chronic iron deficiency 9. Severe protein calorie malnutrition 10. Debility 11. 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 she was found to be tachycardic with a heart rate of 123, hypotensive with blood pressure 60/48, and hypoxic with an oxygen saturation of 80% on 3.5 L nasal cannula. Initial laboratory analysis showed an elevated white blood cell count 39.5, hemoglobin 9.8, platelets 128, alkaline phosphatase elevated at 219. She underwent a chest x-ray followed by a CT of the chest. CT demonstrated no evidence of pulmonary embolism, increased mediastinal bronchial adenopathy consistent with tumor progression, and a right middle lobe mass like consolidation that was unchanged. There also found a new T11 compression fracture and extensive abdominal ascites. There was concern about possible pneumonia and she was started on antibiotics with Zosyn, IV fluids, and pain medications. She was admitted to the floor for further monitoring. Oncology and pulmonology were consulted. She underwent an abdominal ultrasound did not show enough fluid to perform a paracentesis. She underwent bilateral lower extremity venous Dopplers which showed bilateral lower extremity DVTs and she was started on Lovenox. MRI brain and cervical spine showed 3 mm flare lesion in the left frontal lobe as well as decreased signal within the vertebral bodies from 3-6 not likely metastatic in nature but recommended further assessment with bone scan. Pulmonary was concerned there may be a postobstructive pneumonia and she was started on Zosyn. She continued to struggle with abdominal fullness and early satiety. She underwent a paracentesis. She continued to be hypoxic and was arranged to have 2 L of oxygen at home. His frontal was prescribed and she has a coupon for outpatient usage. She'll continue to follow-up with oncology and radiation oncology for palliative course of XRT. She feels better, she was offered rehab but patient declines and wants to go home. Case management arranged for home with home health. Patient Condition at Discharge: Fair Plan - Discharge Summary Discharge Rx Participant: No New Discharge Prescriptions: New Rivaroxaban [Xarelto Starter Pack] 1 each PO DIRECTED #1 pkg No Action Multivitamins, Thera [Multivitamin (formulary)] 1 tab PO DAILY Albuterol Nebulized [Ventolin Nebulized] 2.5 mg INHALATION RT-BID PRN PRN Reason: Dyspnea Albuterol Inhaler [Ventolin Hfa Inhaler] 1 - 2 puff INHALATION RT-Q6H PRN PRN Reason: Shortness Of Breath Acetaminophen [Tylenol Extra Strength] 1,000 mg PO Q8H PRN PRN Reason: Pain Famotidine [Pepcid] 20 mg PO DAILY #60 tab Pantoprazole Sodium 40 mg PO BID #0 Budesonide-Formot 160-4.5 Mcg [Symbicort 160-4.5 Mcg Inhaler] 2 puff INHALATION BID #1 inhaler Dexamethasone 8 mg PO DIRECTED Discharge Medication List Multivitamins, Thera [Multivitamin (formulary)] 1 tab PO DAILY 09/14/16 [History] Albuterol Inhaler [Ventolin Hfa Inhaler] 1 - 2 puff INHALATION RT-Q6H PRN 02/04/18 [History] Albuterol Nebulized [Ventolin Nebulized] 2.5 mg INHALATION RT-BID PRN 11/23/17 [History] Acetaminophen [Tylenol Extra Strength] 1,000 mg PO Q8H PRN 12/21/18 [History] Budesonide-Formot 160-4.5 Mcg [Symbicort 160-4.5 Mcg Inhaler] 2 puff INHALATION BID #1 inhaler 12/23/18 [Rx] Famotidine [Pepcid] 20 mg PO DAILY #60 tab 12/23/18 [Rx] Pantoprazole Sodium 40 mg PO BID #0 12/23/18 [Rx] Dexamethasone 8 mg PO DIRECTED 02/25/19 [History] Rivaroxaban [Xarelto Starter Pack] 1 each PO DIRECTED #1 pkg 03/02/19 [Rx] Follow up Appointment(s)/Referral(s): [facility] [NON-STAFF] - 1 Week Pauline Harrington MD [Primary Care Provider] - 1-2 days Jose Guadalupe Lam PAC [PHYSICIAN INTERNET RESEARCHER] - 3 Weeks (Patient may follow-up with Jose Guadalupe Lam PA-C or Dr. Pablo Johnson at [facility] in 2-3 weeks following discharge. ) [facility], [NON-STAFF] - 1 Week Sd Phan MD [STAFF PHYSICIAN] - 03/05/19 8:30 am (Appointment at 1st floor [facility] Radation Oncology at 8:30am and will have Radiation Planning scan at 9am. Will probably be there approx 1 1/2 hours. ) Activity/Diet/Wound Care/Special Instructions: 1. Patient should avoid excessive bending, twisting, and lifting; no lifting greater than 10 pounds pt will be sent home with a transport chair Pt will be sent home with oxygen Discharge Disposition: HOME WITH HOME HEALTH SERVICES
[2019-03-04 09:22] LABS: Anisocytosis Marked; HCT 31.4 % (34.0-46.0); Hypochromasia Marked; MCH 28.2 pg (25.0-35.0); MCHC 28.7 g/dL (31.0-37.0); MCV 98.1 fL (80.0-100.0); Macrocytosis Moderate; Mean Platelet Volume 7.4; Platelet Count 392 k/uL (150-450); Poikilocytosis Slight; WBC 26.8 k/uL (3.8-10.6)
[2019-03-04 09:49] LABS: RDW 25.1 % (11.5-15.5)
[2019-03-04 11:11] LABS: Lymphocytes # (M) 0.54 k/uL (1.0-4.8); Monocytes # (M) 1.07 k/uL (0-1.0); Myelocytes # (M) 0.27 k/uL (0); Myelocytes % 1 %; Neutrophils # (M) 25.46 k/uL (1.3-7.7); Neutrophils % (M) 95 %; Nucleated Red Blood Cells 0 /100 WBC (0-0); Total Cells Counted 200
[2019-03-04 11:13] LABS: Polychromasia Present
[2019-03-04 11:23] LABS: Spherocytes Present
[2019-03-04 12:21] VITALS: PULSE 100
--- NOTE | 2019-03-04 15:21 | P.PN ---
Subjective Progress Note Date: 03/04/19 Principal diagnosis: Abdominal Ascites Patient seen and examined at bedside, feeling better and understands and agreeable to plan for radiation next week and follow-up, resume chemo the following week. Objective - Vital Signs Vital signs: Vital Signs Temp 97.4 F L 03/04/19 05:00 Pulse 100 03/04/19 12:31 Resp 16 03/04/19 05:00 BP 84/55 03/04/19 05:00 Pulse Ox 97 03/04/19 05:00 Intake & Output 03/03/19 03/04/19 03/04/19 18:59 06:59 18:59 Intake Total 200 1190 100 Balance 200 1190 100 Weight 78.471 kg Intake: Intake, IV Titration 600 100 Amount Piperacillin-Tazobactam 3 100 100 .375 gm In Sodium Chloride 0.9% 100 ml @ 25 mls/hr IVPB Q8HR LEA Rx# :[id number] Sodium Chloride 0.9% 500 500 ml 500 ml @ 999 mls/hr IV .Q31M ONE Rx#:[id number] Oral 200 590 Other: Voiding Method Bedside Commode Bedside Commode Bedside Commode Bedpan Bedpan Bedpan # Voids 1 # Bowel Movements 3 1 2 - Exam Constitutional General appearance: Present: no acute distress - EENT Eyes: Present: EOMI ENT: Present: hearing grossly normal, normal oropharynx - Respiratory Respiratory: right: diminished, rales - Cardiovascular Rhythm: regular Heart sounds: normal: S1, S2 - Gastrointestinal General gastrointestinal: Present: distended, normal bowel sounds Localized gastrointestinal: tender: RUQ, LUQ, epigastric periumbilical - Integumentary Integumentary: Present: normal - Neurologic Neurologic Comment(s): Strength in upper extremities, as well as sensation is normal Neurologic: Present: CNII-XII intact - Musculoskeletal Musculoskeletal Comment(s): Bilateral lower extremity edema Musculoskeletal: Present: generalized weakness, strength equal bilaterally - Labs CBC & Chem 7: 03/04/19 07:09 03/04/19 07:09 Labs: Abnormal Lab Results - Last 24 Hours (Table) 03/04/19 03/04/19 Range/Units 07:09 07:09 WBC 26.8 H (3.8-10.6) k/uL RBC 3.20 L (3.80-5.40) m/uL Hgb 9.0 L (11.4-16.0) gm/dL Hct 31.4 L (34.0-46.0) % MCHC 28.7 L (31.0-37.0) g/dL RDW 25.1 H (11.5-15.5) % Neutrophils # (Manual) 25.46 H (1.3-7.7) k/uL Lymphocytes # (Manual) 0.54 L (1.0-4.8) k/uL Monocytes # (Manual) 1.07 H (0-1.0) k/uL Myelocytes # (Manual) 0.27 H (0) k/uL Sodium 136 L (137-145) mmol/L Creatinine 0.46 L (0.52-1.04) mg/dL Glucose 122 H (74-99) mg/dL Total Protein 5.1 L (6.3-8.2) g/dL Albumin 2.6 L (3.5-5.0) g/dL Microbiology - Last 24 Hours (Table) 03/01/19 15:20 Gram Stain - Preliminary Paracentesis Fluid Body Fluid Culture - Preliminary 02/25/19 17:24 Blood Culture - Final Blood No Growth after 144 hours Assessment and Plan Plan: Adenocarcinoma of the lung with progressive disease: 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 - A CT of the abdomen and pelvis do show pressure effect with upper abdominal adenopathy on the gastroduodenal junction. This could be causing at least a component of her abdominal symptoms of bloating and pain. However does not appear to be brock obstruction. - Palliative Radiation to this area could potentially be an option, if we do not get a good enough response from systemic chemotherapy. New/Increased Abdominal Ascites: - Paracentesis ordered with fluid studies, cytology - unfortunetly IR reports there was insufficient fluid to drain - She had a CT of the abdomen and pelvis done, which noted probably moderate ascites. - The patient was also noted to have significant adenopathy, with possible compressive affects of upper abdominal nodes at the gastroduodenal junction. - On exam the patient still appears to have at least some degree of ascites. - Formal ultrasound will be ordered to assess amount of ascites to see if paracentesis can be performed. - We would prefer to have paracentesis done, even from the diagnostic standpoint if possible. - If paracentesis is planned, we will need to switch anticoagulation from Lovenox to IV heparin. T11 compression fracture: New compared to prior exams: - Evaluate further with MRI imaging - Assessment for unilater sensory or motor deficits - Ortho spine consult with - Radiation oncology to evaluate for short course of palliative radiation. - She has no evidence of cord compression. SIRS/SEPSIS - Hypotension, Tachycardia: - Consider infectious versus immune related - Will check cortisol level, TSH, Henson Enzymes Acute Exacerbation of COPD - Respiratory status is improved with ongoing treatment with steroids, and antibiotics. As noted previously, I suspect that there is likely some pneumonia caused by obstruction from progression from the primary site in the right lung Bilateral Deep Vein Thrombosis: New Acute - Lovenox therapeutic dosing to continue PLan: - Await cytology pleural fluid - Plan to hold Taxotere x2 weeks and move forward with 5 radiation starting Friday03/08/19. Resume chemo after completion of radiation - PT./OT recs regarding home PT/OT - She and agreeable to plan, will see in follow-up next week.
== END 2019-03-04 15:15 | disposition home health service (06) | DRG 871 ==
LOC: EC 16:17 → 3NMEDONC 20:36
PROVIDERS: ADMIT Internal Medicine; ATTEND Internal Medicine
PROC: 0W9G3ZZ Drainage of Peritoneal Cavity, Percutaneous Approach (ICD-10-PCS; principal; 2019-03-01)
DX: A41.9 Sepsis, unspecified organism (principal); E43 Unspecified severe protein-calorie malnutrition; J18.9 Pneumonia, unspecified organism; J96.21 Acute and chronic respiratory failure with hypoxia; C34.90 Malignant neoplasm of unspecified part of unspecified bronchus or lung; C74.92 Malignant neoplasm of unspecified part of left adrenal gland; C79.51 Secondary malignant neoplasm of bone; I82.403 Acute embolism and thrombosis of unspecified deep veins of lower extremity, bilateral; J44.0 Chronic obstructive pulmonary disease with (acute) lower respiratory infection; J44.1 Chronic obstructive pulmonary disease with (acute) exacerbation; J90 Pleural effusion, not elsewhere classified; M48.54XA Collapsed vertebra, not elsewhere classified, thoracic region, initial encounter for fracture; R18.8 Other ascites; C78.4 Secondary malignant neoplasm of small intestine; D50.9 Iron deficiency anemia, unspecified; Z68.30 Body mass index [BMI] 30.0-30.9, adult; G89.3 Neoplasm related pain (acute) (chronic); K21.9 Gastro-esophageal reflux disease without esophagitis; K29.70 Gastritis, unspecified, without bleeding; K29.80 Duodenitis without bleeding; Z51.5 Encounter for palliative care; Z79.51 Long term (current) use of inhaled steroids; Z80.1 Family history of malignant neoplasm of trachea, bronchus and lung; Z82.5 Family history of asthma and other chronic lower respiratory diseases; Z87.891 Personal history of nicotine dependence; Z99.81 Dependence on supplemental oxygen; Z79.899 Other long term (current) drug therapy
CPT/HCPCS: 36415; 49083; 70551; 71045; 71046; 71275; 72141; 74022; 74177; 76705; 80048; 80053; 82024; 82150; 82533; 82945; 83605; 83615; 83690; 83735; 84157; 84443; 84484; 85025; 85610; 85730; 87040; 87070; 87205; 87324; 88108; 88305; 88341; 88342; 89050; 93005; 93970; 94640; 94760; 96361; 96374; 96375; 99285

== ENCOUNTER 2019-03-04 17:42 | Inpatient (IN) | payer MEDICARE ==
--- NOTE | 2019-03-04 18:07 | ED ---
General Adult HPI - General Chief complaint: Weakness Stated complaint: weakness Time Seen by Provider: 03/04/19 17:45 Source: patient, RN notes reviewed Mode of arrival: ambulatory Limitations: no limitations - History of Present Illness Initial comments: This is a 53-year-old female with a past medical history significant for lung cancer which is metastasized to the abdomen. Patient was just released from the hospital and she states she has a large amount of fluid on her abdomen and legs but when she got home she was unable to get up and get around she was so weak. Patient states she also is noted she is short of breath. Patient states she le ft in this condition yesterday. Patient denies any chest pain or palpitations. Patient denies any abdominal pain. Patient denies any recent fever or chills. Patient denies headache patient denies numbness weakness. Patient denies lightheadedness or dizziness. - Related Data Home Medications Medication Instructions Recorded Confirmed Multivitamins, Thera [Multivitamin 1 tab PO DAILY 09/14/16 03/04/19 (formulary)] Albuterol Inhaler [Ventolin Hfa 1 - 2 puff INHALATION RT-Q6H PRN 11/23/17 03/04/19 Inhaler] Albuterol Nebulized [Ventolin 2.5 mg INHALATION RT-BID PRN 11/23/17 03/04/19 Nebulized] Rivaroxaban [Xarelto Starter Pack] See Taper PO DIRECTED 03/04/19 03/04/19 Previous Rx's Medication Instructions Recorded Famotidine [Pepcid] 20 mg PO DAILY #60 tab 12/23/18 Allergies Allergy/AdvReac Type Severity Reaction Status Date / Time Iodinated Contrast- Oral and AdvReac Nausea & Verified 03/04/19 18:52 IV Dye Vomiting Review of Systems ROS Statement: Those systems with pertinent positive or pertinent negative responses have been documented in the HPI. ROS Other: All systems not noted in ROS Statement are negative. Past Medical History Past Medical History: Cancer, COPD, GERD/Reflux, GI Bleed, Skin Disorder Additional Past Medical History / Comment(s): stage IV lung cancer dx. 2016- tx with chemo currently, hx eczema History of Any Multi-Drug Resistant Organisms: None Reported Past Surgical History: Orthopedic Surgery, Tubal Ligation Additional Past Surgical History / Comment(s): lung biopsy, left foot surgery, port inserted rt side Past Anesthesia/Blood Transfusion Reactions: No Reported Reaction Past Psychological History: No Psychological Hx Reported Smoking Status: Former smoker Past Alcohol Use History: None Reported Past Drug Use History: None Reported - Past Family History Father Family Medical History: Cancer Additional Family Medical History / Comment(s): lung cancer Mother Family Medical History: COPD Additional Family Medical History / Comment(s): Mother from complications of COPD. General Exam - General Exam Comments Initial Comments: GENERAL: Patient is well-developed and well-nourished. Patient is nontoxic and well- hydrated and is in mild distress. ENT: Neck is soft and supple. No significant lymphadenopathy is noted. Oropharynx is clear. Moist mucous membranes. Neck has full range of motion without eliciting any pain. EYES: The sclera were anicteric and conjunctiva were pink and moist. Extraocular movements were intact and pupils were equal round and reactive to light. Eyelids were unremarkable. PULMONARY: Patient has crackles throughout. CARDIOVASCULAR: There is a regular rate and rhythm without any murmurs gallops or rubs. ABDOMEN: Soft and nontender with normal bowel sounds. No palpable organomegaly was noted. There is no palpable pulsatile mass. SKIN: Skin is clear with no lesions or rashes and otherwise unremarkable. NEUROLOGIC: Patient is alert and oriented x3. Cranial nerves II through XII are grossly intact. Motor and sensory are also intact. Normal speech, volume and content. Symmetrical smile. MUSCULOSKELETAL: Normal extremities with adequate strength and full range of motion. She has 2+ edema bilateral legs patient has 1+ edema of the abdomen LYMPHATICS: No significant lymphadenopathy is noted PSYCHIATRIC: Normal psychiatric evaluation. Normal interpersonal interactions appears functionally intact in deals appropriately with others. No signs of depression. Limitations: no limitations Course Vital Signs 03/04/19 03/04/19 03/04/19 17:52 17:55 18:00 Temperature Pulse Rate 107 H 109 H Respiratory 20 19 Rate Blood Pressure 83/70 97/59 O2 Sat by Pulse 99 98 99 Oximetry 03/04/19 03/04/19 03/04/19 18:22 18:35 19:23 Temperature 97.9 F 97.9 F Pulse Rate 106 H 111 H Respiratory 20 16 Rate Blood Pressure 101/60 102/70 O2 Sat by Pulse 99 96 Oximetry Medical Decision Making - Medical Decision Making EKG shows sinus tachycardia at 108 bpm. It was 124 tresses 86 QT interval 290 QTC is 388. Patient's EKG shows some T-wave inversions inferiorly and slight ST depression in leads V3 through V6. These abnormalities are seen on an old EKG I placed a Thomas catheter and the patient. Chest x-ray shows no acute change from the previous x-ray. I spoke with some physicians he agreed to admit the patient admitted the patient. - Lab Data Result diagrams: 03/04/19 18:00 03/04/19 18:00 Lab Results 03/04/19 03/04/19 03/04/19 Range/Units 18:00 18:00 18:00 WBC 34.1 H (3.8-10.6) k/uL RBC 3.48 L (3.80-5.40) m/uL Hgb 9.8 L (11.4-16.0) gm/dL Hct 33.4 L (34.0-46.0) % MCV 96.1 (80.0-100.0) fL MCH 28.3 (25.0-35.0) pg MCHC 29.4 L (31.0-37.0) g/dL RDW 25.0 H (11.5-15.5) % Plt Count 455 H (150-450) k/uL Neutrophils % (Manual) 93 % Band Neutrophils % 1 % Lymphocytes % (Manual) 3 % Monocytes % (Manual) 4 % Metamyelocytes % 1 % Neutrophils # (Manual) 32.00 H (1.3-7.7) k/uL Lymphocytes # (Manual) 1.02 (1.0-4.8) k/uL Monocytes # (Manual) 1.36 H (0-1.0) k/uL Metamyelocytes # (Man) 0.34 H (0) k/uL Nucleated RBCs 0 (0-0) /100 WBC Manual Slide Review Performed Polychromasia Present Hypochromasia Marked Poikilocytosis Slight Anisocytosis Marked Macrocytosis Moderate PT (9.0-12.0) sec INR (<1.2) APTT (22.0-30.0) sec Sodium 134 L (137-145) mmol/L Potassium 5.3 H (3.5-5.1) mmol/L Chloride 103 (98-107) mmol/L Carbon Dioxide 28 (22-30) mmol/L Anion Gap 3 mmol/L BUN 14 (7-17) mg/dL Creatinine 0.41 L (0.52-1.04) mg/dL Est GFR (CKD-EPI)AfAm >90 (>60 ml/min/1.73 sqM) Est GFR (CKD-EPI)NonAf >90 (>60 ml/min/1.73 sqM) Glucose 125 H (74-99) mg/dL Calcium 9.7 (8.4-10.2) mg/dL Magnesium 1.6 (1.6-2.3) mg/dL Total Bilirubin 0.5 (0.2-1.3) mg/dL AST 32 (14-36) U/L ALT 10 (9-52) U/L Alkaline Phosphatase 118 (38-126) U/L Troponin I (0.000-0.034) ng/mL NT-Pro-B Natriuret Pep 431 pg/mL Total Protein 5.5 L (6.3-8.2) g/dL Albumin 2.8 L (3.5-5.0) g/dL Urine Color Urine Appearance (Clear) Urine pH (5.0-8.0) Ur Specific [place] (1.001-1.035) Urine Protein (Negative) Urine Glucose (UA) (Negative) Urine Ketones (Negative) Urine Blood (Negative) Urine Nitrite (Negative) Urine Bilirubin (Negative) Urine Urobilinogen (<2.0) mg/dL Ur Leukocyte Esterase (Negative) 03/04/19 03/04/19 03/04/19 Range/Units 18:00 18:00 19:13 WBC (3.8-10.6) k/uL RBC (3.80-5.40) m/uL Hgb (11.4-16.0) gm/dL Hct (34.0-46.0) % MCV (80.0-100.0) fL MCH (25.0-35.0) pg MCHC (31.0-37.0) g/dL RDW (11.5-15.5) % Plt Count (150-450) k/uL Neutrophils % (Manual) % Band Neutrophils % % Lymphocytes % (Manual) % Monocytes % (Manual) % Metamyelocytes % % Neutrophils # (Manual) (1.3-7.7) k/uL Lymphocytes # (Manual) (1.0-4.8) k/uL Monocytes # (Manual) (0-1.0) k/uL Metamyelocytes # (Man) (0) k/uL Nucleated RBCs (0-0) /100 WBC Manual Slide Review Polychromasia Hypochromasia Poikilocytosis Anisocytosis Macrocytosis PT 12.6 H (9.0-12.0) sec INR 1.2 H (<1.2) APTT 22.1 (22.0-30.0) sec Sodium (137-145) mmol/L Potassium (3.5-5.1) mmol/L Chloride (98-107) mmol/L Carbon Dioxide (22-30) mmol/L Anion Gap mmol/L BUN (7-17) mg/dL Creatinine (0.52-1.04) mg/dL Est GFR (CKD-EPI)AfAm (>60 ml/min/1.73 sqM) Est GFR (CKD-EPI)NonAf (>60 ml/min/1.73 sqM) Glucose (74-99) mg/dL Calcium (8.4-10.2) mg/dL Magnesium (1.6-2.3) mg/dL Total Bilirubin (0.2-1.3) mg/dL AST (14-36) U/L ALT (9-52) U/L Alkaline Phosphatase (38-126) U/L Troponin I <0.012 (0.000-0.034) ng/mL NT-Pro-B Natriuret Pep pg/mL Total Protein (6.3-8.2) g/dL Albumin (3.5-5.0) g/dL Urine Color Yellow Urine Appearance Clear (Clear) Urine pH 5.5 (5.0-8.0) Ur Specific [place] 1.016 (1.001-1.035) Urine Protein Trace H (Negative) Urine Glucose (UA) Negative (Negative) Urine Ketones Negative (Negative) Urine Blood Negative (Negative) Urine Nitrite Negative (Negative) Urine Bilirubin Negative (Negative) Urine Urobilinogen <2.0 (<2.0) mg/dL Ur Leukocyte Esterase Negative (Negative) Disposition Clinical Impression: Anasarca, Dyspnea, Generalized weakness Disposition: ADMITTED IP TO THIS [facility] Referrals: Pauline Harrington MD [Primary Care Provider] - 1-2 days Time of Disposition: 20:27
[2019-03-04] MEDS ORDERED: FUROSEMIDE 10 MG/ML 2 ML VIAL IV STA (18:31)
[2019-03-04 18:39] LABS: ALT 10 U/L (9-52); AST 32 U/L (14-36); Albumin 2.8 g/dL (3.5-5.0); Alkaline Phosphatase 118 U/L (38-126); Anion Gap 3 mmol/L; Blood Urea Nitrogen 14 mg/dL (7-17); Calcium 9.7 mg/dL (8.4-10.2); Carbon Dioxide 28 mmol/L (22-30); Chloride 103 mmol/L (98-107); Glucose 125 mg/dL (74-99); Magnesium 1.6 mg/dL (1.6-2.3); Potassium 5.3 mmol/L (3.5-5.1); Sodium 134 mmol/L (137-145); Total Bilirubin 0.5 mg/dL (0.2-1.3); Total Protein 5.5 g/dL (6.3-8.2)
[2019-03-04 18:48] LABS: INR 1.2 (<1.2); Partial Thromboplastin Time 22.1 sec (22.0-30.0); Prothrombin Time 12.6 sec (9.0-12.0)
[2019-03-04 18:49] LABS: Anisocytosis Marked; HCT 33.4 % (34.0-46.0); HGB 9.8 gm/dL (11.4-16.0); Hypochromasia Marked; MCH 28.3 pg (25.0-35.0); MCHC 29.4 g/dL (31.0-37.0); MCV 96.1 fL (80.0-100.0); Macrocytosis Moderate; Mean Platelet Volume 7.4; Platelet Count 455 k/uL (150-450); Poikilocytosis Slight; RBC 3.48 m/uL (3.80-5.40); WBC 34.1 k/uL (3.8-10.6)
[2019-03-04 19:04] LABS: Band Neutrophils % 1 %; Lymphocytes # (M) 1.02 k/uL (1.0-4.8); Metamyelocytes # (M) 0.34 k/uL (0); Metamyelocytes % 1 %; Monocytes # (M) 1.36 k/uL (0-1.0); Neutrophils % (M) 93 %; Nucleated Red Blood Cells 0 /100 WBC (0-0); Total Cells Counted 200
[2019-03-04 19:05] LABS: Polychromasia Present
[2019-03-04 19:26] LABS: Appearance,Urine Clear (Clear); Bilirubin,Urine Negative (Negative); Blood,Urine Negative (Negative); Color,Urine Yellow; Glucose,Urine (UA) Negative (Negative); Ketones,Urine Negative (Negative); Leukocyte Esterase,Urine Negative (Negative); Nitrite,Urine Negative (Negative); PH, Urine 5.5 (5.0-8.0); Protein,Urine Trace (Negative); Specific Gravity,Urine 1.016 (1.001-1.035); Urobilinogen,Urine <2.0 mg/dL (<2.0)
--- NOTE | 2019-03-04 19:47 | XR ---
EXAMINATION TYPE: XR chest 2V DATE OF EXAM: 03/04/2019 COMPARISON: 03/01/2019 HISTORY: Weakness TECHNIQUE: Frontal and lateral views of the chest are obtained. FINDINGS: There is extensive airspace consolidation in the right midlung field. There is right centr al venous catheter with the tip in the superior vena cava. Left lung is fairly clear. There is eviden ce of bilateral bronchial adenopathy. Trachea is deviated to the right side. There is some blunting o f the costophrenic angles. IMPRESSION: Consolidation and volume loss in the right lung. Small pleural effusions. No significant change. Bronchial adenopathy.
[2019-03-05] MEDS ORDERED: SODIUM POLYSTYRENE SULFONATE 15 GM/60 ML BOTTLE PO ONE (00:29)
--- NOTE | 2019-03-05 00:33 | P.HPIM ---
History of Present Illness H&P Date: 03/04/19 The patient is a 53-year-old female with a PMH of stage IV lung adenocarcinoma undergoing chemotherapy with Taxotere, intractable abdominal pain secondary to metastasis to the stomach with recent GI bleeding, chronic hypoxic respiratory failure (discharged on home oxygen), bilateral lower extremity DVTs, T11 compression fracture secondary to metastasis, presented to the ED for weakness and lethargy. The patient was discharged earlier today after a one-week hospital course she was admitted for hypoxic respiratory failure and was noted to have postobstructive pneumonia secondary to progression of her metastatic and primary disease. The patient was previously evaluated by physical therapy who had recommended rehab, the patient however refused at that time and had opted to be discharged home instead with home health. Following discharge, once she arrived at home, she was unable to get out of her couch and her was unable to assist her out of it as well. She subsequently activated EMS and return to the ED. The patient is complaining of 6 out of 10 epigastric abdominal pain, similar to the pain at discharge earlier today. She also endorsed a chronic shortness of breath though was manageable with oxygen at home. She otherwise is denying fever, chills, chest pain, nausea, vomiting, diarrhea, dizziness, or headaches. She underwent an extensive evaluation in the ED with WBC count 34.1, hemoglobin 9.8, platelets 455, sodium 134, potassium 5.3, creatinine 0.41. The patient was subsequently admitted to the medicine service due to debility. Review of Systems Pertinent positives and negatives as discussed in HPI, a complete review of systems was performed and all other systems are negative. Past Medical History Past Medical History: Cancer, COPD, GERD/Reflux, GI Bleed Additional Past Medical History / Comment(s): stage IV lung cancer dx. 2016- tx with chemo and radiation( new for 2019) Last chemo 3 weeks ago, cancer has mets to abdomen,patient and spouse state she is supposed to start Radiaiton nomi 03/05 History of Any Multi-Drug Resistant Organisms: None Reported Past Surgical History: Orthopedic Surgery, Tubal Ligation Additional Past Surgical History / Comment(s): lung biopsy, left foot surgery, port inserted rt side x2, Past Anesthesia/Blood Transfusion Reactions: No Reported Reaction Past Psychological History: No Psychological Hx Reported Additional Psychological History / Comment(s): Pt has clausterphobia. She resides with her spouse. She has a nebulizer and has home oxygen, normally at 3L [place]. She no longer drives, her spouse takes her to [employer]. Smoking Status: Former smoker Past Alcohol Use History: None Reported Additional Past Alcohol Use History / Comment(s): SMOKED 1 PPD FOR 30-35 YEARS. QUIT SMOKING AUG 2016 Past Drug Use History: None Reported - Past Family History Father Family Medical History: Cancer Additional Family Medical History / Comment(s): Lung cancer and from this. Mother Family Medical History: COPD Additional Family Medical History / Comment(s): Mother from complications of COPD. Medications and Allergies Home Medications Medication Instructions Recorded Confirmed Type Multivitamins, Thera [Multivitamin 1 tab PO DAILY 09/14/16 03/04/19 History (formulary)] Albuterol Inhaler [Ventolin Hfa 1 - 2 puff INHALATION RT-Q6H PRN 11/23/17 03/04/19 History Inhaler] Albuterol Nebulized [Ventolin 2.5 mg INHALATION RT-BID PRN 11/23/17 03/04/19 History Nebulized] Famotidine [Pepcid] 20 mg PO DAILY #60 tab 12/23/18 03/04/19 Rx Rivaroxaban [Xarelto Starter Pack] See Taper PO DIRECTED 03/04/19 03/04/19 History Allergies Allergy/AdvReac Type Severity Reaction Status Date / Time Iodinated Contrast- Oral and AdvReac Nausea & Verified 03/04/19 18:52 IV Dye Vomiting Physical Exam Vitals: Vital Signs Temp Pulse Pulse Resp BP BP Pulse Ox 03/04/19 21:37 97.8 F 115 H 18 93/52 03/04/19 20:59 99.1 F 115 H 17 109/64 98 03/04/19 20:29 97.9 F 105 H 16 107/58 97 03/04/19 19:23 97.9 F 111 H 16 102/70 96 03/04/19 18:35 106 H 20 101/60 99 03/04/19 18:22 97.9 F 03/04/19 18:00 109 H 19 97/59 99 03/04/19 17:55 98 03/04/19 17:52 107 H 20 83/70 99 Intake and Output 03/04/19 03/04/19 03/05/19 14:59 22:59 06:59 Intake Total 240 Output Total 325 Balance -85 Intake: Oral 240 Output: Urine 325 Other: Voiding Method Indwelling Catheter # Voids 4 # Bowel Movements 2 Weight 77.111 kg General: non toxic, no distress, appears older than stated age, normal weight Derm: no unusual rashes/lesions no unusual ecchymoses, warm, dry Head: atraumatic, normocephalic, symmetric Eyes: EOMI, no lid lag, anicteric sclera, pupils equal round reactive to light ENT: Nose and ears atraumatic, no thrush, no pharyngeal erythema Neck: No thyromegaly, no cervical lymphadenopathy, trachea midline, supple Mouth: no lip lesion, mucus membranes moist Cardiovascular: S1S2 reg, no murmur, positive posterior tibial pulse bilateral, no edema, capillary refill less than 2 seconds Lungs: CTA bilateral, no rhonchi, no rales , no accessory muscle use Abdominal: soft, epigastric tenderness to palpation, no guarding, no appreciable organomegaly, normal bowel sounds Ext: no gross muscle atrophy, muscle strength 3 out of 5 in all 4 extremities grossly, no contractures, Neuro: CN II-XI grossly intact, light touch intact all 4 extremities, finger to nose within normal limits, Psych: Alert, oriented, appropriate affect Results CBC & Chem 7: 03/04/19 18:00 03/04/19 18:00 Labs: Abnormal Lab Results - Last 24 Hours (Table) 03/04/19 03/04/19 03/04/19 Range/Units 18:00 18:00 18:00 WBC 34.1 H (3.8-10.6) k/uL RBC 3.48 L (3.80-5.40) m/uL Hgb 9.8 L (11.4-16.0) gm/dL Hct 33.4 L (34.0-46.0) % MCHC 29.4 L (31.0-37.0) g/dL RDW 25.0 H (11.5-15.5) % Plt Count 455 H (150-450) k/uL Neutrophils # (Manual) 32.00 H (1.3-7.7) k/uL Monocytes # (Manual) 1.36 H (0-1.0) k/uL Metamyelocytes # (Man) 0.34 H (0) k/uL PT 12.6 H (9.0-12.0) sec INR 1.2 H (<1.2) Sodium 134 L (137-145) mmol/L Potassium 5.3 H (3.5-5.1) mmol/L Creatinine 0.41 L (0.52-1.04) mg/dL Glucose 125 H (74-99) mg/dL Total Protein 5.5 L (6.3-8.2) g/dL Albumin 2.8 L (3.5-5.0) g/dL Urine Protein (Negative) 03/04/19 Range/Units 19:13 WBC (3.8-10.6) k/uL RBC (3.80-5.40) m/uL Hgb (11.4-16.0) gm/dL Hct (34.0-46.0) % MCHC (31.0-37.0) g/dL RDW (11.5-15.5) % Plt Count (150-450) k/uL Neutrophils # (Manual) (1.3-7.7) k/uL Monocytes # (Manual) (0-1.0) k/uL Metamyelocytes # (Man) (0) k/uL PT (9.0-12.0) sec INR (<1.2) Sodium (137-145) mmol/L Potassium (3.5-5.1) mmol/L Creatinine (0.52-1.04) mg/dL Glucose (74-99) mg/dL Total Protein (6.3-8.2) g/dL Albumin (3.5-5.0) g/dL Urine Protein Trace H (Negative) Thrombosis Risk Factor Assmnt - Choose All That Apply Each Factor Represents 1 point: Age 41-60 years, Medical pt on bed rest, Swollen legs (current) Other Risk Factors: No Other congenital or acquired thrombophilia - If yes, enter type in comment: No Thrombosis Risk Factor Assessment Total Risk Factor Score: 3 Thrombosis Risk Factor Assessment Level: Moderate Risk Assessment and Plan Plan: Debility -Physical therapy consult -Likely will be discharged to rehab facility Leukocytosis, likely reactive from malignancy -Monitor for now Hyperkalemia -Correct and monitor Borderline BP -Patient tends to run low -Will monitor for now Bilateral lower extremity DVTs -Continue with Xarelto Intractable abdominal pain -Continue with Eldred and morphine T11 compression fracture -Continue with pain control Stage IV lung adenocarcinoma -On Taxotere chemotherapy COPD w/ chronic hypoxic respiratory failure -C/w supplemental oxygen 2 L DVT prophylaxis -Xarelto
[2019-03-05] MEDS: MORPHINE SULFATE 2 MG/ML SYRINGE IVP PRN ×3 (00:45→16:15)
--- NOTE | 2019-03-05 08:18 | P.PN ---
Subjective Progress Note Date: 03/05/19 Principal diagnosis: Weakness HPI: The patient is a 53-year-old female with a PMH of stage IV lung adenocarcinoma undergoing chemotherapy with Taxotere, intractable abdominal pain secondary to metastasis to the stomach with recent GI bleeding, chronic hypoxic respiratory failure (discharged on home oxygen), bilateral lower extremity DVTs, T11 compression fracture secondary to metastasis, presented to the ED for weakness and lethargy. The patient was discharged earlier today after a one-week hospital course she was admitted for hypoxic respiratory failure and was noted to have postobstructive pneumonia secondary to progression of her metastatic and primary disease. The patient was previously evaluated by physical therapy who had recommended rehab, the patient however refused at that time and had opted to be discharged home instead with home health. Following discharge, once she arrived at home, she was unable to get out of her couch and her was unable to assist her out of it as well. She subsequently activated EMS and return to the ED. The patient is complaining of 6 out of 10 epigastric abdominal pain, similar to the pain at discharge earlier today. She also endorsed a chronic shortness of breath though was manageable with oxygen at home. She otherwise is denying fever, chills, chest pain, nausea, vomiting, diarrhea, dizziness, or headaches. She underwent an extensive evaluation in the ED with WBC count 34.1, hemoglobin 9.8, platelets 455, sodium 134, potassium 5.3, creatinine 0.41. The patient was subsequently admitted to the medicine service due to debility. 03/05/2019: Patient feels okay, abdominal pain is acceptable and likely at baseline, she continued to be physically weak. She was asking for a breathing treatment. She denies chest pain, no dysuria hematuria or hematemesis. Objective - Vital Signs Vital signs: Vital Signs Temp 97.6 F 03/05/19 05:00 Pulse 113 H 03/05/19 05:00 Resp 18 03/05/19 05:00 BP 104/58 03/05/19 05:00 Pulse Ox 97 03/05/19 05:00 Intake & Output 03/04/19 03/05/19 03/05/19 18:59 06:59 18:59 Intake Total 720 Output Total 325 Balance 395 Weight 77.111 kg Intake: Oral 720 Output: Urine 325 Other: Voiding Method Indwelling Catheter # Voids 4 # Bowel Movements 1 - Exam General: non toxic, no distress, Derm: no unusual rashes/lesions warm Head: atraumatic, normocephalic, symmetric Eyes: EOMI, no lid lag ENT: Nose and ears atraumatic Neck: No thyromegaly, trachea midline, supple Mouth: no lip lesion Cardiovascular: S1S2 reg, no murmur, 1+ edema Lungs: CTA bilateral, no rhonchi, no rales , no accessory muscle use Abdominal: soft, mild epigastric tenderness , no guarding, normal bowel sounds Ext: no gross muscle atrophy, muscle strength 3 out of 5 in all 4 extremities grossly Neuro: CN II-XI grossly intact Psych: Alert, oriented, appropriate affect - Labs CBC & Chem 7: 03/04/19 18:00 03/04/19 18:00 Labs: Abnormal Lab Results - Last 24 Hours (Table) 03/04/19 03/04/19 03/04/19 Range/Units 18:00 18:00 18:00 WBC 34.1 H (3.8-10.6) k/uL RBC 3.48 L (3.80-5.40) m/uL Hgb 9.8 L (11.4-16.0) gm/dL Hct 33.4 L (34.0-46.0) % MCHC 29.4 L (31.0-37.0) g/dL RDW 25.0 H (11.5-15.5) % Plt Count 455 H (150-450) k/uL Neutrophils # (Manual) 32.00 H (1.3-7.7) k/uL Monocytes # (Manual) 1.36 H (0-1.0) k/uL Metamyelocytes # (Man) 0.34 H (0) k/uL PT 12.6 H (9.0-12.0) sec INR 1.2 H (<1.2) Sodium 134 L (137-145) mmol/L Potassium 5.3 H (3.5-5.1) mmol/L Creatinine 0.41 L (0.52-1.04) mg/dL Glucose 125 H (74-99) mg/dL Total Protein 5.5 L (6.3-8.2) g/dL Albumin 2.8 L (3.5-5.0) g/dL Urine Protein (Negative) 03/04/19 Range/Units 19:13 WBC (3.8-10.6) k/uL RBC (3.80-5.40) m/uL Hgb (11.4-16.0) gm/dL Hct (34.0-46.0) % MCHC (31.0-37.0) g/dL RDW (11.5-15.5) % Plt Count (150-450) k/uL Neutrophils # (Manual) (1.3-7.7) k/uL Monocytes # (Manual) (0-1.0) k/uL Metamyelocytes # (Man) (0) k/uL PT (9.0-12.0) sec INR (<1.2) Sodium (137-145) mmol/L Potassium (3.5-5.1) mmol/L Creatinine (0.52-1.04) mg/dL Glucose (74-99) mg/dL Total Protein (6.3-8.2) g/dL Albumin (3.5-5.0) g/dL Urine Protein Trace H (Negative) Assessment and Plan Plan: Debility -Physical therapy consult -She will need rehab at the time of discharge, patient is agreeable. Leukocytosis, likely reactive from malignancy -Monitor for now, WBC has been stable at 33-34. Hyperkalemia -K 5.3, continue to monitor Borderline hypotension Improved, monitor closely Bilateral lower extremity DVTs -Continue with Xarelto Intractable abdominal pain secondary to mass effect -Continue with Circle and morphine T11 compression fracture -Continue with pain control as indicated Stage IV lung adenocarcinoma -On Taxotere chemotherapy, follow-up with oncology and radiation therapy as an outpatient COPD with chronic hypoxic respiratory failure requiring home oxygen -Continue oxygen, and bronchodilators with DuoNeb Hypervolemia On IV Lasix 40 mg twice a day, monitor closely DVT prophylaxis -Xarelto Disposition: Needs rehab, case management/social media director assisting
[2019-03-05] MEDS: FUROSEMIDE 10 MG/ML 4 ML VIAL IV SCH ×2 (08:33→20:17)
[2019-03-05] MEDS: RIVAROXABAN 15 MG TAB PO SCH ×2 (08:33→18:04)
[2019-03-05] MEDS: IPRATROPIUM-ALBUTEROL 3 ML NEB INHALATION PRN ×5 (08:42→23:18)
[2019-03-05 08:54] LABS: Anisocytosis Marked; HCT 31.9 % (34.0-46.0); HGB 9.8 gm/dL (11.4-16.0); Hypochromasia Marked; MCH 29.6 pg (25.0-35.0); MCHC 30.8 g/dL (31.0-37.0); Macrocytosis Moderate; Mean Platelet Volume 7.3; Platelet Count 372 k/uL (150-450); Poikilocytosis Slight; RBC 3.33 m/uL (3.80-5.40); RDW 24.6 % (11.5-15.5)
[2019-03-05 09:10] LABS: Anion Gap 3 mmol/L; Blood Urea Nitrogen 13 mg/dL (7-17); Calcium 9.3 mg/dL (8.4-10.2); Carbon Dioxide 31 mmol/L (22-30); Chloride 101 mmol/L (98-107); Glucose 95 mg/dL (74-99); Sodium 135 mmol/L (137-145)
[2019-03-05 15:58] VITALS: BMI 30.1
[2019-03-05] MEDS: HYDROcodone/APAP 5-325MG 1 EACH TAB PO PRN (20:17)
--- NOTE | 2019-03-06 01:35 | P.CONS ---
History of Present Illness - Reason for Consult Consult date: 03/05/19 Metastatic lung ca on chemo, weakness - History of Present Illness The patient is a 53-year-old white female, well known to myself. She was initially seen in consult in 09/04 when she was diagnosed with metastatic adenocarcinoma of the lung. The patient was treated with carboplatin, Alimta and Avastin and subsequently enjoyed prolonged disease control with maintenance Alimta and Avastin. On progression, she was treated with anti-PDL-1 therapy, but progressed after a few months, on CAT scans done in 02/05. She was then started on Taxotere and is status post 1 cycle. She was admitted last week with symptoms of sepsis, abdominal distention, nausea and vomiting. She was also found to have bilateral lower extremity DVT. Source of sepsis was felt to be possibly right lower lung postobstructive pneumonia versus intra-abdominal. The patient did improve with treatment, and was discharged on 03/04/19. She was to follow-up in the office on 03/05/19 to get radiation to intra- abdominal nodes to causing partial obstruction of the stomach, and pain. However at home the patient was extremely weak to the point where she could not get of the outpatient she also noted some progressive lower extremity swelling. Therefore came back to the hospital and was admitted for further management He denied any fevers or chills. She is on oxygen [id number] and felt that her respiratory status is stable compared to discharge Review of Systems Constitutional: Reports chronic pain, Reports fatigue, Reports poor appetite, Reports weight loss Eyes: denies blurred vision, denies pain Ears: deny: decreased hearing, ear discharge, earache, tinnitus Ears, nose, mouth and throat: Denies headache, Denies sore throat Cardiovascular: Reports dyspnea on exertion, Reports edema Respiratory: Reports dyspnea, Reports home oxygen Gastrointestinal: Reports abdominal pain, Reports bloating, Reports nausea, Reports vomiting Genitourinary: Denies dysuria, Denies hematuria Menstruation: Reports postmenopausal Musculoskeletal: Reports muscle weakness Integumentary: Denies pruritus, Denies rash Neurological: Reports weakness Psychiatric: Denies anxiety, Denies depression Endocrine: Reports fatigue, Reports weight change Hematologic/Lymphatic: Reports as per HPI, Reports lymphadenopathy Past Medical History Past Medical History: Cancer, COPD, GERD/Reflux, GI Bleed Additional Past Medical History / Comment(s): stage IV lung cancer dx. 2015- tx with chemo and radiation( new for 2019) Last chemo 3 weeks ago, cancer has mets to abdomen,patient and spouse state she is supposed to start Radiaiton nomi 03/05 History of Any Multi-Drug Resistant Organisms: None Reported Past Surgical History: Orthopedic Surgery, Tubal Ligation Additional Past Surgical History / Comment(s): lung biopsy, left foot surgery, port inserted rt side x2, Past Anesthesia/Blood Transfusion Reactions: No Reported Reaction Past Psychological History: No Psychological Hx Reported Additional Psychological History / Comment(s): Pt has clausterphobia. She resides with her spouse. She has a nebulizer and has home oxygen, normally at 3L [place]. She no longer drives, her spouse takes her to [employer]. Smoking Status: Former smoker Past Alcohol Use History: None Reported Additional Past Alcohol Use History / Comment(s): SMOKED 1 PPD FOR 30-35 YEARS. QUIT SMOKING AUG 2016 Past Drug Use History: None Reported - Past Family History Father Family Medical History: Cancer Additional Family Medical History / Comment(s): Lung cancer and from this. Mother Family Medical History: COPD Additional Family Medical History / Comment(s): Mother from complications of COPD. Medications and Allergies Home Medications Medication Instructions Recorded Confirmed Type Multivitamins, Thera [Multivitamin 1 tab PO DAILY 09/14/16 03/04/19 History (formulary)] Albuterol Inhaler [Ventolin Hfa 1 - 2 puff INHALATION RT-Q6H PRN 11/23/17 03/04/19 History Inhaler] Albuterol Nebulized [Ventolin 2.5 mg INHALATION RT-BID PRN 11/23/17 03/04/19 History Nebulized] Famotidine [Pepcid] 20 mg PO DAILY #60 tab 12/23/18 03/04/19 Rx Rivaroxaban [Xarelto Starter Pack] See Taper PO DIRECTED 03/04/19 03/04/19 History Allergies Allergy/AdvReac Type Severity Reaction Status Date / Time Iodinated Contrast- Oral and AdvReac Nausea & Verified 03/04/19 18:52 IV Dye Vomiting Physical Exam Vitals: Vital Signs Temp Pulse Pulse Resp BP Pulse Ox 03/05/19 23:31 108 H 03/05/19 23:19 108 H 03/05/19 20:37 98.7 F 124 H 20 101/52 100 03/05/19 19:59 118 H 03/05/19 19:50 118 H 03/05/19 16:33 127 H 100/52 03/05/19 15:32 105 H 03/05/19 15:24 105 H 03/05/19 12:37 100 03/05/19 12:26 100 03/05/19 12:18 97.8 F 122 H 18 95/51 99 03/05/19 08:51 108 H 03/05/19 08:45 97 03/05/19 08:40 108 H 03/05/19 05:00 97.6 F 113 H 18 104/58 97 Intake and Output 03/05/19 03/05/19 03/06/19 14:59 22:59 06:59 Output Total 800 Balance -800 Output: Urine 800 Other: Voiding Method Indwelling Catheter Bedpan # Voids 1 # Bowel Movements 1 Weight 77.111 kg - Constitutional General appearance: no acute distress - EENT Eyes: EOMI, PERRLA ENT: hearing grossly normal, normal oropharynx - Neck Neck: no lymphadenopathy Thyroid: bilateral: normal size - Respiratory Respiratory: right: diminished (aeration partially improved), rales - Cardiovascular Rhythm: regular Heart sounds: normal: S1, S2 - Gastrointestinal General gastrointestinal: normal bowel sounds, soft - Integumentary Integumentary: normal - Neurologic Neurologic: CNII-XII intact - Musculoskeletal B/L LE 2+ edema Musculoskeletal: generalized weakness - Psychiatric Psychiatric: A&O x's 3, appropriate affect Results CBC & Chem 7: 03/05/19 07:55 03/05/19 07:55 Labs: Abnormal Lab Results - Last 24 Hours (Table) 03/05/19 03/05/19 Range/Units 07:55 07:55 WBC 28.0 H (3.8-10.6) k/uL RBC 3.33 L (3.80-5.40) m/uL Hgb 9.8 L (11.4-16.0) gm/dL Hct 31.9 L (34.0-46.0) % MCHC 30.8 L (31.0-37.0) g/dL RDW 24.6 H (11.5-15.5) % Sodium 135 L (137-145) mmol/L Carbon Dioxide 31 H (22-30) mmol/L Creatinine 0.47 L (0.52-1.04) mg/dL Assessment and Plan (1) Generalized weakness Narrative/Plan: This is multifactorial, due to recent hospitalization for sepsis and hypoxia, malnutrition, recently progressive malignancy and chronic hypoxia, as well as effects of chemotherapy. At this time there is no clinical evidence of recurrent infection - Physical therapy - Oxygen supplementation - Continued to attempt to advance nutrition. Patient is able to tolerate liquids. - Effects related to chemotherapy would be expected to improve, as he gets further out from treatment. She is already 3 weeks out - Possibility of subacute versus inpatient rehab Current Visit: Yes Status: Acute Code(s): R53.1 - WEAKNESS SNOMED Code(s): 53408024 (2) Adenocarcinoma of lung Narrative/Plan: Diagnostic and therapeutic circumstances as described. The patient has had recent major and rapid progression. Therefore she has been changed to a new regimen. She has had only 1 cycle of the same. At least a component of her symptoms may be related to cancer progression and/or effects of treatment. Currently, she is being assessed for palliative radiation to abdominal lymph nodes. At this time the plan is to resume chemotherapy after completion of palliative radiation. At this time is too early to assess if the chemotherapy is effective or not. However if her performance status remains as compromise, then inability to tolerate additional chemotherapy may be questionable Current Visit: No Status: Acute Code(s): C34.90 - MALIGNANT NEOPLASM OF UNSP PART OF UNSP BRONCHUS OR LUNG SNOMED Code(s): 374885123 (3) Bilateral leg edema Narrative/Plan: Due to bilateral DVT. There may also be a component of third spacing. Continue anticoagulation. Deferred to the admitting service asked to benefit from diuresis. This would have to be quite cautious, as the patient is at risk of dehydration, due to significant component of third spacing Current Visit: No Status: Acute Code(s): R60.0 - LOCALIZED EDEMA SNOMED Code(s): 899415147 (4) Nausea & vomiting Narrative/Plan: The patient has stomach and duodenal mucosal infiltration with adenocarcinoma. In addition she also has a degree of gastric outlet obstruction from lymphadenopathy. This has led to bloating, early satiety and nausea and vomiting. At this time she is able to tolerate liquids. Continue Reglan, which was started last visit. She is being assessed for palliative radiation to the lymphadenopathy. Anti-emetics prn Current Visit: Yes Status: Acute Code(s): R11.2 - NAUSEA WITH VOMITING, UNSPECIFIED SNOMED Code(s): 27163780
[2019-03-06] MEDS: IPRATROPIUM-ALBUTEROL 3 ML NEB INHALATION PRN ×4 (03:08→20:51)
[2019-03-06] MEDS: RIVAROXABAN 15 MG TAB PO SCH ×3 (07:02→16:19)
[2019-03-06] MEDS: FUROSEMIDE 10 MG/ML 4 ML VIAL IV SCH ×3 (07:02→20:27)
[2019-03-06] MEDS: METOCLOPRAMIDE 10 MG TAB PO SCH ×4 (07:03→16:19)
[2019-03-06 07:49] LABS: Anisocytosis Marked; Basophils % (A) 0 %; Eosinophils # (A) 0.2 k/uL (0-0.7); Eosinophils % (A) 1 %; HCT 31.5 % (34.0-46.0); HGB 9.5 gm/dL (11.4-16.0); Hypochromasia Marked; Lymphocytes # (A) 0.5 k/uL (1.0-4.8); Lymphocytes % (A) 2 %; MCH 28.7 pg (25.0-35.0); MCHC 30.1 g/dL (31.0-37.0); MCV 95.4 fL (80.0-100.0); Macrocytosis Moderate; Mean Platelet Volume 6.9; Monocytes % (A) 4 %; Neutrophils # (A) 21.6 k/uL (1.3-7.7); Neutrophils % (A) 92 %; Platelet Count 323 k/uL (150-450); Poikilocytosis Slight; RDW 24.3 % (11.5-15.5); WBC 23.4 k/uL (3.8-10.6)
[2019-03-06] MEDS: MORPHINE SULFATE 2 MG/ML SYRINGE IVP PRN ×2 (07:50→16:18)
[2019-03-06 07:59] LABS: ALT 20 U/L (9-52); AST 18 U/L (14-36); Albumin 2.5 g/dL (3.5-5.0); Alkaline Phosphatase 114 U/L (38-126); Anion Gap 3 mmol/L; Blood Urea Nitrogen 15 mg/dL (7-17); Calcium 8.8 mg/dL (8.4-10.2); Carbon Dioxide 33 mmol/L (22-30); Chloride 99 mmol/L (98-107); Glucose 114 mg/dL (74-99); Potassium 4.1 mmol/L (3.5-5.1); Sodium 135 mmol/L (137-145); Total Bilirubin 0.4 mg/dL (0.2-1.3); Total Protein 4.9 g/dL (6.3-8.2)
[2019-03-06] MEDS: HYDROcodone/APAP 5-325MG 1 EACH TAB PO PRN ×2 (10:48→20:27)
--- NOTE | 2019-03-06 13:00 | P.PN ---
Subjective Progress Note Date: 03/06/19 The patient feels slightly stronger, but generalized weakness is still quite significant. She is able to tolerate liquids, and denies nausea or vomiting. She is able to have bowel movements and passing gas. She continues to have significant bloating of her abdomen especially in the upper aspect. Lower extremity swelling is mildly improved. No obvious bleeding. Respiratory status is stable Objective - Vital Signs Vital signs: Vital Signs Temp 97.5 F L 03/06/19 05:00 Pulse 112 H 03/06/19 11:31 Resp 20 03/06/19 05:00 BP 106/58 03/06/19 05:00 Pulse Ox 94 L 03/06/19 05:00 Intake & Output 03/05/19 03/06/19 03/06/19 18:59 06:59 18:59 Output Total 800 800 Balance -800 -800 Weight 77.111 kg Output: Urine 800 800 Other: Voiding Method Indwelling Catheter Bedpan Indwelling Catheter # Voids 1 1 # Bowel Movements 1 1 - Constitutional General appearance: Present: no acute distress - EENT Eyes: Present: EOMI ENT: Present: hearing grossly normal, normal oropharynx - Respiratory Respiratory: right: diminished, rales - Cardiovascular Rhythm: regular Heart sounds: normal: S1, S2 - Gastrointestinal General gastrointestinal: Present: normal bowel sounds, soft - Integumentary Integumentary: Present: normal - Neurologic Neurologic: Present: CNII-XII intact - Musculoskeletal Musculoskeletal: Present: generalized weakness, strength equal bilaterally - Psychiatric Psychiatric: Present: A&O x's 3, appropriate affect - Labs CBC & Chem 7: 03/06/19 07:13 03/06/19 07:13 Labs: Abnormal Lab Results - Last 24 Hours (Table) 03/06/19 03/06/19 Range/Units 07:13 07:13 WBC 23.4 H (3.8-10.6) k/uL RBC 3.30 L (3.80-5.40) m/uL Hgb 9.5 L (11.4-16.0) gm/dL Hct 31.5 L (34.0-46.0) % MCHC 30.1 L (31.0-37.0) g/dL RDW 24.3 H (11.5-15.5) % Neutrophils # 21.6 H (1.3-7.7) k/uL Lymphocytes # 0.5 L (1.0-4.8) k/uL Sodium 135 L (137-145) mmol/L Carbon Dioxide 33 H (22-30) mmol/L Glucose 114 H (74-99) mg/dL Total Protein 4.9 L (6.3-8.2) g/dL Albumin 2.5 L (3.5-5.0) g/dL Assessment and Plan (1) Generalized weakness Narrative/Plan: Mild improvement, but is still quite significant. Try to improve mobility in the hospital, with PT/OT. Case discussed in detail with the admitting service. At this time, there remains significant concern that the patient will not be able to take care of herself at home. Her also has multiple medical issues which diminish his ability to provide adequate care. - Consults to Dr. Smiley to see if the patient could be an inpatient rehab candidate - If not, the patient will likely need subacute rehab at least temporarily. Current Visit: Yes Status: Acute Code(s): R53.1 - WEAKNESS SNOMED Code(s): 34832792 (2) Adenocarcinoma of lung Narrative/Plan: The patient is status post 1 cycle of chemotherapy with Taxotere for rapidly progressive disease, with planned radiation for obstructing upper abdominal lymph nodes. As noted, it is possible that the patient may need subacute rehab. In that situation we likely will not be able to continue chemotherapy or radiation for the duration of her stay. There is concern that during that time the patient's symptoms, which are due to her malignancy, we will continue to progress. Therefore in that situation, I would consider giving a second cycle of chemotherapy inpatient, in an attempt to continue cytoreduction, prior to discharge her to rehab. Current Visit: No Status: Acute Code(s): C34.90 - MALIGNANT NEOPLASM OF UNSP PART OF UNSP BRONCHUS OR LUNG SNOMED Code(s): 566603411 (3) Bilateral leg edema Narrative/Plan: This is mildly improved with ongoing dialysis. Monitor renal function. Continue anticoagulation Current Visit: No Status: Acute Code(s): R60.0 - LOCALIZED EDEMA SNOMED Code(s): 687446901 (4) Nausea & vomiting Narrative/Plan: Continue liquid diet and Reglan. Anti-emetics when necessary Current Visit: Yes Status: Acute Code(s): R11.2 - NAUSEA WITH VOMITING, UNSPECIFIED SNOMED Code(s): 62602811
--- NOTE | 2019-03-06 13:18 | P.PN ---
Subjective Progress Note Date: 03/06/19 Principal diagnosis: weakness Patient is a 53-year-old female with a history of metastatic adenocarcinoma of the lung currently undergoing chemotherapy with Taxotere, GE RD, 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 In the emergency department she underwent an extensive evaluation. She was recently hospitalized here from 02/25/19 through 03/04/19 for postobstructive pneumonia, failure to thrive with inability to eat, and bilateral lower extremity DVTs. She was discharged home with home health and palliative care services with the plan was for her to continue with palliative radiation for 5 doses as well as chemo. However when she arrived home she was so weak she could not off the couch and therefore called EMS and has been readmitted to the hospital. On arrival to the ER she was found to be slightly hypotensive with a blood pressure of 83/70 and her heart rate was elevated at 107 which is chronic. Initial laboratory analysis showed an elevated white blood cell count 34.1 however this was improved from prior hospitalization. She was also found to be slightly hyperkal emic with potassium of 5.3. She was started on some IV fluids and pain medications. She was admitted as observation for further monitoring. Plan is for discharge to rehab facility. Attempting to coordinate this along with her need for treatment. Patient seen and examined at bedside. She reports that her breathing is at baseline. Her nausea is at baseline. She is still feeling severely weak and is unable to get out of bed by herself. Objective - Vital Signs Vital signs: Vital Signs Temp 97.5 F L 03/06/19 05:00 Pulse 112 H 03/06/19 11:31 Resp 20 03/06/19 05:00 BP 106/58 03/06/19 05:00 Pulse Ox 94 L 03/06/19 05:00 Intake & Output 03/05/19 03/06/19 03/06/19 18:59 06:59 18:59 Output Total 800 800 Balance -800 -800 Weight 77.111 kg Output: Urine 800 800 Other: Voiding Method Indwelling Catheter Bedpan Indwelling Catheter # Voids 1 1 # Bowel Movements 1 1 - Exam General: non toxic, chronically ill appearing with temporal wasting, appears older than stated age, losing her hair Derm: warm, dry Head: atraumatic, normocephalic, symmetric Eyes: EOMI, no lid lag, anicteric sclera Mouth: no lip lesion, mucus membranes moist Cardiovascular: S1S2 reg, no murmur, positive posterior tibial pulse bilateral, Lungs: CTA bilateral, no rhonchi, no rales , no accessory muscle use Abdominal: soft, + distended, + tender to palpation periUmbilical, no guarding, no appreciable organomegaly Ext: no gross muscle atrophy, no edema, no contractures Neuro: CN II-XI grossly intact, no focal neuro deficits Psych: Alert, oriented, appropriate affect - Labs CBC & Chem 7: 03/06/19 07:13 03/06/19 07:13 Labs: Abnormal Lab Results - Last 24 Hours (Table) 03/06/19 03/06/19 Range/Units 07:13 07:13 WBC 23.4 H (3.8-10.6) k/uL RBC 3.30 L (3.80-5.40) m/uL Hgb 9.5 L (11.4-16.0) gm/dL Hct 31.5 L (34.0-46.0) % MCHC 30.1 L (31.0-37.0) g/dL RDW 24.3 H (11.5-15.5) % Neutrophils # 21.6 H (1.3-7.7) k/uL Lymphocytes # 0.5 L (1.0-4.8) k/uL Sodium 135 L (137-145) mmol/L Carbon Dioxide 33 H (22-30) mmol/L Glucose 114 H (74-99) mg/dL Total Protein 4.9 L (6.3-8.2) g/dL Albumin 2.5 L (3.5-5.0) g/dL Assessment and Plan Assessment: Severe debility -PT/OT consult -Consult Dr. Garcia for possible inpatient rehab -Plan is for discharge to inpatient for subacute rehab Leukocytosis -Likely secondary to malignancy and not reflective of infection -Continue to follow fever profile and white blood cell count Bilateral lower extremity DVTs -Recent history of GI bleed and will need to be monitored closely - Continue xarelto. Intractable abdominal pain and bloating -Likely due to mass effect - Chemo and radiation. Working closely with oncology for appropriate discharge plan. May be a candidate for IPR. - Continue with Kennedy and morphine -Transition Decadron to oral in preparation for discharge - CT with increased abd adenopathy and mass effect on duodenum Adenocarcinoma of the lung, stage IV -D/W oncology - will need chemo/ radiation but also not safe to discharge COPD with chronic hypoxic respiratory failure -As needed albuterol treatments-budesonide and Solu-Medrol -Not chronically on inhalers but takes as needed albuterol - titrate O2 for sPO2 >88 GERD/ Gastritis -Resume H2 mel Normocytic anemia -At baseline -Per notes from last admission appeared to be iron deficiency plus anemia of chronic disease -Management per hematology/oncology Severe protein calorie malnutrition - deititian recs - supplements Hyperkalemia, resolved Hypotension, resolved Chronic: T11 compression fracture Recent postobstructive pneumonia DVT prophylaxis: xarelto Discussed with: Pt, nursing, Dr. Jensen Anticipated discharge: 2-[address]: [facility] vs [facility] A total of 25 minutes was spent on the care of this complex patient more than 50% of the time was spent in counseling and care coordination.
[2019-03-06] MEDS: FAMOTIDINE 20 MG TAB PO SCH ×2 (13:46→20:27)
[2019-03-07] MEDS: IPRATROPIUM-ALBUTEROL 3 ML NEB INHALATION PRN ×6 (00:06→20:25)
[2019-03-07] MEDS: MORPHINE SULFATE 2 MG/ML SYRINGE IVP PRN ×3 (03:18→19:48)
[2019-03-07] MEDS: RIVAROXABAN 15 MG TAB PO SCH ×2 (07:18→16:36)
[2019-03-07] MEDS: FUROSEMIDE 10 MG/ML 4 ML VIAL IV SCH ×2 (07:18→20:15)
[2019-03-07] MEDS: METOCLOPRAMIDE 10 MG TAB PO SCH ×3 (07:18→16:36)
[2019-03-07] MEDS: FAMOTIDINE 20 MG TAB PO SCH ×2 (07:18→20:15)
[2019-03-07 08:00] LABS: Anisocytosis Moderate; Basophils % (A) 0 %; Eosinophils # (A) 0.3 k/uL (0-0.7); Eosinophils % (A) 2 %; HCT 30.9 % (34.0-46.0); HGB 9.2 gm/dL (11.4-16.0); Hypochromasia Marked; Lymphocytes # (A) 0.4 k/uL (1.0-4.8); Lymphocytes % (A) 2 %; MCH 28.6 pg (25.0-35.0); MCHC 29.8 g/dL (31.0-37.0); MCV 95.9 fL (80.0-100.0); Macrocytosis Moderate; Mean Platelet Volume 6.7; Monocytes # (A) 0.9 k/uL (0-1.0); Monocytes % (A) 4 %; Neutrophils # (A) 18.9 k/uL (1.3-7.7); Neutrophils % (A) 91 %; Platelet Count 315 k/uL (150-450); Poikilocytosis Slight; RBC 3.22 m/uL (3.80-5.40); RDW 23.9 % (11.5-15.5); WBC 20.7 k/uL (3.8-10.6)
[2019-03-07 08:25] LABS: ALT 14 U/L (9-52); AST 17 U/L (14-36); Albumin 2.5 g/dL (3.5-5.0); Alkaline Phosphatase 125 U/L (38-126); Anion Gap 3 mmol/L; Blood Urea Nitrogen 17 mg/dL (7-17); Calcium 8.6 mg/dL (8.4-10.2); Carbon Dioxide 33 mmol/L (22-30); Chloride 97 mmol/L (98-107); Glucose 109 mg/dL (74-99); Magnesium 1.5 mg/dL (1.6-2.3); Potassium 4.1 mmol/L (3.5-5.1); Sodium 133 mmol/L (137-145); Total Bilirubin 0.4 mg/dL (0.2-1.3)
[2019-03-07] MEDS: HYDROcodone/APAP 5-325MG 1 EACH TAB PO PRN (09:45)
[2019-03-07] MEDS: MAGNESIUM SULFATE-D5W PMX 1 GM in DEXTROSE/WATER 1 100ML.BAG IVPB SCH ×2 (11:39→12:29)
[2019-03-07] MEDS ORDERED: METOLAZONE 2.5 MG TAB PO ONE (13:00)
[2019-03-07] MEDS ORDERED: ALBUTEROL NEBULIZED 2.5 MG/3 ML INHALATION PRN (14:36)
--- NOTE | 2019-03-07 14:37 | P.PN ---
Subjective Progress Note Date: 03/07/19 Principal diagnosis: weakness Patient is a 53-year-old female with a history of metastatic adenocarcinoma of the lung currently undergoing chemotherapy with Taxotere, GE RD, 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 In the emergency department she underwent an extensive evaluation. She was recently hospitalized here from 02/25/19 through 03/04/19 for postobstructive pneumonia, failure to thrive with inability to eat, and bilateral lower extremity DVTs. She was discharged home with home health and palliative care services with the plan was for her to continue with palliative radiation for 5 doses as well as chemo. However when she arrived home she was so weak she could not off the couch and therefore called EMS and has been readmitted to the hospital. On arrival to the ER she was found to be slightly hypotensive with a blood pressure of 83/70 and her heart rate was elevated at 107 which is chronic. Initial laboratory analysis showed an elevated white blood cell count 34.1 however this was improved from prior hospitalization. She was also found to be slightly hyperkal emic with potassium of 5.3. She was started on some IV fluids and pain medications. She was admitted as observation for further monitoring. Plan is for discharge to rehab facility. Attempting to coordinate this along with her need for treatment. Patient seen and examined at bedside. Pain is controlled, still no appetite, no nausea or vomiting, breathing is at baseline. Able to ambulate to the bathroom today. Her worse weakness is getting from sitting to standing Objective - Vital Signs Vital signs: Vital Signs Temp 97.4 F L 03/07/19 13:00 Pulse 114 H 03/07/19 13:17 Resp 17 03/07/19 13:00 BP 82/53 03/07/19 13:00 Pulse Ox 99 03/07/19 13:00 Intake & Output 03/06/19 03/07/19 03/07/19 18:59 06:59 18:59 Intake Total 963 051 9816 Output Total 1600 600 Balance -640 -360 1000 Intake: Intake, IV Titration 200 Amount Magnesium Sulfate-D5w Pmx 200 1 gm In Dextrose/Water 1 100ml.bag @ 100 mls/hr IVPB Q1H [facility] Rx#: [id number] Oral 960 240 800 Output: Urine 1600 600 Uretheral (Thomas) 600 Other: Voiding Method Indwelling Catheter Indwelling Catheter Indwelling Catheter # Voids 1 1 # Bowel Movements 1 1 - Exam General: non toxic, chronically ill appearing with temporal wasting, appears older than stated age, losing her hair Derm: warm, dry Head: atraumatic, normocephalic, symmetric Eyes: EOMI, no lid lag, anicteric sclera Mouth: no lip lesion, mucus membranes moist Cardiovascular: S1S2 reg, no murmur, positive posterior tibial pulse bilateral, Lungs: Rhonchi right lung , no accessory muscle use Abdominal: soft, + distended, nontender to palpation periUmbilical, no guarding, no appreciable organomegaly Ext: no gross muscle atrophy, no edema, no contractures Neuro: CN II-XI grossly intact, no focal neuro deficits Psych: Alert, oriented, appropriate affect - Labs CBC & Chem 7: 03/07/19 07:38 03/07/19 07:38 Labs: Abnormal Lab Results - Last 24 Hours (Table) 03/07/19 03/07/19 Range/Units 07:38 07:38 WBC 20.7 H (3.8-10.6) k/uL RBC 3.22 L (3.80-5.40) m/uL Hgb 9.2 L (11.4-16.0) gm/dL Hct 30.9 L (34.0-46.0) % MCHC 29.8 L (31.0-37.0) g/dL RDW 23.9 H (11.5-15.5) % Neutrophils # 18.9 H (1.3-7.7) k/uL Lymphocytes # 0.4 L (1.0-4.8) k/uL Sodium 133 L (137-145) mmol/L Chloride 97 L (98-107) mmol/L Carbon Dioxide 33 H (22-30) mmol/L Glucose 109 H (74-99) mg/dL Magnesium 1.5 L (1.6-2.3) mg/dL Total Protein 5.0 L (6.3-8.2) g/dL Albumin 2.5 L (3.5-5.0) g/dL Assessment and Plan Assessment: Severe debility -PT/OT consult -Consult Dr. Garcia for possible inpatient rehab -Plan is for discharge to inpatient for subacute rehab Hypomagnesemia -Replace and repeat in a.m. Leukocytosis, multifactorial and improving -Likely secondary to malignancy and not reflective of infection -Continue to follow fever profile and white blood cell count Lower extremity edema -Secondary to severe protein calorie malnutrition in combination with bilateral lower extremity DVTs -Has been on Lasix IV push twice a day add Zaroxolyn Bilateral lower extremity DVTs -Recent history of GI bleed and will need to be monitored closely - Continue xarelto. Intractable abdominal pain and bloating -Likely due to mass effect - Chemo and radiation. Working closely with oncology for appropriate discharge plan. May be a candidate for IPR. - Continue with [place] and morphine Adenocarcinoma of the lung, stage IV -D/W oncology - will need chemo/ radiation but also not safe to discharge home COPD with chronic hypoxic respiratory failure -As needed albuterol treatments-budesonide added - titrate O2 for sPO2 >88 GERD/ Gastritis -H 2 mel Normocytic anemia -At baseline -Per notes from last admission appeared to be iron deficiency plus anemia of chronic disease -Management per hematology/oncology Severe protein calorie malnutrition - deititian recs - supplements Hyperkalemia, resolved Hypotension, resolved Chronic: T11 compression fracture Recent postobstructive pneumonia DVT prophylaxis: xarelto Discussed with: Pt, nursing, Dr. Jensen Anticipated discharge: 2-[address]: [facility] vs [facility] A total of 25 minutes was spent on the care of this complex patient more than 50% of the time was spent in counseling and care coordination.
--- NOTE | 2019-03-07 15:11 | P.PN ---
Subjective Progress Note Date: 03/05/19 Principal diagnosis: weakness, inability to care for self at home The patient reports that shortly after discharge, she was unable to get up off of her couch at home. She feels her legs were more swollen and felt very weak. She is still having difficulty with upper abdominal pain and early satiety as well. Objective - Vital Signs Vital signs: Vital Signs Temp 97.4 F L 03/07/19 13:00 Pulse 114 H 03/07/19 13:17 Resp 17 03/07/19 13:00 BP 82/53 03/07/19 13:00 Pulse Ox 99 03/07/19 13:00 Intake & Output 03/06/19 03/07/19 03/07/19 18:59 06:59 18:59 Intake Total 796 625 7934 Output Total 1600 600 Balance -640 -360 1000 Intake: Intake, IV Titration 200 Amount Magnesium Sulfate-D5w Pmx 200 1 gm In Dextrose/Water 1 100ml.bag @ 100 mls/hr IVPB Q1H [facility] Rx#: [id number] Oral 960 240 800 Output: Urine 1600 600 Uretheral (Thomas) 600 Other: Voiding Method Indwelling Catheter Indwelling Catheter Indwelling Catheter # Voids 1 1 # Bowel Movements 1 1 - Constitutional General appearance: Present: no acute distress - EENT Eyes: Present: EOMI, PERRLA ENT: Present: hearing grossly normal - Neck Neck: Absent: lymphadenopathy - Respiratory Respiratory: right: diminished, left: CTA - Cardiovascular Rhythm: regular - Gastrointestinal General gastrointestinal: Present: tenderness. Absent: distended - Integumentary Integumentary: Absent: calor - Neurologic Neurologic: Present: CNII-XII intact - Musculoskeletal Musculoskeletal: Present: generalized weakness - Psychiatric Psychiatric: Present: A&O x's 3, appropriate affect - Labs CBC & Chem 7: 03/07/19 07:38 03/07/19 07:38 Labs: Abnormal Lab Results - Last 24 Hours (Table) 03/07/19 03/07/19 Range/Units 07:38 07:38 WBC 20.7 H (3.8-10.6) k/uL RBC 3.22 L (3.80-5.40) m/uL Hgb 9.2 L (11.4-16.0) gm/dL Hct 30.9 L (34.0-46.0) % MCHC 29.8 L (31.0-37.0) g/dL RDW 23.9 H (11.5-15.5) % Neutrophils # 18.9 H (1.3-7.7) k/uL Lymphocytes # 0.4 L (1.0-4.8) k/uL Sodium 133 L (137-145) mmol/L Chloride 97 L (98-107) mmol/L Carbon Dioxide 33 H (22-30) mmol/L Glucose 109 H (74-99) mg/dL Magnesium 1.5 L (1.6-2.3) mg/dL Total Protein 5.0 L (6.3-8.2) g/dL Albumin 2.5 L (3.5-5.0) g/dL Assessment and Plan Assessment: 53 year old female with history of metastatic NSCLC with sympomatic upper abdominal adenopathy. Please refer to our earlier consultation for full details. She was arranged to start palliative therapy to the upper abdominal region, but ended up re-admitted to the hospital. 1. I would still recommend the patient undergo palliative radiotherapy, which could be performed in 4-5 fractions. She has previously been shown to have invasion of the duodenum, and it is likely this mass effect is resulting in her early satiety. The patient was re-admitted due to weakness and inability to care for herself at home. She is currently being planned for [facility] discharge. Some [facility] facilities in the area will allow delivery of treatment, but others will not. We will discuss this Friday AM to see if initiation and continuation of therapy is possible.
--- NOTE | 2019-03-07 15:35 | P.PN ---
Subjective Progress Note Date: 03/07/19 The patient continues to have significant weakness, but states that she feels somewhat stronger. She did require assistance in getting out of bed or getting up from a sitting position, but was able to ambulate short distances with a walker and sent in a chair. She continues to have bloating, but has not had overt nausea and vomiting. She continues to tolerate liquids. Lower extremity swelling is stable Objective - Vital Signs Vital signs: Vital Signs Temp 97.4 F L 03/07/19 13:00 Pulse 68 03/07/19 15:12 Resp 17 03/07/19 15:12 BP 82/53 03/07/19 13:00 Pulse Ox 99 03/07/19 13:00 Intake & Output 03/06/19 03/07/19 03/07/19 18:59 06:59 18:59 Intake Total 210 974 7878 Output Total 1600 600 400 Balance -640 -360 600 Intake: Intake, IV Titration 200 Amount Magnesium Sulfate-D5w Pmx 200 1 gm In Dextrose/Water 1 100ml.bag @ 100 mls/hr IVPB Q1H [facility] Rx#: [id number] Oral 960 240 800 Output: Urine 1600 600 400 Uretheral (Thomas) 600 Other: Voiding Method Indwelling Catheter Indwelling Catheter Indwelling Catheter # Voids 1 1 # Bowel Movements 1 1 - Constitutional General appearance: Present: no acute distress - EENT Eyes: Present: EOMI ENT: Present: hearing grossly normal, normal oropharynx - Respiratory Respiratory: right: rales, bilateral: diminished - Cardiovascular Rhythm: regular Heart sounds: normal: S1, S2 - Gastrointestinal General gastrointestinal: Present: distended, normal bowel sounds, soft - Integumentary Integumentary: Present: normal - Neurologic Neurologic: Present: CNII-XII intact - Musculoskeletal Musculoskeletal: Present: generalized weakness - Psychiatric Psychiatric: Present: A&O x's 3, appropriate affect - Labs CBC & Chem 7: 03/07/19 07:38 03/07/19 07:38 Labs: Abnormal Lab Results - Last 24 Hours (Table) 03/07/19 03/07/19 Range/Units 07:38 07:38 WBC 20.7 H (3.8-10.6) k/uL RBC 3.22 L (3.80-5.40) m/uL Hgb 9.2 L (11.4-16.0) gm/dL Hct 30.9 L (34.0-46.0) % MCHC 29.8 L (31.0-37.0) g/dL RDW 23.9 H (11.5-15.5) % Neutrophils # 18.9 H (1.3-7.7) k/uL Lymphocytes # 0.4 L (1.0-4.8) k/uL Sodium 133 L (137-145) mmol/L Chloride 97 L (98-107) mmol/L Carbon Dioxide 33 H (22-30) mmol/L Glucose 109 H (74-99) mg/dL Magnesium 1.5 L (1.6-2.3) mg/dL Total Protein 5.0 L (6.3-8.2) g/dL Albumin 2.5 L (3.5-5.0) g/dL Assessment and Plan (1) Generalized weakness Narrative/Plan: There has been some mild improvement. This is multifactorial as noted pre viously. Continue physical therapy. Awaiting evaluation by PMR regarding possibility of IP rehab Current Visit: Yes Status: Acute Code(s): R53.1 - WEAKNESS SNOMED Code(s): 27561332 (2) Adenocarcinoma of lung Narrative/Plan: Status post 1 cycle of Taxotere for rapidly progressive disease. At this time the plan is to consider cycle of chemotherapy inpatient, if the patient is not a candidate for thrombocytopenia and has to go to [facility]. Current Visit: No Status: Acute Code(s): C34.90 - MALIGNANT NEOPLASM OF UNSP PART OF UNSP BRONCHUS OR LUNG SNOMED Code(s): 780972621 (3) Bilateral leg edema Current Visit: No Status: Acute Code(s): R60.0 - LOCALIZED EDEMA SNOMED Code(s): 284910615 (4) Nausea & vomiting Narrative/Plan: On exam the abdomen appear to be somewhat softer today. She is tolerating liquids. Continue the same, along with Reglan. Radiation to upper abdominal lymph nodes which are causing partial obstruction, is being considered, but the treatment will depend on patient's discharge circumstances Current Visit: Yes Status: Acute Code(s): R11.2 - NAUSEA WITH VOMITING, UNSPECIFIED SNOMED Code(s): 11632135
[2019-03-07] MEDS: BUDESONIDE 1 MG/2 ML NEBU INHALATION SCH (20:25)
[2019-03-08] MEDS: MORPHINE SULFATE 2 MG/ML SYRINGE IVP PRN (03:03)
[2019-03-08] MEDS: IPRATROPIUM-ALBUTEROL 3 ML NEB INHALATION PRN ×5 (03:44→15:37)
--- NOTE | 2019-03-08 06:32 | P.CONS ---
History of Present Illness - Chief Complaint Medical debility - History of Present Illness I had the opportunity to see patient for inpatient rehab consultation with regard to medical debility. She was admitted to [facility] March 04 known stage IV adenocarcinoma of lung, COPD exacerbation and hypoxic respiratory failure. Seen by Dr. Jensen who is familiar with patient. Chest x-ray demonstrates consolidation of loss of lung space as well as small effusions. PT reports moderate to maximal assistance for functional mobility, transfers, gait 3 feet with roller walker. OT reports minimal assistance for upper dressing and two-person maximal assistance for bathing and two-person total assistance for lower dressing, toileting and transfers. Previous functional history as elicited patient: 53-year-old right-handed white female who is lives in a trailer home with . Both are retired. does cooking, laundry, driving. Patient semi-independent with sitdown shower, gait with 4 wheeled walker which is been using for the last week. Denies tobacco or alcohol. Dr. Harrington is regular doctor. Family history of father with cancer in both parents are smokers. Review of Systems Review of systems: ENT: Denies sneezes or discharge. Eyes: Denies discharge or photophobia. Cardiac: Fast heart rate. Pulmonary: Moderate shortness of breath. Breast: Denies discharge or lumps. Gastrointestinal: Denies nausea, emesis, constipation, diarrhea. Genitourinary: Denies discharge or frequency. Musculoskeletal: Denies muscle or bone aches. Neurologic: Generalized weakness. Endocrine: Denies shakes or sweats. Oncology: Denies cancers. Dermatologic: Denies rash, itching, pruritus. ALLERGY/immunology: Denies sneezes, rashes. Past Medical History Past Medical History: Cancer, COPD, GERD/Reflux, GI Bleed Additional Past Medical History / Comment(s): stage IV lung cancer dx. 2016- tx with chemo and radiation( new for 2019) Last chemo 3 weeks ago, cancer has mets to abdomen,patient and spouse state she is supposed to start Radiaiton nomi 03/05 History of Any Multi-Drug Resistant Organisms: None Reported Past Surgical History: Orthopedic Surgery, Tubal Ligation Additional Past Surgical History / Comment(s): lung biopsy, left foot surgery, port inserted rt side x2, Past Anesthesia/Blood Transfusion Reactions: No Reported Reaction Past Psychological History: No Psychological Hx Reported Additional Psychological History / Comment(s): Pt has clausterphobia. She resides with her spouse. She has a nebulizer and has home oxygen, normally at 3L [place]. She no longer drives, her spouse takes her to [employer]. Smoking Status: Former smoker Past Alcohol Use History: None Reported Additional Past Alcohol Use History / Comment(s): SMOKED 1 PPD FOR 30-35 YEARS. QUIT SMOKING AUG 2016 Past Drug Use History: None Reported - Past Family History Father Family Medical History: Cancer Additional Family Medical History / Comment(s): Lung cancer and from this. Mother Family Medical History: COPD Additional Family Medical History / Comment(s): Mother from complications of COPD. Medications and Allergies Home Medications Medication Instructions Recorded Confirmed Type Multivitamins, Thera [Multivitamin 1 tab PO DAILY 09/14/16 03/04/19 History (formulary)] Albuterol Inhaler [Ventolin Hfa 1 - 2 puff INHALATION RT-Q6H PRN 11/23/17 03/04/19 History Inhaler] Albuterol Nebulized [Ventolin 2.5 mg INHALATION RT-BID PRN 11/23/17 03/04/19 History Nebulized] Famotidine [Pepcid] 20 mg PO DAILY #60 tab 12/23/18 03/04/19 Rx Rivaroxaban [Xarelto Starter Pack] See Taper PO DIRECTED 03/04/19 03/04/19 History Allergies Allergy/AdvReac Type Severity Reaction Status Date / Time Iodinated Contrast- Oral and AdvReac Nausea & Verified 03/04/19 18:52 IV Dye Vomiting Physical Exam Vitals: Vital Signs Temp Pulse Pulse Pulse Resp BP Pulse Ox 03/08/19 05:00 97.6 F 115 H 18 92/58 97 03/08/19 03:55 108 H 03/08/19 03:44 116 H 03/08/19 00:10 112 H 03/08/19 00:05 97 03/08/19 00:01 117 H 03/07/19 21:00 97.5 F L 117 H 18 104/69 100 03/07/19 20:42 112 H 03/07/19 20:27 112 H 03/07/19 16:13 110 H 03/07/19 16:03 108 H 03/07/19 15:12 68 17 03/07/19 13:17 114 H 03/07/19 13:10 111 H 03/07/19 13:00 97.4 F L 68 17 82/53 99 03/07/19 09:56 112 H 03/07/19 09:46 112 H Intake and Output 03/07/19 03/07/19 03/08/19 14:59 22:59 06:59 Intake Total 1000 240 Output Total 400 650 Balance 1000 -160 -650 Intake: Intake, IV Titration 200 Amount Magnesium Sulfate-D5w Pmx 200 1 gm In Dextrose/Water 1 100ml.bag @ 100 mls/hr IVPB Q1H [facility] Rx#: [id number] Oral 800 240 Output: Urine 400 650 Uretheral (Thomas) 650 Other: Voiding Method Indwelling Catheter Indwelling Catheter Indwelling Catheter # Voids 1 1 # Bowel Movements 1 1 Skin: Good color, texture, turgor. General: Medium to overweight build and comfortable appearance. Head: Normocephalic, atraumatic. Eyes: Symmetric. Pupils equal round. Ears: Symmetric. Hearing within normal limits. Mouth: Clear. Neck: Supple. Carotid without bruit. Cardiac: Regular rate and rhythm. Lungs: Clear anteriorly and posteriorly. Abdomen: Soft active nontender overweight. Extremities: Normal tone. Neurological: Mental status: Alert, cooperative, pleasant. Cranial nerves: Symmetric facial tone and trapezius. Motor: Normal strength and isolation all 4 limbs. Sensation: Intact throughout. DTRs: Symmetric and equal throughout. Mobility: Sits and stands with physical assistance. Results CBC & Chem 7: 03/07/19 07:38 03/07/19 07:38 Labs: Abnormal Lab Results - Last 24 Hours (Table) 03/07/19 03/07/19 Range/Units 07:38 07:38 WBC 20.7 H (3.8-10.6) k/uL RBC 3.22 L (3.80-5.40) m/uL Hgb 9.2 L (11.4-16.0) gm/dL Hct 30.9 L (34.0-46.0) % MCHC 29.8 L (31.0-37.0) g/dL RDW 23.9 H (11.5-15.5) % Neutrophils # 18.9 H (1.3-7.7) k/uL Lymphocytes # 0.4 L (1.0-4.8) k/uL Sodium 133 L (137-145) mmol/L Chloride 97 L (98-107) mmol/L Carbon Dioxide 33 H (22-30) mmol/L Glucose 109 H (74-99) mg/dL Magnesium 1.5 L (1.6-2.3) mg/dL Total Protein 5.0 L (6.3-8.2) g/dL Albumin 2.5 L (3.5-5.0) g/dL Assessment and Plan (1) Generalized weakness Current Visit: Yes Status: Acute Code(s): R53.1 - WEAKNESS SNOMED Code(s): 37841474 (2) Acute respiratory failure with hypoxia Current Visit: No Status: Acute Code(s): J96.01 - ACUTE RESPIRATORY FAILURE WITH HYPOXIA SNOMED Code(s): 82007397 Plan: Impression: 1. Medical debility. 2. Generalized weakness. 3. COPD exacerbation. 4. Acute hypoxic respiratory failure. 5. Stage IV adenocarcinoma lung. Constant plan: At this time PT and OT are ongoing. Safety concerns noted. Have discussed possible inpatient rehab with patient and she seems agreeable if necessary.
[2019-03-08] MEDS: BUDESONIDE 1 MG/2 ML NEBU INHALATION SCH (08:04)
[2019-03-08] MEDS: RIVAROXABAN 15 MG TAB PO SCH (08:18)
[2019-03-08] MEDS: FUROSEMIDE 10 MG/ML 4 ML VIAL IV SCH (08:18)
[2019-03-08] MEDS: METOCLOPRAMIDE 10 MG TAB PO SCH ×2 (08:18→12:22)
[2019-03-08] MEDS: FAMOTIDINE 20 MG TAB PO SCH (08:18)
[2019-03-08] MEDS: HYDROcodone/APAP 5-325MG 1 EACH TAB PO PRN (09:45)
[2019-03-08 10:21] LABS: Anisocytosis Moderate; Basophils % (A) 0 %; Eosinophils # (A) 0.3 k/uL (0-0.7); Eosinophils % (A) 1 %; HCT 29.4 % (34.0-46.0); HGB 9.2 gm/dL (11.4-16.0); Hypochromasia Marked; Lymphocytes # (A) 0.4 k/uL (1.0-4.8); Lymphocytes % (A) 2 %; MCH 29.7 pg (25.0-35.0); MCHC 31.1 g/dL (31.0-37.0); MCV 95.4 fL (80.0-100.0); Macrocytosis Moderate; Mean Platelet Volume 7.7; Monocytes % (A) 5 %; Neutrophils # (A) 19.4 k/uL (1.3-7.7); Neutrophils % (A) 92 %; Platelet Count 271 k/uL (150-450); Poikilocytosis Slight; RBC 3.09 m/uL (3.80-5.40); RDW 23.2 % (11.5-15.5); WBC 21.2 k/uL (3.8-10.6)
[2019-03-08 10:28] LABS: ALT 12 U/L (9-52); AST 19 U/L (14-36); Albumin 2.5 g/dL (3.5-5.0); Alkaline Phosphatase 167 U/L (38-126); Anion Gap 7 mmol/L; Blood Urea Nitrogen 20 mg/dL (7-17); Calcium 8.7 mg/dL (8.4-10.2); Carbon Dioxide 32 mmol/L (22-30); Chloride 93 mmol/L (98-107); Glucose 151 mg/dL (74-99); Magnesium 1.8 mg/dL (1.6-2.3); Potassium 3.7 mmol/L (3.5-5.1); Sodium 132 mmol/L (137-145); Total Bilirubin 0.4 mg/dL (0.2-1.3)
[2019-03-08 12:25] VITALS: BP 83/55; RESP 17; TEMP 97.4
--- NOTE | 2019-03-08 14:22 | P.DS ---
Providers Date of admission: 03/06/19 15:32 Expected date of discharge: 03/08/19 Attending physician: Kaykay Ashton MD Consults: 03/05/19 15:51 Consult Physician Routine Consulting Provider: Raza Jensen Consult Reason/Comments: lung cancer Do you want consulting provider notified?: Yes 03/05/19 15:52 Consult Physician Routine Consulting Provider: Sd Phan Consult Reason/Comments: lung cancer Do you want consulting provider notified?: Yes 03/06/19 13:14 Consult Physician Routine Consulting Provider: Caleb Smiley Consult Reason/Comments: wekaness Do you want consulting provider notified?: Yes Primary care physician: Pauline Harrington MD Hospital Course: Discharge Diagnosis: Severe debility Hypomagnesemia Leukocytosis, reactive Lower extremity edema bilateral lower extremity DVTs Intractable nausea and vomiting due to upper abdominal adenopathy Adenocarcinoma of the lung, stage IV COPD without exacerbation Chronic hypoxic respiratory failure GERD Normocytic anemia Severe protein calorie malnutrition Hyperkalemia Hypotension, without shock T 11 Compression Fx Recent post obstructive PNA Hospital Course: Patient is a 53-year-old female with a history of metastatic adenocarcinoma of the lung currently undergoing chemotherapy with Taxotere, GERD, 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 In the emergency department she underwent an extensive evaluation. She was recently hospitalized here from 02/25/19 through 03/04/19 for postobstructive pneumonia, failure to thrive with inability to eat, and bilateral lower extremity DVTs. She was discharged home with home health and palliative care services with the plan was for her to continue with palliative radiation for 5 doses as well as chemo. However when she arrived home she was so weak she could not off the couch and therefore called EMS and was readmitted to the hospital. On arrival to the ER she was found to be slightly hypotensive with a blood pressure of 83/70 and her heart rate was elevated at 107 which is chronic. Initial laboratory analysis showed an elevated white blood cell count 34.1 however this was improved from prior hospitalization. She was also found to be slightly hyperkalemic with potassium of 5.3. She was started on IV fluids and pain medications. She was found to be significant weak especially when going from sitting to standing. She developed worsening lower extremity edema after IV fluids, she was placed on lasix and received 1 dose of zaroxolyn. This did start to improved her edema. She will need palliative radiation to her upper abdomen due to obstructive adenopathy. Her chemo will be placed on hold when she completes radiation. She was too weak to return home. Dr. Smiley was consulted and she will be discharge to inpatient rehab. She will continue on reglan until her treatment is completed. She had urinary retention but was able to her vazquez sucessfully removed on 03/08. Patient seen and examined at bedside. Feeling stronger everyday. Still not able to eat much. No nausea or vomiting. No diarrhea. Breathing is at baseline Vital signs reviewed and stable. General: non toxic, no distress, appears older than stated age, temporal wasting Derm: warm, dry Head: atraumatic, normocephalic, symmetric Eyes: EOMI, no lid lag, anicteric sclera Mouth: no lip lesion, mucus membranes moist Cardiovascular: S1S2 reg, no murmur, positive posterior tibial pulse bilateral, Lungs: Course breath sounds on right , no rhonchi, no rales , no accessory muscle use Abdominal: soft, nontender to palpation, no guarding, no appreciable organomegaly Ext: + gross muscle atrophy, diffuse anasarca, no contractures Neuro: CN II-XI grossly intact, no focal neuro deficits Psych: Alert, oriented, appropriate affect A total of 35 minutes of time were spent preparing this complex discharge summary . Patient Condition at Discharge: Stable Plan - Discharge Summary Discharge Rx Participant: No New Discharge Prescriptions: New Furosemide [Lasix] 40 mg PO BID #60 tablet HYDROcodone/APAP 5-325MG [Paramount 5-325] 1 each PO Q6HR PRN tab PRN Reason: Pain Budesonide [Pulmicort] 1 mg INHALATION RT-BID nebu Metoclopramide [Reglan] 10 mg PO AC-TID tab Continue Multivitamins, Thera [Multivitamin (formulary)] 1 tab PO DAILY Albuterol Inhaler [Ventolin Hfa Inhaler] 1 - 2 puff INHALATION RT-Q6H PRN PRN Reason: Shortness Of Breath Famotidine [Pepcid] 20 mg PO DAILY #60 tab Rivaroxaban [Xarelto Starter Pack] See Taper PO DIRECTED Discontinued Albuterol Nebulized [Ventolin Nebulized] 2.5 mg INHALATION RT-BID PRN PRN Reason: Dyspnea Discharge Medication List Multivitamins, Thera [Multivitamin (formulary)] 1 tab PO DAILY 09/14/16 [History] Albuterol Inhaler [Ventolin Hfa Inhaler] 1 - 2 puff INHALATION RT-Q6H PRN 11/23/17 [History] Famotidine [Pepcid] 20 mg PO DAILY #60 tab 12/23/18 [Rx] Rivaroxaban [Xarelto Starter Pack] See Taper PO DIRECTED 03/04/19 [History] Budesonide [Pulmicort] 1 mg INHALATION RT-BID nebu 03/08/19 [Rx] Furosemide [Lasix] 40 mg PO BID #60 tablet 03/08/19 [Rx] HYDROcodone/APAP 5-325MG [Paramount 5-325] 1 each PO Q6HR PRN tab 03/08/19 [Rx] Metoclopramide [Reglan] 10 mg PO AC-TID tab 03/08/19 [Rx] Follow up Appointment(s)/Referral(s): Pauline Harrington MD [Primary Care Provider] - 1-2 days
--- NOTE | 2019-03-08 14:45 | P.PN ---
Subjective Progress Note Date: 03/08/19 Principal diagnosis: Metastatic lung cancer with bowel involvement In follow-up today patient's is sitting in the chair. Plan is for inpatient rehab and patient is willing to proceed. Patient had a bowel movement this a.m., noticed some blood in the Thomas catheter bag, cath has been removed, denies dysuria this time. Patient is having difficulty moving her legs and getting up independently from a low seated position because of severe edema and abdominal distention. Denies fever, chest pain, difficulty in breathing, abdominal pain or cramping. Objective - Vital Signs Vital signs: Vital Signs Temp 97.4 F L 03/08/19 12:24 Pulse 121 H 03/08/19 12:24 Resp 17 03/08/19 12:24 BP 83/55 03/08/19 12:24 Pulse Ox 100 03/08/19 12:24 Intake & Output 03/07/19 03/08/19 03/08/19 18:59 06:59 18:59 Intake Total 1000 240 Output Total 400 650 Balance 600 -410 Weight 77.111 kg Intake: Intake, IV Titration 200 Amount Magnesium Sulfate-D5w Pmx 200 1 gm In Dextrose/Water 1 100ml.bag @ 100 mls/hr IVPB Q1H LEA Rx#: [id number] Oral 800 240 Output: Urine 400 650 Uretheral (Thomas) 650 Other: Voiding Method Indwelling Catheter Indwelling Catheter Indwelling Catheter # Voids 1 # Bowel Movements 1 - Constitutional Constitutional Comment(s): Average upper body habitus, from the waist down patient is significantly distended with pitting edema 3+ General appearance: Present: cooperative, no acute distress - EENT Eyes: Present: anicteric sclerae, EOMI ENT: Present: hearing grossly normal, normal oropharynx - Respiratory Respiratory: bilateral: diminished - Cardiovascular Details: Severe fingernail clubbing Rhythm: regular Heart sounds: normal: S1, S2 Abnormal Heart Sounds: Absent: systolic murmur, diastolic murmur, rub, S3 Gallop, S4 Gallop, click, other - Peripheral edema leg Peripheral Edema: bilateral: 3+, Pitting - Gastrointestinal Gastrointestinal Comment(s): Subcutaneous edema General gastrointestinal: Present: distended, normal bowel sounds, soft - Integumentary Integumentary: Present: pale - Neurologic Neurologic: Present: CNII-XII intact - Musculoskeletal Musculoskeletal: Present: generalized weakness - Psychiatric Psychiatric: Present: A&O x's 3, appropriate affect, intact judgment & insight - Labs CBC & Chem 7: 03/08/19 09:03 03/08/19 09:03 Labs: Abnormal Lab Results - Last 24 Hours (Table) 03/08/19 03/08/19 Range/Units 09:03 09:03 WBC 21.2 H (3.8-10.6) k/uL RBC 3.09 L (3.80-5.40) m/uL Hgb 9.2 L (11.4-16.0) gm/dL Hct 29.4 L (34.0-46.0) % RDW 23.2 H (11.5-15.5) % Neutrophils # 19.4 H (1.3-7.7) k/uL Lymphocytes # 0.4 L (1.0-4.8) k/uL Sodium 132 L (137-145) mmol/L Chloride 93 L (98-107) mmol/L Carbon Dioxide 32 H (22-30) mmol/L BUN 20 H (7-17) mg/dL Glucose 151 H (74-99) mg/dL Alkaline Phosphatase 167 H (38-126) U/L Total Protein 5.0 L (6.3-8.2) g/dL Albumin 2.5 L (3.5-5.0) g/dL Assessment and Plan (1) Stage IV adenocarcinoma of lung Narrative/Plan: Disease in the gastrointestinal tract. She has been started on Reglan. She is on liquids and soft diet. She has had one cycle of single agent Taxotere, this will continue as an outpatient. She is going to receive palliative radiation to adenopathy in the pelvis that is likely contributing to her gastrointestional dysfunction as well. Current Visit: Yes Status: Chronic Priority: High Code(s): C34.90 - MALIGNANT NEOPLASM OF UNSP PART OF UNSP BRONCHUS OR LUNG SNOMED Code(s): 129077725 (2) Anasarca Narrative/Plan: Secondary to malignant process, lymphedema assist stable at this time. Hopefully with some palliative treatment this may be able to somewhat shon. Current Visit: Yes Status: Acute Priority: High Code(s): R60.1 - GENERALIZED EDEMA SNOMED Code(s): 418517014 (3) Generalized weakness Narrative/Plan: Patient has been accepted into inpatient rehabilitation. She is motivated for the same. Current Visit: Yes Status: Acute Priority: High Code(s): R53.1 - WEAKNESS SNOMED Code(s): 10381984
[2019-03-08 15:41] VITALS: PULSE 102
== END 2019-03-08 16:25 | DRG 947 ==
LOC: EC 17:42 → INTOOBSV 20:33 → 3NMEDONC 20:33 → OBSVTOIN 03-06 15:32
PROVIDERS: ADMIT Internal Medicine; ATTEND Internal Medicine
DX: R53.81 Other malaise (principal); E43 Unspecified severe protein-calorie malnutrition; J96.11 Chronic respiratory failure with hypoxia; K31.1 Adult hypertrophic pyloric stenosis; I82.403 Acute embolism and thrombosis of unspecified deep veins of lower extremity, bilateral; M84.58XA Pathological fracture in neoplastic disease, other specified site, initial encounter for fracture; C79.51 Secondary malignant neoplasm of bone; C79.89 Secondary malignant neoplasm of other specified sites; C34.90 Malignant neoplasm of unspecified part of unspecified bronchus or lung; R53.1 Weakness; I95.9 Hypotension, unspecified; E87.5 Hyperkalemia; E83.42 Hypomagnesemia; E87.70 Fluid overload, unspecified; J44.9 Chronic obstructive pulmonary disease, unspecified; G89.3 Neoplasm related pain (acute) (chronic); K29.70 Gastritis, unspecified, without bleeding; R62.7 Adult failure to thrive; R33.9 Retention of urine, unspecified; D64.9 Anemia, unspecified; D50.9 Iron deficiency anemia, unspecified; K21.9 Gastro-esophageal reflux disease without esophagitis; D72.829 Elevated white blood cell count, unspecified; R60.1 Generalized edema; L30.9 Dermatitis, unspecified; T45.1X5A Adverse effect of antineoplastic and immunosuppressive drugs, initial encounter; Z68.30 Body mass index [BMI] 30.0-30.9, adult; Z99.81 Dependence on supplemental oxygen; Z79.01 Long term (current) use of anticoagulants; Z79.899 Other long term (current) drug therapy; Z71.3 Dietary counseling and surveillance; Z87.891 Personal history of nicotine dependence; Z98.51 Tubal ligation status; Z98.890 Other specified postprocedural states; Z91.041 Radiographic dye allergy status; Z80.1 Family history of malignant neoplasm of trachea, bronchus and lung; Z82.5 Family history of asthma and other chronic lower respiratory diseases
CPT/HCPCS: 36415; 71046; 80048; 80053; 81003; 83735; 83880; 84484; 85025; 85027; 85610; 85730; 87324; 93005; 94640; 94760; 96374; 99285